=== PATIENT | female | born 1960 | race Caucasian/White ===

== ENCOUNTER → 2023-08-25 15:36 | Outpatient (REF) | payer OTHER, SELFPAY | LOC: PAVMRI 15:36 | PROVIDERS: ATTENDING PHYSICIAN Family Medicine | DX: M54.50 Low back pain, unspecified (principal); G89.29 Other chronic pain; M54.16 Radiculopathy, lumbar region | CPT/HCPCS: 72148 ==

== ENCOUNTER → 2023-11-10 09:28 | Outpatient (REF) | payer OTHER, SELFPAY | LOC: WDC 09:28 | PROVIDERS: ATTENDING PHYSICIAN Family Medicine; FAMILY PHYSICIAN Physician Assistant | DX: N63.10 Unspecified lump in the right breast, unspecified quadrant (principal); N63.11 Unspecified lump in the right breast, upper outer quadrant | CPT/HCPCS: 76642; 77062; 77066 ==

== ENCOUNTER → 2023-11-14 06:49 | Outpatient (REF) | payer OTHER, SELFPAY ==
--- NOTE | 2023-11-14 08:53 | OID.BR.INTR ---
[facility] Breast Navigator - Initial
- -
Date of Contact: 11/14/23
Met with patient. Patient given written information on navigator services and support services available at [facility]. Will follow up as needed per protocol.
== END ==
LOC: WDC 06:49
PROVIDERS: ATTENDING PHYSICIAN Family Medicine
DX: N63.11 Unspecified lump in the right breast, upper outer quadrant (principal)
CPT/HCPCS: 88305; 19083; 77065; 88341; 88342; 88360; A4648

== ENCOUNTER → 2023-11-30 07:43 | Outpatient (REF) | payer OTHER, SELFPAY | LOC: PET 07:43 | PROVIDERS: ATTENDING PHYSICIAN Surgery | DX: C50.919 Malignant neoplasm of unspecified site of unspecified female breast (principal); C44.521 Squamous cell carcinoma of skin of breast | CPT/HCPCS: 78815; A9552 ==

== ENCOUNTER → 2023-12-12 08:29 | Outpatient (REF) | payer OTHER, SELFPAY | LOC: WDC 08:29 | PROVIDERS: ATTENDING PHYSICIAN Surgery | DX: C50.411 Malignant neoplasm of upper-outer quadrant of right female breast (principal) | CPT/HCPCS: 38792; 76942; A9541 ==

== ENCOUNTER → 2023-12-13 14:15 | Outpatient (REF) | payer OTHER, SELFPAY | LOC: CLAB 14:15 | PROVIDERS: ATTENDING PHYSICIAN Surgery | DX: C50.919 Malignant neoplasm of unspecified site of unspecified female breast (principal) | CPT/HCPCS: 88305; 88307; 88332; 88331; 88342 ==

== ENCOUNTER → 2024-01-20 09:14 | Outpatient (REF) | payer OTHER, SELFPAY | LOC: RCS 09:14 | PROVIDERS: ATTENDING PHYSICIAN Internal Medicine Hematology & Oncology; FAMILY PHYSICIAN Family Medicine | DX: C50.411 Malignant neoplasm of upper-outer quadrant of right female breast (principal) | CPT/HCPCS: 93306; 93356 ==

== ENCOUNTER → 2024-01-24 08:07 | Outpatient (REF) | payer OTHER, SELFPAY ==
[2024-01-24 08:40] VITALS: BP 128/78; BP_SYST 80
[2024-01-24] MEDS: ANCEF 10 IV (08:59)
[2024-01-24 11:18] VITALS: BP 141/84; BP_SYST 96
== END ==
LOC: RADI 08:07
PROVIDERS: ATTENDING PHYSICIAN Internal Medicine Hematology & Oncology; FAMILY PHYSICIAN Family Medicine
DX: C50.411 Malignant neoplasm of upper-outer quadrant of right female breast (principal)
CPT/HCPCS: 36561; 76942; 77001; 99152; 99153; C1788

== ENCOUNTER 2024-02-07 07:50 | Outpatient (RCR) | payer OTHER, SELFPAY | END 2024-02-07 23:59 | disposition home or self-care (01) | LOC: RPT 07:50 | PROVIDERS: ATTENDING PHYSICIAN Surgery; FAMILY PHYSICIAN Family Medicine | DX: I89.9 Noninfective disorder of lymphatic vessels and lymph nodes, unspecified (principal); C50.411 Malignant neoplasm of upper-outer quadrant of right female breast; Z73.6 Limitation of activities due to disability | CPT/HCPCS: 97110; 97140; 97162; 97535 ==

== ENCOUNTER 2024-02-08 23:55 | Emergency (ER) | payer OTHER, SELFPAY ==
[2024-02-09 00:14] VITALS: BP 112/78
[2024-02-09 01:16] VITALS: BMI 22.7
--- NOTE | 2024-02-09 01:35 | ED.GENMED ---
History of Present Illness
General
Chief Complaint: Fainting Sensation
Source: patient
Exam Limitations: none
Time Seen by Provider: 02/09/24 01:24
History of Present Illness
History of Present Illness:
This is a 63-year-old female presents after she started feeling lightheaded, nauseous and dizzy. The patient had round 2 of chemo earlier in the day. She admits that on her last dosages of chemo she spent 3 to 4 days nauseous and vomiting and
unable to eat. She admits that she does still feel nauseous despite taking Compazine at home. No abdominal pain. No fevers. No chest pain. No shortness of breath. Patient also reports dry mouth
Past History
Past History
ED Past Medical History: Asthma, HTN and Other (sinusitis, migraine)
ED Past Surgical History: None
Patient has exhibited threatening behavior?: No
Social History
Tobacco: Non-smoker
Alcohol: None
Drug: None
Personal:
Living: with family
Employment: Employed
Phy Exam
Physical Exam
Physical Exam:
CONSTITUTIONAL Patient alert and oriented to person, place and time. Well-appearing. Vital signs reviewed.
HEAD atraumatic, normocephalic.
EYES eyelids normal to inspection, Pupils equally round and reactive to light, Extraocular muscles intact, Conjunctiva normal, Sclera normal.
NECK normal range of motion, Trachea midline, no jugular venous distention.
RESPIRATORY CHEST No respiratory distress noted, Chest expansion equal, Bilateral breath sounds clear. Left chest wall port
CARDIOVASCULAR regular rate and rhythm, Heart sounds normal.
ABDOMEN abdomen nontender, Bowel sounds normal. No distention.
BACK normal inspection, no obvious deformities
UPPER EXTREMITY range of motion normal, Motor strength normal, no cyanosis, no edema.
LOWER EXTREMITY range of motion normal, Motor strength normal, no cyanosis, no edema.
NEURO Speech normal, No focal motor deficits, Mariaa coma scale 15, Memory normal, Cranial Nerves intact to screening exam.
Course
Orders/Labs/Results
Orders:
Orders
02/09/24 01:18
Complete Blood Count/With Diff Urgent
Comprehensive Metabolic Panel Urgent
Troponin I Urgent
02/09/24 01:20
Urine Reflex Culture from UA [Urinalysis Reflex To Culture] Urgent
Date Specimen was Collected: 02/09/24
Time Specimen was Collected: 01:19
02/09/24 01:22
EKG [Electrocardiogram (*1)] Urgent
Reason for Study: Vertigo / Dizzy
02/09/24 01:23
EKG- Treatment ONCE
02/09/24 01:34
0.9% Sodium Chloride 1000 ml [Nss] 1,000 ml IV BOLUS
Ondansetron Injectable [Zofran] 4 mg IV NOW STA
02/09/24 01:46
0.9% Sodium Chloride 1000 ml [Nss] 1,000 ml IV BOLUS
Abnormal Lab Results
02/09/24
01:18
WBC 12.8 H 10^3/uL
(4.8-10.8)
RBC 3.24 L 10^6/uL
(4.20-5.40)
Hgb 10.6 L g/dL
(12.0-16.0)
Hct 29.8 L %
(37.0-47.0)
MCH 32.7 H pg
(27.0-31.0)
Plt Count 401 H 10^3/uL
(130-400)
Abs Immat Gran (auto) 0.4 H 10^3/uL
(0-0.05)
Absolute Neuts (auto) 11.2 H 10^3/uL
(1.4-6.5)
Absolute Lymphs (auto) 0.8 L 10^3/uL
(1.2-3.4)
Immature Gran % 2.9 H %
(0-0.5)
Neutrophils % 87.5 H %
(42.2-75.2)
Lymphocytes % 6.3 L %
(20.5-51.1)
Sodium 130 L mmol/L
(135-145)
Chloride 97 L mmol/L
(98-107)
Creatinine 0.4 L mg/dL
(0.6-1.0)
Glucose 131 H mg/dl
(70-99)
02/09/24 01:18
02/09/24 01:18
Vital Signs
Initial and Last Documented VS:
Initial Vital Signs
Temp Pulse Resp BP Pulse Ox
97.7 F 90 16 112/78 95
02/09/24 00:14 02/09/24 00:14 02/09/24 00:14 02/09/24 00:14 02/09/24 00:14
Last Documented Vital Signs
Temp Pulse Resp BP Pulse Ox
97.7 F 76 18 112/78 95
02/09/24 00:14 02/09/24 02:15 02/09/24 02:00 02/09/24 00:14 02/09/24 00:14
MDM/Problems Addressed
MDM/Problems Addressed:
Nausea, vomiting, chemo reaction, dehydration
*Pulse Oximetry
Patient hypoxic: no
*Telecommunications Repairer Interpretation
Rate: normal
Interpretation: normal
Rhythm: sinus
*Critical Care Note
Total Time (30-74mins, 75-104mins- exclusive of procedures): Not Applicable
Data Reviewed
Source: patient
Prescriptions/Medications Considered But Not Given:
Considered Zofran but QT is long. Hold off
ED Attending Note
-
Portions of this chart may have been created with voice recognition software.� Occasional wrong word or��sound alike� substitutions may have occurred due to the inherent limitations of voice recognition software.
Discharge Plan
Departure
Patient Disposition: Home (Routine Discharge)
Date of Disposition: 02/09/24
Time of Disposition: 02:36
Patient with high blood pressure during this ER visit?: No
Discharge Problem:
Acute dehydration
Instructions: Dehydration, Adult ED
Prescriptions:
No Action
sumatriptan succinate [Imitrex] 25 MG tablet
10 mg PO PRN PRN (Reason: migraine)
ondansetron 4 MG tablet,disintegrating
4 mg PO TIDPRN PRN (Reason: nausea) Qty: 10 0RF
multivitamin Tablet
1 tab PO DAILY
methocarbamol 500 mg Tablet
500 mg PO HS PRN (Reason: joint pain)
milk thistle 500 mg Capsule
1,000 mg PO DAILY
alprazolam 0.25 mg Tablet
0.25 mg PO HS PRN (Reason: anxiety)
ascorbic acid (vitamin C) [Vitamin C] 500 mg Tablet
500 mg PO DAILY
lisinopril 10 mg Tablet
10 mg PO DAILY
cholecalciferol (vitamin D3) [Vitamin D3] 125 mcg (5,000 unit) Tablet
125 mcg PO DAILY
Referrals:
Binu Ivey, [Family Provider] -
Activity Restrictions/Additional Instructions:
Chemotherapy reaction
Please drink plenty fluids and sip slowly throughout the day. Please see your doctor in follow-up as planned. Return immediately for intractable vomiting, fevers or any other concerns.
Interventions
Interventions:
*Risk Screen - Suicide Last Done: 02/09/24 01:16
*General Assessment Last Done: 02/09/24 01:16
*Neglect/Abuse Screening Last Done: 02/09/24 01:16
ED- Fall Risk Assessment Last Done: 02/09/24 01:55
*ED COVID-19 Vaccine History Last Done: 02/09/24 01:16
ED- Cardiac Assessment Last Done: 02/09/24 01:55
ED- Neurological Assessment Last Done: 02/09/24 01:55
Discharge Date and Time
Print Language: LUXEMBOURGISH
[2024-02-09 01:37] LABS: % Basophils 0.3 % (0-2); % Immature Granulocytes 2.9 % (0-0.5); % Lymphocytes 6.3 % (20.5-51.1); % Neutrophils 87.5 % (42.2-75.2); Absolute Immature Granulocytes 0.4 10^3/uL (0-0.05); Absolute Lymphocytes 0.8 10^3/uL (1.2-3.4); Absolute Monocytes 0.4 10^3/uL (0.1-0.6); Absolute Neutrophils 11.2 10^3/uL (1.4-6.5); Hematocrit 29.8 % (37.0-47.0); Hemoglobin 10.6 g/dL (12.0-16.0); Mean Corp Hgb Conc. 35.6 g/dL (33.0-37.0); Mean Corpuscular Hgb 32.7 pg (27.0-31.0); Mean Platelet Volume 8.3 fL (7.4-10.4); Nucleated Red Blood Cells % 0 %; Platelet Count 401 10^3/uL (130-400); Red Blood Cell Count 3.24 10^6/uL (4.20-5.40); Red Cell Dist. Width 11.7 % (11.5-14.5); White Blood Cell Count 12.8 10^3/uL (4.8-10.8)
[2024-02-09 01:42] LABS: Urine Albumin Negative (Neg - Trace); Urine Bilirubin Negative (Negative); Urine Character Clear (Clear); Urine Color Yellow; Urine Glucose Negative (Negative); Urine Ketone Negative (Negative); Urine Leukocyte Negative (Negative); Urine Nitrite Negative (Negative); Urine Occult Blood Negative (Negative); Urine Urobilinogen Negative (Neg - 1+)
[2024-02-09 01:43] LABS: ALT (SGPT) 17 U/L (0-35); AST (SGOT) 25 U/L (14-36); Albumin 4.1 g/dl (3.5-5.0); Alkaline Phosphatase 91 U/L (38-126); Blood Urea Nitrogen 15 mg/dl (7-17); Calcium 8.8 mg/dl (8.4-10.2); Carbon Dioxide 23 mmol/L (22-30); Chloride 97 mmol/L (98-107); Estimated Creatinine Clearance 104 ml/min; Glucose 131 mg/dl (70-99); Potassium 4.2 mmol/L (3.5-5.1); Sodium 130 mmol/L (135-145); Total Bilirubin 0.4 mg/dl (0.2-1.3); Total Protein 6.8 g/dl (6.3-8.2); eGFR > 60.00
[2024-02-09] MEDS: NSS 1000 IV ×2 (01:44→02:36)
[2024-02-09 02:09] LABS: Troponin I 0.016 ng/ml
[2024-02-09 02:41] VITALS: BP 123/69
[2024-02-09 03:57] VITALS: BP 119/72
== END 2024-02-09 04:48 | disposition home or self-care (01) ==
LOC: EMR 23:55
PROVIDERS: Emergency Medicine; EMERGENCY PHYSICIAN Emergency Medicine; FAMILY PHYSICIAN Family Medicine
DX: E86.0 Dehydration (principal); J45.909 Unspecified asthma, uncomplicated; I10 Essential (primary) hypertension
CPT/HCPCS: 99283; 96374; 96361; 80053; 81003; 84484; 85025; 93005

== ENCOUNTER 2024-02-11 20:02 | Emergency (ER) | payer OTHER, SELFPAY ==
[2024-02-11 20:02] VITALS: BMI 21.6
[2024-02-11 20:03] VITALS: BP 130/89
[2024-02-11 20:44] VITALS: BP 126/77
[2024-02-11 21:00] VITALS: BP 129/84
[2024-02-11] MEDS: NSS 1000 IV (21:16)
--- NOTE | 2024-02-11 21:16 | ED.GENMED ---
History of Present Illness
General
Chief Complaint: Abdominal Symptoms
Source: patient
Exam Limitations: none
Time Seen by Provider: 02/11/24 20:55
History of Present Illness
History of Present Illness:
63-year-old female currently receiving chemotherapy for breast cancer presents for recurrent nausea and fatigue. She was here 2 days ago for the same. She denies abdominal pain chest pain or shortness of breath. Earlier today she felt like she
was in a fog and had trouble focusing however she feels more clear at this time. She has been using Compazine and Zofran at home. She states she has experienced similar nausea in her past rounds of chemotherapy
Past History
Past History
ED Past Medical History: Asthma, HTN and Other (sinusitis, migraine)
ED Past Surgical History: None
Patient has exhibited threatening behavior?: No
Social History
Tobacco: Non-smoker
Alcohol: None
Drug: None
Personal:
Living: with family
Employment: Employed
Phy Exam
Physical Exam
Physical Exam:
General: Well-appearing female no acute respiratory distress
HEENT: Normocephalic atraumatic mucosa dry neck is supple
Heart: Regular rate and rhythm no murmurs
Lungs: Clear no wheeze
Neurologic exam: Alert and oriented no facial asymmetry
Abdomen is soft nontender nondistended no guarding or rebound
Extremities: No cyanosis.
Course
Orders/Labs/Results
Orders:
Orders
02/11/24 21:04
0.9% Sodium Chloride 1000 ml [Nss] 1,000 ml IV BOLUS
Ondansetron Injectable [Zofran] 4 mg IV NOW STA
02/11/24 21:15
Complete Blood Count/With Diff Urgent
Comprehensive Metabolic Panel Urgent
Lipase Urgent
Manual Differential Urgent
Abnormal Lab Results
02/11/24
21:15
WBC 48.7 H* 10^3/uL
(4.8-10.8)
RBC 3.19 L 10^6/uL
(4.20-5.40)
Hgb 10.5 L g/dL
(12.0-16.0)
Hct 29.9 L %
(37.0-47.0)
MCH 32.9 H pg
(27.0-31.0)
Abs Neuts (Manual) 48.2 H 10^3/uL
(1.4-6.5)
Segmented Neutrophils 99 H %
(42-75)
Lymphocytes (Manual) 1 L %
(20-51)
Creatinine 0.5 L mg/dL
(0.6-1.0)
Glucose 109 H mg/dl
(70-99)
02/11/24 21:15
02/11/24 21:15
Vital Signs
Initial and Last Documented VS:
Initial Vital Signs
Temp Pulse Resp BP Pulse Ox
98.1 F 114 20 130/89 95
02/11/24 20:03 02/11/24 20:03 02/11/24 20:03 02/11/24 20:03 02/11/24 20:03
Last Documented Vital Signs
Temp Pulse Resp BP Pulse Ox
98.1 F 114 18 129/84 96
02/11/24 20:03 02/11/24 20:03 02/11/24 22:00 02/11/24 21:00 02/11/24 21:17
MDM/Problems Addressed
Differential Diagnosis Includes:
Patient with nausea fatigue. Question dehydration versus electrolyte abnormality. Reviewed calling from patient's oncologist. Chemo nausea possibility however oncology is concerned about other processes going on. They inquired about potential
MRI of brain. Relayed this to the patient. She states she feels much clearer now. She was see fluids and time to control her nausea.
*Critical Care Note
Total Time (30-74mins, 75-104mins- exclusive of procedures): Not Applicable
Update Note
Update Note:
Patient reevaluated feeling much better after IV fluids. Again explained that her oncologist is recommending further imaging of her head. She needed an MRI she could stay in the hospital. I offered her CT of the head today however she declined.
She wishes to go home and does not want any further imaging at this time. Her color is better upon reassessment. Will discharge home
ED Attending Note
-
Portions of this chart may have been created with voice recognition software.� Occasional wrong word or��sound alike� substitutions may have occurred due to the inherent limitations of voice recognition software.
Discharge Plan
Departure
Patient Disposition: Home (Routine Discharge)
Date of Disposition: 02/11/24
Time of Disposition: 22:54
Patient with high blood pressure during this ER visit?: No
Discharge Problem:
Nausea
Instructions: Nausea and Vomiting, Adult (DC)
Prescriptions:
No Action
sumatriptan succinate [Imitrex] 25 MG tablet
10 mg PO PRN PRN (Reason: migraine)
ondansetron 4 MG tablet,disintegrating
4 mg PO TIDPRN PRN (Reason: nausea) Qty: 10 0RF
multivitamin Tablet
1 tab PO DAILY
methocarbamol 500 mg Tablet
500 mg PO HS PRN (Reason: joint pain)
milk thistle 500 mg Capsule
1,000 mg PO DAILY
alprazolam 0.25 mg Tablet
0.25 mg PO HS PRN (Reason: anxiety)
ascorbic acid (vitamin C) [Vitamin C] 500 mg Tablet
500 mg PO DAILY
lisinopril 10 mg Tablet
10 mg PO DAILY
cholecalciferol (vitamin D3) [Vitamin D3] 125 mcg (5,000 unit) Tablet
125 mcg PO DAILY
Referrals:
Binu Ivey, DO [Family Provider] -
Activity Restrictions/Additional Instructions:
Continue current nausea medication regimen. Please follow-up with your oncologist peer return here if worse
Interventions
Interventions:
*Risk Screen - Suicide Last Done: 02/11/24 20:03
*General Assessment Last Done: 02/11/24 21:30
*Neglect/Abuse Screening Last Done: 02/11/24 21:30
*ED COVID-19 Vaccine History Last Done: 02/11/24 21:30
YX-Qfrbpt-Zkgbuhqbju Assessment Last Done: 02/11/24 21:30
Discharge Date and Time
Print Language: KAZAKH
[2024-02-11] MEDS: ZOFRAN 4 MG IV (21:19)
[2024-02-11 21:27] LABS: Hematocrit 29.9 % (37.0-47.0); Hemoglobin 10.5 g/dL (12.0-16.0); Mean Corp Hgb Conc. 35.1 g/dL (33.0-37.0); Mean Corpuscular Hgb 32.9 pg (27.0-31.0); Mean Corpuscular Volume 93.7 fL (81.0-99.0); Platelet Count 355 10^3/uL (130-400); Red Blood Cell Count 3.19 10^6/uL (4.20-5.40); Red Cell Dist. Width 12.5 % (11.5-14.5); White Blood Cell Count 48.7 10^3/uL (4.8-10.8)
[2024-02-11 21:41] LABS: ALT (SGPT) 16 U/L (0-35); AST (SGOT) 27 U/L (14-36); Albumin 3.9 g/dl (3.5-5.0); Alkaline Phosphatase 114 U/L (38-126); Blood Urea Nitrogen 11 mg/dl (7-17); Calcium 9.1 mg/dl (8.4-10.2); Carbon Dioxide 28 mmol/L (22-30); Chloride 104 mmol/L (98-107); Estimated Creatinine Clearance 103 ml/min; Glucose 109 mg/dl (70-99); Lipase 46 U/L (23-300); Potassium 3.8 mmol/L (3.5-5.1); Sodium 139 mmol/L (135-145); Total Bilirubin 0.4 mg/dl (0.2-1.3); Total Protein 6.3 g/dl (6.3-8.2); eGFR > 60.00
[2024-02-11 21:51] LABS: Absolute Neutrophils -Man Diff 48.2 10^3/uL (1.4-6.5); Band Neutrophils 0 % (0-3); Segmented Neutrophils 99 % (42-75)
[2024-02-11 21:52] LABS: Lymphocytes 1 % (20-51); Normal RBC Morphology Yes; Platelets Checked Yes; Total Cells Counted 100
[2024-02-11 23:40] VITALS: BP 133/76
== END 2024-02-11 23:52 | disposition home or self-care (01) ==
LOC: EMR 20:02
PROVIDERS: Physician Assistant; EMERGENCY PHYSICIAN Student in an Organized Health Care Education/Training Program; FAMILY PHYSICIAN Family Medicine
DX: R11.0 Nausea (principal); R53.83 Other fatigue; C50.919 Malignant neoplasm of unspecified site of unspecified female breast; I10 Essential (primary) hypertension; J45.909 Unspecified asthma, uncomplicated; G43.909 Migraine, unspecified, not intractable, without status migrainosus
CPT/HCPCS: 99284; 96374; 96361; 80053; 83690; 85025

== ENCOUNTER 2024-02-29 06:37 | Outpatient (RCR) | payer OTHER, SELFPAY | END 2024-02-29 23:59 | disposition home or self-care (01) | LOC: RPT 06:37 | PROVIDERS: ATTENDING PHYSICIAN Surgery; FAMILY PHYSICIAN Family Medicine | DX: I97.2 Postmastectomy lymphedema syndrome (principal); C50.411 Malignant neoplasm of upper-outer quadrant of right female breast; Z73.6 Limitation of activities due to disability | CPT/HCPCS: 97110; 97140 ==

== ENCOUNTER 2024-04-10 06:01 | Outpatient (RCR) | payer OTHER, SELFPAY | END 2024-04-10 23:59 | disposition home or self-care (01) | LOC: RPT 06:01 | PROVIDERS: ATTENDING PHYSICIAN Surgery; FAMILY PHYSICIAN Family Medicine | DX: I97.2 Postmastectomy lymphedema syndrome (principal); C50.411 Malignant neoplasm of upper-outer quadrant of right female breast; Z73.6 Limitation of activities due to disability; M79.621 Pain in right upper arm | CPT/HCPCS: 97110; 97112; 97140; 97535 ==

== ENCOUNTER 2024-05-01 06:29 | Outpatient (RCR) | payer OTHER, SELFPAY | END 2024-05-01 23:59 | disposition home or self-care (01) | LOC: RPT 06:29 | PROVIDERS: ATTENDING PHYSICIAN Surgery; FAMILY PHYSICIAN Family Medicine | DX: I97.2 Postmastectomy lymphedema syndrome (principal); C50.411 Malignant neoplasm of upper-outer quadrant of right female breast; Z73.6 Limitation of activities due to disability | CPT/HCPCS: 97110; 97112; 97140 ==

== ENCOUNTER → 2024-05-07 08:10 | Outpatient (REF) | payer OTHER, SELFPAY | LOC: RCS 08:10 | PROVIDERS: ATTENDING PHYSICIAN Internal Medicine Cardiovascular Disease; FAMILY PHYSICIAN Family Medicine | DX: Z85.3 Personal history of malignant neoplasm of breast (principal); T45.1X5D Adverse effect of antineoplastic and immunosuppressive drugs, subsequent encounter | CPT/HCPCS: 93306; 93356 ==

== ENCOUNTER 2024-05-15 13:41 | Outpatient (RCR) | payer OTHER, SELFPAY | END 2024-05-15 23:59 | disposition home or self-care (01) | LOC: RPT 13:41 | PROVIDERS: ATTENDING PHYSICIAN Surgery; FAMILY PHYSICIAN Family Medicine | DX: I97.2 Postmastectomy lymphedema syndrome (principal); C50.411 Malignant neoplasm of upper-outer quadrant of right female breast; Z73.6 Limitation of activities due to disability | CPT/HCPCS: 97110; 97112; 97140; 97535 ==

== ENCOUNTER 2024-07-10 06:38 | Outpatient (RCR) | payer OTHER, SELFPAY | END 2024-07-10 23:59 | disposition home or self-care (01) | LOC: RPT 06:38 | PROVIDERS: ATTENDING PHYSICIAN Surgery; FAMILY PHYSICIAN Family Medicine | DX: I97.2 Postmastectomy lymphedema syndrome (principal); C50.411 Malignant neoplasm of upper-outer quadrant of right female breast; Z73.6 Limitation of activities due to disability | CPT/HCPCS: 97110; 97112; 97140; 97535 ==

== ENCOUNTER 2024-07-31 06:24 | Outpatient (RCR) | payer OTHER, SELFPAY | END 2024-07-31 23:59 | disposition home or self-care (01) | LOC: RPT 06:24 | PROVIDERS: ATTENDING PHYSICIAN Surgery; FAMILY PHYSICIAN Family Medicine | DX: I97.2 Postmastectomy lymphedema syndrome (principal); C50.411 Malignant neoplasm of upper-outer quadrant of right female breast; Z73.6 Limitation of activities due to disability | CPT/HCPCS: 97110; 97112; 97140 ==

== ENCOUNTER 2024-08-31 13:48 | Outpatient (RCR) | payer OTHER, SELFPAY | END 2024-09-03 05:40 | disposition home or self-care (01) | LOC: RPT 13:48 | PROVIDERS: ATTENDING PHYSICIAN Surgery; FAMILY PHYSICIAN Family Medicine | DX: I97.2 Postmastectomy lymphedema syndrome (principal); C50.411 Malignant neoplasm of upper-outer quadrant of right female breast; Z73.6 Limitation of activities due to disability | CPT/HCPCS: 97110; 97140 ==

== ENCOUNTER → 2024-10-25 12:26 | Outpatient (REF) | payer OTHER, SELFPAY ==
[2024-10-25 13:21] LABS: % Basophils 0.3 % (0-2); % Lymphocytes 34.9 % (20.5-51.1); % Monocytes 11.1 % (1.7-9.3); % Neutrophils 47.7 % (42.2-75.2); Absolute Eosinophils 0.2 10^3/uL (0-0.7); Absolute Lymphocytes 1.2 10^3/uL (1.2-3.4); Absolute Monocytes 0.4 10^3/uL (0.1-0.6); Absolute Neutrophils 1.6 10^3/uL (1.4-6.5); Hematocrit 34.1 % (37.0-47.0); Hemoglobin 11.7 g/dL (12.0-16.0); Mean Corp Hgb Conc. 34.3 g/dL (33.0-37.0); Mean Corpuscular Hgb 36.1 pg (27.0-31.0); Mean Corpuscular Volume 105.2 fL (81.0-99.0); Nucleated Red Blood Cells % 0 %; Red Blood Cell Count 3.24 10^6/uL (4.20-5.40); White Blood Cell Count 3.3 10^3/uL (4.8-10.8)
[2024-10-25 13:47] LABS: Mean Platelet Volume 8.2 fL (7.4-10.4); Platelet Count 17 10^3/uL (130-400)
== END ==
LOC: REG 12:26
PROVIDERS: ATTENDING PHYSICIAN Internal Medicine Hematology & Oncology; FAMILY PHYSICIAN Family Medicine
DX: C50.411 Malignant neoplasm of upper-outer quadrant of right female breast (principal); R11.2 Nausea with vomiting, unspecified; G89.3 Neoplasm related pain (acute) (chronic); L02.223 Furuncle of chest wall
CPT/HCPCS: 36415; 85025

== ENCOUNTER 2024-10-27 15:47 | Emergency (ER) | payer OTHER, SELFPAY ==
[2024-10-27] VITALS (8 sets, daily range): BP systolic 117–141; BP diastolic 70–92; BMI 20.6
[2024-10-27 16:22] LABS: % Immature Granulocytes 0.4 % (0-0.5); % Lymphocytes 9.7 % (20.5-51.1); % Neutrophils 86.9 % (42.2-75.2); Absolute Lymphocytes 0.8 10^3/uL (1.2-3.4); Absolute Monocytes 0.3 10^3/uL (0.1-0.6); Absolute Neutrophils 7.2 10^3/uL (1.4-6.5); Hematocrit 32.5 % (37.0-47.0); Hemoglobin 11.3 g/dL (12.0-16.0); Mean Corp Hgb Conc. 34.8 g/dL (33.0-37.0); Mean Corpuscular Hgb 35.6 pg (27.0-31.0); Mean Corpuscular Volume 102.5 fL (81.0-99.0); Mean Platelet Volume 11.7 fL (7.4-10.4); Nucleated Red Blood Cells % 0 %; Platelet Count 17 10^3/uL (130-400); Red Blood Cell Count 3.17 10^6/uL (4.20-5.40); Red Cell Dist. Width 14.5 % (11.5-14.5); White Blood Cell Count 8.3 10^3/uL (4.8-10.8)
[2024-10-27 16:31] LABS: ALT (SGPT) 22 U/L (0-35); AST (SGOT) 23 U/L (14-36); Albumin 4.8 g/dl (3.5-5.0); Alkaline Phosphatase 93 U/L (38-126); Blood Urea Nitrogen 26 mg/dl (7-17); Calcium 9.4 mg/dl (8.4-10.2); Carbon Dioxide 25 mmol/L (22-30); Chloride 106 mmol/L (98-107); Glucose 140 mg/dl (70-99); Sodium 138 mmol/L (135-145); Total Bilirubin 0.6 mg/dl (0.2-1.3); Total Protein 8.3 g/dl (6.3-8.2); eGFR > 60.00
--- NOTE | 2024-10-27 19:16 | EDRN ---
Pt with triple negative breast cancer, finished chemo in april and radiation in june. Pt had routine labs drawn last week and told she had platlets of 22, thought to be an error and had blood redrawn. Placed on decadron taper and platlets
found to be 17. Pt with a few spots of ecchymosis to b/l lower extremities.
--- NOTE | 2024-10-27 20:19 | ED.GENMED ---
History of Present Illness
General
Chief Complaint: Abnormal Lab Value
Time Seen by Provider: 10/27/24 19:25
History of Present Illness
History of Present Illness:
64-year-old female with history of breast cancer status post chemo and radiation presenting to the emergency department for incidental finding of low platelets. Patient reports that her platelets have been steadily downtrending since January, at
which time they were 322. She notes back in June they were 134. She followed up with her oncologist 2 days ago, had a blood test that showed a platelet count of 17. She called office today and did note some bruising to her lower extremities
and was advised to come to the hospital. Denies any bleeding to her gums. Denies any blood in her stool. Denies chest breathing, weakness, lightheadedness. Denies fever or recent illness. Denies any new changes in medications. Denies
additional acute medical complaints.
Past History
Past History
ED Past Medical History: Asthma, HTN and Other (sinusitis, migraine)
ED Past Surgical History: None
Patient has exhibited threatening behavior?: No
Social History
Tobacco: Non-smoker
Alcohol: None
Drug: None
Personal:
Living: with family
Employment: Employed
Phy Exam
Physical Exam
Physical Exam:
General: Well-appearing, no clinical signs of dehydration, nontoxic and in no acute distress
HEENT: protecting airway
Neck: appears supple
CV: Normal heart rate, regular rhythm
Resp: No accessory muscle use, no increased work of breathing, lungs clear to auscultation bilaterally
Abd: Soft and non-distended, no tenderness to palpation
Extremities: No deformities, no swelling
Neuro: alert, no focal neurologic deficit
: deferred
Rectal: deferred
Psych: Normal affect
Skin: Scattered petechiae to lower extremities with mild scattered bruising
Course
Orders/Labs/Results
Orders:
Orders
10/27/24 16:02
Type And Crossmatch [Type+Screen] Urgent
Complete Blood Count/With Diff Urgent
10/27/24 16:03
Comprehensive Metabolic Panel Urgent
10/27/24 19:22
ABO2 Urgent
BBK Wristband Number:
Associate notified that ABO2 has been ordered: [id number]
Date: 10/27/24
Time: 16:26
Cavalry Scout ID: [id number]
10/27/24 20:08
* Blood Bank Products Urgent
Blood Bank Products: *Plt Single Donor Leuko
Quantity: 1
Transfuse Today: Yes
Reason: Thrombocytopenia
Abnormal Lab Results
10/27/24 10/27/24
16:02 16:03
RBC 3.17 L 10^6/uL
(4.20-5.40)
Hgb 11.3 L g/dL
(12.0-16.0)
Hct 32.5 L %
(37.0-47.0)
MCV 102.5 H fL
(81.0-99.0)
MCH 35.6 H pg
(27.0-31.0)
Plt Count 17 L* 10^3/uL
(130-400)
MPV 11.7 H fL
(7.4-10.4)
Absolute Neuts (auto) 7.2 H 10^3/uL
(1.4-6.5)
Absolute Lymphs (auto) 0.8 L 10^3/uL
(1.2-3.4)
Neutrophils % 86.9 H %
(42.2-75.2)
Lymphocytes % 9.7 L %
(20.5-51.1)
BUN 26 H mg/dl
(7-17)
Glucose 140 H mg/dl
(70-99)
Total Protein 8.3 H g/dl
(6.3-8.2)
10/27/24 16:02
10/27/24 16:03
Vital Signs
Initial and Last Documented VS:
Initial Vital Signs
Temp Pulse Resp BP Pulse Ox
98.1 F 120 20 141/92 98
10/27/24 15:52 10/27/24 15:52 10/27/24 15:52 10/27/24 15:52 10/27/24 15:52
Last Documented Vital Signs
Temp Pulse Resp BP Pulse Ox
98.1 F 76 17 126/81 97
10/27/24 15:52 10/27/24 20:00 10/27/24 20:00 10/27/24 20:00 10/27/24 20:00
MDM/Problems Addressed
MDM/Problems Addressed:
64-year-old female with history of breast cancer status post chemo and radiation presenting for low platelet count. Vital signs on arrival are normal
On exam patient resting comfortably, no acute distress or discomfort. She is currently asymptomatic with the exception of some mild scattered bruising to her lower extremities as well as scattered petechiae. Otherwise denies any active bleeding.
Platelet count was rechecked, is low at 17. However hemoglobin is at her baseline, 11.3. Will discuss with oncology regarding further management. Patient is actively on dexamethasone.
20:20 - Given hemodynamic stability and minimal symptoms, oncology recommended 1 unit of platelets in the ER and then discharged home with outpatient follow-up with her this Tuesday in office. Patient is agreeable to this plan, consented. Plan for
discharge once platelets have appropriately infused
*Critical Care Note
Total Time (30-74mins, 75-104mins- exclusive of procedures): Not Applicable
ED Attending Note
-
Portions of this chart may have been created with voice recognition software.� Occasional wrong word or��sound alike� substitutions may have occurred due to the inherent limitations of voice recognition software.
Discharge Plan
Departure
Prescriptions:
No Action
sumatriptan succinate [Imitrex] 25 MG tablet
10 mg PO PRN PRN (Reason: migraine)
multivitamin Tablet
1 tab PO DAILY
alprazolam 0.25 mg Tablet
0.25 mg PO HS PRN (Reason: anxiety)
ascorbic acid (vitamin C) [Vitamin C] 500 mg Tablet
500 mg PO DAILY
lisinopril 10 mg Tablet
5 mg PO DAILY
cholecalciferol (vitamin D3) [Vitamin D3] 125 mcg (5,000 unit) Tablet
125 mcg PO DAILY
omeprazole magnesium [Prilosec OTC] 20 mg Tablet,Delayed Release (Dr/Ec)
20 mg PO DAILY
dexamethasone 4 mg Tablet
40 mg PO DAILY
Rx Instructions:
10/25-10/28
Interventions
Interventions:
*Risk Screen - Suicide Last Done: 10/27/24 19:09
*General Assessment Last Done: 10/27/24 15:52
*Neglect/Abuse Screening Last Done: 10/27/24 15:52
*ED- Fall Risk Assessment Last Done: 10/27/24 19:09
*ED COVID-19 Vaccine History Last Done: 10/27/24 19:09
Discharge Date and Time
Print Language: ARMENIAN
[2024-10-27] MEDS: SOLU-MEDROL PF 125 MG IV (23:55)
[2024-10-27] MEDS: BENADRYL 25 MG IV (23:56)
[2024-10-27] MEDS: PEPCID 20 MG IV (23:59)
[2024-10-28] VITALS: BP 144/85
[2024-10-28 01:09] VITALS: BP 132/82
[2024-10-28 02:00] VITALS: BP 130/76
== END 2024-10-28 02:08 | disposition home or self-care (01) ==
LOC: EMR 15:47
PROVIDERS: EMERGENCY PHYSICIAN Student in an Organized Health Care Education/Training Program; FAMILY PHYSICIAN Family Medicine
DX: R23.3 Spontaneous ecchymoses (principal); D69.6 Thrombocytopenia, unspecified; L50.9 Urticaria, unspecified; L29.9 Pruritus, unspecified; I10 Essential (primary) hypertension; J45.909 Unspecified asthma, uncomplicated; G43.909 Migraine, unspecified, not intractable, without status migrainosus; Z85.3 Personal history of malignant neoplasm of breast; Z92.3 Personal history of irradiation; Z92.21 Personal history of antineoplastic chemotherapy
CPT/HCPCS: 99285; 36430; 96374; 96375 ×2; 80053; 85025; 86850; 86900; 86901; P9073

== ENCOUNTER → 2024-11-09 15:11 | Outpatient (REF) | payer OTHER, SELFPAY ==
[2024-11-09 09:53] LABS: % Eosinophils 2.1 % (0-6); % Immature Granulocytes 0.3 % (0-0.5); % Lymphocytes 26.5 % (20.5-51.1); % Monocytes 7.4 % (1.7-9.3); % Neutrophils 63.7 % (42.2-75.2); Absolute Eosinophils 0.1 10^3/uL (0-0.7); Absolute Lymphocytes 0.9 10^3/uL (1.2-3.4); Absolute Monocytes 0.3 10^3/uL (0.1-0.6); Absolute Neutrophils 2.1 10^3/uL (1.4-6.5); Hematocrit 30.1 % (37.0-47.0); Hemoglobin 10.5 g/dL (12.0-16.0); Mean Corp Hgb Conc. 34.9 g/dL (33.0-37.0); Mean Corpuscular Hgb 37.4 pg (27.0-31.0); Mean Corpuscular Volume 107.1 fL (81.0-99.0); Mean Platelet Volume 10.8 fL (7.4-10.4); Red Blood Cell Count 2.81 10^6/uL (4.20-5.40); Red Cell Dist. Width 14.4 % (11.5-14.5); White Blood Cell Count 3.4 10^3/uL (4.8-10.8)
[2024-11-09 09:55] LABS: Platelet Count 14 10^3/uL (130-400)
== END ==
LOC: OIDL 15:11
PROVIDERS: ATTENDING PHYSICIAN Nurse Practitioner Primary Care
DX: C50.411 Malignant neoplasm of upper-outer quadrant of right female breast (principal); R11.2 Nausea with vomiting, unspecified; G89.3 Neoplasm related pain (acute) (chronic); L02.223 Furuncle of chest wall; D69.3 Immune thrombocytopenic purpura
CPT/HCPCS: 85025

== ENCOUNTER → 2024-11-13 16:00 | Outpatient (REF) | payer OTHER, SELFPAY ==
[2024-11-13 15:56] LABS: Hematocrit 30.1 % (37.0-47.0); Hemoglobin 10.4 g/dL (12.0-16.0); Red Blood Cell Count 2.82 10^6/uL (4.20-5.40)
[2024-11-13 15:57] LABS: % Eosinophils 1.9 % (0-6); % Lymphocytes 17.8 % (20.5-51.1); % Neutrophils 73.3 % (42.2-75.2); Absolute Lymphocytes 0.3 10^3/uL (1.2-3.4); Absolute Monocytes 0.1 10^3/uL (0.1-0.6); Absolute Neutrophils 1.2 10^3/uL (1.4-6.5); Mean Corp Hgb Conc. 34.6 g/dL (33.0-37.0); Mean Corpuscular Hgb 36.9 pg (27.0-31.0); Mean Corpuscular Volume 106.7 fL (81.0-99.0); Mean Platelet Volume 8.7 fL (7.4-10.4); Red Cell Dist. Width 14.4 % (11.5-14.5)
[2024-11-13 15:58] LABS: Platelet Count 6 10^3/uL (130-400); White Blood Cell Count 1.6 10^3/uL (4.8-10.8)
== END ==
LOC: OIDL 16:00
PROVIDERS: ATTENDING PHYSICIAN Registered Nurse
DX: C50.411 Malignant neoplasm of upper-outer quadrant of right female breast (principal); R11.2 Nausea with vomiting, unspecified; G89.3 Neoplasm related pain (acute) (chronic); L02.223 Furuncle of chest wall; D69.3 Immune thrombocytopenic purpura
CPT/HCPCS: 85025

== ENCOUNTER 2024-11-13 17:33 | Emergency (ER) | payer OTHER, SELFPAY ==
[2024-11-13 17:36] VITALS: BP 143/89
[2024-11-13 19:57] VITALS: BP 140/84
[2024-11-13 20:56] VITALS: BMI 20.7
[2024-11-13 21:00] VITALS: BP 148/89
[2024-11-13 22:00] VITALS: BP 138/95
[2024-11-13 22:04] LABS: PT 13.5 Sec (11.4-14.6)
[2024-11-13 22:05] LABS: APTT 58.6 Sec (23.4-35.0)
[2024-11-13 22:22] LABS: % Eosinophils 0.8 % (0-6); % Immature Granulocytes 0.8 % (0-0.5); % Lymphocytes 30.8 % (20.5-51.1); % Neutrophils 57.6 % (42.2-75.2); Absolute Lymphocytes 0.4 10^3/uL (1.2-3.4); Absolute Monocytes 0.1 10^3/uL (0.1-0.6); Absolute Neutrophils 0.8 10^3/uL (1.4-6.5); Hematocrit 27.9 % (37.0-47.0); Hemoglobin 9.7 g/dL (12.0-16.0); Mean Corp Hgb Conc. 34.8 g/dL (33.0-37.0); Mean Corpuscular Hgb 36.6 pg (27.0-31.0); Mean Corpuscular Volume 105.3 fL (81.0-99.0); Mean Platelet Volume 10.5 fL (7.4-10.4); Nucleated Red Blood Cells % 0 %; Platelet Count 6 10^3/uL (130-400); Red Blood Cell Count 2.65 10^6/uL (4.20-5.40); Red Cell Dist. Width 14.6 % (11.5-14.5); White Blood Cell Count 1.3 10^3/uL (4.8-10.8)
[2024-11-13 22:33] LABS: Blood Urea Nitrogen 19 mg/dl (7-17); Carbon Dioxide 25 mmol/L (22-30); Estimated Creatinine Clearance 98 ml/min; Glucose 106 mg/dl (70-99); Total Bilirubin 0.6 mg/dl (0.2-1.3); eGFR > 60.00
[2024-11-13 22:34] LABS: ALT (SGPT) 19 U/L (0-35); AST (SGOT) 20 U/L (14-36); Alkaline Phosphatase 75 U/L (38-126); Calcium 8.8 mg/dl (8.4-10.2); Chloride 108 mmol/L (98-107); Potassium 3.6 mmol/L (3.5-5.1); Sodium 139 mmol/L (135-145)
--- NOTE | 2024-11-13 22:42 | ED.GENMED ---
History of Present Illness
General
Chief Complaint: Abdominal Pain
Time Seen by Provider: 11/13/24 21:09
History of Present Illness
History of Present Illness:
64-year-old female with history of breast cancer status post chemo and radiation presenting to the emergency department for for abdominal pain. Patient is currently being followed by hematology for low platelets. She is on IVIG. She had her third
infusion today. After getting the infusion, notes she started to have some upper abdominal, was not sure if it was from the infusion or from something she ate. Notes she had diarrhea few days ago, nothing today. Denies any vomiting. She is on
daily prednisone given her low platelets. She notes that there has not been any interval improvement of the platelet count, however denies any significant bleeding. She has had some scattered bruising to her extremities. Platelet count today was
6. She is not currently on any chemotherapy. She called her doctor about the abdominal pain, was ended to the emergency department for abdominal imaging. Denies additional acute medical complaints.
Past History
Past History
ED Past Medical History: Asthma, HTN and Other (sinusitis, migraine)
ED Past Surgical History: None
Patient has exhibited threatening behavior?: No
Social History
Tobacco: Non-smoker
Alcohol: None
Drug: None
Personal:
Living: with family
Employment: Employed
Phy Exam
Physical Exam
Physical Exam:
General: Well-appearing, no clinical signs of dehydration, nontoxic and in no acute distress
HEENT: protecting airway
Neck: appears supple
CV: Normal heart rate, regular rhythm
Resp: No accessory muscle use, no increased work of breathing, lungs clear to auscultation bilaterally
Abd: Soft and non-distended, no tenderness to palpation
Extremities: No deformities, no swelling, no erythema, scattered superficial bruising to upper and lower extremities
Neuro: alert, no focal neurologic deficit
: deferred
Rectal: deferred
Psych: Normal affect
Skin: Intact
Course
Orders/Labs/Results
Orders:
Orders
11/13/24 21:39
Complete Blood Count/With Diff Urgent
Comprehensive Metabolic Panel Urgent
PT/INR [Prothrombin Time] Urgent
Is patient on Coumadin/Warfarin?: No
Comment: [email or web address]
PTT Urgent
11/13/24 21:56
CT Abd/pelvis W Iv Cont Urgent
Comment:
Reason For Exam: abd pain, low platelets
Abnormal Lab Results
11/13/24
21:39
WBC 1.3 L* 10^3/uL
(4.8-10.8)
RBC 2.65 L 10^6/uL
(4.20-5.40)
Hgb 9.7 L g/dL
(12.0-16.0)
Hct 27.9 L %
(37.0-47.0)
MCV 105.3 H fL
(81.0-99.0)
MCH 36.6 H pg
(27.0-31.0)
RDW 14.6 H %
(11.5-14.5)
Plt Count 6 L* 10^3/uL
(130-400)
MPV 10.5 H fL
(7.4-10.4)
Absolute Neuts (auto) 0.8 L* 10^3/uL
(1.4-6.5)
Absolute Lymphs (auto) 0.4 L 10^3/uL
(1.2-3.4)
Immature Gran % 0.8 H %
(0-0.5)
Monocytes % 10.0 H %
(1.7-9.3)
APTT 58.6 H Sec
(23.4-35.0)
Chloride 108 H mmol/L
(98-107)
BUN 19 H mg/dl
(7-17)
Creatinine 0.5 L mg/dL
(0.6-1.0)
Glucose 106 H mg/dl
(70-99)
Total Protein 9.0 H g/dl
(6.3-8.2)
11/13/24 21:39
11/13/24 21:39
Vital Signs
Initial and Last Documented VS:
Initial Vital Signs
Temp Pulse Resp BP Pulse Ox
98 F 99 16 143/89 96
11/13/24 17:36 11/13/24 17:36 11/13/24 17:36 11/13/24 17:36 11/13/24 17:36
Last Documented Vital Signs
Temp Pulse Resp BP Pulse Ox
98 F 86 20 148/89 98
11/13/24 17:36 11/13/24 21:30 11/13/24 21:30 11/13/24 21:00 11/13/24 21:15
MDM/Problems Addressed
MDM/Problems Addressed:
64-year-old female with history of breast cancer status post chemo and radiation presenting for abdominal pain. Vital signs are normal.
On exam patient is resting comfortably, nontoxic. Overall low suspicion for any severe intra-abdominal process given benign examination, however patient is known to have a platelet count of 6, currently being followed closely by hematology with
IVIG infusions and daily prednisone. No concern for any significant bleeding at this time, again no hemodynamic instability. However in the setting of abdominal pain with low platelets, patient was sent in for CT imaging of her abdomen which I
feel is reasonable. Will obtain. Will continue to closely monitor.
*Critical Care Note
Total Time (30-74mins, 75-104mins- exclusive of procedures): Not Applicable
ED Attending Note
-
Portions of this chart may have been created with voice recognition software.� Occasional wrong word or��sound alike� substitutions may have occurred due to the inherent limitations of voice recognition software.
Discharge Plan
Departure
Prescriptions:
No Action
sumatriptan succinate [Imitrex] 25 MG tablet
10 mg PO PRN PRN (Reason: migraine)
multivitamin Tablet
1 tab PO DAILY
alprazolam 0.25 mg Tablet
0.25 mg PO HS PRN (Reason: anxiety)
ascorbic acid (vitamin C) [Vitamin C] 500 mg Tablet
500 mg PO DAILY
lisinopril 10 mg Tablet
5 mg PO DAILY
cholecalciferol (vitamin D3) [Vitamin D3] 125 mcg (5,000 unit) Tablet
125 mcg PO DAILY
omeprazole magnesium [Prilosec OTC] 20 mg Tablet,Delayed Release (Dr/Ec)
20 mg PO DAILY
dexamethasone 4 mg Tablet
40 mg PO DAILY
Rx Instructions:
10/25-10/28
Referrals:
Binu Ivey DO [Family Provider, Family Practice]
Interventions
Interventions:
*Risk Screen - Suicide Last Done: 11/13/24 17:38
*General Assessment Last Done: 11/13/24 20:56
*Neglect/Abuse Screening Last Done: 11/13/24 17:38
*ED- Fall Risk Assessment Last Done: 11/13/24 20:56
*ED COVID-19 Vaccine History Last Done: 11/13/24 21:30
LO-Mrqrad-Klzkpnjrzx Assessment Last Done: 11/13/24 21:30
Discharge Date and Time
Print Language: HEBREW
[2024-11-13 23:00] VITALS: BP 129/94
[2024-11-14 01:33] VITALS: BP 124/84
== END 2024-11-14 01:41 | disposition home or self-care (01) ==
LOC: EMR 17:33
PROVIDERS: Emergency Medicine; EMERGENCY PHYSICIAN Student in an Organized Health Care Education/Training Program; FAMILY PHYSICIAN Family Medicine
DX: R10.10 Upper abdominal pain, unspecified (principal); D69.6 Thrombocytopenia, unspecified; R58 Hemorrhage, not elsewhere classified; I10 Essential (primary) hypertension; J45.909 Unspecified asthma, uncomplicated; G43.909 Migraine, unspecified, not intractable, without status migrainosus; Z85.3 Personal history of malignant neoplasm of breast; Z92.3 Personal history of irradiation; Z92.21 Personal history of antineoplastic chemotherapy
CPT/HCPCS: 99284; 74177; 80053; 85025; 85610; 85730; Q9967

== ENCOUNTER → 2024-11-26 08:54 | Outpatient (REF) | payer OTHER, SELFPAY ==
[2024-11-26 09:17] VITALS: BP 124/70; BP_SYST 112
[2024-11-26 09:25] LABS: Hematocrit 28.4 % (37.0-47.0); Hemoglobin 9.6 g/dL (12.0-16.0); Mean Corp Hgb Conc. 33.8 g/dL (33.0-37.0); Mean Corpuscular Hgb 36.2 pg (27.0-31.0); Mean Corpuscular Volume 107.2 fL (81.0-99.0); Platelet Count 7 10^3/uL (130-400); Red Blood Cell Count 2.65 10^6/uL (4.20-5.40); Red Cell Dist. Width 14.1 % (11.5-14.5); White Blood Cell Count 1.5 10^3/uL (4.8-10.8)
--- NOTE | 2024-11-26 10:00 | PTCARENOTE ---
TREVOR RN- patient's platelets 7000. called [facility] and spoke to Fercho BOLAÑOS. their office will set up platelet infusion tomorrow.
[2024-11-26] MEDS: NSS (PRESERVATIVE FREE) 0.25 ML IV (10:14)
[2024-11-26] MEDS: ATIVAN 0.5 MG IV (10:15)
[2024-11-26 11:02] LABS: % Eosinophils 0.7 % (0-6); % Lymphocytes 45.6 % (20.5-51.1); % Monocytes 10.2 % (1.7-9.3); % Neutrophils 43.5 % (42.2-75.2); Absolute Lymphocytes 0.7 10^3/uL (1.2-3.4); Absolute Monocytes 0.2 10^3/uL (0.1-0.6); Absolute Neutrophils 0.6 10^3/uL (1.4-6.5); Nucleated Red Blood Cells % 0 %
[2024-11-26 11:20] VITALS: BP 127/70
[2024-11-26 11:23] VITALS: BP 135/76; BP_SYST 91
[2024-11-26 11:35] VITALS: BP 122/70
== END ==
LOC: RADI 08:54
PROVIDERS: ATTENDING PHYSICIAN Internal Medicine Hematology & Oncology; FAMILY PHYSICIAN Family Medicine
DX: D61.818 Other pancytopenia (principal)
CPT/HCPCS: 88305; 88311; 88312; 36415; 38222; 77012; 85025; 88313

== ENCOUNTER 2024-12-10 10:12 | Outpatient (RCR) | payer OTHER, SELFPAY ==
[2024-11-15 09:05] VITALS: BP 132/75
[2024-11-15] MEDS: BENADRYL 25 MG IV (09:24)
[2024-11-15] MEDS: TYLENOL 650 MG PO (09:24)
[2024-11-15 09:32] VITALS: BP 132/75
[2024-11-15 09:49] VITALS: BP 121/65
[2024-11-15 10:46] VITALS: BP 120/79
[2024-11-22 08:50] VITALS: BP 107/72
[2024-11-22] MEDS: TYLENOL 650 MG PO (09:10)
[2024-11-22] MEDS: BENADRYL 25 MG IV (09:11)
[2024-11-22 09:33] VITALS: BP 107/72
[2024-11-22 09:50] VITALS: BP 119/73
[2024-11-22 10:43] VITALS: BP 113/63
[2024-11-22 11:14] LABS: % Eosinophils 1.5 % (0-6); % Lymphocytes 40.6 % (20.5-51.1); % Monocytes 10.5 % (1.7-9.3); % Neutrophils 47.4 % (42.2-75.2); Absolute Lymphocytes 0.5 10^3/uL (1.2-3.4); Absolute Monocytes 0.1 10^3/uL (0.1-0.6); Hematocrit 26.1 % (37.0-47.0); Hemoglobin 8.8 g/dL (12.0-16.0); Mean Corp Hgb Conc. 33.7 g/dL (33.0-37.0); Mean Corpuscular Hgb 36.1 pg (27.0-31.0); Mean Platelet Volume 8.9 fL (7.4-10.4); Red Blood Cell Count 2.44 10^6/uL (4.20-5.40); Red Cell Dist. Width 14.1 % (11.5-14.5)
[2024-11-22 11:18] LABS: Platelet Count 17 10^3/uL (130-400); White Blood Cell Count 1.3 10^3/uL (4.8-10.8)
[2024-11-22 11:19] LABS: Absolute Neutrophils 0.6 10^3/uL (1.4-6.5)
[2024-11-28] MEDS: TYLENOL 650 MG PO (10:43)
[2024-11-28] MEDS: BENADRYL 25 MG IV (10:51)
[2024-11-28 11:11] VITALS: BP 114/70
[2024-11-28 11:29] VITALS: BP 115/64
[2024-11-28 12:19] VITALS: BP 118/66
[2024-11-29 10:16] LABS: % Eosinophils 1.4 % (0-6); % Monocytes 12.8 % (1.7-9.3); % Neutrophils 41.8 % (42.2-75.2); Absolute Lymphocytes 0.6 10^3/uL (1.2-3.4); Absolute Monocytes 0.2 10^3/uL (0.1-0.6); Hematocrit 24.7 % (37.0-47.0); Hemoglobin 8.4 g/dL (12.0-16.0); Mean Corpuscular Hgb 36.5 pg (27.0-31.0); Mean Corpuscular Volume 107.4 fL (81.0-99.0); Mean Platelet Volume 8.9 fL (7.4-10.4); Red Cell Dist. Width 14.1 % (11.5-14.5)
[2024-11-29 10:23] VITALS: BP 119/75
[2024-11-29 10:30] LABS: Platelet Count 23 10^3/uL (130-400); White Blood Cell Count 1.4 10^3/uL (4.8-10.8)
[2024-11-29 10:31] LABS: Absolute Neutrophils 0.6 10^3/uL (1.4-6.5)
[2024-12-03 10:00] VITALS: BP 101/72
[2024-12-03 10:25] LABS: % Eosinophils 1.8 % (0-6); % Lymphocytes 47.9 % (20.5-51.1); % Monocytes 12.7 % (1.7-9.3); % Neutrophils 37.6 % (42.2-75.2); Absolute Lymphocytes 0.8 10^3/uL (1.2-3.4); Absolute Monocytes 0.2 10^3/uL (0.1-0.6); Hemoglobin 8.3 g/dL (12.0-16.0); Mean Corp Hgb Conc. 34.6 g/dL (33.0-37.0); Mean Corpuscular Hgb 37.1 pg (27.0-31.0); Mean Corpuscular Volume 107.1 fL (81.0-99.0); Mean Platelet Volume 10.6 fL (7.4-10.4); Red Blood Cell Count 2.24 10^6/uL (4.20-5.40)
[2024-12-03 10:27] LABS: White Blood Cell Count 1.7 10^3/uL (4.8-10.8)
[2024-12-03 10:28] LABS: Absolute Neutrophils 0.6 10^3/uL (1.4-6.5); Platelet Count 9 10^3/uL (130-400)
[2024-12-03 10:45] VITALS: BP 106/64
[2024-12-04] MEDS: TYLENOL 650 MG PO (09:31)
[2024-12-04] MEDS: BENADRYL 25 MG IV (09:32)
[2024-12-04 09:46] VITALS: BP 104/59
[2024-12-04 10:09] VITALS: BP 111/55
[2024-12-04 11:16] VITALS: BP 108/55
[2024-12-06 14:17] LABS: % Eosinophils 1.2 % (0-6); % Immature Granulocytes 0.6 % (0-0.5); % Lymphocytes 48.4 % (20.5-51.1); % Monocytes 9.3 % (1.7-9.3); % Neutrophils 40.5 % (42.2-75.2); Absolute Lymphocytes 0.8 10^3/uL (1.2-3.4); Absolute Monocytes 0.2 10^3/uL (0.1-0.6); Hematocrit 21.2 % (37.0-47.0); Hemoglobin 7.3 g/dL (12.0-16.0); Mean Corp Hgb Conc. 34.4 g/dL (33.0-37.0); Mean Corpuscular Hgb 37.2 pg (27.0-31.0); Mean Corpuscular Volume 108.2 fL (81.0-99.0); Mean Platelet Volume 9.2 fL (7.4-10.4); Red Blood Cell Count 1.96 10^6/uL (4.20-5.40); Red Cell Dist. Width 14.1 % (11.5-14.5)
[2024-12-06 14:19] LABS: Absolute Neutrophils 0.7 10^3/uL (1.4-6.5); Platelet Count 14 10^3/uL (130-400); White Blood Cell Count 1.6 10^3/uL (4.8-10.8)
[2024-12-07] VITALS (11 sets, daily range): BP systolic 103–133; BP diastolic 56–70
[2024-12-07] MEDS: BENADRYL 25 MG IV (08:14)
[2024-12-10 10:57] LABS: % Eosinophils 1.5 % (0-6); % Lymphocytes 47.3 % (20.5-51.1); % Monocytes 11.4 % (1.7-9.3); % Neutrophils 39.8 % (42.2-75.2); Absolute Monocytes 0.2 10^3/uL (0.1-0.6); Hematocrit 29.6 % (37.0-47.0); Mean Corp Hgb Conc. 34.8 g/dL (33.0-37.0); Mean Corpuscular Hgb 34.9 pg (27.0-31.0); Mean Corpuscular Volume 100.3 fL (81.0-99.0); Mean Platelet Volume 11.8 fL (7.4-10.4); Red Blood Cell Count 2.95 10^6/uL (4.20-5.40); Red Cell Dist. Width 16.8 % (11.5-14.5)
[2024-12-10 10:59] LABS: Platelet Count 11 10^3/uL (130-400)
[2024-12-10 11:01] LABS: Absolute Neutrophils 0.8 10^3/uL (1.4-6.5); Hemoglobin 10.3 g/dL (12.0-16.0)
== END 2024-12-10 13:34 | disposition home or self-care (01) ==
LOC: OID 10:12
PROVIDERS: ATTENDING PHYSICIAN Internal Medicine Hematology & Oncology; FAMILY PHYSICIAN Family Medicine
DX: C50.411 Malignant neoplasm of upper-outer quadrant of right female breast (principal); C50.912 Malignant neoplasm of unspecified site of left female breast (principal); D61.818 Other pancytopenia; G89.3 Neoplasm related pain (acute) (chronic); R11.2 Nausea with vomiting, unspecified; L02.223 Furuncle of chest wall; D69.3 Immune thrombocytopenic purpura; Z17.0 Estrogen receptor positive status [ER+]
CPT/HCPCS: 36430; 36591; 85025; 86850; 86900; 86901; 86920; 96374; 96375; 96523; P9016; P9073

== ENCOUNTER 2025-01-10 07:36 | Outpatient (RCR) | payer OTHER, SELFPAY ==
[2024-12-11] MEDS: TYLENOL 650 MG PO (11:42)
[2024-12-11] MEDS: BENADRYL 25 MG IV (11:44)
[2024-12-11 11:55] VITALS: BP 103/60
[2024-12-11 12:12] VITALS: BP 110/71
[2024-12-11 12:51] VITALS: BP 98/68
[2024-12-13 09:00] VITALS: BP 96/57
[2024-12-13 09:21] LABS: Hematocrit 28.8 % (37.0-47.0); Hemoglobin 9.9 g/dL (12.0-16.0); Mean Corp Hgb Conc. 34.4 g/dL (33.0-37.0); Mean Corpuscular Volume 102.1 fL (81.0-99.0); Red Cell Dist. Width 16.7 % (11.5-14.5)
[2024-12-13 09:28] LABS: Platelet Count 26 10^3/uL (130-400)
[2024-12-13] MEDS: TYLENOL 650 MG PO (12:19)
[2024-12-13] MEDS: BENADRYL 25 MG IV (12:20)
[2024-12-13 12:35] VITALS: BP 96/57
[2024-12-13 12:52] VITALS: BP 108/60
[2024-12-13 13:35] VITALS: BP 105/62
[2024-12-17 11:50] VITALS: BP 104/66
[2024-12-17 12:34] LABS: Hematocrit 28.0 % (37.0-47.0); Hemoglobin 9.6 g/dL (12.0-16.0); Mean Corp Hgb Conc. 34.3 g/dL (33.0-37.0); Mean Corpuscular Volume 102.2 fL (81.0-99.0); Red Cell Dist. Width 16.9 % (11.5-14.5)
[2024-12-17 12:36] LABS: Platelet Count 22 10^3/uL (130-400)
[2024-12-17 13:37] LABS: ALT (SGPT) 28 U/L (0-35); AST (SGOT) 27 U/L (14-36); Albumin 4.3 g/dl (3.5-5.0); Alkaline Phosphatase 93 U/L (38-126); Blood Urea Nitrogen 13 mg/dl (7-17); Calcium 9.3 mg/dl (8.4-10.2); Carbon Dioxide 26 mmol/L (22-30); Chloride 108 mmol/L (98-107); Glucose 95 mg/dl (70-99); Potassium 4.1 mmol/L (3.5-5.1); Sodium 137 mmol/L (135-145); Total Protein 7.5 g/dl (6.3-8.2); eGFR > 60.00
[2024-12-17 14:01] LABS: Reticulocyte Count 1.6 % (0.4-2.8)
[2024-12-17 14:07] LABS: Folate > 20.0 ng/ml (2.76-20); Vitamin B12 630 pg/ml (239-931)
[2024-12-20 10:45] VITALS: BP 103/63
[2024-12-20 11:32] LABS: Hematocrit 25.0 % (37.0-47.0); Hemoglobin 8.7 g/dL (12.0-16.0); Mean Corp Hgb Conc. 34.8 g/dL (33.0-37.0); Mean Corpuscular Volume 101.6 fL (81.0-99.0); Red Cell Dist. Width 17.1 % (11.5-14.5)
[2024-12-20 11:36] LABS: Platelet Count 8 10^3/uL (130-400)
[2024-12-21 08:00] VITALS: BP 104/61
[2024-12-21] MEDS: BENADRYL 25 MG IV (08:02)
[2024-12-21 08:12] VITALS: BP 104/61
[2024-12-21 08:29] VITALS: BP 123/69
[2024-12-21 09:15] VITALS: BP 107/53
[2024-12-24 09:40] VITALS: BP 112/72
[2024-12-24 10:11] LABS: Hematocrit 23.7 % (37.0-47.0); Hemoglobin 8.3 g/dL (12.0-16.0); Mean Corp Hgb Conc. 35.0 g/dL (33.0-37.0); Mean Corpuscular Volume 101.7 fL (81.0-99.0); Red Cell Dist. Width 17.5 % (11.5-14.5)
[2024-12-24 10:13] LABS: Platelet Count 6 10^3/uL (130-400)
[2024-12-24 15:14] LABS: ALT (SGPT) 19 U/L (0-35); AST (SGOT) 26 U/L (14-36); Albumin 4.0 g/dl (3.5-5.0); Alkaline Phosphatase 82 U/L (38-126); Blood Urea Nitrogen 19 mg/dl (7-17); Calcium 9.2 mg/dl (8.4-10.2); Carbon Dioxide 25 mmol/L (22-30); Chloride 109 mmol/L (98-107); Glucose 98 mg/dl (70-99); Potassium 3.9 mmol/L (3.5-5.1); Sodium 138 mmol/L (135-145); Total Protein 7.0 g/dl (6.3-8.2); eGFR > 60.00
[2024-12-25 07:50] VITALS: BP 114/63
[2024-12-25] MEDS: BENADRYL 25 MG IV (08:18)
[2024-12-25] MEDS: TYLENOL 650 MG PO (08:19)
[2024-12-25 08:26] VITALS: BP 114/63
[2024-12-25 08:43] VITALS: BP 124/64
[2024-12-25 09:16] VITALS: BP 104/61
[2025-01-08 13:40] VITALS: BP 129/79
[2025-01-08 14:09] LABS: Hematocrit 22.5 % (37.0-47.0); Hemoglobin 7.7 g/dL (12.0-16.0); Mean Corp Hgb Conc. 34.2 g/dL (33.0-37.0); Mean Corpuscular Volume 94.1 fL (81.0-99.0); Red Cell Dist. Width 21.6 % (11.5-14.5)
[2025-01-08 14:12] LABS: Platelet Count 11 10^3/uL (130-400)
[2025-01-09 07:55] VITALS: BP 108/60
[2025-01-09] MEDS: BENADRYL 25 MG IV (08:10)
[2025-01-09 08:30] VITALS: BP 108/60
[2025-01-09 08:47] VITALS: BP 110/67
[2025-01-09 09:46] VITALS: BP 100/52
[2025-01-10] MEDS: BENADRYL 25 MG PO (08:11)
[2025-01-10] MEDS: TYLENOL 650 MG PO (08:11)
[2025-01-10 08:14] VITALS: BP 111/62
[2025-01-10 08:36] VITALS: BP 102/58
[2025-01-10 10:25] VITALS: BP 102/52
== END 2025-01-10 13:35 | disposition home or self-care (01) ==
LOC: OID 07:36
PROVIDERS: Internal Medicine Hematology & Oncology; ATTENDING PHYSICIAN Nurse Practitioner Acute Care
DX: C50.411 Malignant neoplasm of upper-outer quadrant of right female breast (principal); R11.2 Nausea with vomiting, unspecified; G89.3 Neoplasm related pain (acute) (chronic); L02.223 Furuncle of chest wall; D69.3 Immune thrombocytopenic purpura; D61.818 Other pancytopenia; Z17.1 Estrogen receptor negative status [ER-]
CPT/HCPCS: 36430; 36591; 80048; 80053; 80076; 82248; 82607; 82668; 82746; 83010; 83921; 85025; 85045; 85652; 86850; 86880; 86900; 86901; 86920; 96374; 96523; P9016; P9035; P9073

== ENCOUNTER 2025-01-13 16:36 | Emergency (ER) | payer OTHER, SELFPAY ==
[2025-01-13] VITALS (10 sets, daily range): BP systolic 115–133; BP diastolic 72–92; BMI 20.8
[2025-01-13 17:57] LABS: Hematocrit 25.2 % (37.0-47.0); Hemoglobin 8.6 g/dL (12.0-16.0); Mean Corp Hgb Conc. 34.1 g/dL (33.0-37.0); Mean Corpuscular Volume 93.3 fL (81.0-99.0); Red Cell Dist. Width 20.1 % (11.5-14.5)
[2025-01-13 18:01] LABS: Nucleated Red Blood Cells % 0 %; Platelet Count 3 10^3/uL (130-400)
[2025-01-13 18:20] LABS: ALT (SGPT) 19 U/L (0-35); AST (SGOT) 20 U/L (14-36); Albumin 4.1 g/dl (3.5-5.0); Alkaline Phosphatase 80 U/L (38-126); Blood Urea Nitrogen 25 mg/dl (7-17); Calcium 9.4 mg/dl (8.4-10.2); Carbon Dioxide 29 mmol/L (22-30); Chloride 106 mmol/L (98-107); Estimated Creatinine Clearance 98 ml/min; Glucose 105 mg/dl (70-99); Potassium 4.3 mmol/L (3.5-5.1); Sodium 139 mmol/L (135-145); Total Protein 7.1 g/dl (6.3-8.2); eGFR > 60.00
[2025-01-13] MEDS: BENADRYL 25 MG IV (20:27)
--- NOTE | 2025-01-13 22:46 | ED.GENMED ---
History of Present Illness
General
Chief Complaint: Skin Problem
Source: patient
Exam Limitations: none
Time Seen by Provider: 01/13/25 17:37
Nursing documentation reviewed up to this point in time: agreed with
History of Present Illness
History of Present Illness:
Patient to ED wt concern for low platelets. SHe is currently being worked up for MDS. PMH breast CA, tx with chemo and radiation. After treatment she developed thrombocytopenia. SHe follows with [facility]. She was admitted for 12 days
at [facility], discharged home 8 days ago. SHe had 2 bone marrow biopsies and 1 platelet transfusion. She was seen by [facility] , received another platelet transfusion. she received 1uPRBC. Today she noticed increasing petichia and a
new hematoma to her left forearm (no known trauma). Brought self to ED for jero.
Past History
Past History
ED Past Medical History: Asthma, Cancer (breast), HTN and Other (sinusitis, migraine, thrombocytopenia)
ED Past Surgical History: None
Patient has exhibited threatening behavior?: No
Social History
Tobacco: Non-smoker
Alcohol: None
Drug: None
Personal:
Living: with family
Employment: Employed
Review of Systems
Review of Systems
Allergies reviewed?: Yes
All Other Systems: ROS reviewed and negative except as documented in HPI and ROS
Constitutional: Reports no symptoms
EENT: Reports no symptoms
Respiratory: Reports no symptoms
Cardiac: Reports no symptoms
ABD/GI: Reports no symptoms
: Reports no symptoms
Musculoskeletal: Reports no symptoms
Skin: Reports other (petechia BLE and chest ( not a new finding), 2cm hematoma left forearm)
Neurological: Reports no symptoms
Psychiatric: Reports no symptoms
Phy Exam
General Physical Exam
General Presentation: well appearing and no apparent distress
General age: appears stated age
General Skin: warm and dry
General Habitus: normal
General Mental: alert
Cardiovascular Exam
Cardiovascular Exam: regular rate/rhythm and no edema
Musculoskeletal Exam
Musculoskeletal Exam: full ROM and neuro vasc intact
Skin Exam
Skin Exam: warm/dry, petechia (BLE, chest. History of thrombocytopenia and petechia is not new) and other (2cm hematoma left forearm. Size remains unchanged)
Psychiatric Exam
Psychiatric Exam: normal mood/affect
Course
Orders/Labs/Results
Orders:
Orders
01/13/25 17:46
CMP [Comprehensive Metabolic Panel] Urgent
Complete Blood Count/With Diff Urgent
01/13/25 19:03
* Blood Bank Products Urgent
Blood Bank Products: Platelets Leukoreduced
Quantity: 1
Transfuse Today: Yes
Reason: Thrombocytopenia
01/13/25 20:18
Diphenhydramine [Benadryl] 50 mg .ROUTE .STK-MED ONE
01/13/25 20:27
Diphenhydramine [Benadryl] 25 mg IV NOW STA
Abnormal Lab Results
01/13/25
17:46
WBC 1.8 L* 10^3/uL
(4.8-10.8)
RBC 2.70 L 10^6/uL
(4.20-5.40)
Hgb 8.6 L g/dL
(12.0-16.0)
Hct 25.2 L %
(37.0-47.0)
MCH 31.9 H pg
(27.0-31.0)
RDW 20.1 H %
(11.5-14.5)
Plt Count 3 L* D 10^3/uL
(130-400)
Absolute Neuts (auto) 0.7 L* 10^3/uL
(1.4-6.5)
Absolute Lymphs (auto) 1.0 L 10^3/uL
(1.2-3.4)
Immature Gran % 0.6 H %
(0-0.5)
Neutrophils % 36.5 L %
(42.2-75.2)
Lymphocytes % 54.1 H %
(20.5-51.1)
BUN 25 H mg/dl
(7-17)
Glucose 105 H mg/dl
(70-99)
01/13/25 17:46
01/13/25 17:46
Vital Signs
Initial and Last Documented VS:
Initial Vital Signs
Temp Pulse Resp BP Pulse Ox
98.0 F 105 18 133/92 98
01/13/25 16:39 01/13/25 16:39 01/13/25 16:39 01/13/25 16:39 01/13/25 16:39
Last Documented Vital Signs
Temp Pulse Resp BP Pulse Ox
97.7 F 89 18 129/72 99
01/13/25 21:23 01/13/25 21:23 01/13/25 21:23 01/13/25 21:23 01/13/25 21:18
*Pulse Oximetry
SaO2: 99
Oxygen Mode of Delivery: Room air
Patient hypoxic: no
*Critical Care Note
Total Time (30-74mins, 75-104mins- exclusive of procedures): Not Applicable
Update Note
Update Note:
Patient to ED wth concern for new hematoma to left forearm. Labs reviewed. Platelets 7. Dr. Delong consulted via tiger text. WIll transfuse 1u Platelets tonight in ED. SHe has an appointment tomorrow for repeat labs and then [facility] on
Tuesdya. Hematoma size remains unchanged. SHe will continue to monitor. Given isntructions on s/s to return to ED and she is agreeable to plan.
ED Attending Note
-
Portions of this chart may have been created with voice recognition software.� Occasional wrong word or��sound alike� substitutions may have occurred due to the inherent limitations of voice recognition software.
Discharge Plan
Departure
Patient Disposition: Home (Routine Discharge)
Date of Disposition: 01/13/25
Time of Disposition: 21:28
Patient with high blood pressure during this ER visit?: No
Condition: Good
Covid-19: Not Applicable
Discharge Problem:
Thrombocytopenia
Instructions: Managing increased bleeding risk
Prescriptions:
No Action
sumatriptan succinate [Imitrex] 25 MG tablet
10 mg PO PRN PRN (Reason: migraine)
multivitamin Tablet
1 tab PO DAILY
alprazolam 0.25 mg Tablet
0.25 mg PO HS PRN (Reason: anxiety)
ascorbic acid (vitamin C) [Vitamin C] 500 mg Tablet
500 mg PO DAILY
lisinopril 10 mg Tablet
5 mg PO DAILY
Rx Instructions:
12/25/24: on hold until seen by PCP
cholecalciferol (vitamin D3) [Vitamin D3] 125 mcg (5,000 unit) Tablet
125 mcg PO DAILY
Calcium + Vitamin D 600 mg calcium- 200 unit Tablet
1 tab PO DAILY
Referrals:
Shawnee Garsia MD [Active, Hematology / Oncology] - Tomorrow
Binu Ivey DO [Family Provider, Family Practice]
Activity Restrictions/Additional Instructions:
Return to the emergency department immediately for any changes in/worsening of your symptoms.
Interventions
Interventions:
*Risk Screen - Suicide Last Done: 01/13/25 17:28
*General Assessment Last Done: 01/13/25 17:28
*Neglect/Abuse Screening Last Done: 01/13/25 17:28
*ED- Fall Risk Assessment Last Done: 01/13/25 17:28
*ED COVID-19 Vaccine History Last Done: 01/13/25 17:28
*Nursing Disposition Last Done: 01/13/25 21:45
ED-Skin Assessment Last Done: 01/13/25 17:31
Discharge Date and Time
Discharge Date/Time: 01/13/25 21:52
Print Language: ARGENTINE
== END 2025-01-13 21:52 | disposition home or self-care (01) ==
LOC: EMR 16:36
PROVIDERS: EMERGENCY PHYSICIAN Emergency Medicine; FAMILY PHYSICIAN Family Medicine
DX: D69.6 Thrombocytopenia, unspecified (principal); J45.909 Unspecified asthma, uncomplicated; I10 Essential (primary) hypertension; Z85.3 Personal history of malignant neoplasm of breast
CPT/HCPCS: 99283; 96374; 80053; 85025; P9073

== ENCOUNTER 2025-02-08 07:31 | Outpatient (RCR) | payer OTHER, SELFPAY ==
[2025-01-14 10:06] VITALS: BP 117/75
[2025-01-14 11:34] LABS: ALT (SGPT) 19 U/L (0-35); AST (SGOT) 20 U/L (14-36); Albumin 4.2 g/dl (3.5-5.0); Alkaline Phosphatase 87 U/L (38-126); Blood Urea Nitrogen 26 mg/dl (7-17); Calcium 8.8 mg/dl (8.4-10.2); Carbon Dioxide 27 mmol/L (22-30); Chloride 107 mmol/L (98-107); Glucose 98 mg/dl (70-99); Potassium 4.0 mmol/L (3.5-5.1); Sodium 139 mmol/L (135-145); Total Protein 7.1 g/dl (6.3-8.2); eGFR > 60.00
[2025-01-14 15:10] LABS: Hematocrit 24.7 % (37.0-47.0); Hemoglobin 8.4 g/dL (12.0-16.0); Mean Corp Hgb Conc. 34.0 g/dL (33.0-37.0); Mean Corpuscular Volume 95.0 fL (81.0-99.0); Red Cell Dist. Width 20.2 % (11.5-14.5)
[2025-01-14 15:15] LABS: Platelet Count 28 10^3/uL (130-400)
[2025-01-15 22:55] LABS: CA 27-29 13.6 U/mL (<=39.0)
[2025-01-17] VITALS (7 sets, daily range): BP systolic 109–126; BP diastolic 61–71
[2025-01-17 11:41] LABS: Hematocrit 23.6 % (37.0-47.0); Hemoglobin 8.1 g/dL (12.0-16.0); Mean Corp Hgb Conc. 34.3 g/dL (33.0-37.0); Mean Corpuscular Volume 94.4 fL (81.0-99.0); Red Cell Dist. Width 20.1 % (11.5-14.5)
[2025-01-17 11:42] LABS: Platelet Count 10 10^3/uL (130-400)
[2025-01-17] MEDS: BENADRYL 25 MG IV (12:16)
[2025-01-17] MEDS: TYLENOL 650 MG PO (12:17)
[2025-01-17 13:56] LABS: Urine Character Clear (Clear)
[2025-01-17 14:21] LABS: Urine Squamous Cell 0-2 /LPF (Few)
[2025-01-17 14:22] LABS: Urine Red Blood Cell 0-2 /HPF (0-2); Urine White Cell 0-2 /HPF (0-5)
[2025-01-17 15:02] LABS: Platelet Count 30 10^3/uL (130-400)
[2025-01-21 11:44] LABS: Hematocrit 21.8 % (37.0-47.0); Hemoglobin 7.5 g/dL (12.0-16.0); Mean Corp Hgb Conc. 34.4 g/dL (33.0-37.0); Mean Corpuscular Volume 94.8 fL (81.0-99.0); Red Cell Dist. Width 20.2 % (11.5-14.5)
[2025-01-21 11:45] LABS: Platelet Count 7 10^3/uL (130-400)
[2025-01-21] MEDS: BENADRYL 25 MG PO (11:55)
[2025-01-21 12:06] VITALS: BP 122/65
[2025-01-21 12:24] VITALS: BP 118/63
[2025-01-21 12:50] LABS: ALT (SGPT) 17 U/L (0-35); AST (SGOT) 21 U/L (14-36); Albumin 4.1 g/dl (3.5-5.0); Alkaline Phosphatase 93 U/L (38-126); Blood Urea Nitrogen 16 mg/dl (7-17); Calcium 8.4 mg/dl (8.4-10.2); Carbon Dioxide 26 mmol/L (22-30); Chloride 107 mmol/L (98-107); Glucose 96 mg/dl (70-99); Magnesium 2.3 mg/dl (1.6-2.3); Potassium 4.0 mmol/L (3.5-5.1); Sodium 139 mmol/L (135-145); Total Protein 7.1 g/dl (6.3-8.2); eGFR > 60.00
[2025-01-21 13:01] VITALS: BP 116/71
[2025-01-25] VITALS (7 sets, daily range): BP systolic 98–123; BP diastolic 59–71
[2025-01-25] MEDS: BENADRYL 25 MG PO (10:09)
[2025-01-25] MEDS: TYLENOL 650 MG PO (10:10)
[2025-01-28 07:45] VITALS: BP 128/71
[2025-01-28 09:02] LABS: Hematocrit 21.8 % (37.0-47.0); Hemoglobin 7.3 g/dL (12.0-16.0); Mean Corp Hgb Conc. 33.5 g/dL (33.0-37.0); Mean Corpuscular Volume 93.2 fL (81.0-99.0); Platelet Count 3 10^3/uL (130-400); Red Cell Dist. Width 19.6 % (11.5-14.5)
[2025-01-28 09:16] LABS: ALT (SGPT) 18 U/L (0-35); AST (SGOT) 21 U/L (14-36); Albumin 4.1 g/dl (3.5-5.0); Alkaline Phosphatase 77 U/L (38-126); Blood Urea Nitrogen 22 mg/dl (7-17); Calcium 9.3 mg/dl (8.4-10.2); Carbon Dioxide 26 mmol/L (22-30); Chloride 107 mmol/L (98-107); Glucose 119 mg/dl (70-99); Potassium 4.1 mmol/L (3.5-5.1); Sodium 139 mmol/L (135-145); Total Protein 7.0 g/dl (6.3-8.2); eGFR > 60.00
[2025-01-28 10:07] LABS: Absolute Neutrophils -Man Diff 0.5 10^3/uL (1.4-6.5)
[2025-01-28 10:08] LABS: Anisocytosis 1+; Hypochromasia 1+; Macrocytosis 1+; Normal RBC Morphology No; Platelets Checked Yes
[2025-01-28 10:09] LABS: Total Cells Counted 100
[2025-01-29] VITALS (7 sets, daily range): BP systolic 104–114; BP diastolic 60–68
[2025-01-29] MEDS: TYLENOL 650 MG PO (08:17)
[2025-01-29] MEDS: BENADRYL 25 MG IV (08:17)
[2025-01-31 07:45] VITALS: BP 112/72
--- NOTE | 2025-01-31 08:17 | PTCARENOTE ---
pt here for port lab draw. Pt c/o bleeding in gums and mouth sore on underside of gums. Pt did take tranexamic acid last night and this morning. New bruising and petichiae noted on upper back also above pt's bra line. Myesha RN from [facility] over
here to talk with patient about plan of care and updated, will updated Dr. Knight as well, awaiting labs, will follow.
[2025-01-31 08:20] LABS: Hematocrit 24.0 % (37.0-47.0); Hemoglobin 8.5 g/dL (12.0-16.0); Mean Corp Hgb Conc. 35.4 g/dL (33.0-37.0); Mean Corpuscular Volume 93.0 fL (81.0-99.0); Red Cell Dist. Width 18.1 % (11.5-14.5)
[2025-01-31 08:22] LABS: Platelet Count 4 10^3/uL (130-400)
[2025-01-31 09:03] LABS: ALT (SGPT) 19 U/L (0-35); AST (SGOT) 21 U/L (14-36); Albumin 4.4 g/dl (3.5-5.0); Alkaline Phosphatase 86 U/L (38-126); Blood Urea Nitrogen 15 mg/dl (7-17); Calcium 9.1 mg/dl (8.4-10.2); Carbon Dioxide 27 mmol/L (22-30); Chloride 106 mmol/L (98-107); Glucose 128 mg/dl (70-99); Potassium 4.1 mmol/L (3.5-5.1); Sodium 138 mmol/L (135-145); Total Protein 7.3 g/dl (6.3-8.2); eGFR > 60.00
[2025-01-31] MEDS: BENADRYL 25 MG PO (11:33)
[2025-01-31 11:44] VITALS: BP 106/65
[2025-01-31 12:02] VITALS: BP 113/62
[2025-01-31 12:35] VITALS: BP 109/65
[2025-02-01 11:23] LABS: Hematocrit 23.0 % (37.0-47.0); Hemoglobin 8.0 g/dL (12.0-16.0); Mean Corp Hgb Conc. 34.8 g/dL (33.0-37.0); Mean Corpuscular Volume 91.6 fL (81.0-99.0); Nucleated Red Blood Cells % 0 %; Platelet Count 26 10^3/uL (130-400); Red Cell Dist. Width 18.2 % (11.5-14.5)
[2025-02-01 11:28] VITALS: BP 114/65
[2025-02-04 08:24] VITALS: BMI 20.8
[2025-02-04 08:40] VITALS: BP 122/62
[2025-02-04 09:05] LABS: Hematocrit 21.7 % (37.0-47.0); Hemoglobin 7.4 g/dL (12.0-16.0); Mean Corp Hgb Conc. 34.1 g/dL (33.0-37.0); Mean Corpuscular Volume 92.7 fL (81.0-99.0); Platelet Count 8 10^3/uL (130-400); Red Cell Dist. Width 17.9 % (11.5-14.5)
[2025-02-04] MEDS: ALOXI 5 MG IV (09:46)
[2025-02-04] MEDS: DECADRON 50.8 MG IV (09:46)
[2025-02-04 10:07] LABS: Nucleated Red Blood Cells % 0 %
[2025-02-04 10:09] LABS: ALT (SGPT) 17 U/L (0-35); AST (SGOT) 20 U/L (14-36); Albumin 4.1 g/dl (3.5-5.0); Alkaline Phosphatase 81 U/L (38-126); Blood Urea Nitrogen 19 mg/dl (7-17); Calcium 8.9 mg/dl (8.4-10.2); Carbon Dioxide 26 mmol/L (22-30); Chloride 105 mmol/L (98-107); Estimated Creatinine Clearance 98 ml/min; Glucose 126 mg/dl (70-99); Potassium 3.9 mmol/L (3.5-5.1); Sodium 138 mmol/L (135-145); Total Protein 7.0 g/dl (6.3-8.2); eGFR > 60.00
[2025-02-04] MEDS: VIDAZA 113.6 MG IV (10:29)
[2025-02-04] MEDS: TYLENOL 650 MG PO (11:25)
[2025-02-04] MEDS: BENADRYL 25 MG IV (11:25)
[2025-02-04 11:40] VITALS: BP 117/61
[2025-02-04 11:56] VITALS: BP 109/50
[2025-02-04 12:44] VITALS: BP 112/57
[2025-02-04 13:04] VITALS: BP 103/55
[2025-02-04 15:00] VITALS: BP 132/64
[2025-02-05] MEDS: VIDAZA 113.6 MG IV (09:07)
[2025-02-05 09:12] VITALS: BP 104/64
[2025-02-06 09:10] VITALS: BP 114/64
[2025-02-06] MEDS: VIDAZA 113.6 MG IV (09:28)
[2025-02-06 10:19] LABS: Hematocrit 23.6 % (37.0-47.0); Hemoglobin 8.0 g/dL (12.0-16.0); Mean Corp Hgb Conc. 33.9 g/dL (33.0-37.0); Mean Corpuscular Volume 88.7 fL (81.0-99.0); Red Cell Dist. Width 20.2 % (11.5-14.5)
[2025-02-06 11:15] LABS: Nucleated Red Blood Cells % 1.1 %; Platelet Count 19 10^3/uL (130-400)
[2025-02-07 08:15] VITALS: BP 112/69
[2025-02-07] MEDS: VIDAZA 113.6 MG IV (08:45)
[2025-02-07] MEDS: ALOXI 5 MG IV (08:46)
[2025-02-08 07:45] VITALS: BP 115/64
[2025-02-08] MEDS: VIDAZA 113.6 MG IV (08:30)
[2025-02-08 08:52] LABS: Hematocrit 23.4 % (37.0-47.0); Hemoglobin 8.0 g/dL (12.0-16.0); Mean Corp Hgb Conc. 34.2 g/dL (33.0-37.0); Mean Corpuscular Volume 88.3 fL (81.0-99.0); Nucleated Red Blood Cells % 0 %; Platelet Count 8 10^3/uL (130-400); Red Cell Dist. Width 19.2 % (11.5-14.5)
[2025-02-08] MEDS: BENADRYL 25 MG PO (09:48)
[2025-02-08] MEDS: TYLENOL 650 MG PO (09:50)
[2025-02-08 10:11] VITALS: BP 117/62
[2025-02-08 10:28] VITALS: BP 110/51
[2025-02-08 11:01] VITALS: BP 120/64
== END 2025-02-08 15:56 | disposition home or self-care (01) ==
LOC: OID 07:31
PROVIDERS: Internal Medicine Hematology & Oncology; Obstetrics & Gynecology Gynecologic Oncology; ATTENDING PHYSICIAN Nurse Practitioner Acute Care; FAMILY PHYSICIAN Family Medicine
DX: C50.411 Malignant neoplasm of upper-outer quadrant of right female breast (principal); Z51.11 Encounter for antineoplastic chemotherapy (principal); G89.3 Neoplasm related pain (acute) (chronic); R11.2 Nausea with vomiting, unspecified; L02.223 Furuncle of chest wall; D69.3 Immune thrombocytopenic purpura; D61.818 Other pancytopenia; Z17.1 Estrogen receptor negative status [ER-]
CPT/HCPCS: 36430; 36591; 80048; 80053; 80076; 81003; 81015; 81373; 82248; 83735; 85025; 85049; 86300; 86850; 86900; 86901; 86920; 87086; 96367; 96374; 96375; 96413; J2469; J9025; P9016; P9073

== ENCOUNTER 2025-02-28 09:48 | Emergency (ER) | payer OTHER, SELFPAY ==
[2025-02-28] VITALS (8 sets, daily range): BP systolic 119–147; BP diastolic 68–85; BMI 21.7
--- NOTE | 2025-02-28 10:01 | ED.GENMED ---
History of Present Illness
<Mina Hunter PA-C - Last Filed: 02/28/25 14:23>
General
Chief Complaint: Allergic Reaction
Time Seen by Provider: 02/28/25 09:55
History of Present Illness
History of Present Illness:
Patient is a 64-year-old female with past medical history of right-sided breast cancer and history of myelodysplastic syndrome and thrombocytopenia, headaches, asthma, arthritis, anxiety, hypertension, and hyperlipidemia, here today for evaluation
from the infusion center after patient was receiving platelets. Infusion started approximately 2 hours prior to arrival and lasted 1 hour and towards the end of the infusion she developed onset of a pruritic rash. Rash is noted along the patient's
face and upper/lower extremities. No trouble breathing or trouble swallowing. No swelling noted. No fevers. No vomiting or diarrhea. Patient was premedicated with 25 mg of Benadryl prior to the procedure as she previously had reactions but
never this severe. Once the reaction developed the patient was given an additional dose of 25 mg of Benadryl followed by Solu-Cortef as well as Pepcid. Symptoms are improving. Patient was noted to be tachycardia to the 150s. No other acute
complaints.
Past History
<Mina Hunter PA-C - Last Filed: 02/28/25 14:23>
Past History
ED Past Medical History: Asthma, Cancer (breast), HTN and Other (sinusitis, migraine, thrombocytopenia)
ED Past Surgical History: None
Patient has exhibited threatening behavior?: No
Social History
Tobacco: Non-smoker
Alcohol: None
Drug: None
Personal:
Living: with family
Employment: Employed
Review of Systems
<Mina Hunter PA-C - Last Filed: 02/28/25 14:23>
Review of Systems
All Other Systems: ROS reviewed and negative except as documented in HPI and ROS
Phy Exam
<Mina Hunter PA-C - Last Filed: 02/28/25 14:23>
Physical Exam
Physical Exam:
GENERAL: Alert , in no apparent distress
EYE: pupils equal and reactive
NECK: Supple, no significant adenopathy.
ENT: o/p clr, mmm.
CARDIAC: Tachycardic rate, regular rhythm
LUNGS: Clear breath sounds bilaterally, no acute respiratory distress, no wheezes/rales/rhonchi
ABDOMEN: Soft, without focal tenderness, no r/g, no cvat
NEUROLOGICAL: Alert and oriented, no focal neuro deficits
SKIN: Warm and dry, skin intact. Mild nonspecific erythematous macules and patches along the upper/lower extremities and facial region
MUSCULOSKELETAL: No edema, well perfused.
PSYCH: Normal and appropriate interaction.
Course
<Mina Hunter PA-C - Last Filed: 02/28/25 14:23>
Orders/Labs/Results
Orders:
Orders
02/28/25 09:35
Transfusion Reaction Routine
BBK Wristband Number:
02/28/25 12:29
Lumbar Spine, 2 or 3 View [CR Lumbar Spine 2 Or 3 Views] Urgent
Comment:
Reason For Exam: injured back, right lower back pain
02/28/25 15:11
5Hr. Total Bilirubin Urgent
02/28/25 16:30
Heparin Pf [Heparin Lock Flush] 500 unit IV PER PROTOCOL
Vital Signs
Initial and Last Documented VS:
Initial Vital Signs
Temp Pulse Resp BP Pulse Ox
98.1 F 122 14 147/85 99
02/28/25 09:50 02/28/25 09:50 02/28/25 09:50 02/28/25 09:50 02/28/25 09:50
Last Documented Vital Signs
Temp Pulse Resp BP Pulse Ox
98.1 F 96 18 119/81 98
02/28/25 09:50 02/28/25 16:00 02/28/25 16:00 02/28/25 16:00 02/28/25 16:00
<Delta Turner MD - Last Filed: 03/01/25 08:40>
Orders/Labs/Results
Orders:
Orders
02/28/25 09:35
Transfusion Reaction Routine
BBK Wristband Number:
02/28/25 12:29
Lumbar Spine, 2 or 3 View [CR Lumbar Spine 2 Or 3 Views] Urgent
Comment:
Reason For Exam: injured back, right lower back pain
02/28/25 15:11
5Hr. Total Bilirubin Urgent
02/28/25 16:30
Heparin Pf [Heparin Lock Flush] 500 unit IV PER PROTOCOL
Vital Signs
Initial and Last Documented VS:
Initial Vital Signs
Temp Pulse Resp BP Pulse Ox
98.1 F 122 14 147/85 99
02/28/25 09:50 02/28/25 09:50 02/28/25 09:50 02/28/25 09:50 02/28/25 09:50
Last Documented Vital Signs
Temp Pulse Resp BP Pulse Ox
98.1 F 96 18 119/81 98
02/28/25 09:50 02/28/25 16:00 02/28/25 16:00 02/28/25 16:00 02/28/25 16:00
<Mina Hunter PA-C - Last Filed: 02/28/25 14:23>
MDM/Problems Addressed
Differential Diagnosis Includes:
Patient is a 64-year-old female with past medical history of right-sided breast cancer and history of myelodysplastic syndrome and thrombocytopenia, headaches, asthma, arthritis, anxiety, tension, and hyperlipidemia, here today for evaluation from
the infusion center after patient was receiving platelets. Overall, patient well-appearing and nontoxic. Her heart rate is improving to the low 110s to 120s. Blood pressure without evidence of hypotension. On examination the patient has mild
nonspecific erythematous macules and patches along the upper/lower extremities and facial region. Findings appear consistent with acute urticaria. No intraoral swelling or wheezing. No abdominal pain/tenderness. Findings not consistent with
anaphylaxis or angioedema. Patient was previously given appropriate treatment and will continue to monitor and reassess. Patient feels that symptoms are improving overall.
02/28/2025 14:19: Patient reassessed after medication administration and she reports improvement in symptoms overall. Rash is improving overall. Of note, patient additionally noted mild right-sided lower back pain. She reports this pain occurring
over the past 1 week after exercising. On examination she is mildly tender along the right lower lumbar paraspinal region. No midline tenderness or deformities. X-rays were obtained which reveal a compression fracture along vertebrae at L1.
Patient made aware. We discussed supportive measures. Will additionally prescribe prednisone for the next 4 days secondary to allergic reaction. Recommend supportive measures and close follow-up. All questions answered. Stable for discharge
<Mina Hunter PA-C - Last Filed: 02/28/25 14:23>
*Pulse Oximetry
Patient hypoxic: no
*Critical Care Note
Total Time (30-74mins, 75-104mins- exclusive of procedures): Not Applicable
ED Attending Note
<Mina Hunter PA-C - Last Filed: 02/28/25 14:23>
-
Portions of this chart may have been created with voice recognition software.� Occasional wrong word or��sound alike� substitutions may have occurred due to the inherent limitations of voice recognition software.
<Delta Turner MD - Last Filed: 03/01/25 08:40>
ED Attending Note
Patient seen and examined by attending physician: Yes
ED Attending Note:
Patient with history of MDS and associated anemia/thrombocytopenia, presents to ED from outpatient infusion center secondary to sudden onset of itching rash, shortly after completing scheduled platelet transfusion. Denies fever or chills. Denies
headache or dizziness. Denies sore throat. Denies difficulty swallowing. Denies shortness of breath. Denies chest palpitation. Denies nausea or vomiting. Patient unfortunately has had number of similar symptoms in the past. Patient was given
Solu-Cortef and Benadryl at infusion center, prior to transfer to ED. in addition, patient who does have history of chronic back pain secondary to sciatica, reports increased lower back pain, over the weekend. Denies direct trauma. Denies loss of
sensation or weakness. Denies urinary or bowel incontinence. Denies fever. Pain worse with movement or ambulation.
Physical Exam
General: mild distress, not acutely ill. afebrile
Head: nc/at. eomi
Neck: supple. normal range of motion
Heart: s1/s2 regular rate and rhythm
Lungs: no acute respiratory distress. clear bilaterally
Abdomen: normal bowel sounds. not tender.
Back: negative straight leg raise test
Neuro: alert and oriented x 3. no focal neurological deficits
Skin: mild diffuse erythema noted over UE b/l, trunk/face
Psychiatric: well kept. interactive and cooperative
Extremities: no edema. no calf tenderness.
X-ray report reviewed and discussed with patient, revealing probable acute L1 fracture. Pt fortunately without any exam findings concerning for cauda equina syndrome. Advised close pcp f.u for re-evaluation and return precautions provided, i.e.
fever/incontinence/weakness.
Patient with near resolution of presenting rash during observation. Patient will be discharged home in stable condition, with recommendation to follow-up with her checkering machine adjuster about rescheduling further outpatient infusion treatment, including
blood transfusion, which was postponed today.
Discharge Plan
Departure
Patient Disposition: Home (Routine Discharge)
Date of Disposition: 02/28/25
Time of Disposition: 14:13
Patient with high blood pressure during this ER visit?: Yes
Condition: Fair
Covid-19: Not Applicable
Discharge Problem:
Acute allergic reaction, Compression fracture of first lumbar vertebra
Instructions: Hives (DC), Vertebral Compression Fracture ED
Prescriptions:
New
prednisone 20 mg tablet
40 mg PO DAILY 4 Days Qty: 8 0RF
Rx Instructions:
Start tomorrow 03/01/25
No Action
sumatriptan succinate [Imitrex] 25 MG tablet
10 mg PO PRN PRN (Reason: migraine)
multivitamin Tablet
1 tab PO DAILY
alprazolam 0.25 mg Tablet
0.25 mg PO HS PRN (Reason: anxiety)
ascorbic acid (vitamin C) [Vitamin C] 500 mg Tablet
500 mg PO DAILY
lisinopril 10 mg Tablet
5 mg PO DAILY
Rx Instructions:
12/25/24: on hold until seen by PCP
cholecalciferol (vitamin D3) [Vitamin D3] 125 mcg (5,000 unit) Tablet
125 mcg PO DAILY
Calcium + Vitamin D 600 mg calcium- 200 unit Tablet
1 tab PO DAILY
tranexamic acid 650 mg Tablet
650 mg PO BID PRN (Reason: bleeding)
acyclovir 400 mg Tablet
400 mg PO BID
levofloxacin 500 mg Tablet
500 mg PO HS
ondansetron HCl [Zofran] 4 mg Tablet
4 mg PO .Q8H PRN (Reason: nausea)
prochlorperazine maleate [Compazine] 10 mg Tablet
10 mg PO .Q6H PRN (Reason: nausea)
polyethylene glycol 3350 [Miralax] 17 gram Powder In Packet
17 g PO DAILY PRN (Reason: constipation)
oxycodone-acetaminophen [Percocet] 5-325 mg Tablet
1 tab PO .Q6H PRN (Reason: pain)
senna 8.6 mg Capsule
8.6 mg PO DAILY PRN (Reason: constipation)
Referrals:
Binu Ivey DO [Family Provider, Family Practice] - Follow up in 5-7 days
Activity Restrictions/Additional Instructions:
You were seen today for evaluation of a suspected allergic reaction. We have provided you medication with improvement in symptoms.
Continue taking the prednisone medication as directed with food.
Additionally, we performed an x-ray of your back which reveals a compression fracture of your lumbar #1 vertebrae. Please rest. Avoid heavy lifting. Take [id number] Tylenol.
Follow-up with your doctor within the next 5 to 7 days for close reevaluation.
Return for any new, worsening, or concerning symptoms.
Interventions
Interventions:
*Risk Screen - Suicide Last Done: 02/28/25 09:50
*General Assessment Last Done: 02/28/25 09:50
*Neglect/Abuse Screening Last Done: 02/28/25 09:50
*ED- Fall Risk Assessment Last Done: 02/28/25 16:36
*ED COVID-19 Vaccine History Last Done: 02/28/25 09:50
*Nursing Disposition Last Done: 02/28/25 16:36
ED- Cardiac Assessment Last Done: 02/28/25 10:20
ED- Pulmonary Assessment Last Done: 02/28/25 10:20
ED-Skin Assessment Last Done: 02/28/25 10:20
Discharge Date and Time
Discharge Date/Time: 02/28/25 16:37
Print Language: YAKUT
[2025-02-28 15:51] LABS: 5Hr. Total Bilirubin 0.7 mg/dl (0.2-1.3)
--- NOTE | 2025-02-28 17:21 | VATNOTE ---
left subq port that was accessed in OID was requested of VAT in ED 36 to deaccess; flushed with 500 ml prior to per protocol. Brisk blood return noted prior to.
== END 2025-02-28 16:37 | disposition home or self-care (01) ==
LOC: EMR 09:48
PROVIDERS: EMERGENCY PHYSICIAN Emergency Medicine; FAMILY PHYSICIAN Family Medicine
DX: T78.49XA Other allergy, initial encounter (principal); X58.XXXA Exposure to other specified factors, initial encounter; M48.56XA Collapsed vertebra, not elsewhere classified, lumbar region, initial encounter for fracture; D46.9 Myelodysplastic syndrome, unspecified; E78.5 Hyperlipidemia, unspecified; I10 Essential (primary) hypertension; J45.909 Unspecified asthma, uncomplicated; Z85.3 Personal history of malignant neoplasm of breast
CPT/HCPCS: 72100; 86078; 99284

== ENCOUNTER 2025-03-11 07:54 | Outpatient (RCR) | payer OTHER, SELFPAY ==
[2025-02-12] VITALS (7 sets, daily range): BP systolic 97–127; BP diastolic 64–93
[2025-02-12 09:15] LABS: Hematocrit 21.1 % (37.0-47.0); Hemoglobin 7.2 g/dL (12.0-16.0); Mean Corp Hgb Conc. 34.1 g/dL (33.0-37.0); Mean Corpuscular Volume 89.0 fL (81.0-99.0); Red Cell Dist. Width 18.4 % (11.5-14.5)
[2025-02-12 09:17] LABS: Platelet Count 7 10^3/uL (130-400)
[2025-02-12] MEDS: BENADRYL 25 MG PO (09:27)
[2025-02-15 08:25] VITALS: BP 100/67
[2025-02-15 09:28] LABS: Hematocrit 25.7 % (37.0-47.0); Hemoglobin 9.0 g/dL (12.0-16.0); Mean Corp Hgb Conc. 35.0 g/dL (33.0-37.0); Mean Corpuscular Volume 88.6 fL (81.0-99.0); Platelet Count 5 10^3/uL (130-400); Red Cell Dist. Width 17.0 % (11.5-14.5)
[2025-02-15] MEDS: BENADRYL 25 MG PO (10:19)
[2025-02-15 10:38] VITALS: BP 100/67
[2025-02-15 10:51] LABS: Nucleated Red Blood Cells % 0 %
[2025-02-15 10:55] VITALS: BP 110/65
[2025-02-15 11:31] VITALS: BP 121/71
[2025-02-18 09:05] VITALS: BP 112/79
[2025-02-18 09:35] LABS: Hematocrit 23.7 % (37.0-47.0); Hemoglobin 8.2 g/dL (12.0-16.0); Mean Corp Hgb Conc. 34.6 g/dL (33.0-37.0); Mean Corpuscular Volume 89.4 fL (81.0-99.0); Red Cell Dist. Width 17.0 % (11.5-14.5)
[2025-02-18 09:38] LABS: Platelet Count 9 10^3/uL (130-400)
[2025-02-18] MEDS: BENADRYL 25 MG PO (09:50)
[2025-02-18 09:52] VITALS: BP 112/79
[2025-02-18 10:10] VITALS: BP 104/61
[2025-02-18 10:31] VITALS: BP 110/73
[2025-02-21] VITALS (7 sets, daily range): BP systolic 96–114; BP diastolic 58–67
[2025-02-21 08:43] LABS: Hematocrit 22.2 % (37.0-47.0); Hemoglobin 7.5 g/dL (12.0-16.0); Mean Corp Hgb Conc. 33.8 g/dL (33.0-37.0); Mean Corpuscular Volume 89.5 fL (81.0-99.0); Red Cell Dist. Width 17.0 % (11.5-14.5)
[2025-02-21 08:45] LABS: Platelet Count 12 10^3/uL (130-400)
[2025-02-21] MEDS: BENADRYL 25 MG PO (09:03)
[2025-02-21] MEDS: TYLENOL 650 MG PO (09:03)
[2025-02-25 09:45] VITALS: BP 113/64
[2025-02-25 10:12] LABS: Hematocrit 23.7 % (37.0-47.0); Hemoglobin 8.2 g/dL (12.0-16.0); Mean Corp Hgb Conc. 34.6 g/dL (33.0-37.0); Mean Corpuscular Volume 89.8 fL (81.0-99.0); Red Cell Dist. Width 16.6 % (11.5-14.5)
[2025-02-25 10:14] LABS: Platelet Count 9 10^3/uL (130-400)
[2025-02-25] MEDS: BENADRYL 25 MG PO (10:14)
[2025-02-25 10:29] VITALS: BP 113/64
[2025-02-25 10:46] VITALS: BP 103/57
[2025-02-25 11:28] VITALS: BP 110/60
[2025-02-25 12:05] LABS: ALT (SGPT) 19 U/L (0-35); AST (SGOT) 18 U/L (14-36); Albumin 4.1 g/dl (3.5-5.0); Alkaline Phosphatase 96 U/L (38-126); Blood Urea Nitrogen 16 mg/dl (7-17); Calcium 9.4 mg/dl (8.4-10.2); Carbon Dioxide 27 mmol/L (22-30); Chloride 106 mmol/L (98-107); Glucose 103 mg/dl (70-99); Potassium 4.1 mmol/L (3.5-5.1); Sodium 140 mmol/L (135-145); Total Protein 7.2 g/dl (6.3-8.2); eGFR > 60.00
[2025-02-28 08:00] VITALS: BP 117/75
[2025-02-28 08:11] LABS: Hemoglobin 7.2 g/dL (12.0-16.0); Mean Corp Hgb Conc. 35.0 g/dL (33.0-37.0); Mean Corpuscular Volume 89.6 fL (81.0-99.0); Red Cell Dist. Width 16.4 % (11.5-14.5)
[2025-02-28 08:15] LABS: Hematocrit 20.6 % (37.0-47.0); Platelet Count 10 10^3/uL (130-400)
[2025-02-28 08:29] VITALS: BP 117/75
[2025-02-28] MEDS: BENADRYL 25 MG PO (08:29)
[2025-02-28 08:49] VITALS: BP 117/73
[2025-02-28] MEDS: BENADRYL 25 MG IV (09:20)
[2025-02-28 09:21] VITALS: BP 86/50
[2025-02-28] MEDS: SOLU-CORTEF 100 MG IV (09:24)
[2025-02-28] MEDS: PEPCID 20 MG IV (09:25)
--- NOTE | 2025-02-28 09:53 | RR ---
Addendum entered by Laine Sanon RN 02/28/25 09:58:
25: vs: hr 154, bp: 157/89, rr: 20
929: vs: hr 159, 162/87, rr: 20 pox 100%.
Original Note:
A Rapid Response was called on this patient, please see Rapid Response form.
919: pt's platelet infusion was complete, upon starting to flush NSS 250mg bag post transfusion, pt noted to have hives/rash over face/ears, chest and arms. Pt c/o itching, no shortness of breath, but did state 'I am a little dizzy', rr called,
vs: 97.6, 20, 86/50, 139, pox 100% ra pox, pt offers no other complaints, new tubing and nss hung via left sc port. OID MODEL AND MOLD MAKER PLASTER at pt's bedside as well and will notify Kailash campos of reaction. Additional medications given were: 25mg iv benadryl,
100mg iv solucortef, 20mg iv pepcid. Hives still present, but lessening. RR at bedside, updated on pt's condition. reaction protocol initiated, blood bank notified and pt transported to ER with RR team. Platelet tubing placed in biohazard bag and
transported to blood bank.
[2025-02-28 10:13] LABS: ALT (SGPT) 17 U/L (0-35); AST (SGOT) 17 U/L (14-36); Albumin 3.9 g/dl (3.5-5.0); Alkaline Phosphatase 101 U/L (38-126); Blood Urea Nitrogen 12 mg/dl (7-17); Calcium 9.4 mg/dl (8.4-10.2); Carbon Dioxide 28 mmol/L (22-30); Chloride 104 mmol/L (98-107); Glucose 106 mg/dl (70-99); Potassium 3.7 mmol/L (3.5-5.1); Sodium 138 mmol/L (135-145); Total Protein 6.9 g/dl (6.3-8.2); eGFR > 60.00
[2025-03-01 07:45] VITALS: BP 120/57
[2025-03-01 08:32] LABS: Hematocrit 20.0 % (37.0-47.0); Hemoglobin 6.8 g/dL (12.0-16.0); Mean Corp Hgb Conc. 34.0 g/dL (33.0-37.0); Mean Corpuscular Volume 86.6 fL (81.0-99.0); Platelet Count 30 10^3/uL (130-400); Red Cell Dist. Width 16.6 % (11.5-14.5)
[2025-03-01 09:54] LABS: Nucleated Red Blood Cells % 0 %
[2025-03-01] MEDS: TYLENOL 650 MG PO (10:29)
[2025-03-01] MEDS: BENADRYL 25 MG IV (10:30)
[2025-03-01] MEDS: SOLU-CORTEF 100 MG IV (10:31)
[2025-03-01 10:37] VITALS: BP 120/57
[2025-03-01 10:55] VITALS: BP 120/63
[2025-03-01 12:50] VITALS: BP 121/64
[2025-03-04 09:15] VITALS: BP 119/70
[2025-03-04 09:38] LABS: Hematocrit 24.6 % (37.0-47.0); Mean Corp Hgb Conc. 34.6 g/dL (33.0-37.0); Mean Corpuscular Volume 87.9 fL (81.0-99.0); Red Cell Dist. Width 14.7 % (11.5-14.5)
[2025-03-04 09:41] LABS: Platelet Count 6 10^3/uL (130-400)
[2025-03-04 09:42] LABS: Hemoglobin 8.5 g/dL (12.0-16.0)
[2025-03-04] MEDS: ALOXI 5 MG IV (10:26)
[2025-03-04] MEDS: DECADRON 50.8 MG IV (10:26)
[2025-03-04] MEDS: VIDAZA 113.6 MG IV (10:53)
[2025-03-04 11:48] LABS: ALT (SGPT) 20 U/L (0-35); AST (SGOT) 18 U/L (14-36); Albumin 4.1 g/dl (3.5-5.0); Alkaline Phosphatase 104 U/L (38-126); Blood Urea Nitrogen 16 mg/dl (7-17); Calcium 9.4 mg/dl (8.4-10.2); Carbon Dioxide 28 mmol/L (22-30); Chloride 103 mmol/L (98-107); Glucose 104 mg/dl (70-99); Potassium 4.0 mmol/L (3.5-5.1); Sodium 138 mmol/L (135-145); Total Protein 7.2 g/dl (6.3-8.2); eGFR > 60.00
[2025-03-04 12:22] VITALS: BP 137/80
[2025-03-05 09:00] VITALS: BP 119/63
[2025-03-05] MEDS: TYLENOL 650 MG PO (09:33)
[2025-03-05] MEDS: VIDAZA 113.6 MG IV (09:35)
[2025-03-05] MEDS: SOLU-CORTEF 100 MG IV (10:41)
[2025-03-05] MEDS: BENADRYL 25 MG IV (10:41)
[2025-03-05 10:59] VITALS: BP 103/63
[2025-03-05 11:16] VITALS: BP 121/68
[2025-03-05 11:50] VITALS: BP 122/63
[2025-03-06 09:05] VITALS: BP 83/67
[2025-03-06] MEDS: VIDAZA 113.6 MG IV (09:20)
[2025-03-06 10:42] VITALS: BP 119/62
[2025-03-07 08:50] VITALS: BP 120/78
[2025-03-07 09:06] VITALS: BMI 20.8
[2025-03-07 09:10] LABS: Hematocrit 22.5 % (37.0-47.0); Hemoglobin 7.6 g/dL (12.0-16.0); Mean Corp Hgb Conc. 33.8 g/dL (33.0-37.0); Mean Corpuscular Volume 89.3 fL (81.0-99.0); Red Cell Dist. Width 14.9 % (11.5-14.5)
[2025-03-07 09:11] LABS: Platelet Count 25 10^3/uL (130-400)
[2025-03-07] MEDS: ALOXI 5 MG IV (09:20)
[2025-03-07] MEDS: VIDAZA 113.6 MG IV (09:32)
[2025-03-07 10:11] LABS: AST (SGOT) 17 U/L (14-36); Albumin 3.9 g/dl (3.5-5.0); Blood Urea Nitrogen 18 mg/dl (7-17); Carbon Dioxide 28 mmol/L (22-30); Chloride 103 mmol/L (98-107); Estimated Creatinine Clearance 98 ml/min; Total Protein 6.9 g/dl (6.3-8.2); eGFR > 60.00
[2025-03-07 10:35] VITALS: BP 136/73
[2025-03-07 10:49] LABS: ALT (SGPT) 23 U/L (0-35); Alkaline Phosphatase 102 U/L (38-126); Calcium 9.6 mg/dl (8.4-10.2); Glucose 99 mg/dl (70-99); Potassium 3.8 mmol/L (3.5-5.1); Sodium 136 mmol/L (135-145)
[2025-03-08 08:55] VITALS: BP 106/68
[2025-03-08] MEDS: VIDAZA 113.6 MG IV (08:57)
[2025-03-08 09:59] LABS: Hematocrit 22.3 % (37.0-47.0); Hemoglobin 7.6 g/dL (12.0-16.0); Mean Corp Hgb Conc. 34.1 g/dL (33.0-37.0); Mean Corpuscular Volume 87.5 fL (81.0-99.0); Nucleated Red Blood Cells % 0 %; Platelet Count 21 10^3/uL (130-400); Red Cell Dist. Width 15.0 % (11.5-14.5)
[2025-03-08] MEDS: TYLENOL 650 MG PO (10:13)
[2025-03-08] MEDS: BENADRYL 25 MG IV (10:14)
[2025-03-08 10:21] VITALS: BP 126/79
[2025-03-08 10:38] VITALS: BP 128/64
[2025-03-08 12:16] VITALS: BP 123/76
[2025-03-11] VITALS (7 sets, daily range): BP systolic 124–151; BP diastolic 63–95
[2025-03-11 08:52] LABS: Hematocrit 27.1 % (37.0-47.0); Mean Corp Hgb Conc. 33.9 g/dL (33.0-37.0); Mean Corpuscular Volume 88.0 fL (81.0-99.0); Platelet Count 6 10^3/uL (130-400); Red Cell Dist. Width 14.0 % (11.5-14.5)
[2025-03-11 08:55] LABS: Hemoglobin 9.2 g/dL (12.0-16.0)
[2025-03-11] MEDS: TYLENOL 650 MG PO (09:10)
[2025-03-11] MEDS: SOLU-CORTEF 100 MG IV (09:11)
[2025-03-11] MEDS: BENADRYL 25 MG IV ×2 (09:12→10:43)
[2025-03-11] MEDS: PEPCID 10 MG IV (10:39)
[2025-03-11] MEDS: PEPCID 10 ML IV (10:39)
--- NOTE | 2025-03-11 14:09 | PTCARENOTE ---
Pt received 1 unit of PRBC today. At the end of the transfusion the Pt stated that had one hive of Lt arm. After assessing Pt, she seemed to have a small area on face. Post vitals were 98.1-800-41-151/95. Pt stated that felt a little anxious but
otherwise fine. Pt did not c/o itching or SOB. Hung NSS and notified FLOATLIGHT POWDER MIXER, Asmita. Pepcid IV and another dose of Benadryl IV were ordered and given. Hives started to subside within 10 minutes after. Spoke with [employer] M[employer], Tom Mckoy, at [facility] and
agreed to watch Pt for another 1/2hr or so to make sure that no more S/S started. Hives completely resolved in a 1/2 hr and Pt decided to wait for another 1hr before leaving. Vitals before d/c 84-16-139/85.
== END 2025-03-12 14:01 | disposition home or self-care (01) ==
LOC: OID 07:54
PROVIDERS: ATTENDING PHYSICIAN Nurse Practitioner Acute Care; FAMILY PHYSICIAN Family Medicine
DX: Z51.11 Encounter for antineoplastic chemotherapy (principal); C50.411 Malignant neoplasm of upper-outer quadrant of right female breast; R11.2 Nausea with vomiting, unspecified; G89.3 Neoplasm related pain (acute) (chronic); L02.223 Furuncle of chest wall; D69.3 Immune thrombocytopenic purpura; D61.818 Other pancytopenia; Z17.1 Estrogen receptor negative status [ER-]
CPT/HCPCS: 36430; 36591; 72100; 80053; 80076; 82248; 85025; 86078; 86850; 86900; 86901; 86920; 96367; 96374; 96375; 96376; 96413; 99284; J2469; J9025; P9016; P9073

== ENCOUNTER 2025-03-17 08:03 | Inpatient (IN) | payer OTHER, SELFPAY ==
[2025-03-17] VITALS (7 sets, daily range): BP systolic 92–130; BP diastolic 55–78; BMI 18.7; BMI 19.6
[2025-03-17 05:08] LABS: Hematocrit 21.2 % (37.0-47.0); Hemoglobin 7.4 g/dL (12.0-16.0); Mean Corp Hgb Conc. 34.9 g/dL (33.0-37.0); Mean Corpuscular Volume 86.2 fL (81.0-99.0); Nucleated Red Blood Cells % 0 %; Platelet Count 13 10^3/uL (130-400); Red Cell Dist. Width 13.7 % (11.5-14.5)
[2025-03-17 05:15] LABS: ALT (SGPT) 20 U/L (0-35); AST (SGOT) 16 U/L (14-36); Albumin 3.8 g/dl (3.5-5.0); Alkaline Phosphatase 109 U/L (38-126); Blood Urea Nitrogen 14 mg/dl (7-17); Calcium 8.9 mg/dl (8.4-10.2); Carbon Dioxide 27 mmol/L (22-30); Chloride 104 mmol/L (98-107); Estimated Creatinine Clearance 89 ml/min; Glucose 113 mg/dl (70-99); Potassium 3.6 mmol/L (3.5-5.1); Sodium 136 mmol/L (135-145); Total Protein 6.8 g/dl (6.3-8.2); eGFR > 60.00
--- NOTE | 2025-03-17 05:18 | ED.GENMED ---
History of Present Illness
General
Chief Complaint: Fever
Source: patient
Time Seen by Provider: 03/17/25 05:07
History of Present Illness
History of Present Illness:
64-year-old female presents to the emergency room for evaluation of runny nose, nausea, 'low-grade' fever. Patient has been feeling unwell for the past 2 to 3 days with review of symptoms. Tonight she was feeling more achy and decided she needed
to get checked out. She has a history of myelodysplastic syndrome for which she receives an infusion once a month. Patient states her white blood cell count has been running quite low. Her platelet counts have been quite low as well. She is
under the care of Dr. Boland.
Past History
Past History
ED Past Medical History: Asthma, Cancer (breast), HTN and Other (sinusitis, migraine, thrombocytopenia)
ED Past Surgical History: None
Patient has exhibited threatening behavior?: No
Social History
Tobacco: Non-smoker
Alcohol: None
Drug: None
Personal:
Living: with family
Employment: Employed
Phy Exam
Physical Exam
Physical Exam:
General: Awake, Alert, Oriented X3. No acute distress.
Vitals: Oral temperature of 100. Tachycardic at 112
Head: Atraumatic
Eyes: Pupils equal, EOMI
Throat: Airway intact, no exudates
Neck: Trachea midline
Lungs: Clear and equal b/l
Heart: Regular rate, no murmurs
Abd: Soft, Nontender, No pulsatile mass
Neuro: Nonfocal
Skin: Warm, dry, few petechial lesions
Extremities: pulses equal b/l, no edema
Course
Orders/Labs/Results
Orders:
Orders
03/17/25 04:42
Complete Blood Count/With Diff Urgent
Comprehensive Metabolic Panel Urgent
Lactate Level [Lactic Acid] Urgent
Blood Culture Urgent
ALESSANDRA Source: Blood/Venous
Specimen Description:
03/17/25 05:15
Acetaminophen [Tylenol] 650 mg PO NOW STA
CR Chest - 2 Views Urgent
Comment:
Reason For Exam: fever, neutropenia
03/17/25 05:27
COVID-19 Antigen Urgent
Source: Nasal Swab
Blood Culture Q30M
ALESSANDRA Source: Blood/Venous
Specimen Description:
Blood Culture Q30M
ALESSANDRA Source: Blood/Venous
Specimen Description:
Influenza A+B Rapid Molecular Urgent
ALESSANDRA Source: Nasal Swab
Specimen Description:
03/17/25 05:40
Urinalysis Reflex To Culture Urgent
Date Specimen was Collected: 03/17/25
Time Specimen was Collected: 05:39
Urine Microscopic Reflex Cult Urgent
Urine Culture Urgent
ALESSANDRA Source: U
Specimen Description:
Date Specimen was Collected: 03/17/25
Time Specimen was Collected: 05:39
03/17/25 06:52
Cefepime HCl [Maxipime] 2,000 mg IV NOW STA
03/17/25 07:57
Admit/Transfer Patient As Directed
Co-Sign Provider:
Level of Care: Inpatient admission
Assign to:: Medical/Surgical
Physician / Group: Sharath
Diagnosis: neutropenic fever
Reason for Hospitalization: see progress note
Expected length of stay greater than two midnights?: Yes
ELOS- Estimated Length of Stay in days: 4
I certify the patient meets the requirements for IP care: Yes
PRN Pain Medication Management As Directed
May give lesser potent ordered pain med per pt: Yes
preference::
Protocol:: Medication orders for pain may be administered in a
manner that supports deferring to patient preference
when the pt is:
- Requesting an ordered lesser potent pain medication.
Least to most potent pain medications are defined
as: acetaminophen < NSAID < tramadol < opioids
(morphine, oxycodone, hydromorphone).
- Requesting a lesser dose of the same medication IF
ORDERED.
- Requesting a less intrusive route of administration
if both routes are prescribed by the provider (PO <
IV).
03/17/25 11:07
Respiratory Viral Panel-PCR Urgent
ALESSANDRA Source: AMPOULE INSPECTOR
Specimen Description:
Comment: ADD ON
03/17/25 13:58
Sequential Compression Device [Pneumatic Compression Sleeves] As Directed
Type: Knee high
DX Deep Vein Thrombosis Video Routine
Abnormal Lab Results
03/17/25 03/17/25
04:42 05:40
WBC 0.4 L* 10^3/uL
(4.8-10.8)
RBC 2.46 L 10^6/uL
(4.20-5.40)
Hgb 7.4 L g/dL
(12.0-16.0)
Hct 21.2 L %
(37.0-47.0)
Plt Count 13 L* D 10^3/uL
(130-400)
MPV 11.2 H fL
(7.4-10.4)
Absolute Neuts (auto) 0.0 L* 10^3/uL
(1.4-6.5)
Absolute Lymphs (auto) 0.4 L 10^3/uL
(1.2-3.4)
Absolute Monos (auto) 0.0 L 10^3/uL
(0.1-0.6)
Neutrophils % 0.0 L %
(42.2-75.2)
Lymphocytes % 97.7 H %
(20.5-51.1)
Creatinine 0.5 L mg/dL
(0.6-1.0)
Glucose 113 H mg/dl
(70-99)
Ur Occult Blood Reflex 1+ A
(Negative)
Urine Bacteria (Reflex) Moderate A
(Negative)
03/17/25 04:42
03/17/25 04:42
Vital Signs
Initial and Last Documented VS:
Initial Vital Signs
Temp Pulse Resp BP Pulse Ox
99.1 F 112 18 128/76 96
03/17/25 04:25 03/17/25 04:25 03/17/25 04:25 03/17/25 04:25 03/17/25 04:25
Last Documented Vital Signs
Temp Pulse Resp BP Pulse Ox
99.6 F 110 16 114/68 96
03/18/25 07:30 03/18/25 07:30 03/18/25 07:30 03/18/25 07:30 03/18/25 07:30
MDM/Problems Addressed
Differential Diagnosis Includes:
Neutropenic fever, flu, COVID, sepsis, bacteremia
MDM/Problems Addressed:
Patient presents with fever. She is neutropenic and has been for some time. She is on prophylactic antibiotics at home. She feels poorly. Labs here show no clear source of infection. Hospitalize for broad-spectrum antibiotic coverage.
*Pulse Oximetry
SaO2: 95
Oxygen Mode of Delivery: Room air
Patient hypoxic: no
*EKG
Interpretation: abnormal
Heart Rate: 107
Rate: tachycardiac
Rhythm: sinus tachycardia
Lyons: normal axis
Interval: normal interval
QRS Pattern: normal QRS
Ischemia: no ischemia
*Nutrition Counselor Interpretation
Rate: tachycardiac
Interpretation: abnormal
Heart Rate: 107
Rhythm: sinus tachycardia
*Critical Care Note
Total Time (30-74mins, 75-104mins- exclusive of procedures): Not Applicable
ED Attending Note
-
Portions of this chart may have been created with voice recognition software.� Occasional wrong word or��sound alike� substitutions may have occurred due to the inherent limitations of voice recognition software.
Discharge Plan
Departure
Patient Disposition: Admit
Date of Disposition: 03/17/25
Time of Disposition: 06:54
Admit to: Med/Surg
Presentation/result/management discussed w/ accepting MD/DO: Hospitalist
Condition: Fair
Discharge Problem:
Neutropenic fever
Interventions
Interventions:
*Risk Screen - Suicide Last Done: 03/17/25 04:25
*General Assessment Last Done: 03/17/25 04:25
*Neglect/Abuse Screening Last Done: 03/17/25 04:25
*ED- Fall Risk Assessment Last Done: 03/17/25 04:35
*ED COVID-19 Vaccine History Last Done: 03/17/25 14:04
*ED Influenza Vaccine History Last Done: 03/17/25 04:35
*Nursing Disposition Last Done: 03/17/25 12:15
ED- Neurological Assessment Last Done: 03/17/25 04:35
ED-Skin Assessment Last Done: 03/17/25 04:35
Discharge Date and Time
Discharge Date/Time: 03/17/25 13:49
[2025-03-17] MEDS: TYLENOL 650 MG PO ×2 (05:24→21:26)
[2025-03-17 06:05] LABS: Urine Character Cloudy (Clear)
[2025-03-17 06:15] LABS: Urine Red Blood Cell 0-2 /HPF (0-2); Urine Squamous Cell None seen /LPF (Few); Urine White Cell None Seen /HPF (0-5)
[2025-03-17 06:20] LABS: COVID-19 Antigen Negative (Negative)
[2025-03-17] MEDS: MAXIPIME 2000 MG IV ×2 (07:24→20:41)
--- NOTE | 2025-03-17 08:39 | HPS.HSE ---
Family Physician
-
Family Physician: Binu Ivey
Chief Complaint
-
Neutropenic fever
History of Present Illness
Patient oncological history significant for breast cancer last year status post treatments and since November this year have been having pancytopenia which according to the patient may be related to her chemo regimen.
Pancytopenia started this summer in November. She had 1 bone marrow and [facility] had 2 bone marrow's at [place]. She is under the care of [place] team for pancytopenia's. 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
significance]. She is on acyclovir and Levaquin prophylaxis. She gets regular blood transfusions of both
2 weeks ago she had a platelet transfusion with a reaction of significant hives. She had transfusion of platelets again on last Tuesday without any complications. She says the threshold for transfusions or hemoglobin less than 8 and platelets less
than 15K. She has tranexamic acid ordered for home use if she notices any bleeding. She has not noticed any bleeding recently.
For the last couple of days she was troubled with a runny nose. Mostly clear nasal discharge. She feels her sinuses are congested and points towards the frontal sinus area. She has issues with chronic sinus symptoms and at this part of the year
she has allergies as well.
She got up in the middle of the morning at 3 AM and she felt weak, fatigued and she was having a fever of 99-101 so called an ambulance. Prior to that she was running low-grade temps. 97-98 at home.
No sore throat, cough or shortness of breath.
She is also troubled with chronic nausea for which she takes as needed medications at home. No vomiting. No abdominal pain. No diarrhea.
Denies any dysuria or frequency of urine.
2 to 3 weeks ago she had issues with the SI joint symptoms left more than right. She has chronic SI joint symptoms. She was checked out apparently 2 weeks ago in the ER here. She has no other joint involvement.
Medical History
Past Medical History
Past Medical History: Reports Arrhythmia, Cancer (Breast cancer currently pancytopenia), HTN and Other (Migraine headaches)
Past Surgical History: Reports None
Social History
Tobacco: Non-smoker
Alcohol: None
Drug: None
Personal: Single
Living: With Family
Family History
Family History: Not pertinent
Allergies / Home Medications
Allergies reflects when Allergies were last updated in [employer].
Home Medications with original date entered in [employer]
Allergy/Medication List:
Allergies
Allergy/AdvReac Type Severity Reaction Status Date / Time
No Known Allergies Allergy Verified 03/17/25 04:22
Home Medications
sumatriptan succinate 25 mg tablet (Imitrex) 10 mg PO PRN PRN migraine 12/31/13
alprazolam 0.25 mg tablet 0.25 mg PO HS PRN anxiety 01/24/24
ascorbic acid (vitamin C) 500 mg tablet (Vitamin C) 500 mg PO DAILY 01/24/24
lisinopril 10 mg tablet 5 mg PO DAILY 01/24/24
multivitamin 1 tab PO DAILY 01/24/24
calcium carb-ergocalciferol (vit D2) 600 mg calcium-200 unit tablet 1 tab PO DAILY 01/09/25
tranexamic acid 650 mg tablet 650 mg PO BID PRN bleeding 01/17/25
acyclovir 400 mg tablet 400 mg PO BID 02/01/25
levofloxacin 500 mg tablet 500 mg PO HS 02/01/25
ondansetron HCl 4 mg tablet 4 mg PO .Q8H PRN nausea 02/06/25
prochlorperazine maleate 10 mg tablet (Compazine) 10 mg PO .Q6H PRN nausea 02/06/25
polyethylene glycol 3350 17 gram oral powder packet (Miralax) 17 g PO DAILY PRN constipation 02/08/25
oxycodone-acetaminophen 5 mg-325 mg tablet (Percocet) 1 tab PO .Q6H PRN pain 02/25/25
sennosides 8.6 mg capsule (senna) 8.6 mg PO DAILY PRN constipation 02/28/25
acetaminophen 500 mg tablet 500 mg PO .Q8H PRN pain 03/04/25
Review of Systems
-
A 12 point ROS was completed and negative except as noted: Yes
Physical Exam
Vital Signs
Vital Signs
Temp Pulse Resp BP Pulse Ox
99.9 F 111 17 106/62 95
03/17/25 06:47 03/17/25 08:30 03/17/25 08:30 03/17/25 07:00 03/17/25 08:30
Physical Exam
General: No Apparent Distress (Looks sallow)
HEENT: Moist mucous membranes (No oral thrush)
Respiratory: Clear
Cardiac: S1/S2, Regular Rhythm and Tachycardia
GI: Soft, Non Tender, Non Distended, Normal Bowel Sounds and No Hepatosplenomegaly
Musculoskeletal: No Edema
Neuro: AO x 3 and No Motor Deficits
Psych: Calm and Intact Judgment/Insight
Laboratory Results
-
03/17/25 04:42
03/17/25 04:42
Laboratory Results
Lactic Acid 1.0 mmol/L (0.7-2.0) 03/17/25 04:42
Total Bilirubin 1.0 mg/dl (0.2-1.3) 03/17/25 04:42
AST 16 U/L (14-36) 03/17/25 04:42
ALT 20 U/L (0-35) 03/17/25 04:42
Alkaline Phosphatase 109 U/L (38-126) 03/17/25 04:42
Data Reviewed
-
Diagnostic Radiology: Image Personally Visualized and interpreted (Do not appreciate any obvious consolidation; official report pending)
Lab Data: Labs Reviewed by me
Impression/Plan
-
Neutropenic fevers with sepsis
Hemodynamically stable.
Only positive clinical symptoms are sinus symptoms and nonspecific nausea.
UA negative. COVID and flu negative. Blood cultures pending. Chest x-ray no obvious consolidation but official report pending.
Admit to hospital.
Start on broad-spectrum with vancomycin and cefepime. Hold home Levaquin.
Consult ID and oncology.
Follow-up for any new focal symptoms.
Pancytopenia with severe anemia and thrombocytopenia.
With symptoms of fatigue and hemoglobin less than 8 will consider a unit of transfusion.
Transfuse platelets per oncology. No obvious external bleeding.
History of asthma without flare
History of hypertension-lisinopril on hold at home. Blood pressure under goal here. Continue to follow.
DNR/DNI per patient wishes.
Portions of this chart may have been created with voice recognition software. Occasional wrong word or 'sound alike' substitutions may have occurred due to the inherent limitations of voice recognition software.
--- NOTE | 2025-03-17 09:27 | EDCM ---
CM reviewed chart and met with pt bedside in ED. Lives with her 84yo mother, 2 story home, no DAPHNIE, first floor half bath, full flight to second floor bedroom and full bath.
Independent in ADLs, personal care and ambulation at baseline, no assistive devices. Still drives.
Followed by Dr Knight at [facility] for myelodysplastic syndrome, gets monthly infusions and weekly blood/platelet transfusions.
Confirms prescription coverage.
Hx [facility], no hx SNF
PCP: Binu Ivey
Pharmacy: [address] [place]
Anticipate discharge home, CM will continue to follow for any discharge planning needs.
--- NOTE | 2025-03-17 09:31 | CON.ID ---
Consultation
-
Date/Time Consultation Requested: 03/17/25 8:29
Date/Time Consultation Performed: 03/17/25 9:32
Requesting Provider: Dr Early
Performing Provider: Dr Benites
Reason for Consultation: neutropenic fever
Chief Complaint / Past History
Chief Complaint
neutropenic fever
History of Present Illness
Ms Cho is a 64 year old feamle with history of breast cancer on chemotherapy with ongoing pancytopenia with a diagnosis of clonal cytopenia of unknown significance. She is on acyclovir and levaquin prophylaxis and gets regular transfusions of
RBCs and platelets. There has been no recent bleeding.
The last several days she has had a runny nose with clear discharge, she has pain over the frontal sinuses. She reports chronic sinus issues and has seasonal allergies. Has a slight headache frontally. No sore throat, cough, sputum or shortness
of breath. This AM she woke up at 3 AM found she was having a fever of 101 and she felt weak, fatigued. Endorses nausea with occasional vomiting, no abdominal pain or diarrhea. No dysuria, urgency or frequency. 2-3 weeks ago she had SI joint
symptoms and she was found to have a new mild compression fracture of L1. Port is functional.
Since arrival here she has been afebrile, bp stable, wbc 0.4, hgb 7.4, plt 13, ANC 0.0, na 136, cr 0.5, blood cultures x3 are in progress, ua: moderate bacteria but no wbcs, urine culture is in progress, CXR today awaiting radiology read, port is
noted, covid/influenza negative
Past History
Additional Past Medical History:
Arrhythmia, Cancer (Breast cancer currently pancytopenia), HTN and Other (Migraine headaches)
Additional Past Surgical History:
port
Allergy History:
No Known Allergies Allergy (Verified 03/17/25 04:22)
Medications Reviewed: Yes
Social History
Tobacco: Non-Smoker
Alcohol: None
Drug: None
Family History
Family History: Not Pertinent
Review of Systems
Review of Systems
as per hpi
Vital Signs
Temp Pulse Resp BP Pulse Ox
99.9 F 111 17 106/62 95
03/17/25 06:47 03/17/25 08:30 03/17/25 08:30 03/17/25 07:00 03/17/25 08:30
Physical Exam
Physical Exam
Constitutional: No Acute Distress
Cardiovascular: Regular Rate and S1/S2; Negative Murmur or Rub
Pulmonary: Clear and Symmetric; Negative Wheezes, Rales or Rhonchi
Gastrointestinal: Soft, Non Tender, Non Distended and Normal Bowel Sounds
Skin: Warm and Dry; Negative Rash or Jaundice
Lab / Diagnostic Study Results
03/17/25 04:42
03/17/25 04:42
Abs Immat Gran (auto) 0.0 10^3/uL (0-0.05) 03/17/25 04:42
Absolute Neuts (auto) 0.0 10^3/uL (1.4-6.5) L* 03/17/25 04:42
Absolute Lymphs (auto) 0.4 10^3/uL (1.2-3.4) L 03/17/25 04:42
Absolute Monos (auto) 0.0 10^3/uL (0.1-0.6) L 03/17/25 04:42
Absolute Basos (auto) 0.0 10^3/uL (0-0.2) 03/17/25 04:42
Immature Gran % 0.0 % (0-0.5) 03/17/25 04:42
Neutrophils % 0.0 % (42.2-75.2) L 03/17/25 04:42
Lymphocytes % 97.7 % (20.5-51.1) H 03/17/25 04:42
Monocytes % 2.3 % (1.7-9.3) 03/17/25 04:42
Eosinophils % 0.0 % (0-6) 03/17/25 04:42
Basophils % 0.0 % (0-2) 03/17/25 04:42
Lactic Acid 1.0 mmol/L (0.7-2.0) 03/17/25 04:42
Ur Squamous Epith Cells None seen /LPF (Few) 03/17/25 05:40
Microbiology Results
Micro:
03/17/25 05:27 Influenza Types A & B (MICHAEL) - Final
Nasal Swab Negative for Influenza A & B, NAAT
Negative results must be combined with clinical observations
and patient history.
Nucleic Acid Amplification test (NAAT)performed on the
[employer] platform.
03/17/25 05:40 Urine Culture - Pending
Urine
03/17/25 05:27 Blood Culture - Pending
Blood/Venous
03/17/25 05:27 Blood Culture - Pending
Blood/Venous
03/17/25 04:42 Blood Culture - Pending
Blood/Venous
Assessment / Plan
Neutropenic Fever
Chronic neutropenia
Sinus tenderness
- covid and influenza screens are negative
- respiratory viral panel
- blood cultures x3 are in progress
- urine culture in progress
- continue vancomycin, cefepime; added metronidazole given sinus symptoms
- continue acyclovir prophylaxis, can hold levaqin while on broad spectrum therapy
--- NOTE | 2025-03-17 14:27 | PTCARENOTE ---
Patient admitted through the emergency room from home with neutropenic fever.The patient is alert and oriented.She reports having nausea.She also is having back pain at a 6 out of 10.She said she has had the back pain before but that it had gotten
worse.The patient is in her bed with the call amaya in place.
--- NOTE | 2025-03-17 14:50 | PHA.VAN.IN ---
Assessment
- Assessment
Renal Function: Appears similar to baseline
Maximum Temperature: 100.3
Concomitant Antimicrobials: acyclovir, cefepime, metronidazole
AUC Dosing Plan
- Dosing Variables
Dosing Weight (kg): 61.9
Dosing CrCl (ml/min): 93
Vd coefficient (L/kg): 0.7
- Empiric Dosing
Initial / Loading Dose: vancomycin 1500 mg x 1
Maintenance Regimen: vancomycin 1000 mg q12h
Estimated AUC (mcg*h/mL): 589
Estimated Peak (mcg*h/mL): 37
Estimated Trough (mcg/ml): 15.1
Estimated Half Life (H): 8.5
- Monitoring
No levels ordered at this time: consider levels in next few days
Pharmacokinetics Vancomycin I
- -
Patient Age: 64
Patient Sex: Female
Vancomycin Day #: 1
Indication: Gi / Intra-Abdominal
Requesting Provider: Dr. Early
Pertinent Antimicrobial Allergies:
nkda
Height / Weight:
Height 5 ft 10 in
Actual Weight 61.944 kg
IBW in k.5
Pertinent Past Medical History: breast cancer, pancytopenia
- Vital Signs / Lab Results
Temp Pulse Resp BP Pulse Ox
100.3 F 112 16 113/76 95
03/17/25 13:49 03/17/25 13:49 03/17/25 13:49 03/17/25 13:49 03/17/25 14:34
Lab Results - Hematology
03/17/25
04:42
WBC 0.4 L*
Lab Results - Chemistry
03/17/25
04:42
BUN 14
Creatinine 0.5 L
Estimated Creat Clear 89
Albumin 3.8
03/17/25
04:42
Lactic Acid 1.0
Lab Results - Urine
03/17/25
05:40
Urine Nitrite (Reflex) Negative
Leukocyte Esterase Rfl Negative
Urine WBC (Reflex) None seen
Ur Squamous Epith Cells None seen
Urine Bacteria (Reflex) Moderate A
Microbiology Results
03/17/25 11:07 Influenza Type A (PCR) - Final
Nasalpharynx Not Detected
Influenza Type A (H1) (PCR) - Final
Not Detected
Influenza Type A (H3) (PCR) - Final
Not Detected
Influenza Type B (PCR) - Final
Not Detected
Resp Syncytial Virus Type A (PCR) - Final
Not Detected
Resp Syncytial Virus Type B (PCR) - Final
Not Detected
Adenovirus DNA (PCR) - Final
Not Detected
Human Metapneumovirus (PCR) - Final
Not Detected
Parainfluenza Virus Type 1 (PCR) - Final
Not Detected
Parainfluenza Virus Type 2 (PCR) - Final
Not Detected
Parainfluenza Virus Type 3 (PCR) - Final
Not Detected
Parainfluenza Virus Type 4 - Final
Not Detected
Rhinovirus (PCR) - Final
Not Detected
03/17/25 05:27 Influenza Types A & B (MICHAEL) - Final
Nasal Swab Negative for Influenza A & B, NAAT
Negative results must be combined with clinical observations
and patient history.
Nucleic Acid Amplification test (NAAT)performed on the
[employer] platform.
[2025-03-17] MEDS: VANCOCIN 530 MG IV (15:26)
[2025-03-17] MEDS: FLAGYL 500 MG PO ×2 (15:29→22:49)
[2025-03-17] MEDS: ZOVIRAX 400 MG PO ×2 (15:29→22:49)
[2025-03-17] MEDS: FLUSH (NSS) 2 FLUSH IV (15:30)
[2025-03-17] MEDS: ZOFRAN 4 MG IV (15:33)
--- NOTE | 2025-03-17 16:23 | W.PN.UPDATE ---
Update Note
Progress Note Update
pt with MDS with pancytopenia, transfusion dependent on VIDAZA w/ C2 completed 03/08 admitted now with neutropenic fever. formal consult to follow.
- CBC on admission with ANC 0, hgb 7.4 g/dl and plts 13K which is up from 9k earlier this week s/p 1 unit plts outpt on tuesday. she has hx of platelet refractoriness requiring HLA matched platelets to elicit any response. therefore if platelets
indicated should order 'HLA leukoreduced platelets'. pRBCs products commonly ordered 'leukoreduced, CMV negative'.
- pt has had prior transfusion reactions. therefore she is commonly given Tylenol + Benadryl 25 mg IV + solucortef 200 mg before platelet transfusions and Tylenol + Benadryl 25 mg IV before pRBCs.
- due to hx of reactions, would limit transfusion thresholds to transfuse for plts < 10K, hgb < 7.0 g/dl if no signs of bleeding.
- neutropenic precautions. infectious work-up underway. Apprec ID recs. agree with empirical abx.
- continue acyclovir ppx.
[2025-03-17] MEDS: STERILE WATER FOR INJECTION 10 ML IV (20:40)
[2025-03-17] MEDS: COMPAZINE 5 MG IV (21:23)
[2025-03-18] VITALS (7 sets, daily range): BP systolic 105–129; BP diastolic 65–76; BMI 19.6
[2025-03-18] MEDS: VANCOCIN 200 IV (05:42)
[2025-03-18 06:03] LABS: Hematocrit 19.2 % (37.0-47.0); Hemoglobin 6.7 g/dL (12.0-16.0); Mean Corp Hgb Conc. 34.9 g/dL (33.0-37.0); Mean Corpuscular Volume 86.1 fL (81.0-99.0); Nucleated Red Blood Cells % 0 %; Platelet Count 7 10^3/uL (130-400); Red Cell Dist. Width 13.6 % (11.5-14.5)
[2025-03-18] MEDS: FLAGYL 500 MG PO (07:54)
[2025-03-18] MEDS: MAXIPIME 2000 MG IV (07:54)
[2025-03-18] MEDS: STERILE WATER FOR INJECTION 10 ML IV (07:54)
[2025-03-18] MEDS: FLUSH (NSS) 3 FLUSH IV (07:54)
[2025-03-18] MEDS: ZOVIRAX 400 MG PO ×2 (07:54→20:38)
[2025-03-18] MEDS: ZOFRAN 4 MG IV (08:03)
--- NOTE | 2025-03-18 08:45 | CON.ONC ---
Consultation
-
Date Consultation Requested: 03/18/25
Date Consultation Performed: 03/18/25
Requesting Provider: Dr. Jin Early
Performing Provider: Dr. Vita Knight
Reason for Consultation: MDS
Impression
Impression
1. MDS/pancytopenia -transfusion dependent
transfuse HLA matached platelets <10, <20 for neutropenic fever, <50 prn bleeding - Tylenol+Benadryl+Solucortef pre-plt transfusion
tranexamic acid 1300mg PO BiD prn mucosal bleeding
Transfuse Hgb <7 or as needed for sxs anmia -Tylenol+Benadryl pre-PRBC transfusion
next cycle of vidaza (cycle 3) due 04/02/2025 -plan for 4-6 cycles and reassess if repeat BMBx is needed
sxs support with antiemetics prn
on acyclovir
resume Levaquin ppx once current abx course complete
2. Hx stage IIIA metaphasic right breast cancer with squamous differentiation, ER positive -completed AC-T 04/2024, completed XRT Jun 2024
3. neutropenic fever/PNA -abx per ID, follow cultures
Plan
Plan
daily cbc, transfuse prn
abx per ID, follow cultures
Patient History
History of Present Illness
64yo F who presented with neutropenic fever. She reports a runny nose and frontal sinus congestion for the past several days. She denies any sore throat, cough, SOB, or sick contacts. Her initial evaluation was notable for pancytopenia. Her CXR
showed a new focal airspace opacity right mid lung. She has been admitted and started on IV abx.
In brief, Dariana is known to Dr. Garsia for her history of right breast cancer stage III for which she completed AC-T April 2024 and XRT Jun 2024. She subsequently presented with a platelet count then progressive cytopenias. She was
evaluated with bone marrow biopsy and is currently receiving Vidaza for management of her newly diagnosed MDS. She completed Cycle 2 of her Vidaza 03/08/2025. She is transfusion dependent with reaction to both RBC and platelet transfusions.
Clincally, she denies chest pain, n/v/d/c or abdomainal pain.
Past-Medical/Surgical History
PMH MDS, breast cancer, DJD, asthma, arthritis, HTN, HLD, anxiety, migraine
PSH right lumpectomy, port placement
Social denies tobacco use, denies significant ETOH, denies use of recreational drugs, .
Patient Medication
�Medication �Instructions �Recorded �Confirmed �Last Taken �Type
alprazolam 0.25 mg tablet 0.25 mg PO HS PRN anxiety 01/24/24 03/17/25 03/16/25 History
ascorbic acid (vitamin C) 500 mg 500 mg PO DAILY 01/24/24 03/17/25 03/16/25 History
tablet (Vitamin C)
tranexamic acid 650 mg tablet 650 mg PO BID PRN bleeding 01/17/25 03/17/25 03/15/25 History
acyclovir 400 mg tablet 400 mg PO BID 02/01/25 03/17/25 03/16/25 History
levofloxacin 500 mg tablet 500 mg PO HS 02/01/25 03/17/25 03/16/25 History
prochlorperazine maleate 10 mg 10 mg PO Q6HPRN PRN nausea 02/06/25 03/17/25 03/17/25 History
tablet (Compazine)
polyethylene glycol 3350 17 gram 17 g PO DAILY constipation 02/08/25 03/17/25 03/16/25 History
oral powder packet (Miralax)
oxycodone-acetaminophen 5 mg-325 1 tab PO Q6HPRN PRN severe pain 02/25/25 03/17/25 02/28/25 History
mg tablet (Percocet)
acetaminophen 500 mg tablet 500 mg PO DAILYPRN PRN mild 03/04/25 03/17/25 03/16/25 History
pain/fever
calcium 600 mg (as 1 tab PO DAILY 03/17/25 03/17/25 03/16/25 History
carbonate)-vitamin D3 5 mcg (200
unit) tablet
cyanocobalamin (vitamin B-12) 1,000 mcg PO DAILY 03/17/25 03/17/25 03/16/25 History
1,000 mcg tablet
therapeutic multivitamin 1 tab PO DAILY 03/17/25 03/17/25 03/16/25 History
Active Medications
Generic Name Dose Route Start Last Admin
Trade Name Freq PRN Reason Stop Dose Admin
Acetaminophen 650 mg 03/17/25 13:58 03/17/25 21:26
Acetaminophen 325 Mg Tablet PO 04/14/25 13:57 650 mg
Q4HPRN PRN Administration
mild pain /fever >100.4
Acyclovir Sodium 400 mg 03/17/25 15:00 03/18/25 07:54
Acyclovir Sodium 200 Mg Capsule PO 03/27/25 14:59 400 mg
BID JAIRON Administration
Alprazolam 0.25 mg 03/17/25 13:58
Alprazolam 0.25 Mg Tablet PO 04/14/25 13:57
HSPRN PRN
anxiety
Cefepime HCl 2,000 mg 03/17/25 20:00 03/18/25 07:54
Cefepime Hcl 2,000 Mg/12.5 Ml Vial IV 2,000 mg
Q12 JAIRON Administration
Heparin Sodium (Porcine) 500 unit 03/17/25 19:00 03/18/25 07:55
Heparin Pf (100 Units/Ml) 5 Ml Syr Sc Port IV 04/14/25 18:59 500 unit
PER PROTOCOL JAIRON Administration
Vancomycin HCl 1 gram in 200 mls @ 200 mls/hr 03/18/25 06:00 03/18/25 05:42
Vancocin IV 200 mls
Q12H JAIRON Administration
Metronidazole 500 mg 03/17/25 15:00 03/18/25 07:54
Metronidazole 500 Mg Tablet PO 500 mg
BID JAIRON Administration
Ondansetron HCl 4 mg 03/17/25 13:58 03/18/25 08:03
Ondansetron 4 Mg/2 Ml Vial IV 04/14/25 13:57 4 mg
Q6HPRN PRN Administration
Nausea/vomiting
Sodium Chloride 0 flush 03/17/25 15:00 03/18/25 07:54
Sodium Chloride 0.9% (Flush) Syringe IV 04/14/25 14:59 3 flush
PER PROTOCOL JAIRON Administration
Sterile Water 10 ml 03/17/25 20:00 03/18/25 07:54
Sterile Water For Injection 10 Ml Vial IV 04/14/25 19:59 10 ml
Q12 JAIRON Administration
Review of Systems
-
ROS is notable for HPI, otherwise negative
Physical Exam
-
General: No Apparent Distress
HEENT: Moist Mucous Membranes; Negative Jaundice
Pulmonary: Other (unlabored)
GI: Soft
Extremities: Pulses Present
Skin: Warm
Psych: Calm
Labs
Lab Results
WBC 0.2 10^3/uL (4.8-10.8) L* 03/18/25 05:27
RBC 2.23 10^6/uL (4.20-5.40) L 03/18/25 05:27
Hgb 6.7 g/dL (12.0-16.0) L* 03/18/25 05:27
Hct 19.2 % (37.0-47.0) L* 03/18/25 05:27
MCV 86.1 fL (81.0-99.0) 03/18/25 05:27
MCH 30.0 pg (27.0-31.0) 03/18/25 05:27
MCHC 34.9 g/dL (33.0-37.0) 03/18/25 05:27
RDW 13.6 % (11.5-14.5) 03/18/25 05:27
Plt Count 7 10^3/uL (130-400) L* D 03/18/25 05:27
MPV Not Reportable 03/18/25 05:27
Abs Immat Gran (auto) 0.0 10^3/uL (0-0.05) 03/18/25 05:27
Absolute Neuts (auto) 0.0 10^3/uL (1.4-6.5) L* 03/18/25 05:27
Absolute Lymphs (auto) 0.2 10^3/uL (1.2-3.4) L 03/18/25 05:27
Absolute Monos (auto) 0.0 10^3/uL (0.1-0.6) L 03/18/25 05:27
Absolute Eos (auto) 0.0 10^3/uL (0-0.7) 03/18/25 05:27
Absolute Basos (auto) 0.0 10^3/uL (0-0.2) 03/18/25 05:27
Immature Gran % 0.0 % (0-0.5) 03/18/25 05:27
Neutrophils % 4.7 % (42.2-75.2) L 03/18/25 05:27
Lymphocytes % 90.5 % (20.5-51.1) H 03/18/25 05:27
Monocytes % 4.8 % (1.7-9.3) 03/18/25 05:27
Eosinophils % 0.0 % (0-6) 03/18/25 05:27
Basophils % 0.0 % (0-2) 03/18/25 05:27
Creatinine 0.5 mg/dL (0.6-1.0) L 03/17/25 04:42
Vital Signs
Vital Signs
Temp Pulse Resp BP Pulse Ox
99.6 F 110 16 114/68 96
03/18/25 07:30 03/18/25 07:30 03/18/25 07:30 03/18/25 07:30 03/18/25 07:30
--- NOTE | 2025-03-18 09:25 | PHA.VAN.FU ---
Vancomycin Assessment / Plan
- Assessment
Renal Function: No New Labs Today
WBC's are: Trending Down
In the past 24 hrs, patient has been: Afebrile
Concomitant Antimicrobials: CEFEPIME, METRONIDAZOLE, ACYCLOVIR
- Dosing Plan
Continue: VANCO 1000MG Q12H
- Monitoring Plan
No level(s) ordered at this time: CONSIDER LEVELS AT STEADY STATE
- Follow Up
Pharmacy will continue to follow.
Vancomycin Follow UP
- -
Patient Age: 64
Patient Sex: Female
Vancomycin Day #: 2
Indication: Neutropenic Fever
Requesting Provider: Dr. Early
Pertinent Antimicrobial Allergies:
nkda
Height / Weight:
Height 5 ft 10 in
Actual Weight 61.944 kg
IBW in k.5
Pertinent Past Medical History: breast cancer, pancytopenia
- Vital Signs / Lab Results
Temp Pulse Resp BP Pulse Ox
99.6 F 110 16 114/68 96
03/18/25 07:30 03/18/25 07:30 03/18/25 07:30 03/18/25 07:30 03/18/25 07:30
Lab Results - Hematology
03/17/25 03/18/25
04:42 05:27
WBC 0.4 L* 0.2 L*
Lab Results - Chemistry
03/17/25
04:42
BUN 14
Creatinine 0.5 L
Estimated Creat Clear 89
Albumin 3.8
03/17/25
04:42
Lactic Acid 1.0
Microbiology Results
03/17/25 05:27 Blood Culture - Preliminary
Blood/Venous Positive culture in progress
Gram Stain - Final
03/17/25 05:27 Blood Culture - Preliminary
Blood/Venous Positive culture in progress
Gram Stain - Final
03/17/25 04:42 Blood Culture - Preliminary
Blood/Venous Positive culture in progress
Gram Stain - Final
03/17/25 11:07 Influenza Type A (PCR) - Final
Nasalpharynx Not Detected
Influenza Type A (H1) (PCR) - Final
Not Detected
Influenza Type A (H3) (PCR) - Final
Not Detected
Influenza Type B (PCR) - Final
Not Detected
Resp Syncytial Virus Type A (PCR) - Final
Not Detected
Resp Syncytial Virus Type B (PCR) - Final
Not Detected
Adenovirus DNA (PCR) - Final
Not Detected
Human Metapneumovirus (PCR) - Final
Not Detected
Parainfluenza Virus Type 1 (PCR) - Final
Not Detected
Parainfluenza Virus Type 2 (PCR) - Final
Not Detected
Parainfluenza Virus Type 3 (PCR) - Final
Not Detected
Parainfluenza Virus Type 4 - Final
Not Detected
Rhinovirus (PCR) - Final
Not Detected
03/17/25 05:27 Influenza Types A & B (MICHAEL) - Final
Nasal Swab Negative for Influenza A & B, NAAT
Negative results must be combined with clinical observations
and patient history.
Nucleic Acid Amplification test (NAAT)performed on the
[employer] platform.
--- NOTE | 2025-03-18 10:13 | W.PN.ID1 ---
Date of Service
Date of Service: March 18, 2025
Today's Communication
start ceftriaxone
stopped vanc, cefepime, metronidazole
Assessment / Plan
Neutropenic Fever
Chronic neutropenia
Sinus tenderness
- covid and influenza screens are negative
- respiratory viral panel - not revealing
- blood cultures x3 are in progress all with strep species
- possibly from the oropharyngeal cavity
- repeat blood cultures x2
- urine culture in progress
- start ceftriaxone, stop cefepime and metronidazole
- stopped vancomycin
- continue acyclovir prophylaxis, can hold levaqin while on broad spectrum therapy
Chief Complaint
-: Other (neutropenic fever)
Subjective / Review of Systems
Tmax recorded 100.3 x2
bp stable
strep species isolated
reports she feels much better, more energy and less sinus tenderness
Vital Signs / Physical Exam
Vital Signs
Vital Signs
Temp Pulse Resp BP Pulse Ox
99.6 F 110 16 114/68 96
03/18/25 07:30 03/18/25 07:30 03/18/25 07:30 03/18/25 07:30 03/18/25 07:30
Physical Exam
Constitutional: No Acute Distress
Cardiovascular: Regular Rate and S1/S2; Negative Murmur or Rub
Pulmonary: Clear and Symmetric; Negative Wheezes or Rales
Gastrointestinal: Soft, Non Tender, Non Distended and Normal Bowel Sounds
Skin: Warm and Dry; Negative Rash or Jaundice
Objective Data
Lab Data
Lab Results
03/18/25 05:27
03/17/25 04:42
Estimated Creat Clear 89 ml/min 03/17/25 04:42
Lactic Acid 1.0 mmol/L (0.7-2.0) 03/17/25 04:42
Total Bilirubin 1.0 mg/dl (0.2-1.3) 03/17/25 04:42
AST 16 U/L (14-36) 03/17/25 04:42
ALT 20 U/L (0-35) 03/17/25 04:42
Alkaline Phosphatase 109 U/L (38-126) 03/17/25 04:42
Most recent labs reviewed.
Micro Results:
03/17/25 04:42 Blood Culture - Preliminary
Blood/Venous Streptococcus species
Gram Stain - Final
03/17/25 05:27 Blood Culture - Preliminary
Blood/Venous Positive culture in progress
Gram Stain - Final
03/17/25 05:27 Blood Culture - Preliminary
Blood/Venous Positive culture in progress
Gram Stain - Final
03/17/25 11:07 Influenza Type A (PCR) - Final
Nasalpharynx Not Detected
Influenza Type A (H1) (PCR) - Final
Not Detected
Influenza Type A (H3) (PCR) - Final
Not Detected
Influenza Type B (PCR) - Final
Not Detected
Resp Syncytial Virus Type A (PCR) - Final
Not Detected
Resp Syncytial Virus Type B (PCR) - Final
Not Detected
Adenovirus DNA (PCR) - Final
Not Detected
Human Metapneumovirus (PCR) - Final
Not Detected
Parainfluenza Virus Type 1 (PCR) - Final
Not Detected
Parainfluenza Virus Type 2 (PCR) - Final
Not Detected
Parainfluenza Virus Type 3 (PCR) - Final
Not Detected
Parainfluenza Virus Type 4 - Final
Not Detected
Rhinovirus (PCR) - Final
Not Detected
03/17/25 05:27 Influenza Types A & B (MICHAEL) - Final
Nasal Swab Negative for Influenza A & B, NAAT
Negative results must be combined with clinical observations
and patient history.
Nucleic Acid Amplification test (NAAT)performed on the
[employer] platform.
03/17/25 05:40 Urine Culture - Pending
Urine
--- NOTE | 2025-03-18 12:46 | W.PN.HOSP.TC ---
Today's Communication/Plan
-
monitor vitals
see plan
bcx with strep
CFTX per ID
check new bcx
Transfuse PRBC and platelet today, monitor for reaction
Assessment / Plan
Assessment / Plan
General: No Apparent Distress
HEENT: Moist mucous membranes
Respiratory: Clear
Cardiac: S1/S2, Regular Rhythm and Tachycardia
GI: Soft, Non Tender, Non Distended, Normal Bowel Sounds
Musculoskeletal: No Edema
Neuro: AO x 3 and No Motor Deficits
Psych: Calm and Intact Judgment/Insight
Sepsis secondary to Streptococcus bacteremia
Neutropenic fever
Acute on chronic neutropenia
Chest x-ray with new focal airspace opacity right midlung. Unclear if this is infectious at this time. Will need repeat imaging outpatient. If finding is persistent then will need CT chest.
ID following, repeat blood culture 03/18. Blood culture from admission growing Streptococcus
Antibiotics per ID
Continue antiviral
MDS/pancytopenia
Transfusion dependent
Per oncology, transfuse platelets less than 10K, hemoglobin less than 7
Hemoglobin 6.7 and platelets 7 today, transfuse PRBC and platelet. History of transfusion reaction. Steroids, Tylenol and Benadryl ordered prior to transfusion
[facility]. Per patient she is going to get stem cell transplant in June
History of breast cancer status post chemo and radiation
History of asthma
DVT prophylaxis
SCD's
DNR per patient
I spent a total of 52 minutes with the patient or on the floor. More than 50% of this time involved counseling and coordination of care.
Anticipated Discharge: > 48 hours
Subjective/Interval History
-
Date of Service: March 18, 2025
denies pain
Objective Data
-
Labs:
Laboratory Results
03/18/25
05:27
WBC 0.2 L*
Hgb 6.7 L*
Hct 19.2 L*
Plt Count 7 L* D
Vital Signs:
Vital Signs
Temp Pulse Resp BP Pulse Ox
99.6 F 110 16 114/68 96
03/18/25 07:30 03/18/25 07:30 03/18/25 07:30 03/18/25 07:30 03/18/25 07:30
I&O
03/17/25 03/18/25 03/19/25
06:59 06:59 06:59
Intake Total 1010 / 1010
Balance 1010 / 1010
[2025-03-18] MEDS: ROCEPHIN 2000 MG IV (12:51)
[2025-03-18] MEDS: FLUSH (NSS) 2 FLUSH IV (12:51)
[2025-03-18] MEDS: STERILE WATER FOR INJECTION 20 ML IV (12:51)
--- NOTE | 2025-03-18 14:29 | CM ---
Reviewed the chart notes. Per chart, patient ordered 2 units PRBC and 1 unit Platelets. CM continues to be available to patient/family and is monitoring medical plan for needs at discharge.
Plan: Discharge to home when medically stable. No needs anticipated at this time.
[2025-03-18] MEDS: TYLENOL 650 MG PO (15:47)
[2025-03-18] MEDS: SOLU-CORTEF 100 MG IV (15:47)
[2025-03-18] MEDS: BENADRYL 50 MG IV (15:48)
[2025-03-19] VITALS (7 sets, daily range): BP systolic 114–133; BP diastolic 68–91
[2025-03-19] MEDS: TYLENOL 650 MG PO ×2 (02:55→09:22)
--- NOTE | 2025-03-19 05:28 | PTCARENOTE ---
WBC critical at 0.5, Platelets critical at 13, and neutrophils critical at 0.0. Rigoberto HOWELL notified and aware.
[2025-03-19 05:29] LABS: Hematocrit 24.9 % (37.0-47.0); Hemoglobin 8.7 g/dL (12.0-16.0); Mean Corp Hgb Conc. 34.9 g/dL (33.0-37.0); Mean Corpuscular Volume 85.0 fL (81.0-99.0); Platelet Count 13 10^3/uL (130-400); Red Cell Dist. Width 13.4 % (11.5-14.5)
[2025-03-19 05:31] LABS: Blood Urea Nitrogen 17 mg/dl (7-17); Calcium 8.7 mg/dl (8.4-10.2); Carbon Dioxide 32 mmol/L (22-30); Chloride 105 mmol/L (98-107); Estimated Creatinine Clearance 93 ml/min; Glucose 115 mg/dl (70-99); Potassium 3.5 mmol/L (3.5-5.1); Sodium 140 mmol/L (135-145); eGFR > 60.00
[2025-03-19 07:29] LABS: Nucleated Red Blood Cells % 0 %
[2025-03-19] MEDS: ZOVIRAX 400 MG PO ×2 (08:32→20:41)
--- NOTE | 2025-03-19 09:05 | W.PN.ONC2 ---
Today's Communication / Plan
-
follow cultures-appreciate ID input
Pt would like to hold off on platelet transfusion today since afebrile and without bleeding with preference to get tomorrow morning. She is agreeable to platelet transfusion today if she has any new bruising, bleeding, or fever.
Impression
Impression
1. combination of cytogenetic/molecular abnormalities and biweekly transfusion requirement were felt to be most consistent with MDS rather than CCUS
transfuse HLA matched platelets <10, <20 for neutropenic fever, <50 prn bleeding - Tylenol+Benadryl+Solucortef pre-plt transfusion
tranexamic acid 1300mg PO BiD prn mucosal bleeding
Transfuse Hgb <7 or as needed for sxs anemia -Tylenol+Benadryl pre-PRBC transfusion
next cycle of vidaza (cycle 3) due 04/02/2025 -plan for 4-6 cycles and reassess if repeat BMBx is needed
sxs support with antiemetics prn
on acyclovir
resume Levaquin ppx once current abx course complete
2. Hx stage IIIA metaphasic right breast cancer with squamous differentiation, ER positive -completed AC-T 04/2024, completed XRT Jun 2024
3. neutropenic fever/PNA -abx per ID, follow cultures
Plan
Plan
daily cbc, transfuse prn
abx per ID, follow cultures
Subjective/Objective
Subjective
afebrile, no hypoxia
denies pain or overt bleeding
Vital Signs:
Vital Signs
Temp Pulse Resp BP Pulse Ox
98.0 F 91 16 114/70 94
03/19/25 07:00 03/19/25 07:00 03/19/25 07:00 03/19/25 07:00 03/19/25 07:00
Lab Results:
Laboratory Data
WBC 0.5 10^3/uL (4.8-10.8) L* 03/19/25 04:52
Hgb 8.7 g/dL (12.0-16.0) L D 03/19/25 04:52
Plt Count 13 10^3/uL (130-400) L* D 03/19/25 04:52
eGFR > 60.00 03/19/25 04:52
Physical Exam
General: No Apparent Distress
HEENT: Moist Mucous Membranes; Negative Jaundice
Pulmonary: Other (unlabored)
GI: Soft
Extremities: Pulses Present
Skin: Warm
Psych: Calm
Orders
Orders
Orders From Last 24 Hours
03/18/25 10:56
Blood Bank Products [* Blood Bank Products] Routine
03/18/25 10:57
Blood Bank Products [* Blood Bank Products] Routine
03/18/25 10:58
Diphenhydramine [Benadryl] 50 mg IV Q4HPRN PRN
03/18/25 12:00
Hydrocortisone Sod Succinate [Solu-Cortef] 100 mg IV ONCE ONE
03/18/25 13:55
Type And Crossmatch [Type+Screen] Urgent
[2025-03-19] MEDS: OCEAN, SALINE MIST 1 SPRAYS NASAL (09:24)
--- NOTE | 2025-03-19 09:33 | PN.CDI ---
CDI
- -
CDI:
Physician Documentation Request
Admit Date: 03/17/25 08:03
Dear Doctor Jeff,
Patient admitted for sepsis.
Please review the following and provide your response in the progress notes.
Clinical Indicators:
Height: 5' 10'
Weight: 136 lbs
BMI: 19.6
If possible, please provide an associated diagnosis related to the abnormal BMI, such as:
Underweight
Cachectic
BMI is not significant
Other
BMI < or = to 19.9
Underweight
Weight Loss
Cachectic
Anorexia
Use of terms such as suspected, likely, concern for, or probable (associated with a specific diagnosis that is being evaluated, monitored, or treated as if it exists) are acceptable and can be coded in the inpatient setting, when documented at the
time of discharge.
Thank you,
Hetal Turner RN, BSN
CDI Specialist
Available via [place] text
Please use your independent medical judgment in providing your response.
--- NOTE | 2025-03-19 10:11 | W.PN.ID1 ---
Date of Service
Date of Service: March 19, 2025
Today's Communication
- c/w ceftriaxone
Assessment / Plan
Neutropenic Fever
Chronic neutropenia
Sinus tenderness
- blood cultures x3 are in progress all with strep species - awaiting final ID
- possibly from the oropharyngeal cavity
- repeat blood cultures x2 in progress to confirm clearance of blood cultures
- source appears to be sinuses, tenderness has resolved
- urine culture negative
- c/w ceftriaxone for today
- continue acyclovir prophylaxis, can hold levaqin while on broad spectrum therapy
Chief Complaint
-: Other (neutropenic fever)
Subjective / Review of Systems
now afebrile
bp stable
no events overnight
Vital Signs / Physical Exam
Vital Signs
Vital Signs
Temp Pulse Resp BP Pulse Ox
98.0 F 91 16 114/70 94
03/19/25 07:00 03/19/25 07:00 03/19/25 07:00 03/19/25 07:00 03/19/25 07:00
Physical Exam
Constitutional: No Acute Distress
Cardiovascular: Regular Rate and S1/S2; Negative Murmur or Rub
Pulmonary: Clear and Symmetric; Negative Wheezes or Rales
Gastrointestinal: Soft, Non Tender, Non Distended and Normal Bowel Sounds
Skin: Warm and Dry; Negative Rash or Jaundice
Objective Data
Lab Data
Lab Results
03/19/25 04:52
03/19/25 04:52
Estimated Creat Clear 93 ml/min 03/19/25 04:52
Lactic Acid 1.0 mmol/L (0.7-2.0) 03/17/25 04:42
Total Bilirubin 1.0 mg/dl (0.2-1.3) 03/17/25 04:42
AST 16 U/L (14-36) 03/17/25 04:42
ALT 20 U/L (0-35) 03/17/25 04:42
Alkaline Phosphatase 109 U/L (38-126) 03/17/25 04:42
Most recent labs reviewed.
Micro Results:
03/17/25 05:40 Urine Culture - Final
Urine No Significant Growth
03/18/25 11:31 Blood Culture - Pending
Blood/Venous
03/17/25 05:27 Blood Culture - Preliminary
Blood/Venous Streptococcus species
Gram Stain - Final
03/17/25 05:27 Blood Culture - Preliminary
Blood/Venous Streptococcus species
Gram Stain - Final
03/18/25 10:51 Blood Culture - Pending
Blood/Venous
03/17/25 04:42 Blood Culture - Preliminary
Blood/Venous Streptococcus species
Gram Stain - Final
03/17/25 11:07 Influenza Type A (PCR) - Final
Nasalpharynx Not Detected
Influenza Type A (H1) (PCR) - Final
Not Detected
Influenza Type A (H3) (PCR) - Final
Not Detected
Influenza Type B (PCR) - Final
Not Detected
Resp Syncytial Virus Type A (PCR) - Final
Not Detected
Resp Syncytial Virus Type B (PCR) - Final
Not Detected
Adenovirus DNA (PCR) - Final
Not Detected
Human Metapneumovirus (PCR) - Final
Not Detected
Parainfluenza Virus Type 1 (PCR) - Final
Not Detected
Parainfluenza Virus Type 2 (PCR) - Final
Not Detected
Parainfluenza Virus Type 3 (PCR) - Final
Not Detected
Parainfluenza Virus Type 4 - Final
Not Detected
Rhinovirus (PCR) - Final
Not Detected
03/17/25 05:27 Influenza Types A & B (MICHAEL) - Final
Nasal Swab Negative for Influenza A & B, NAAT
Negative results must be combined with clinical observations
and patient history.
Nucleic Acid Amplification test (NAAT)performed on the
[employer] platform.
--- NOTE | 2025-03-19 10:35 | CM ---
Reviewed the chart notes. CM continues to be available to patient/family and is monitoring medical plan for needs at discharge.
Plan: Discharge to home when medically stable. No needs anticipated at this time.
--- NOTE | 2025-03-19 11:56 | W.PN.HOSP.TC ---
Today's Communication/Plan
-
Monitor vital signs see plan
Continue to monitor blood culture
Continue with antibiotic
Monitor CBC
Follow fever curve
Assessment / Plan
Assessment / Plan
General: No Apparent Distress
HEENT: Moist mucous membranes
Respiratory: Clear
Cardiac: S1/S2, Regular Rhythm and Tachycardia
GI: Soft, Non Tender, Non Distended, Normal Bowel Sounds
Musculoskeletal: No Edema
Neuro: AO x 3 and No Motor Deficits
Psych: Calm and Intact Judgment/Insight
Sepsis secondary to Streptococcus bacteremia
Neutropenic fever
Acute on chronic neutropenia
Chest x-ray with new focal airspace opacity right midlung. Unclear if this is infectious at this time. Will need repeat imaging outpatient. If finding is persistent then will need CT chest. Appears currently more from possible acute sinusitis
ID following, repeat blood culture 03/18. Blood culture from admission growing Streptococcus. Blood culture pending from 03/18 to ensure clearance
Antibiotics per ID
Continue antiviral
MDS/pancytopenia
Transfusion dependent
Per oncology, transfuse platelets less than 10K, hemoglobin less than 7
s/p transfuse PRBC and platelet 10/7. hgb now 8.7; plt 13. History of transfusion reaction. Steroids, Tylenol and Benadryl ordered prior to transfusion
[facility] at [facility]. Per patient she is going to get stem cell transplant in June
History of breast cancer status post chemo and radiation
History of asthma
Underweight
DVT prophylaxis
SCD's
DNR per patient
I spent a total of 51 minutes with the patient or on the floor. More than 50% of this time involved counseling and coordination of care.
Anticipated Discharge: > 48 hours
Subjective/Interval History
-
Date of Service: March 19, 2025
Feeling little better
Objective Data
-
Labs:
Laboratory Results
03/19/25
04:52
WBC 0.5 L*
Hgb 8.7 L D
Hct 24.9 L
Plt Count 13 L* D
Sodium 140
Potassium 3.5
Chloride 105
Carbon Dioxide 32 H
BUN 17
Creatinine 0.5 L
Glucose 115 H
Calcium 8.7
Vital Signs:
Vital Signs
Temp Pulse Resp BP Pulse Ox
97.6 F 95 16 132/72 96
03/19/25 11:00 03/19/25 11:00 03/19/25 11:00 03/19/25 11:00 03/19/25 11:00
I&O
03/18/25 03/19/25 03/20/25
06:59 06:59 06:59
Intake Total 1010 / 1010 1939
Balance 1010 / 1010 1939
[2025-03-19] MEDS: STERILE WATER FOR INJECTION 20 ML IV (12:23)
[2025-03-19] MEDS: ROCEPHIN 2000 MG IV (12:23)
[2025-03-19] MEDS: FLUSH (NSS) 2 FLUSH IV (12:24)
[2025-03-19] MEDS: BenGay-Like 1 APPLIC TOPICAL ×2 (14:06→20:44)
[2025-03-19] MEDS: XANAX 0.25 MG PO (20:41)
[2025-03-19] MEDS: CYKLOKAPRON 1300 MG PO (21:47)
--- NOTE | 2025-03-19 21:48 | PTCARENOTE ---
pt with +gum bleeding and requesting TXA. TXA 1300mg given, see aug. inst pt to let RN know if bleeding continues. pt verb understanding
[2025-03-20] VITALS (8 sets, daily range): BP systolic 102–151; BP diastolic 60–93
[2025-03-20] MEDS: OCEAN, SALINE MIST 1 SPRAYS NASAL ×2 (06:00→19:48)
[2025-03-20 06:18] LABS: Blood Urea Nitrogen 15 mg/dl (7-17); Calcium 8.9 mg/dl (8.4-10.2); Carbon Dioxide 29 mmol/L (22-30); Chloride 102 mmol/L (98-107); Estimated Creatinine Clearance 93 ml/min; Glucose 109 mg/dl (70-99); Potassium 3.1 mmol/L (3.5-5.1); Sodium 136 mmol/L (135-145); eGFR > 60.00
[2025-03-20 06:40] LABS: Hematocrit 26.2 % (37.0-47.0); Hemoglobin 9.1 g/dL (12.0-16.0); Mean Corp Hgb Conc. 34.7 g/dL (33.0-37.0); Mean Corpuscular Volume 83.4 fL (81.0-99.0); Platelet Count 7 10^3/uL (130-400); Red Cell Dist. Width 13.5 % (11.5-14.5)
[2025-03-20 07:33] LABS: Nucleated Red Blood Cells % 0 %
[2025-03-20] MEDS: ZOVIRAX 400 MG PO ×2 (07:47→19:43)
[2025-03-20] MEDS: BENADRYL 50 MG IV (08:46)
--- NOTE | 2025-03-20 08:46 | W.PN.ONC2 ---
Today's Communication / Plan
-
For PLT transfusion today.
Start olanzapine for Zofran refractory nausea and Protonix for indigestion
Impression
Impression
1. combination of cytogenetic/molecular abnormalities and biweekly transfusion requirement were felt to be most consistent with MDS rather than CCUS
transfuse HLA matched platelets <10, <20 for neutropenic fever, <50 prn bleeding - Tylenol+Benadryl+Solucortef pre-plt transfusion
tranexamic acid 1300mg PO BiD prn mucosal bleeding
Transfuse Hgb <7 or as needed for sxs anemia -Tylenol+Benadryl pre-PRBC transfusion
next cycle of vidaza (cycle 3) due 04/02/2025 -plan for 4-6 cycles and reassess if repeat BMBx is needed
sxs support with antiemetics prn
on acyclovir
resume Levaquin ppx once current abx course complete
2. Hx stage IIIA metaphasic right breast cancer with squamous differentiation, ER positive -completed AC-T 04/2024, completed XRT Jun 2024
3. neutropenic fever/PNA -abx per ID, follow cultures
Plan
Plan
daily cbc, transfuse prn. For HLA matched PLT transfusion today.
Start olanzapine for Zofran refractory nausea and Protonix for indigestion
abx per ID, follow cultures
Subjective/Objective
Chief Complaint
ACS Heme Onc
Subjective
For HLA matched PLT this AM after steroid premed (Hydrocortisone 100 mg ordered). Some gum bleeding improved following Tranexamic acid. Also nausea and indigestion not relieved from Zofran.
Vital Signs:
Vital Signs
Temp Pulse Resp BP Pulse Ox
99 F 90 16 111/71 95
03/20/25 08:17 03/20/25 08:17 03/20/25 08:17 03/20/25 08:17 03/20/25 08:17
Lab Results:
Laboratory Data
WBC 0.6 10^3/uL (4.8-10.8) L* 03/20/25 05:32
Hgb 9.1 g/dL (12.0-16.0) L 03/20/25 05:32
Plt Count 7 10^3/uL (130-400) L* D 03/20/25 05:32
eGFR > 60.00 03/20/25 05:32
Physical Exam
HEENT: Moist Mucous Membranes
Cardiology: S1 and S2
Pulmonary: Clear
GI: Soft
Orders
Orders
Orders From Last 24 Hours
03/20/25 08:44
Olanzapine [Zyprexa Zydis (Orally Disintegrating)] 10 mg PO NOW STA
03/20/25 09:00
Pantoprazole [Protonix] 20 mg PO BID
03/20/25 22:00
Olanzapine [Zyprexa Zydis (Orally Disintegrating)] 10 mg PO HS
[2025-03-20] MEDS: TYLENOL 650 MG PO (08:48)
[2025-03-20] MEDS: SOLU-CORTEF 100 MG IV (08:48)
[2025-03-20] MEDS: KCL 40 MEQ PO (09:57)
--- NOTE | 2025-03-20 10:09 | W.PN.ID1 ---
Date of Service
Date of Service: March 20, 2025
Today's Communication
TTE
follow blood cultures another day
Assessment / Plan
Neutropenic Fever
Chronic neutropenia
Sinus tenderness
- blood cultures x3 with s mitis/oralis
- possibly from the oropharyngeal cavity
- repeat blood cultures x2 in progress to confirm clearance of blood cultures
- TTE today
- port without evidence of infection
- source appears to be sinuses, tenderness has resolved
- urine culture negative
- c/w ceftriaxone for today, restart metronidazole - likely for step down to augmentin provided that repeat cultures and TTE remain negative
- continue acyclovir prophylaxis, can hold levaqin while on broad spectrum therapy
Chief Complaint
-: Other (neutropenic fever)
Subjective / Review of Systems
afebrile
bp stable
blood cultures IDd as s mitis
Vital Signs / Physical Exam
Vital Signs
Vital Signs
Temp Pulse Resp BP Pulse Ox
99.1 F 94 18 128/87 95
03/20/25 09:48 03/20/25 09:48 03/20/25 09:48 03/20/25 09:48 03/20/25 09:48
Physical Exam
Constitutional: No Acute Distress
Cardiovascular: Regular Rate and S1/S2; Negative Murmur or Rub
Pulmonary: Clear and Symmetric; Negative Wheezes or Rales
Gastrointestinal: Soft, Non Tender, Non Distended and Normal Bowel Sounds
Skin: Warm and Dry; Negative Rash or Jaundice
Objective Data
Lab Data
Lab Results
03/20/25 05:32
03/20/25 05:32
Estimated Creat Clear 93 ml/min 03/20/25 05:32
Lactic Acid 1.0 mmol/L (0.7-2.0) 03/17/25 04:42
Total Bilirubin 1.0 mg/dl (0.2-1.3) 03/17/25 04:42
AST 16 U/L (14-36) 03/17/25 04:42
ALT 20 U/L (0-35) 03/17/25 04:42
Alkaline Phosphatase 109 U/L (38-126) 03/17/25 04:42
Most recent labs reviewed.
Micro Results:
03/17/25 05:27 Blood Culture - Preliminary
Blood/Venous Strep mitis/oralis
Gram Stain - Final
03/17/25 05:27 Blood Culture - Preliminary
Blood/Venous Strep mitis/oralis
Gram Stain - Final
03/17/25 04:42 Blood Culture - Preliminary
Blood/Venous Strep mitis/oralis
Gram Stain - Final
03/18/25 11:31 Blood Culture - Preliminary
Blood/Venous No Growth in 24 hours- Final report to follow
03/18/25 10:51 Blood Culture - Preliminary
Blood/Venous No Growth in 24 hours- Final report to follow
03/17/25 05:40 Urine Culture - Final
Urine No Significant Growth
03/17/25 11:07 Influenza Type A (PCR) - Final
Nasalpharynx Not Detected
Influenza Type A (H1) (PCR) - Final
Not Detected
Influenza Type A (H3) (PCR) - Final
Not Detected
Influenza Type B (PCR) - Final
Not Detected
Resp Syncytial Virus Type A (PCR) - Final
Not Detected
Resp Syncytial Virus Type B (PCR) - Final
Not Detected
Adenovirus DNA (PCR) - Final
Not Detected
Human Metapneumovirus (PCR) - Final
Not Detected
Parainfluenza Virus Type 1 (PCR) - Final
Not Detected
Parainfluenza Virus Type 2 (PCR) - Final
Not Detected
Parainfluenza Virus Type 3 (PCR) - Final
Not Detected
Parainfluenza Virus Type 4 - Final
Not Detected
Rhinovirus (PCR) - Final
Not Detected
03/17/25 05:27 Influenza Types A & B (MICHAEL) - Final
Nasal Swab Negative for Influenza A & B, NAAT
Negative results must be combined with clinical observations
and patient history.
Nucleic Acid Amplification test (NAAT)performed on the
[email or web address] platform.
--- NOTE | 2025-03-20 10:45 | PTCARENOTE ---
1045 During platelet infusion Pt notified nurse of itchy hive on L side of chin, and R knee. Dr. bazan made aware and ordered an extra dose of 25mg IV Benadryl and 50mg of Solu-cortef. Oncologist Dr. Florez also made aware and ordered IV dose of
pepcid. ordered to continue infusion.
[2025-03-20] MEDS: BENADRYL 25 MG IV (10:49)
[2025-03-20] MEDS: SOLU-CORTEF 50 MG IV (10:51)
[2025-03-20] MEDS: NSS (PRESERVATIVE FREE) 8 ML IV (10:55)
[2025-03-20] MEDS: PEPCID 20 MG IV (10:56)
--- NOTE | 2025-03-20 10:57 | CM ---
Patient seen at bedside on . Patient plan is for discharge home with family when medically appropriate. CM will continue to follow for discharge planning needs.
Plan; home with no needs pending medical treatment plan
--- NOTE | 2025-03-20 12:03 | W.PN.HOSP.TC ---
Today's Communication/Plan
-
Monitor vital signs see plan
Continue with antibiotics
Monitor hives with platelet transfusion
Steroid, Benadryl and Tylenol prior to platelet transfusion
Monitor pancytopenia
Follow fever curve
Assessment / Plan
Assessment / Plan
General: No Apparent Distress
HEENT: Moist mucous membranes
Respiratory: Clear
Cardiac: S1/S2, Regular Rhythm and Tachycardia
GI: Soft, Non Tender, Non Distended, Normal Bowel Sounds
Musculoskeletal: No Edema
Neuro: AO x 3 and No Motor Deficits
Psych: Calm and Intact Judgment/Insight
Sepsis secondary to Streptococcus bacteremia
Neutropenic fever
Acute on chronic neutropenia
Chest x-ray with new focal airspace opacity right midlung. Unclear if this is infectious at this time. Will need repeat imaging outpatient. If finding is persistent then will need CT chest. Appears currently more from possible acute sinusitis
ID following, repeat blood culture 03/18. Blood culture from admission growing Streptococcus. Blood culture pending from 03/18 NGTD
Antibiotics per ID; check TTE
Continue antiviral
MDS/pancytopenia
Transfusion dependent
Per oncology, transfuse platelets less than 10K, hemoglobin less than 7
s/p transfuse PRBC and platelet 03/18. Plts again 03/20. History of transfusion reaction. Steroids, Tylenol and Benadryl ordered prior to transfusion plts; tylenol and benadryl pre PRBC. some hives 03/20 with plt; extra benadryl and steroid given
[facility]. Per patient she is going to get stem cell transplant in June
History of breast cancer status post chemo and radiation
History of asthma
Underweight
DVT prophylaxis
SCD's
DNR per patient
I spent a total of 52 minutes with the patient or on the floor. More than 50% of this time involved counseling and coordination of care.
Anticipated Discharge: 24 - 48 hours
Subjective/Interval History
-
Date of Service: March 20, 2025
denies pain
Objective Data
-
Labs:
Laboratory Results
03/20/25
05:32
WBC 0.6 L*
Hgb 9.1 L
Hct 26.2 L
Plt Count 7 L* D
Sodium 136
Potassium 3.1 L
Chloride 102
Carbon Dioxide 29
BUN 15
Creatinine 0.4 L
Glucose 109 H
Calcium 8.9
Vital Signs:
Vital Signs
Temp Pulse Resp BP Pulse Ox
98.7 F 99 18 151/93 95
03/20/25 10:10 03/20/25 11:00 03/20/25 10:10 03/20/25 11:00 03/20/25 09:48
I&O
03/19/25 03/20/25 03/21/25
06:59 06:59 06:59
Intake Total 1939 1080 / 1080
Balance 1939 / 1080
[2025-03-20] MEDS: FLAGYL 500 MG PO ×2 (12:30→19:44)
[2025-03-20] MEDS: ZYPREXA ZYDIS (ORALLY DISINTEGRATING) 10 MG PO ×2 (12:30→21:10)
[2025-03-20] MEDS: PROTONIX 20 MG PO ×2 (12:30→19:43)
[2025-03-20] MEDS: ROCEPHIN 2000 MG IV (12:50)
[2025-03-20] MEDS: STERILE WATER FOR INJECTION 20 ML IV (12:50)
--- NOTE | 2025-03-20 14:31 | PTCARENOTE ---
After finishing transfusion Dr. Arriola contacted to determine if the hives would be a transfusion reaction. He felt it was a reaction. Blood bank contacted floor to alert us this was her normal reaction with her transfusions in OID. Dr. Arriola
notified with this information, and requested we reach out to oncology. Reached out to oncology to see if transfusion reaction should be worked up. Dr. Florez responded pt does not need to be worked up for transfusion reaction.
[2025-03-20] MEDS: BenGay-Like 1 APPLIC TOPICAL (19:48)
[2025-03-20] MEDS: XANAX 0.25 MG PO (21:57)
[2025-03-21 05:15] LABS: Blood Urea Nitrogen 23 mg/dl (7-17); Calcium 8.8 mg/dl (8.4-10.2); Carbon Dioxide 32 mmol/L (22-30); Chloride 105 mmol/L (98-107); Estimated Creatinine Clearance 93 ml/min; Glucose 98 mg/dl (70-99); Potassium 3.4 mmol/L (3.5-5.1); Sodium 140 mmol/L (135-145); eGFR > 60.00
[2025-03-21 06:19] LABS: Hematocrit 23.0 % (37.0-47.0); Hemoglobin 8.0 g/dL (12.0-16.0); Mean Corp Hgb Conc. 34.8 g/dL (33.0-37.0); Mean Corpuscular Volume 83.6 fL (81.0-99.0); Red Cell Dist. Width 13.4 % (11.5-14.5)
--- NOTE | 2025-03-21 06:19 | PTCARENOTE ---
Addendum entered by Shirley Harding RN 03/21/25 06:25:
Platelets are critical at 14, not 12.
Original Note:
WBC critical at 0.9. Platelets critical at 12. Chastity HOWELL notified and aware.
[2025-03-21 07:16] LABS: Nucleated Red Blood Cells % 0 %
[2025-03-21 07:19] LABS: Platelet Count 14 10^3/uL (130-400)
[2025-03-21 08:00] VITALS: BP 138/78
--- NOTE | 2025-03-21 08:28 | W.PN.ONC2 ---
Today's Communication / Plan
-
daily CBC, neutropenic precautions, transfuse prn, abx per ID
HLA platelets ordered for am
Pt will continue with OP transfusion support 2-3 days/week upon discharge
Impression
Impression
1. combination of cytogenetic/molecular abnormalities and biweekly transfusion requirement were felt to be most consistent with MDS rather than CCUS
transfuse HLA matched platelets <10, <20 for neutropenic fever, <50 prn bleeding - Tylenol+Benadryl+Solucortef pre-plt transfusion
tranexamic acid 1300mg PO BiD prn mucosal bleeding
Transfuse Hgb <7 or as needed for sxs anemia -Tylenol+Benadryl pre-PRBC transfusion
next cycle of vidaza (cycle 3) due 04/02/2025 -plan for 4-6 cycles and reassess if repeat BMBx is needed
sxs support with antiemetics prn
on acyclovir
resume Levaquin ppx once current abx course complete
2. Hx stage IIIA metaphasic right breast cancer with squamous differentiation, ER positive -completed AC-T 04/2024, completed XRT Jun 2024
3. neutropenic fever/PNA/+BCx strep mitis/oralis -abx per ID, follow cultures
Plan
Plan
daily cbc, transfuse prn.
continue olanzapine for Zofran refractory nausea and Protonix for indigestion
abx per ID, follow cultures
Subjective/Objective
Subjective
afebrile, no hypoxia or hypotension
denies overt bleeding
Vital Signs:
Vital Signs
Temp Pulse Resp BP Pulse Ox
99.3 F 86 16 102/60 96
03/20/25 23:15 03/20/25 23:15 03/20/25 23:15 03/20/25 23:15 03/20/25 23:15
Lab Results:
Laboratory Data
WBC 0.9 10^3/uL (4.8-10.8) L* 03/21/25 04:33
Hgb 8.0 g/dL (12.0-16.0) L 03/21/25 04:33
Plt Count 14 10^3/uL (130-400) L* D 03/21/25 04:33
eGFR > 60.00 03/21/25 04:33
Physical Exam
HEENT: Moist Mucous Membranes; No Jaundice
Pulmonary: Clear
GI: Soft
Extremities: Pulses Present
Orders
Orders
Orders From Last 24 Hours
03/20/25 08:00
Blood Bank Products [* Blood Bank Products] Routine
[2025-03-21] MEDS: ZOVIRAX 400 MG PO ×2 (08:32→20:29)
[2025-03-21] MEDS: KCL 20 MEQ PO (08:34)
[2025-03-21] MEDS: FLAGYL 500 MG PO (08:34)
[2025-03-21] MEDS: PROTONIX 20 MG PO (08:34)
[2025-03-21] MEDS: OCEAN, SALINE MIST 1 SPRAYS NASAL ×2 (08:39→20:31)
[2025-03-21] MEDS: BenGay-Like 1 APPLIC TOPICAL ×2 (08:39→15:25)
[2025-03-21] MEDS: TYLENOL 650 MG PO ×2 (08:44→14:11)
--- NOTE | 2025-03-21 09:21 | W.PN.ID1 ---
Date of Service
Date of Service: March 21, 2025
Today's Communication
deescalate to augmentin for a two week course
stable for dc from ID perspective
Assessment / Plan
Neutropenic Fever
Chronic neutropenia
Sinus tenderness
- blood cultures x3 with s mitis/oralis
- source appears to be sinuses, tenderness has resolved
- repeat blood cultures x2 in progress confirm clearance of blood cultures
- TTE without lesions
- port without evidence of infection
- step down to augmentin x 14 days total 03/17-03/30
- continue acyclovir prophylaxis, can restart levaqin prophylaxis
Chief Complaint
-: Other (neutropenic fever)
Subjective / Review of Systems
afebrile
bp stable
echo without valvular lesions
Vital Signs / Physical Exam
Vital Signs
Vital Signs
Temp Pulse Resp BP Pulse Ox
98.5 F 87 18 138/78 93
03/21/25 08:00 03/21/25 08:00 03/21/25 08:00 03/21/25 08:00 03/21/25 08:00
Physical Exam
Constitutional: No Acute Distress
Cardiovascular: Regular Rate and S1/S2; Negative Murmur or Rub
Pulmonary: Clear and Symmetric; Negative Wheezes or Rales
Gastrointestinal: Soft, Non Tender, Non Distended and Normal Bowel Sounds
Skin: Warm and Dry; Negative Rash or Jaundice
Objective Data
Lab Data
Lab Results
03/21/25 04:33
03/21/25 04:33
Estimated Creat Clear 93 ml/min 03/21/25 04:33
Lactic Acid 1.0 mmol/L (0.7-2.0) 03/17/25 04:42
Total Bilirubin 1.0 mg/dl (0.2-1.3) 03/17/25 04:42
AST 16 U/L (14-36) 03/17/25 04:42
ALT 20 U/L (0-35) 03/17/25 04:42
Alkaline Phosphatase 109 U/L (38-126) 03/17/25 04:42
Most recent labs reviewed.
Micro Results:
03/18/25 11:31 Blood Culture - Preliminary
Blood/Venous No Growth in 48 hours- Final report to follow
03/17/25 05:27 Blood Culture - Final
Blood/Venous Strep mitis/oralis
Gram Stain - Final
03/17/25 05:27 Blood Culture - Final
Blood/Venous Strep mitis/oralis
Gram Stain - Final
03/17/25 04:42 Blood Culture - Final
Blood/Venous Strep mitis/oralis
Gram Stain - Final
03/18/25 10:51 Blood Culture - Preliminary
Blood/Venous No Growth in 48 hours- Final report to follow
03/17/25 05:40 Urine Culture - Final
Urine No Significant Growth
03/17/25 11:07 Influenza Type A (PCR) - Final
Nasalpharynx Not Detected
Influenza Type A (H1) (PCR) - Final
Not Detected
Influenza Type A (H3) (PCR) - Final
Not Detected
Influenza Type B (PCR) - Final
Not Detected
Resp Syncytial Virus Type A (PCR) - Final
Not Detected
Resp Syncytial Virus Type B (PCR) - Final
Not Detected
Adenovirus DNA (PCR) - Final
Not Detected
Human Metapneumovirus (PCR) - Final
Not Detected
Parainfluenza Virus Type 1 (PCR) - Final
Not Detected
Parainfluenza Virus Type 2 (PCR) - Final
Not Detected
Parainfluenza Virus Type 3 (PCR) - Final
Not Detected
Parainfluenza Virus Type 4 - Final
Not Detected
Rhinovirus (PCR) - Final
Not Detected
03/17/25 05:27 Influenza Types A & B (MICHAEL) - Final
Nasal Swab Negative for Influenza A & B, NAAT
Negative results must be combined with clinical observations
and patient history.
Nucleic Acid Amplification test (NAAT)performed on the
[employer] platform.
--- NOTE | 2025-03-21 10:18 | W.PN.HOSP.TC ---
Today's Communication/Plan
-
Monitor vital signs and see plan
Continue with antibiotic
Replete potassium
Will need to monitor CBC for another day to see if patient needs more repletion. Currently she is requiring platelets every other day. Hematology following
Assessment / Plan
Assessment / Plan
General: No Apparent Distress
HEENT: Moist mucous membranes
Respiratory: Clear
Cardiac: S1/S2, Regular Rhythm and Tachycardia
GI: Soft, Non Tender, Non Distended, Normal Bowel Sounds
Musculoskeletal: No Edema
Neuro: AO x 3 and No Motor Deficits
Psych: Calm and Intact Judgment/Insight
Sepsis secondary to Streptococcus bacteremia
Neutropenic fever
Acute on chronic neutropenia
Chest x-ray with new focal airspace opacity right midlung. Unclear if this is infectious at this time. Will need repeat imaging outpatient. If finding is persistent then will need CT chest. Appears currently more from possible acute sinusitis
ID following, repeat blood culture 03/18. Blood culture from admission growing Streptococcus. Blood culture pending from 03/18 NGTD
Antibiotics per ID;augmentin x 14 days total 03/17-03/30, also on levaquin ppx; TTE with preserved EF
Continue antiviral
MDS/pancytopenia
Transfusion dependent
Per oncology, transfuse platelets less than 10K, hemoglobin less than 7
s/p transfuse PRBC and platelet 03/18. Plts again 03/20. plts now 14; would need to be monitored further as now she is requiring every other day transfusion. History of transfusion reaction. Steroids, Tylenol and Benadryl needed before plts; prior
to transfusion plts; tylenol and benadryl pre PRBC. some hives 03/20 with plt; extra benadryl and steroid given
[facility] follows [facility] with [facility]. Per patient she is going to get stem cell transplant in June
Hypokalemia
Replete
History of breast cancer status post chemo and radiation
History of asthma
Underweight
DVT prophylaxis
SCD's
DNR per patient
Anticipated Discharge: Within 24 hours
Subjective/Interval History
-
Date of Service: March 21, 2025
Feeling little better
Objective Data
-
Labs:
Laboratory Results
03/21/25
04:33
WBC 0.9 L*
Hgb 8.0 L
Hct 23.0 L
Plt Count 14 L* D
Sodium 140
Potassium 3.4 L
Chloride 105
Carbon Dioxide 32 H
BUN 23 H
Creatinine 0.5 L
Glucose 98
Calcium 8.8
Vital Signs:
Vital Signs
Temp Pulse Resp BP Pulse Ox
98.5 F 87 18 138/78 93
03/21/25 08:00 03/21/25 08:00 03/21/25 08:00 03/21/25 08:00 03/21/25 08:00
I&O
03/20/25 03/21/25 03/22/25
06:59 06:59 06:59
Intake Total 1080 / 1080 1461 / 1461
Balance 1080 / 1080 1461 / 1461
[2025-03-21] MEDS: AUGMENTIN 875 MG/125 MG 1 TABLET PO ×2 (10:43→20:29)
[2025-03-21 15:25] VITALS: BP 123/75
[2025-03-21] MEDS: LEVAQUIN 500 MG PO (17:16)
[2025-03-21] MEDS: PROTONIX PO (20:27)
[2025-03-21] MEDS: DILAUDID 0.25 MG IV (20:30)
[2025-03-21] MEDS: ZYPREXA ZYDIS (ORALLY DISINTEGRATING) PO (21:05)
[2025-03-21 23:15] VITALS: BP 142/88
[2025-03-22] MEDS: DILAUDID 0.25 MG IV ×4 (00:36→21:13)
[2025-03-22 07:45] VITALS: BP 133/65
[2025-03-22] MEDS: ZOVIRAX 400 MG PO ×2 (08:50→21:10)
[2025-03-22] MEDS: PROTONIX 20 MG PO (08:50)
[2025-03-22] MEDS: FLUSH (NSS) 2 FLUSH IV ×2 (08:50→14:50)
[2025-03-22] MEDS: AUGMENTIN 875 MG/125 MG 1 TABLET PO ×2 (08:50→21:10)
[2025-03-22 08:56] LABS: Hematocrit 26.3 % (37.0-47.0); Hemoglobin 9.0 g/dL (12.0-16.0); Mean Corp Hgb Conc. 34.2 g/dL (33.0-37.0); Mean Corpuscular Volume 86.5 fL (81.0-99.0); Platelet Count 6 10^3/uL (130-400); Red Cell Dist. Width 13.4 % (11.5-14.5)
[2025-03-22] MEDS: OCEAN, SALINE MIST 50 SPRAYS NASAL (09:00)
[2025-03-22] MEDS: BenGay-Like 1 APPLIC TOPICAL (09:00)
--- NOTE | 2025-03-22 09:00 | CM ---
Reviewed the chart notes. CM continues to be available to patient/family and is monitoring medical plan for needs at discharge.
Plan: Discharge to home with no needs anticipated at this time.
[2025-03-22 09:23] LABS: Blood Urea Nitrogen 16 mg/dl (7-17); Calcium 9.4 mg/dl (8.4-10.2); Carbon Dioxide 28 mmol/L (22-30); Chloride 101 mmol/L (98-107); Estimated Creatinine Clearance 93 ml/min; Glucose 169 mg/dl (70-99); Potassium 3.6 mmol/L (3.5-5.1); Sodium 138 mmol/L (135-145); eGFR > 60.00
[2025-03-22] MEDS: BENADRYL 50 MG IV (10:07)
[2025-03-22 10:10] LABS: Nucleated Red Blood Cells % 3.4 %
[2025-03-22 10:24] VITALS: BP 114/71
[2025-03-22] MEDS: SOLU-CORTEF 100 MG IV (10:26)
--- NOTE | 2025-03-22 12:03 | W.PN.ONC2 ---
Documented by User: DANTE Pruitt 03/22/25 14:34
Today's Communication / Plan
-
daily CBC, neutropenic precautions, transfuse prn, abx per ID
Pt will continue with OP transfusion support 2-3 days/week upon discharge
Impression
Impression
1. combination of cytogenetic/molecular abnormalities and biweekly transfusion requirement were felt to be most consistent with MDS rather than CCUS
transfuse HLA matched platelets <10, <20 for neutropenic fever, <50 prn bleeding - Tylenol+Benadryl+Solucortef pre-plt transfusion
tranexamic acid 1300mg PO BiD prn mucosal bleeding
Transfuse Hgb <7 or as needed for sxs anemia -Tylenol+Benadryl pre-PRBC transfusion
next cycle of vidaza (cycle 3) due 04/02/2025 -plan for 4-6 cycles and reassess if repeat BMBx is needed
sxs support with antiemetics prn
on acyclovir
resume Levaquin ppx once current abx course complete
2. Hx stage IIIA metaphasic right breast cancer with squamous differentiation, ER positive -completed AC-T 04/2024, completed XRT Jun 2024
3. neutropenic fever/PNA/+BCx strep mitis/oralis -abx per ID, follow cultures
Plan
Plan
daily cbc, transfuse prn.
continue olanzapine for Zofran refractory nausea and Protonix for indigestion
abx per ID, follow cultures
Subjective/Objective
Subjective
no new complaint complaints
Vital Signs:
Vital Signs
Temp Pulse Resp BP Pulse Ox
98.0 F 75 16 114/71 95
03/22/25 10:24 03/22/25 10:24 03/22/25 10:24 03/22/25 10:24 03/22/25 10:24
Lab Results:
Laboratory Data
WBC 0.9 10^3/uL (4.8-10.8) L* 03/22/25 08:34
Hgb 9.0 g/dL (12.0-16.0) L 03/22/25 08:34
Plt Count 6 10^3/uL (130-400) L* D 03/22/25 08:34
eGFR > 60.00 03/22/25 08:34
Physical Exam
HEENT: No Jaundice
Pulmonary: Other (unlabored)
GI: Soft
Extremities: Pulses Present
Orders
Orders
Orders From Last 24 Hours
03/22/25 08:00
Blood Bank Products [* Blood Bank Products] Routine

Documented by User: Popeye Delong MD 03/22/25 14:45
Plan
Plan
daily cbc, transfuse prn.
continue olanzapine for Zofran refractory nausea and Protonix for indigestion
abx per ID, follow cultures
Hematology Addendum:
Patient seen and evaluated and agree w/ [employer] note and plan as outlined
-MDS - cytopenias
-continue to follow CBC and transfuse prn
-antibiotics as per ID
-has outpt CBCs w/ transfusions arranged
--- NOTE | 2025-03-22 12:35 | W.PN.HOSP.TC ---
Today's Communication/Plan
-
transfuse
follow CBC
Assessment / Plan
Assessment / Plan
64yo F with PMHx of breast CA, later developed pancytopenia, most likely MDS, transfusion dependent came with fevers, managed for neutropenic fever with streptococcal bacteremia, most likely 2/2 RML pneumonia vs sinuses as per ID
A/P:
#Neutropenic fever
#BActeremia
Strep. mitis/oral
Repeatewd BCx NTD
Augmentin as per ID till 03/30/25
cont Acyclovir
#Pancytopenia 2/2 MDS
#Hx of breast CA
transfusion dependent
Hem follows: follow their reccomendation sfor transfusion thresholds
Tranexamic acid
#Underweigth
increase calorie intake
#Hypokalemia
resolved
DVT ppx SCDs
Full code
I have spent at least 52min reviewing chart, test results, communication tih consultants and providing direct patient care
Anticipated Discharge: Within 24 hours
Subjective/Interval History
-
Date of Service: March 22, 2025
Objective Data
-
Labs:
Laboratory Results
03/22/25
08:34
WBC 0.9 L*
Hgb 9.0 L
Hct 26.3 L
Plt Count 6 L* D
Sodium 138
Potassium 3.6
Chloride 101
Carbon Dioxide 28
BUN 16
Creatinine 0.5 L
Glucose 169 H
Calcium 9.4
Vital Signs:
Vital Signs
Temp Pulse Resp BP Pulse Ox
98.0 F 75 16 114/71 95
03/22/25 10:24 03/22/25 10:24 03/22/25 10:24 03/22/25 10:24 03/22/25 10:24
I&O
03/21/25 03/22/25 03/23/25
06:59 06:59 06:59
Intake Total 1461 / 1461 720 / 720 331 / 331
Balance 1461 / 1461 720 / 720 331 / 331
Review of Systems
-
History Source: Patient
All other systems: Reviewed and negative
Physical Exam
-
General: No Apparent Distress
HEENT: Normocephalic
Respiratory: Clear to Auscultation
Cardiac: Regular Rhythm
GI: Soft, Nontender and Nondistended
Musculoskeletal: No Clubbing, No Cyanosis and No Edema
Neuro: Awake, Alert, Oriented and AO x 3
Psych: Calm
[2025-03-22 15:05] VITALS: BP 120/78
[2025-03-22] MEDS: LEVAQUIN 500 MG PO (18:44)
[2025-03-22] MEDS: PROTONIX PO (21:10)
[2025-03-22] MEDS: ZYPREXA ZYDIS (ORALLY DISINTEGRATING) PO (21:10)
[2025-03-22 22:59] VITALS: BP 107/67
[2025-03-23] MEDS: DILAUDID 0.25 MG IV ×2 (03:46→09:14)
[2025-03-23 04:49] LABS: Hematocrit 23.0 % (37.0-47.0); Hemoglobin 7.9 g/dL (12.0-16.0); Mean Corp Hgb Conc. 34.3 g/dL (33.0-37.0); Mean Corpuscular Volume 85.5 fL (81.0-99.0); Platelet Count 24 10^3/uL (130-400); Red Cell Dist. Width 13.2 % (11.5-14.5)
[2025-03-23 05:30] LABS: Nucleated Red Blood Cells % 0 %
[2025-03-23 07:25] VITALS: BP 130/90
[2025-03-23] MEDS: ZOVIRAX 400 MG PO (09:09)
[2025-03-23] MEDS: PROTONIX 20 MG PO (09:10)
[2025-03-23] MEDS: AUGMENTIN 875 MG/125 MG 1 TABLET PO (09:10)
[2025-03-23] MEDS: BenGay-Like 1 APPLIC TOPICAL (09:10)
[2025-03-23] MEDS: OCEAN, SALINE MIST 1 SPRAYS NASAL (09:11)
[2025-03-23] MEDS: FLUSH (NSS) 2 FLUSH IV (09:15)
--- NOTE | 2025-03-23 09:59 | W.PN.HOSP.TC ---
Today's Communication/Plan
-
dc
Assessment / Plan
Assessment / Plan
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
Aumentin till 03/30/25. CBC showed decrease in Hgb, however not to the point of transfusion. Patient follows every Mon and Thur in the infusion center for bloodwork and as needed transfusion. Next appointment in 2 days. Medcially stable for d/c home.
A/P:
#Neutropenic fever
#Bacteremia
Strep. mitis/oral
Repeated BCx NTD
Augmentin as per ID till 03/30/25
cont Acyclovir
#Pancytopenia 2/2 MDS
#Hx of breast CA
transfusion dependent
Hem follows: follow their recommendation for transfusion thresholds
Tranexamic acid
#Underweight
increase calorie intake
#Hypokalemia
resolved
DVT ppx SCDs
Full code
I have spent at least 36min reviewing chart, test results, communication tih consultants and providing direct patient care
Anticipated Discharge: Today
Subjective/Interval History
-
Date of Service: March 23, 2025
Objective Data
-
Labs:
Laboratory Results
03/23/25
04:17
WBC 1.1 L*
Hgb 7.9 L
Hct 23.0 L
Plt Count 24 L* D
Vital Signs:
Vital Signs
Temp Pulse Resp BP Pulse Ox
98 F 96 16 130/90 94
03/23/25 07:25 03/23/25 07:25 03/23/25 07:25 03/23/25 07:25 03/23/25 07:25
I&O
03/22/25 03/23/25 03/24/25
06:59 06:59 06:59
Intake Total 720 / 720 1231 / 1231
Balance 720 / 720 1231 / 1231
Review of Systems
-
History Source: Patient
All other systems: Reviewed and negative
Physical Exam
-
General: No Apparent Distress
HEENT: Normocephalic
Respiratory: Clear to Auscultation
Cardiac: Regular Rhythm
Skin: Warm
Neuro: Awake, Alert, Oriented and AO x 3
Psych: Calm
--- NOTE | 2025-03-23 10:08 | W.DCSUMMARY ---
Discharge Summary
Discharge Data
Date of Admission: 03/17/25
Date of Discharge: 03/23/25
-
Pending Results: No
Hospital Course
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
Aumentin till 03/30/25. CBC showed decrease in Hgb, however not to the point of transfusion. Patient follows every Mon and Thur in the infusion center for bloodwork and as needed transfusion. Next appointment in 2 days. Acyclovir and Levaquin ppx to
be continued as per ID. Medcially stable for d/c home.
I have spent at least 36min reviewing chart, test results, communication tih consultants and providing direct patient care
Patient was managed for:
#Neutropenic fever
#Bacteremia
#Pancytopenia 2/2 MDS
#Hx of breast CA
#Underweight
#Hypokalemia
Discharge Plan
-
Patient Disposition: Home (Routine Discharge)
Discharge Diagnosis/Procedures: Sepsis secondary to Streptococcus bacteremia
Neutropenic fever
Acute on chronic neutropenia
MDS/pancytopenia
Transfusion dependent
Condition: Fair
Diet: As tolerated
Activity: As tolerated
Driving Restrictions: As prior to admission
Bathing Restrictions: None
Referrals:
Binu Ivey DO [Family Provider, [facility]] - in less than 1 week
Prescriptions:
New
amoxicillin-pot clavulanate 875-125 mg Tablet
1 tab PO Q12 Qty: 15 0RF
pantoprazole 20 mg Tablet,Delayed Release (Dr/Ec)
20 mg PO DAILY Qty: 30 0RF
Continued
alprazolam 0.25 mg Tablet
0.25 mg PO HS PRN (Reason: anxiety)
ascorbic acid (vitamin C) [Vitamin C] 500 mg Tablet
500 mg PO DAILY
tranexamic acid 650 mg Tablet
650 mg PO BID PRN (Reason: bleeding)
acyclovir 400 mg Tablet
400 mg PO BID
levofloxacin 500 mg Tablet
500 mg PO HS
polyethylene glycol 3350 [Miralax] 17 gram Powder In Packet
17 g PO DAILY
acetaminophen 500 mg Tablet
500 mg PO DAILYPRN PRN (Reason: mild pain/fever)
cyanocobalamin (vitamin B-12) 1,000 mcg Tablet
1,000 mcg PO DAILY
therapeutic multivitamin Tablet
1 tab PO DAILY
calcium carbonate-vitamin D3 600 mg-5 mcg (200 unit) Tablet
1 tab PO DAILY
prochlorperazine maleate [Compazine] 10 mg Tablet
10 mg PO Q6HPRN PRN (Reason: nausea) Qty: 30 0RF
oxycodone-acetaminophen [Percocet] 5-325 mg Tablet
1 tab PO Q6HPRN PRN (Reason: severe pain) Qty: 12 0RF
Discharge Orders:
Discharge Patient (As Directed); Ordered 03/23/25
Ordered By: Alejandro Cabrera
Discharge Date and Time
Print Language: MALTESE
--- NOTE | 2025-03-23 11:46 | CM ---
Pt for dc today with no needs identified.
[2025-03-23 14:03] VITALS: BP 120/78
== END 2025-03-23 14:36 | disposition home or self-care (01) | DRG 871 ==
LOC: 2 SOUTH 08:03
PROVIDERS: Internal Medicine; ADMITTING PHYSICIAN Internal Medicine; ATTENDING PHYSICIAN Internal Medicine; CONSULT PHYSICIAN Student in an Organized Health Care Education/Training Program; EMERGENCY PHYSICIAN Emergency Medicine; FAMILY PHYSICIAN Family Medicine; OTHER PHYSICIAN Internal Medicine Hematology & Oncology
PROC: 30243N1 Transfusion of Nonautologous Red Blood Cells into Central Vein, Percutaneous Approach (ICD-10-PCS; 2025-03-18)
PROC: 30243R1 Transfusion of Nonautologous Platelets into Central Vein, Percutaneous Approach (ICD-10-PCS; 2025-03-18)
DX: A40.9 Streptococcal sepsis, unspecified (principal); J18.9 Pneumonia, unspecified organism; Z68.1 Body mass index [BMI] 19.9 or less, adult; D61.818 Other pancytopenia; D70.9 Neutropenia, unspecified; D46.9 Myelodysplastic syndrome, unspecified; Z85.3 Personal history of malignant neoplasm of breast; R63.6 Underweight; E87.6 Hypokalemia; Z11.52 Encounter for screening for COVID-19; Z79.899 Other long term (current) drug therapy; Z66 Do not resuscitate; Z92.3 Personal history of irradiation; E78.5 Hyperlipidemia, unspecified; I10 Essential (primary) hypertension; J45.909 Unspecified asthma, uncomplicated; M48.56XD Collapsed vertebra, not elsewhere classified, lumbar region, subsequent encounter for fracture with routine healing
CPT/HCPCS: 71046; 80048; 80053; 81003; 81015; 83605; 85025; 86850; 86900; 86901; 86920; 87040; 87077; 87086; 87154; 87186; 87205; 87502; 87633; 87811; 93005; 93306; 96374; 99285; P9016; P9052

== ENCOUNTER 2025-04-08 10:43 | Outpatient (RCR) | payer OTHER, SELFPAY ==
[2025-03-14 08:40] VITALS: BP 126/82
[2025-03-14 09:03] LABS: Hematocrit 24.2 % (37.0-47.0); Hemoglobin 8.4 g/dL (12.0-16.0); Mean Corp Hgb Conc. 34.7 g/dL (33.0-37.0); Mean Corpuscular Volume 87.7 fL (81.0-99.0); Platelet Count 9 10^3/uL (130-400); Red Cell Dist. Width 13.6 % (11.5-14.5)
--- NOTE | 2025-03-14 09:05 | PTCARENOTE ---
pt on schedule today for SDP, Myesha RN from [facility] informed us that Dr. Knight wants pt to receive HLA platelets (which are not arriving until around 2 pm today) for tomorrow. 03/15. Informed pt and pharmacy pt added to 03/15 schedule. Will
follow.
[2025-03-14 10:12] LABS: ALT (SGPT) 20 U/L (0-35); AST (SGOT) 16 U/L (14-36); Albumin 4.0 g/dl (3.5-5.0); Alkaline Phosphatase 119 U/L (38-126); Blood Urea Nitrogen 17 mg/dl (7-17); Calcium 9.1 mg/dl (8.4-10.2); Carbon Dioxide 28 mmol/L (22-30); Chloride 104 mmol/L (98-107); Glucose 119 mg/dl (70-99); Potassium 3.9 mmol/L (3.5-5.1); Sodium 138 mmol/L (135-145); Total Protein 7.0 g/dl (6.3-8.2); eGFR > 60.00
[2025-03-15 07:50] VITALS: BP 121/78
[2025-03-15] MEDS: BENADRYL 25 MG IV (08:07)
[2025-03-15] MEDS: PEPCID 10 MG IV (08:08)
[2025-03-15] MEDS: PEPCID 10 ML IV (08:08)
[2025-03-15] MEDS: SOLU-CORTEF 100 MG IV (08:08)
[2025-03-15] MEDS: TYLENOL 650 MG PO (08:09)
[2025-03-15 08:26] VITALS: BP 121/78
[2025-03-15 08:30] VITALS: BP 121/78
[2025-03-15 08:45] VITALS: BP 117/73
[2025-03-15 09:10] VITALS: BP 119/74
[2025-03-25] VITALS (9 sets, daily range): BP systolic 118–135; BP diastolic 73–82
[2025-03-25 09:10] LABS: Hematocrit 22.7 % (37.0-47.0); Hemoglobin 7.8 g/dL (12.0-16.0); Mean Corp Hgb Conc. 34.4 g/dL (33.0-37.0); Mean Corpuscular Volume 87.3 fL (81.0-99.0); Red Cell Dist. Width 13.0 % (11.5-14.5)
[2025-03-25 09:12] LABS: Platelet Count 10 10^3/uL (130-400)
[2025-03-25] MEDS: PEPCID 20 MG IV (09:18)
[2025-03-25] MEDS: TYLENOL 650 MG PO (09:19)
[2025-03-25] MEDS: SOLU-CORTEF 100 MG IV (09:20)
[2025-03-25] MEDS: BENADRYL 25 MG IV (09:21)
[2025-03-25 10:05] LABS: ALT (SGPT) 26 U/L (0-35); AST (SGOT) 20 U/L (14-36); Albumin 3.6 g/dl (3.5-5.0); Alkaline Phosphatase 84 U/L (38-126); Blood Urea Nitrogen 11 mg/dl (7-17); Calcium 8.8 mg/dl (8.4-10.2); Carbon Dioxide 27 mmol/L (22-30); Chloride 101 mmol/L (98-107); Glucose 132 mg/dl (70-99); Potassium 3.7 mmol/L (3.5-5.1); Sodium 136 mmol/L (135-145); Total Protein 6.8 g/dl (6.3-8.2); eGFR > 60.00
[2025-03-28 08:40] VITALS: BP 124/71
[2025-03-28 09:02] LABS: Hematocrit 24.7 % (37.0-47.0); Hemoglobin 8.5 g/dL (12.0-16.0); Mean Corp Hgb Conc. 34.4 g/dL (33.0-37.0); Mean Corpuscular Volume 87.0 fL (81.0-99.0); Red Cell Dist. Width 12.7 % (11.5-14.5)
[2025-03-28 09:03] LABS: Platelet Count 10 10^3/uL (130-400)
[2025-03-28] MEDS: BENADRYL 25 MG IV (09:15)
[2025-03-28] MEDS: SOLU-CORTEF 100 MG IV (09:16)
[2025-03-28] MEDS: PEPCID 20 MG IV (09:19)
[2025-03-28] MEDS: TYLENOL 650 MG PO (09:19)
[2025-03-28 09:43] VITALS: BP 124/71
[2025-03-28 09:50] VITALS: BP 124/71
[2025-03-28 10:05] VITALS: BP 126/76
[2025-03-28 11:05] VITALS: BP 110/71
[2025-03-28 11:28] LABS: AST (SGOT) 17 U/L (14-36); Albumin 3.8 g/dl (3.5-5.0); Alkaline Phosphatase 102 U/L (38-126); Blood Urea Nitrogen 15 mg/dl (7-17); Carbon Dioxide 27 mmol/L (22-30); Chloride 100 mmol/L (98-107); Glucose 136 mg/dl (70-99); Total Protein 7.5 g/dl (6.3-8.2); eGFR > 60.00
[2025-03-28 11:34] LABS: Platelet Count 34 10^3/uL (130-400)
[2025-03-28 11:47] LABS: ALT (SGPT) 23 U/L (0-35); Calcium 9.4 mg/dl (8.4-10.2); Potassium 3.9 mmol/L (3.5-5.1); Sodium 135 mmol/L (135-145)
[2025-04-01 08:43] VITALS: BP 133/74
[2025-04-01 08:55] LABS: Mean Corp Hgb Conc. 34.3 g/dL (33.0-37.0); Mean Corpuscular Volume 87.0 fL (81.0-99.0); Red Cell Dist. Width 12.1 % (11.5-14.5)
[2025-04-01 08:57] LABS: Hematocrit 20.1 % (37.0-47.0); Hemoglobin 6.9 g/dL (12.0-16.0); Platelet Count 9 10^3/uL (130-400)
[2025-04-01] MEDS: ALOXI 5 MG IV (09:14)
[2025-04-01] MEDS: DECADRON 50.8 MG IV (09:14)
[2025-04-01] MEDS: VIDAZA 113.6 MG IV (09:35)
[2025-04-01] MEDS: TYLENOL 650 MG PO (10:35)
[2025-04-01] MEDS: BENADRYL 25 MG IV (10:36)
[2025-04-01 10:44] LABS: ALT (SGPT) 19 U/L (0-35); AST (SGOT) 14 U/L (14-36); Albumin 3.6 g/dl (3.5-5.0); Alkaline Phosphatase 107 U/L (38-126); Blood Urea Nitrogen 10 mg/dl (7-17); Calcium 8.8 mg/dl (8.4-10.2); Carbon Dioxide 29 mmol/L (22-30); Chloride 99 mmol/L (98-107); Glucose 135 mg/dl (70-99); Potassium 3.7 mmol/L (3.5-5.1); Sodium 133 mmol/L (135-145); Total Protein 7.1 g/dl (6.3-8.2); eGFR > 60.00
[2025-04-01 10:58] VITALS: BP 103/76
[2025-04-01 11:18] VITALS: BP 97/62
[2025-04-01 12:49] VITALS: BP 115/76
[2025-04-02 08:15] VITALS: BP 122/77
[2025-04-02] MEDS: VIDAZA 113.6 MG IV (09:17)
[2025-04-02] MEDS: TYLENOL 650 MG PO (09:54)
[2025-04-02] MEDS: BENADRYL 25 MG IV (09:55)
[2025-04-02] MEDS: SOLU-CORTEF 100 MG IV (09:56)
[2025-04-02] MEDS: PEPCID 20 MG IV (09:57)
[2025-04-02 10:19] VITALS: BP 136/77
[2025-04-02 10:25] VITALS: BP 136/77
[2025-04-02 10:40] VITALS: BP 129/79
[2025-04-02 11:50] VITALS: BP 117/65
[2025-04-03 08:15] VITALS: BP 112/76
[2025-04-03] MEDS: VIDAZA 113.6 MG IV (08:55)
[2025-04-04 08:30] VITALS: BP 105/65
[2025-04-04 08:57] LABS: Hemoglobin 7.1 g/dL (12.0-16.0); Mean Corp Hgb Conc. 34.3 g/dL (33.0-37.0); Mean Corpuscular Volume 87.0 fL (81.0-99.0); Red Cell Dist. Width 12.5 % (11.5-14.5)
[2025-04-04 08:58] LABS: Hematocrit 20.7 % (37.0-47.0); Platelet Count 24 10^3/uL (130-400)
[2025-04-04] MEDS: ALOXI 5 MG IV (09:06)
[2025-04-04] MEDS: VIDAZA 113.6 MG IV (09:07)
[2025-04-04] MEDS: TYLENOL 650 MG PO (10:01)
[2025-04-04] MEDS: BENADRYL 25 MG IV (10:02)
[2025-04-04 10:04] VITALS: BP 124/77
[2025-04-04 10:23] VITALS: BP 106/73
[2025-04-04 10:25] LABS: Blood Urea Nitrogen 16 mg/dl (7-17); Calcium 8.8 mg/dl (8.4-10.2); Carbon Dioxide 28 mmol/L (22-30); Chloride 100 mmol/L (98-107); Glucose 134 mg/dl (70-99); Potassium 3.5 mmol/L (3.5-5.1); Sodium 134 mmol/L (135-145); eGFR > 60.00
[2025-04-04 11:56] VITALS: BP 119/67
[2025-04-08] VITALS (11 sets, daily range): BP systolic 115–130; BP diastolic 67–80
[2025-04-08 11:21] LABS: Hematocrit 22.7 % (37.0-47.0); Hemoglobin 7.9 g/dL (12.0-16.0); Mean Corp Hgb Conc. 34.8 g/dL (33.0-37.0); Mean Corpuscular Volume 84.7 fL (81.0-99.0); Red Cell Dist. Width 11.8 % (11.5-14.5)
[2025-04-08 11:22] LABS: Platelet Count 1 10^3/uL (130-400)
[2025-04-08] MEDS: TYLENOL 650 MG PO (11:27)
[2025-04-08] MEDS: SOLU-CORTEF 100 MG IV (11:28)
[2025-04-08] MEDS: BENADRYL 25 MG IV (11:28)
[2025-04-08] MEDS: PEPCID 20 MG IV (11:29)
[2025-04-08 12:54] LABS: ALT (SGPT) 25 U/L (0-35); AST (SGOT) 18 U/L (14-36); Albumin 3.2 g/dl (3.5-5.0); Alkaline Phosphatase 96 U/L (38-126); Blood Urea Nitrogen 9 mg/dl (7-17); Calcium 8.5 mg/dl (8.4-10.2); Carbon Dioxide 30 mmol/L (22-30); Chloride 96 mmol/L (98-107); Glucose 127 mg/dl (70-99); Sodium 133 mmol/L (135-145); Total Protein 6.6 g/dl (6.3-8.2); eGFR > 60.00
[2025-04-08 14:35] LABS: Potassium 3.4 mmol/L (3.5-5.1)
== END 2025-04-11 12:28 | disposition home or self-care (01) ==
LOC: OID 10:43
PROVIDERS: ATTENDING PHYSICIAN Nurse Practitioner Acute Care; FAMILY PHYSICIAN Family Medicine
DX: Z51.11 Encounter for antineoplastic chemotherapy (principal); C50.411 Malignant neoplasm of upper-outer quadrant of right female breast (principal); R11.2 Nausea with vomiting, unspecified; G89.3 Neoplasm related pain (acute) (chronic); L02.223 Furuncle of chest wall; D69.3 Immune thrombocytopenic purpura; D61.818 Other pancytopenia; Z17.1 Estrogen receptor negative status [ER-]
CPT/HCPCS: 36430; 36591; 80048; 80053; 82248; 85025; 85049; 86850; 86900; 86901; 86920; 96374; 96375; 96413; 96523; J2469; J9025; P9016; P9052; P9058

== ENCOUNTER 2025-04-10 17:53 | Inpatient (IN) | payer OTHER, SELFPAY ==
[2025-04-10 15:53] VITALS: BP 103/64
[2025-04-10 16:23] VITALS: BP 124/74
[2025-04-10 16:33] LABS: COVID-19 Antigen Negative (Negative)
--- NOTE | 2025-04-10 16:38 | ED.GENMED ---
History of Present Illness
General
Chief Complaint: Fever
Source: patient, records, previous radiology exam and previous hospital records
Exam Limitations: none
Time Seen by Provider: 04/10/25 16:10
Nursing documentation reviewed up to this point in time: agreed with
History of Present Illness
History of Present Illness:
64-year-old female patient of Dr. Arizmendi with MDS presents with fever mild cough back pain,
She had platelet and red cell transfusion 2 days ago
She has had neutropenia previously
Admitted recently with bacteremia, completed antibiotics, is currently on Augmentin and acyclovir
No dysuria she has a port in her left chest
Past History
Past History
ED Past Medical History: Asthma, Cancer (breast), HTN and Other (sinusitis, migraine, thrombocytopenia)
ED Past Surgical History: None
Patient has exhibited threatening behavior?: No
Social History
Tobacco: Non-smoker
Alcohol: None
Drug: None
Personal:
Living: with family
Employment: Employed
Phy Exam
Physical Exam
Physical Exam:
Physical Exam
General: Febrile chronically ill female
Neck: Lips are slightly dry, port in the left anterior chest
Heart: Tachycardia
Lungs: Crackles on the right
Abdomen: Nontender
Neuro: alert and oriented. no focal neurological deficits
Skin: no rash
Psychiatric: well kept. interactive and cooperative
Extremities: no edema.
Sepsis
Sepsis Screening
Sepsis Assessment: Sepsis
Sepsis Screen
Sepsis Screen: Sepsis
Date: 04/11/25
Time: 15:11
Course
Orders/Labs/Results
Orders:
Orders
04/10/25 Dinner
Regular
At Your Request: Full Participation
Does patient need a safe tray?: No
04/10/25 16:00
COVID-19 Antigen Urgent
Source: Nasal Swab
Complete Blood Count/With Diff Urgent
Comprehensive Metabolic Panel Urgent
Lactic Acid Q4H
Comment: ON ICE, CANCEL 2ND ORDER IF FIRST LACTIC ACID LEVEL <2
Blood Culture Q20M
ALESSANDRA Source: Blood/Venous
Specimen Description:
Comment: Urgent from separate sites. If patient screens positive for possible sepsis
Influenza A+B Rapid Molecular Urgent
ALESSANDRA Source: Nasal Swab
Specimen Description:
04/10/25 16:14
CR Chest Portable - 1 View Urgent
Comment:
Reason For Exam: low anc fever
Reason Study Needs to be Portable: Patient Unstable
04/10/25 16:29
Acetaminophen [Tylenol] 650 mg PO NOW STA
HYDROmorphone [Dilaudid] 1 mg IV NOW STA
04/10/25 16:30
0.9% Sodium Chloride 1000 ml [Nss] 2,000 ml IV BOLUS
04/10/25 16:43
Urinalysis Reflex To Culture Urgent
Date Specimen was Collected: 04/10/25
Time Specimen was Collected: 16:34
Urine Microscopic Reflex Cult Urgent
Urine Culture Urgent
ALESSANDRA Source: U
Specimen Description:
Date Specimen was Collected: 04/10/25
Time Specimen was Collected: 16:34
04/10/25 16:51
Electrocardiogram (*1) Urgent
Reason for Study: Tachycardia
EKG- Treatment ONCE
04/10/25 17:02
Blood Culture Q20M
ALESSANDRA Source: Blood/Venous
Specimen Description:
Comment: Urgent from separate sites. If patient screens positive for possible sepsis
04/10/25 17:11
Cefepime HCl [Maxipime] 2,000 mg IV NOW STA
04/10/25 17:45
Admit/Transfer Patient As Directed
Co-Sign Provider:
Level of Care: Inpatient admission
Assign to:: Telemetry
Physician / Group: Lita Amanda
Diagnosis: Neutropenic Fever
Reason for Telemetry: Chest Pain syndromes
Date to Stop Telemetry: 04/12/25
Time to Stop Telemetry: 11:00
Reason for Hospitalization: Neutropenic Fever
Expected length of stay greater than two midnights?: Yes
ELOS- Estimated Length of Stay in days: 3
I certify the patient meets the requirements for IP care: Yes
04/10/25 17:46
PRN Pain Medication Management As Directed
May give lesser potent ordered pain med per pt: Yes
preference::
Protocol:: Medication orders for pain may be administered in a
manner that supports deferring to patient preference
when the pt is:
- Requesting an ordered lesser potent pain medication.
Least to most potent pain medications are defined
as: acetaminophen < NSAID < tramadol < opioids
(morphine, oxycodone, hydromorphone).
- Requesting a lesser dose of the same medication IF
ORDERED.
- Requesting a less intrusive route of administration
if both routes are prescribed by the provider (PO <
IV).
04/10/25 17:47
Code Status As Directed
Resuscitation Status: Do not resuscitate
Reached after discussion with pt or family/Healthcare POA: Yes
DNR Bracelet Application ONCE
04/10/25 20:15
Acetaminophen [Tylenol] 650 mg PO Q4HPRN PRN
Alprazolam [Xanax] 0.25 mg PO Q6HPRN PRN anxiety
Doxycycline [Vibramycin] 100 mg PO NOW STA
Lactated Ringers [Lr] 1,000 ml IV 80 mls/hr
Oxycodone [Roxicodone] 5 mg PO Q6HPRN PRN severe pains
Polyethylene Glycol Powder [Miralax] 17 grams PO DAILYPRN PRN
Prochlorperazine [Compazine] 10 mg IV Q6HPRN PRN
04/10/25 20:15
INFECTIOUS DISEASE CONSULT Routine
Consulting Provider: Peg Rubalcava
Was physician already notified: Yes
Activity As Directed
Activity Level: As Tolerated
Pneumatic Compression Sleeves As Directed
Type: Knee high
Vital Signs As Directed
Frequency: Per unit guidelines
DX Deep Vein Thrombosis Video Routine
04/10/25 21:00
Acyclovir [Zovirax] 400 mg PO BID
04/11/25 02:00
Cefepime HCl [Maxipime] 2,000 mg IV Q8H
04/11/25 06:09
Basic Metabolic Panel IN AM
Complete Blood Count/With Diff IN AM
Magnesium IN AM
04/11/25 08:00
Doxycycline [Vibramycin] 100 mg PO Q12
Pantoprazole [Protonix] 20 mg PO DAILY
04/12/25 11:00
DC Protocol for Telemetry ONCE
Abnormal Lab Results
04/10/25 04/10/25
16:00 16:43
WBC 0.5 L* 10^3/uL
(4.8-10.8)
RBC 2.72 L 10^6/uL
(4.20-5.40)
Hgb 8.0 L g/dL
(12.0-16.0)
Hct 22.9 L %
(37.0-47.0)
Plt Count 13 L* D 10^3/uL
(130-400)
Absolute Neuts (auto) 0.0 L* 10^3/uL
(1.4-6.5)
Absolute Lymphs (auto) 0.5 L 10^3/uL
(1.2-3.4)
Absolute Monos (auto) 0.0 L 10^3/uL
(0.1-0.6)
Neutrophils % 0.0 L %
(42.2-75.2)
Lymphocytes % 100.0 H %
(20.5-51.1)
Monocytes % 0.0 L %
(1.7-9.3)
Sodium 129 L mmol/L
(135-145)
Chloride 94 L mmol/L
(98-107)
Creatinine 0.4 L mg/dL
(0.6-1.0)
Glucose 136 H mg/dl
(70-99)
Albumin 3.1 L g/dl
(3.5-5.0)
Ur Occult Blood Reflex 3+ A
(Negative)
Urine Urobilinogen 2+ A
(Neg - 1+)
Leukocyte Esterase Rfl 1+ A
(Negative)
Urine RBC 11-15 A /HPF
(0-2)
Urine Bacteria (Reflex) Many A
(Negative)
Urine Albumin (Reflex) 2+ A
(Neg - Trace)
04/10/25 16:00
04/10/25 16:00
Vital Signs
Initial and Last Documented VS:
Initial Vital Signs
Temp Pulse Resp BP Pulse Ox
101.3 F H 134 18 103/64 100
04/10/25 15:53 04/10/25 15:53 04/10/25 15:53 04/10/25 15:53 04/10/25 15:53
Last Documented Vital Signs
Temp Pulse Resp BP Pulse Ox
99.8 F 107 16 114/64 95
04/11/25 11:00 04/11/25 15:00 04/11/25 11:00 04/11/25 11:00 04/11/25 11:00
*Radiology
Radiology exam reviewed: preliminary read by ED provider
*Pulse Oximetry
SaO2: 95
Patient hypoxic: no
*EKG
Interpreted by ED Provider?: Yes
Interpretation: abnormal
Comparison EKG: no comparison EKG present
Heart Rate: 125
Rate: tachycardiac
Rhythm: sinus
Ischemia: non-specific ST changes
*Guard Lieutenant Interpretation
Rate: tachycardiac
Interpretation: abnormal
Heart Rate: 125
Rhythm: sinus
*Critical Care Note
Total Time (30-74mins, 75-104mins- exclusive of procedures): Not Applicable
Update Note
Update Note:
Update, patient with fever looks like a mass or infection order chest x-ray was not there few weeks ago suspected infection
Will start IV fluids Tylenol message sent to oncology infectious disease likely will need admission for neutropenic fever
ED Attending Note
-
Portions of this chart may have been created with voice recognition software.� Occasional wrong word or��sound alike� substitutions may have occurred due to the inherent limitations of voice recognition software.
Discharge Plan
Departure
Patient Disposition: Admit
Date of Disposition: 04/10/25
Time of Disposition: 16:47
Admit to: Telemetry
Presentation/result/management discussed w/ accepting MD/DO: Hospitalist
Patient with high blood pressure during this ER visit?: No
Condition: Fair
Covid-19: Negative COVID-19
Discharge Problem:
Neutropenic fever
Interventions
Interventions:
*Risk Screen - Suicide Last Done: 04/10/25 20:20
*General Assessment Last Done: 04/10/25 16:29
*Neglect/Abuse Screening Last Done: 04/10/25 16:29
*ED- Fall Risk Assessment Last Done: 04/10/25 16:29
*ED COVID-19 Vaccine History Last Done: 04/10/25 20:20
*ED Influenza Vaccine History Last Done: 04/10/25 16:29
*Nursing Disposition Last Done: 04/10/25 18:24
ED- Neurological Assessment Last Done: 04/10/25 16:30
ED-Skin Assessment Last Done: 04/10/25 16:30
Discharge Date and Time
Discharge Date/Time: 04/10/25 20:08
--- NOTE | 2025-04-10 16:39 | HPS.HSE ---
Family Physician
-
Family Physician: Binu Ivey
Chief Complaint
-
fever
History of Present Illness
Ms. Dariana Cho is a 64 yo woman with hx stage IIIA breast cancer s/p chemo and radiation (completed 07/07), hypoplastic MDS with transfusion requirements, recent admission 03/17-03/23/25 for neutropenic fever (found to have streptococcal
bactermia likely 2/2 RML pneumonia and prescribed Augmentin on DC through 03/30/25) sent to the ER for recurrent fevers/chills.
Patient completed her course of Augmentin. Today she felt fatigued and noticed to have low grade fever, sent to ER. She denies chest pain/shortness of breath. + nausea and decreased appetite, no vomiting or diarrhea. No LE swelling or rash.
Medical History
Past Medical History
Past Medical History: Reports Arrhythmia, Cancer (Breast cancer currently pancytopenia), HTN and Other (stage IIIA breast cancer s/p chemo and radiation (completed 07/07), hypoplastic MDS with transfusion requirements, neutropenic fever admission
04/06)
Past Surgical History: Reports None
Social History
Tobacco: Non-smoker
Alcohol: None
Drug: None
Personal: Single
Living: With Family
Family History
Family History: Not pertinent
Allergies / Home Medications
Allergies reflects when Allergies were last updated in [facility].
Home Medications with original date entered in [facility]
Allergy/Medication List:
Allergies
Allergy/AdvReac Type Severity Reaction Status Date / Time
No Known Allergies Allergy Verified 04/08/25 12:04
Home Medications
alprazolam 0.25 mg tablet 0.25 mg PO Q6HPRN PRN anxiety 01/24/24
ascorbic acid (vitamin C) 500 mg tablet (Vitamin C) 500 mg PO DAILY Supplement 01/24/24
tranexamic acid 650 mg tablet 650 mg PO BID PRN bleeding 01/17/25
acyclovir 400 mg tablet 400 mg PO BID Infection 02/01/25
levofloxacin 500 mg tablet 500 mg PO HS Infection 02/01/25
calcium 600 mg (as carbonate)-vitamin D3 5 mcg (200 unit) tablet 1 tab PO DAILY Supplement 03/17/25
cyanocobalamin (vitamin B-12) 1,000 mcg tablet 1,000 mcg PO DAILY Supplement 03/17/25
therapeutic multivitamin 1 tab PO DAILY Supplement 03/17/25
prochlorperazine maleate 10 mg tablet (Compazine) 10 mg PO Q6HPRN PRN nausea #30 tabs 03/23/25
oxycodone 5 mg tablet 5 mg PO Q6HPRN PRN severe pains 04/02/25
pantoprazole 20 mg tablet,delayed release 20 mg PO DAILY gerd 04/10/25
Review of Systems
-
History Source: Patient
A 12 point ROS was completed and negative except as noted: Yes
Physical Exam
Vital Signs
Vital Signs
Temp Pulse Resp BP Pulse Ox
101.3 F H 125 16 124/74 95
04/10/25 15:53 04/10/25 16:24 04/10/25 16:28 04/10/25 16:23 04/10/25 16:24
Physical Exam
General: No Apparent Distress
HEENT: PERRLA
Respiratory: Clear; No Wheezes
Cardiac: S1/S2 and Regular Rhythm
GI: Soft and Non Tender
Musculoskeletal: No Edema
Skin: Warm and Dry; No Rash
Neuro: AO x 3
Psych: Calm
Laboratory Results
-
Laboratory Results
Lactic Acid 0.9 mmol/L (0.7-2.0) 04/10/25 16:00
Data Reviewed
-
Diagnostic Radiology: Report Reviewed by me
Lab Data: Labs Reviewed by me
Impression/Plan
-
Ms. Dariana Cho is a 64 yo woman with hx stage IIIA breast cancer s/p chemo and radiation (completed 07/07), hypoplastic MDS with transfusion requirements, recent admission 03/17-03/23/25 for neutropenic fever (found to have streptococcal
bactermia likely 2/2 RML pneumonia and prescribed Augmentin on DC through 03/30/25) sent to the ER for recurrent fevers/chills.
Triage VS: T 101.3, P 134, RR 18, BP 103/64, SpO2 100%
LABS: WBC 0.5, Hg 8.0, PLT 13, ANC 0, Na 129, K+ 3.7, Cl 30, Cr 0.4, Glucose 136, Lactate 0.9, T. Bili 1.3, AST 19, ALT 33, Alk Phos 103
Flu and Covid negative
CXR
IMPRESSION:
Short-term interval development of a 6.5 cm rounded opacity superimposed in the right hilar region. This is likely related to an infectious etiology, such as round pneumonia, though follow-up would be necessary after conservative therapy to assess
resolution. Possible trace right pleural effusion.
Otherwise, no significant change in 1.5 cm right lower lobe nodule.
Neutropenic Fever
Community Acquired Pneumonia
Recent admission for Neutropenic Fever with Strep Mitis/Oralis Bacteremia
-admit to telemetry
-follow up blood cultures
-IV Cefepime/ add on Doxycycline for atypical coverage
-LR @ 80
-ID consult
-Oncology consult
-hold CHLOROBUTADIENE SCRUBBER OPERATOR Levaquin (for PPx)
MDS, Transfusion Dependent
Pancytopenia
-patient has hx PLT refractoriness requiring HLA matched PLT; additionally she has prior transfusion reactions and needs tylenol + Benadryl + Solucortef pre PLT transfusions
-transfuse for PLT < 10; Hg < 7
-daily CBC
-Oncology consulted
-continue CHLOROBUTADIENE SCRUBBER OPERATOR Acyclovir for PPx
Hx Breast CA
-completed AC-T 04/2024, completed XRT Jun 2024
chronic back pain
-no mid spine pain on exam
-she was given IV Dilaudid in ER
-continue PRN Oxycodone
DVT PPx SCD
DNR - discussed on admission
76 minutes spent on patient care
[2025-04-10 16:40] LABS: Hematocrit 22.9 % (37.0-47.0); Hemoglobin 8.0 g/dL (12.0-16.0); Mean Corp Hgb Conc. 34.9 g/dL (33.0-37.0); Mean Corpuscular Volume 84.2 fL (81.0-99.0); Platelet Count 13 10^3/uL (130-400); Red Cell Dist. Width 12.0 % (11.5-14.5)
[2025-04-10 16:47] LABS: Nucleated Red Blood Cells % 0 %
[2025-04-10 16:52] LABS: Urine Character Clear (Clear)
[2025-04-10 17:00] VITALS: BP 117/67
[2025-04-10 17:03] LABS: ALT (SGPT) 33 U/L (0-35); AST (SGOT) 19 U/L (14-36); Albumin 3.1 g/dl (3.5-5.0); Alkaline Phosphatase 103 U/L (38-126); Blood Urea Nitrogen 11 mg/dl (7-17); Calcium 8.6 mg/dl (8.4-10.2); Carbon Dioxide 30 mmol/L (22-30); Chloride 94 mmol/L (98-107); Glucose 136 mg/dl (70-99); Potassium 3.7 mmol/L (3.5-5.1); Sodium 129 mmol/L (135-145); Total Protein 6.5 g/dl (6.3-8.2); eGFR > 60.00
[2025-04-10] MEDS: DILAUDID 1 MG IV (17:04)
[2025-04-10] MEDS: NSS 2000 IV (17:04)
[2025-04-10] MEDS: TYLENOL 650 MG PO (17:04)
[2025-04-10] MEDS: MAXIPIME 2000 MG IV (17:25)
[2025-04-10 18:00] VITALS: BP 101/61
[2025-04-10 20:16] VITALS: BP 136/71
[2025-04-10 20:17] VITALS: BMI 19.9
[2025-04-10] MEDS: VIBRAMYCIN 100 MG PO (20:39)
[2025-04-10] MEDS: XANAX 0.25 MG PO (20:39)
[2025-04-10] MEDS: LR 1000 IV (20:39)
[2025-04-10] MEDS: ROXICODONE 5 MG PO (20:40)
[2025-04-10] MEDS: ZOVIRAX 400 MG PO (20:40)
[2025-04-10 23:17] VITALS: BP 111/70
[2025-04-11] VITALS (7 sets, daily range): BP systolic 98–114; BP diastolic 55–74; BMI 19.9
[2025-04-11] MEDS: MAXIPIME 2000 MG IV ×3 (01:27→17:39)
[2025-04-11] MEDS: STERILE WATER FOR INJECTION 10 ML IV ×3 (01:27→17:39)
[2025-04-11] MEDS: ROXICODONE 5 MG PO ×2 (02:48→08:48)
[2025-04-11] MEDS: TYLENOL 650 MG PO ×2 (03:07→12:52)
[2025-04-11 06:52] LABS: Hematocrit 21.8 % (37.0-47.0); Hemoglobin 7.0 g/dL (12.0-16.0); Mean Corp Hgb Conc. 32.1 g/dL (33.0-37.0); Mean Corpuscular Volume 90.5 fL (81.0-99.0); Platelet Count 8 10^3/uL (130-400); Red Cell Dist. Width 11.9 % (11.5-14.5)
[2025-04-11 07:34] LABS: Nucleated Red Blood Cells % 5.0 %
[2025-04-11] MEDS: PROTONIX 20 MG PO (07:38)
[2025-04-11] MEDS: LR 1000 IV (07:38)
[2025-04-11] MEDS: ZOVIRAX 400 MG PO ×2 (07:38→20:35)
[2025-04-11] MEDS: VIBRAMYCIN 100 MG PO ×2 (07:38→20:35)
--- NOTE | 2025-04-11 08:02 | W.PN.HOSP.TC ---
Addendum entered and electronically signed by Lita Amanda MD 04/11/25 13:32:
patient with sinus tachycardia; resuscitated fully at this point and eating/drinking. will start low dose Metroprolol and monitor response.
Original Note:
Today's Communication/Plan
-
IV Cefepime/oral Doxycycline
Transfuse 1 unit PLT (with pre-medications)
repeat Hg with type and cross --> may also require PRBC transfusion
Follow up further ID and Oncology recommendations
Assessment / Plan
Assessment / Plan
Ms. Dariana Cho is a 64 yo woman with hx stage IIIA breast cancer s/p chemo and radiation (completed 07/07), hypoplastic MDS with transfusion requirements, recent admission 03/17-03/23/25 for neutropenic fever (found to have streptococcal
bacteremia likely 2/2 RML pneumonia/sinusitis and prescribed Augmentin on DC through 03/30/25) sent to the ER for recurrent fevers/chills.
Flu and Covid negative
CXR
IMPRESSION:
Short-term interval development of a 6.5 cm rounded opacity superimposed in the right hilar region. This is likely related to an infectious etiology, such as round pneumonia, though follow-up would be necessary after conservative therapy to assess
resolution. Possible trace right pleural effusion.
Otherwise, no significant change in 1.5 cm right lower lobe nodule.
Neutropenic Fever
Community Acquired Pneumonia
Recent admission for Neutropenic Fever with Strep Mitis/Oralis Bacteremia
-admit to telemetry
-follow up blood cultures
-IV Cefepime/ add on Doxycycline for atypical coverage
-LR @ 80 --> stop this afternoon
-ID consult
-Oncology consult
-hold PHYSICAL THERAPIST CENTER MANAGER Levaquin (for PPx)
MDS, Transfusion Dependent
Pancytopenia
-patient has hx PLT refractoriness requiring HLA matched PLT; additionally she has prior transfusion reactions and needs tylenol + Benadryl + Solucortef pre PLT transfusions
-transfuse for PLT < 10; Hg < 7. PLT 8 this morning and Hg 7; will transfuse 1 unit PLT; repeat Hg with type and cross - if remains </= 7 will also give a unit PRBC
-daily CBC
-Oncology consulted
-continue PHYSICAL THERAPIST CENTER MANAGER Acyclovir for PPx
Hx Breast CA
-completed AC-T 04/2024, completed XRT Jun 2024
chronic back pain
-no mid spine pain on exam
-she was given IV Dilaudid in ER
-continue PRN Oxycodone
DVT PPx SCD
DNR - discussed on admission
51 minutes spent on patient care
Anticipated Discharge: 24 - 48 hours
Subjective/Interval History
-
Date of Service: April 11, 2025
feeling better this morning
low grade fever overnight
Objective Data
-
Labs:
Laboratory Results
04/11/25
06:09
WBC 0.4 L*
Hgb 7.0 L
Hct 21.8 L
Plt Count 8 L* D
Sodium Pending
Potassium Pending
Chloride Pending
Carbon Dioxide Pending
BUN Pending
Creatinine Pending
Glucose Pending
Calcium Pending
Vital Signs:
Vital Signs
Temp Pulse Resp BP Pulse Ox
100.7 F H 124 18 106/62 97
04/11/25 03:16 04/11/25 03:16 04/11/25 03:16 04/11/25 03:16 04/11/25 03:16
I&O
04/10/25 04/11/25 04/12/25
06:59 06:59 06:59
Intake Total 880 / 880
Balance 880 / 880
Review of Systems
-
History Source: Patient
All other systems: Reviewed and negative
Physical Exam
-
General: No Apparent Distress
HEENT: PERRLA
Respiratory: Clear to Auscultation; Negative Wheezes
Cardiac: Regular Rhythm and S1/S2
GI: Soft and Nontender
Musculoskeletal: No Edema
Skin: Warm and Dry; Negative Rash
Neuro: AO x 3
Psych: Calm
Data Reviewed
-
Diagnostic Radiology: Report Reviewed by me
Labs: Labs Reviewed by me
[2025-04-11 08:05] LABS: Blood Urea Nitrogen 9 mg/dl (7-17); Calcium 8.5 mg/dl (8.4-10.2); Carbon Dioxide 27 mmol/L (22-30); Chloride 102 mmol/L (98-107); Estimated Creatinine Clearance 94 ml/min; Glucose 123 mg/dl (70-99); Magnesium 2.1 mg/dl (1.6-2.3); Potassium 3.8 mmol/L (3.5-5.1); Sodium 132 mmol/L (135-145); eGFR > 60.00
[2025-04-11 09:15] LABS: Hemoglobin 7.4 g/dL (12.0-16.0)
--- NOTE | 2025-04-11 09:39 | CON.ID ---
Consultation
-
Date/Time Consultation Requested: April 10, 20252014
Date/Time Consultation Performed: April 11, 2025 0940
Requesting Provider: Dr. Lita Amanda
Performing Provider: Dr. Peg Rubalcava
Reason for Consultation: Neutropenic fever
Chief Complaint / Past History
Chief Complaint
Fever
History of Present Illness
64-year-old female with history of breast cancer status post chemo and radiation, then developed MDS diagnosed November 2024 receiving Vidaza, on levofloxacin and acyclovir prophylaxis, recent hospitalization from March 17 - March 23 for neutropenic
fever, Streptococcus mitis/oralis bacteremia thought to be from sinusitis, TTE neg vege, received IV antibiotic in hospital then transition to Augmentin to complete a 2-week course completed 03/[address] Benites, who returned to ED 04/10
for fevers. She reports she was about 75% improved since last hospitalization. No fever until yesterday afternoon she suddenly developed chills. The palliative nurse took her temperature and noted to be febrile. No headache. No mouth sores.
Rhinorrhea with clear output. No sore throat. Has mild intermittent cough, mostly nonproductive. Has intermittent nausea. No abdominal pain. No diarrhea. No urine symptoms. Chronic back pain stable. No rash. No ill contacts. She does not
go out except for medical treatments. No gardening. 1 indoor cat. She lives with her mother who is well. In ER temperature 101.3, ANC 0. Chest x-ray new 6.5 cm rounded opacity superimposed in the right hilar region, no significant change of the
right lower lobe nodule.
Past History
Additional Past Medical History:
HTN
Stage III right breast cancer status post lumpectomy, chemo and radiation completed June 2024
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
Chronic SI back pain
Port placement
Allergy History:
No Known Allergies Allergy (Verified 04/08/25 12:04)
Medications Reviewed: Yes
Current Antibiotics:
Cefepime
Doxycycline
Social History
Tobacco: Non-Smoker
Alcohol: None
Drug: None
Living: With Family (Mother and 1 indoor dog)
Family History
Family History: Not Pertinent
Review of Systems
Review of Systems
General: Fever, Chills and Change in Appetite
HEENT: Negative Stiff Neck, Sinus Problems, Headache or Pharyngitis
Cardiovascular: Negative Chest Pain
Respiratory: Dyspnea and Cough; Negative Sputum Production
Gasteroenterology: Negative Nausea, Vomiting or Diarrhea
Genital / Urological: Negative Dysuria, Hematuria or Flank Pain
Endocrine: Weakness
Neurological: Negative Dizziness
All systems: All other systems were reviewed and were negative
Vital Signs
Temp Pulse Resp BP Pulse Ox
98.3 F 108 18 107/68 97
04/11/25 07:06 04/11/25 07:06 04/11/25 07:06 04/11/25 07:06 04/11/25 09:04
Selected Entries
04/10/25
15:53 04/11/25
03:16
Temp 101.3 F H 100.7 F H
Physical Exam
Physical Exam
Constitutional: No Acute Distress
Head: Other (No frontal or maxillary sinus tenderness)
Eyes: No Conjunctival Hemorrhage and Sclera Anicteric
Pharynx: Benign
Oral: No Thrush and No Ulcers
Cardiovascular: S1/S2 (Tachycardic); Negative Peripheral Edema
Pulmonary: Rales (Right lung crackles)
Gastrointestinal: Soft, Non Tender, Non Distended and Normal Bowel Sounds
Genito-Urinary: Negative CVA Tenderness
Extremities: Negative Edema
Musculoskeletal: Negative Spinal Tenderness
Neurological: AO x 3; Negative Meningeal Signs
Psychological: Calm
Lines: Port (Left chest wall currently not accessed, no induration/erythema)
Lab / Diagnostic Study Results
04/11/25 08:48
04/11/25 06:09
Abs Immat Gran (auto) 0.0 10^3/uL (0-0.05) 04/11/25 06:09
Absolute Neuts (auto) 0.0 10^3/uL (1.4-6.5) L* 04/11/25 06:09
Absolute Lymphs (auto) 0.4 10^3/uL (1.2-3.4) L 04/11/25 06:09
Absolute Monos (auto) 0.0 10^3/uL (0.1-0.6) L 04/11/25 06:09
Absolute Basos (auto) 0.0 10^3/uL (0-0.2) 04/11/25 06:09
Immature Gran % 0.0 % (0-0.5) 04/11/25 06:09
Neutrophils % 0.0 % (42.2-75.2) L 04/11/25 06:09
Lymphocytes % 97.5 % (20.5-51.1) H 04/11/25 06:09
Monocytes % 2.5 % (1.7-9.3) 04/11/25 06:09
Eosinophils % 0.0 % (0-6) 04/11/25 06:09
Basophils % 0.0 % (0-2) 04/11/25 06:09
Lactic Acid Cancelled 04/10/25 20:00
Ur Squamous Epith Cells 3-5 /LPF (Few) 04/10/25 16:43
Microbiology Results
Micro:
04/10/25 16:00 Blood Culture - Pending
Blood/Venous
04/10/25 17:02 Blood Culture - Pending
Blood/Venous
04/10/25 16:43 Urine Culture - Pending
Urine
04/10/25 16:00 Influenza Types A & B (MICHAEL) - Final
Nasal Swab Negative for Influenza A & B, NAAT
Negative results must be combined with clinical observations
and patient history.
Nucleic Acid Amplification test (NAAT)performed on the
[employer]Mit platform.
04/10/25 CXR: Short-term interval development of a 6.5 cm rounded opacity superimposed in the right hilar region. This is likely related to an infectious etiology, such as round pneumonia, though follow-up would be necessary after conservative
therapy to assess resolution. Possible trace right pleural effusion. Otherwise, no significant change in 1.5 cm right lower lobe nodule.
Assessment / Plan
# Neutropenic fever
# R side PNA
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
# Hx Stage III right breast cancer status post lumpectomy, chemo and radiation completed June 2024
- Follow blood cx's
- Check urine legionella Ag, Urine Strep pneumoniae Ag
- Sputum cx, if able to produce
- Continue cefepime 2g IV q8h and po doxycycline.
- Trend temps.
Care Review
Plan reviewed with: Physician (Dr. Amanda)
--- NOTE | 2025-04-11 11:35 | PTCARENOTE ---
Addendum entered by Leandra Doss RN 04/11/25 19:33:
Fluid bolus administered. EKG complete. Metoprolol PO added into MAR by MD, given.
Original Note:
Pt tachycardic at all times, worsening into 140s with ambulation. MD made aware, fluid bolus ordered.
[2025-04-11] MEDS: NSS 500 IV (11:43)
--- NOTE | 2025-04-11 11:51 | CON.ONC ---
Consultation
-
Date Consultation Requested: 04/11/25
Date Consultation Performed: 04/11/25
Requesting Provider: Dr. Lita Amanda
Performing Provider: Dr. Dale Alvarez
Reason for Consultation: MDS
Impression
Impression
1.combination of cytogenetic/molecular abnormalities and biweekly transfusion requirement were felt to be most consistent with MDS rather than CCUS
transfuse HLA matched platelets <10, <20 for neutropenic fever, <50 prn bleeding - Tylenol+Benadryl+Solucortef pre-plt transfusion
tranexamic acid 1300mg PO BiD prn mucosal bleeding
Transfuse Hgb <7 or as needed for sxs anemia -Tylenol+Benadryl pre-PRBC transfusion
next cycle of vidaza (cycle 4) due 04/29/2025 -plan for 4-6 cycles and reassess if repeat BMBx is needed
sxs support with antiemetics prn
on acyclovir
resume Levaquin ppx once current abx course complete
2. Hx stage IIIA metaphasic right breast cancer with squamous differentiation, ER positive -completed AC-T 04/2024, completed XRT Jun 2024
3. neutropenic fever/PNA -abx per ID, follow cultures
Plan
Plan
daily CBC, neutropenic precautions, transfuse prn, abx per ID
Pt will continue with OP transfusion support 2-3 days/week upon discharge
Patient History
History of Present Illness
64yo F with hypoplastic MDS who presented with chills, malaise, and low grade fever at home that started yesterday. Her initial evaluation was notable for Tmax 100.7F with known chronic pancytopenia. Her CXR showed a possible right sided pneumonia.
She has been admitted and started on IV abx for neutropenic fever. Her urine culture and influenza test were negative. Her Bcx and legionella are pending. She was treated with a course of antibiotics earlier this month for strep mitis/oralis
bacteremia for which she completed her course of Augmentin 03/30/2025.
In brief, Dariana is known to Dr. Garsia for her history of right breast cancer stage III for which she completed AC-T April 2024 and XRT Jun 2024. She subsequently presented with a platelet count then progressive cytopenias. She was
evaluated with bone marrow biopsy and is currently receiving Vidaza for management of her hypoplastic MDS. She completed Cycle 3 of her Vidaza 04/05/2025. She is transfusion dependent with reaction to both RBC and platelet transfusions.
Clinically, she denies chest pain, n/v/d/c or abdominal pain. She denies any sore throat, cough, SOB, or sick contacts.
Past-Medical/Surgical History
PMH MDS, breast cancer, DJD, asthma, arthritis, HTN, HLD, anxiety, migraine
PSH right lumpectomy, port placement
Social denies tobacco use, denies significant ETOH, denies use of recreational drugs, .
Patient Medication
�Medication �Instructions �Recorded �Confirmed �Last Taken �Type
alprazolam 0.25 mg tablet 0.25 mg PO Q6HPRN PRN anxiety 01/24/24 04/10/25 04/10/25 History
ascorbic acid (vitamin C) 500 mg 500 mg PO DAILY Supplement 01/24/24 04/10/25 04/09/25 History
tablet (Vitamin C)
tranexamic acid 650 mg tablet 650 mg PO BID PRN bleeding 01/17/25 04/10/25 04/08/25 History
acyclovir 400 mg tablet 400 mg PO BID Infection 02/01/25 04/10/25 04/10/25 History
levofloxacin 500 mg tablet 500 mg PO HS Infection 02/01/25 04/10/25 04/09/25 History
calcium 600 mg (as 1 tab PO DAILY Supplement 03/17/25 04/10/25 04/09/25 History
carbonate)-vitamin D3 5 mcg (200
unit) tablet
cyanocobalamin (vitamin B-12) 1,000 mcg PO DAILY Supplement 03/17/25 04/10/25 04/09/25 History
1,000 mcg tablet
therapeutic multivitamin 1 tab PO DAILY Supplement 03/17/25 04/10/25 04/09/25 History
prochlorperazine maleate 10 mg 10 mg PO Q6HPRN PRN nausea #30 tabs 03/23/25 04/10/25 04/10/25 Rx
tablet (Compazine)
oxycodone 5 mg tablet 5 mg PO Q6HPRN PRN severe pains 04/02/25 04/10/25 04/10/25 History
pantoprazole 20 mg tablet,delayed 20 mg PO DAILY gerd 04/10/25 04/10/25 04/10/25 History
release
Active Medications
Generic Name Dose Route Start Last Admin
Trade Name Freq PRN Reason Stop Dose Admin
Acetaminophen 650 mg 04/10/25 20:15 04/11/25 03:07
Acetaminophen 325 Mg Tablet PO 05/08/25 20:14 650 mg
Q4HPRN PRN Administration
mild pain/HOPKINS/temp> 100.4F
Acetaminophen 650 mg 04/11/25 08:13
Acetaminophen 325 Mg Tablet PO 04/11/25 23:59
ONCE PRN
PRIOR TO TRANSFUSION
Acyclovir Sodium 400 mg 04/10/25 21:00 04/11/25 07:38
Acyclovir Sodium 200 Mg Capsule PO 04/20/25 20:59 400 mg
BID JAIRON Administration
Alprazolam 0.25 mg 04/10/25 20:15 04/10/25 20:39
Alprazolam 0.25 Mg Tablet PO 05/08/25 20:14 0.25 mg
Q6HPRN PRN Administration
anxiety
Cefepime HCl 2,000 mg 04/11/25 02:00 04/11/25 11:04
Cefepime Hcl 2,000 Mg/12.5 Ml Vial IV 2,000 mg
Q8H JAIRON Administration
Diphenhydramine HCl 25 mg 04/11/25 08:13
Diphenhydramine 50 Mg/Ml 1 Ml Vial IV 04/11/25 23:59
ONCE PRN
PRIOR TO TRANSFUSION
Doxycycline Hyclate 100 mg 04/11/25 08:00 04/11/25 07:38
Doxycycline 100 Mg Capsule PO 100 mg
Q12 JAIRON Administration
Hydrocortisone Sodium Succinate 200 mg 04/11/25 08:13
Hydrocortisone Sodium Succinate 100 Mg/2 Ml Vial IV 04/11/25 23:59
ONCE PRN
Give prior to transfusions
Lactated Ringer's 1,000 mls @ 80 mls/hr 04/10/25 20:15 04/11/25 07:38
Lr IV 04/11/25 16:00 1,000 mls
[id number] JAIRON Administration
Sodium Chloride 500 mls @ 1,000 mls/hr 04/11/25 11:29 04/11/25 11:43
Nss IV 04/11/25 11:58 500 mls
BOLUS ONE Administration
Oxycodone HCl 5 mg 04/10/25 20:15 04/11/25 08:48
Oxycodone 5 Mg Regular Release Tablet PO 04/24/25 20:14 5 mg
Q6HPRN PRN Administration
severe pains
Pantoprazole Sodium 20 mg 04/11/25 08:00 04/11/25 07:38
Pantoprazole 20 Mg Delayed Release Tablet PO 05/09/25 07:59 20 mg
DAILY JAIRON Administration
Polyethylene Glycol 17 grams 04/10/25 20:15
Polyethylene Glycol Powder 17 Grams Packet PO 05/08/25 20:14
DAILYPRN PRN
constipation
Prochlorperazine Edisylate 10 mg 04/10/25 20:15
Prochlorperazine 10 Mg/2 Ml Vial IV 05/08/25 20:14
Q6HPRN PRN
nausea/vomiting
Sodium Chloride 0 flush 04/10/25 21:00
Sodium Chloride 0.9% (Flush) Syringe IV 05/08/25 20:59
PER PROTOCOL JAIRON
Sterile Water 10 ml 04/11/25 02:00 04/11/25 11:04
Sterile Water For Injection 10 Ml Vial IV 05/09/25 01:59 10 ml
Q8H JAIRON Administration
Review of Systems
-
ROS is notable for HPI, otherwise negative
Physical Exam
-
General: No Apparent Distress
HEENT: Moist Mucous Membranes; Negative Jaundice
Pulmonary: R sided crackles, unlabored
GI: Soft
Extremities: Pulses Present
Skin: Warm
Psych: Calm
Labs
Lab Results
WBC 0.4 10^3/uL (4.8-10.8) L* 04/11/25 06:09
RBC 2.41 10^6/uL (4.20-5.40) L 04/11/25 06:09
Hgb 7.4 g/dL (12.0-16.0) L 04/11/25 08:48
Hct 21.8 % (37.0-47.0) L 04/11/25 06:09
MCV 90.5 fL (81.0-99.0) 04/11/25 06:09
MCH 29.0 pg (27.0-31.0) 04/11/25 06:09
MCHC 32.1 g/dL (33.0-37.0) L 04/11/25 06:09
RDW 11.9 % (11.5-14.5) 04/11/25 06:09
Plt Count 8 10^3/uL (130-400) L* D 04/11/25 06:09
MPV 9.4 fL (7.4-10.4) 04/11/25 06:09
Abs Immat Gran (auto) 0.0 10^3/uL (0-0.05) 04/11/25 06:09
Absolute Neuts (auto) 0.0 10^3/uL (1.4-6.5) L* 04/11/25 06:09
Absolute Lymphs (auto) 0.4 10^3/uL (1.2-3.4) L 04/11/25 06:09
Absolute Monos (auto) 0.0 10^3/uL (0.1-0.6) L 04/11/25 06:09
Absolute Eos (auto) 0.0 10^3/uL (0-0.7) 04/11/25 06:09
Absolute Basos (auto) 0.0 10^3/uL (0-0.2) 04/11/25 06:09
Immature Gran % 0.0 % (0-0.5) 04/11/25 06:09
Neutrophils % 0.0 % (42.2-75.2) L 04/11/25 06:09
Lymphocytes % 97.5 % (20.5-51.1) H 04/11/25 06:09
Monocytes % 2.5 % (1.7-9.3) 04/11/25 06:09
Eosinophils % 0.0 % (0-6) 04/11/25 06:09
Basophils % 0.0 % (0-2) 04/11/25 06:09
Creatinine 0.4 mg/dL (0.6-1.0) L 04/11/25 06:09
Vital Signs
Vital Signs
Temp Pulse Resp BP Pulse Ox
99.8 F 136 16 114/64 95
04/11/25 11:00 04/11/25 11:00 04/11/25 11:00 04/11/25 11:00 04/11/25 11:00
[2025-04-11] MEDS: BENADRYL 25 MG IV (12:52)
[2025-04-11] MEDS: SOLU-CORTEF 200 MG IV (12:53)
[2025-04-11] MEDS: LOPRESSOR 12.5 MG PO (15:00)
[2025-04-11] MEDS: DILAUDID 0.5 MG IV (15:02)
--- NOTE | 2025-04-11 15:58 | PTCARENOTE ---
Pt ordered HLA specialty platelets, VSS, pt premedicated with IV benadryl/IV steroids/PO tylenol. Platelets infused and TAR information filled out on pink slip due to platelets not being scannable in AUG. Platelets began at 1338 and finished at
1553. No new orders at this time.
--- NOTE | 2025-04-11 19:31 | PTCARENOTE ---
BP 98/55 during 1500 vitals after first dose of metoprolol and dilaudid. MD made aware, parameters added to metoprolol, MD advising not to give dilaudid if systolic BP is under 110. No new orders at this time.
[2025-04-11] MEDS: LOPRESSOR PO (21:00)
[2025-04-11] MEDS: XANAX 0.25 MG PO (22:39)
[2025-04-12] VITALS (7 sets, daily range): BP systolic 97–120; BP diastolic 59–71
[2025-04-12] MEDS: STERILE WATER FOR INJECTION 10 ML IV ×3 (01:23→17:36)
[2025-04-12] MEDS: MAXIPIME 2000 MG IV ×3 (01:23→17:30)
[2025-04-12] MEDS: ROXICODONE 5 MG PO (02:41)
[2025-04-12] MEDS: LOPRESSOR 12.5 MG PO ×3 (05:37→20:26)
[2025-04-12 06:57] LABS: Hematocrit 21.7 % (37.0-47.0); Hemoglobin 7.1 g/dL (12.0-16.0); Mean Corp Hgb Conc. 32.7 g/dL (33.0-37.0); Mean Corpuscular Volume 88.6 fL (81.0-99.0); Platelet Count 21 10^3/uL (130-400); Red Cell Dist. Width 11.9 % (11.5-14.5)
[2025-04-12 07:21] LABS: Blood Urea Nitrogen 13 mg/dl (7-17); Calcium 8.2 mg/dl (8.4-10.2); Carbon Dioxide 30 mmol/L (22-30); Chloride 99 mmol/L (98-107); Estimated Creatinine Clearance 94 ml/min; Glucose 124 mg/dl (70-99); Potassium 3.3 mmol/L (3.5-5.1); Sodium 132 mmol/L (135-145); eGFR > 60.00
--- NOTE | 2025-04-12 08:00 | W.PN.ONC2 ---
Documented by User: DANTE Pruitt 04/12/25 12:09
Today's Communication / Plan
-
.
Impression
Impression
1.combination of cytogenetic/molecular abnormalities and biweekly transfusion requirement were felt to be most consistent with MDS rather than CCUS
transfuse HLA matched platelets <10, <20 for neutropenic fever, <50 prn bleeding - Tylenol+Benadryl+Solucortef pre-plt transfusion
tranexamic acid 1300mg PO BiD prn mucosal bleeding
Transfuse Hgb <7 or as needed for sxs anemia -Tylenol+Benadryl pre-PRBC transfusion
next cycle of vidaza (cycle 4) due 04/29/2025 -plan for 4-6 cycles and reassess if repeat BMBx is needed
sxs support with antiemetics prn
on acyclovir
resume Levaquin ppx once current abx course complete
2. Hx stage IIIA metaphasic right breast cancer with squamous differentiation, ER positive -completed AC-T 04/2024, completed XRT Jun 2024
3. neutropenic fever/PNA -abx per ID, follow cultures
Plan
Plan
daily CBC, neutropenic precautions, transfuse prn, abx per ID
transfuse prn
Pt will continue with OP transfusion support 2-3 days/week upon discharge
Subjective/Objective
Subjective
afebrile, 2L NC
chronic back pain, nausea, dry cough, and dry nasal passages
denies overt bleeding
Vital Signs:
Vital Signs
Temp Pulse Resp BP Pulse Ox
98.4 F 123 16 117/69 95
04/12/25 03:00 04/12/25 05:37 04/12/25 03:00 04/12/25 05:37 04/12/25 05:41
Lab Results:
Laboratory Data
WBC 0.5 10^3/uL (4.8-10.8) L* 04/12/25 05:54
Hgb 7.1 g/dL (12.0-16.0) L 04/12/25 05:54
Plt Count 21 10^3/uL (130-400) L* D 04/12/25 05:54
eGFR > 60.00 04/12/25 05:54
Physical Exam
General: No Apparent Distress
HEENT: Moist Mucous Membranes; Negative Jaundice
Pulmonary: unlabored
GI: Soft
Extremities: Pulses Present
Skin: Warm
Psych: Calm
Orders
Orders
Orders From Last 24 Hours
04/11/25 12:15
Acetaminophen [Tylenol] 650 mg PO ONCE PRN
04/11/25 12:16
Diphenhydramine [Benadryl] 50 mg IV Q4HPRN PRN
04/11/25 12:20
MethylPREDNISolone PF [Solu-Medrol Pf] 125 mg IV Q6H PRN
04/11/25 13:42
Famotidine [Pepcid] 20 mg IV ONCE PRN
04/11/25 13:43
Diphenhydramine [Benadryl] 25 mg IV ONCE PRN
04/11/25 14:03
0.9% Sodium Chloride [Nss (Preservative Free)] 8 ml IV ONCE PRN
04/11/25 16:00
Hydrocortisone Sod Succinate [Solu-Cortef] 100 mg IV ONCE PRN

Documented by User: Popeye Delong MD 04/12/25 13:41
Plan
Plan
daily CBC, neutropenic precautions, transfuse prn, abx per ID
transfuse prn
Pt will continue with OP transfusion support 2-3 days/week upon discharge
Hematology/ Oncology Addendum:
Patient seen and evaluated and agree w/ SINGING TEACHER note and plan as outlined
-MDS - cytopenias
-monitor CBC and transfuse prn
-antibiotics as per ID
Will continue to follow with you.
--- NOTE | 2025-04-12 09:01 | W.PN.HOSP.TC ---
Today's Communication/Plan
-
see plan
Assessment / Plan
Assessment / Plan
. Dariana Cho is a 64 yo woman with hx stage IIIA breast cancer s/p chemo and radiation (completed 07/07), hypoplastic MDS with transfusion requirements, recent admission 03/17-03/23/25 for neutropenic fever (found to have streptococcal
bacteremia likely 2/2 RML pneumonia/sinusitis and prescribed Augmentin on DC through 03/30/25) sent to the ER for recurrent fevers/chills.
Flu and Covid negative
CXR
IMPRESSION:
Short-term interval development of a 6.5 cm rounded opacity superimposed in the right hilar region. This is likely related to an infectious etiology, such as round pneumonia, though follow-up would be necessary after conservative therapy to assess
resolution. Possible trace right pleural effusion.
Otherwise, no significant change in 1.5 cm right lower lobe nodule.
Neutropenic Fever
Community Acquired Pneumonia
Recent admission for Neutropenic Fever with Strep Mitis/Oralis Bacteremia
-admit to telemetry
-follow up blood cultures
-IV Cefepime/ add on Doxycycline for atypical coverage
-ID consult appreciated
-Oncology consult appreciated
-hold STAPLE LASTER Levaquin (for PPx)
MDS, Transfusion Dependent
Pancytopenia
-patient has hx PLT refractoriness requiring HLA matched PLT; additionally she has prior transfusion reactions and needs tylenol + Benadryl + Solucortef pre PLT transfusions
-transfuse for PLT < 10; Hg < 7.
-s/p 1 unit PLT 04/11
-daily CBC
-Oncology consulted
-continue STAPLE LASTER Acyclovir for PPx
Hx Breast CA
-completed AC-T 04/2024, completed XRT Jun 2024
chronic back pain
-no mid spine pain on exam
-she was given IV Dilaudid in ER
-continue PRN Oxycodone --> increase dose
-lidocaine patch
-Ice PRN
DVT PPx SCD
DNR - discussed on admission
51 minutes spent on patient care
Anticipated Discharge: 24 - 48 hours
Subjective/Interval History
-
Date of Service: April 12, 2025
she is feeling ok
has nasal and throat congestion more prominent
no chest pain
doesn't feel ready for discharge today
Objective Data
-
Labs:
Laboratory Results
04/12/25
05:54
WBC 0.5 L*
Hgb 7.1 L
Hct 21.7 L
Plt Count 21 L* D
Sodium 132 L
Potassium 3.3 L
Chloride 99
Carbon Dioxide 30
BUN 13
Creatinine 0.4 L
Glucose 124 H
Calcium 8.2 L
Vital Signs:
Vital Signs
Temp Pulse Resp BP Pulse Ox
98.4 F 123 16 117/69 95
04/12/25 03:00 04/12/25 05:37 04/12/25 03:00 04/12/25 05:37 04/12/25 05:41
I&O
04/11/25 04/12/25 04/13/25
06:59 06:59 06:59
Intake Total 3117 / 3117
Balance 3117 / 3117
Review of Systems
-
History Source: Patient
All other systems: Reviewed and negative
Physical Exam
-
General: No Apparent Distress
HEENT: PERRLA
Respiratory: Clear to Auscultation; Negative Wheezes
Cardiac: Regular Rhythm and S1/S2
GI: Soft and Nontender
Musculoskeletal: No Edema
Skin: Warm and Dry; Negative Rash
Neuro: AO x 3
Psych: Calm
Data Reviewed
-
Diagnostic Radiology: Report Reviewed by me
Labs: Labs Reviewed by me
[2025-04-12 09:18] LABS: Nucleated Red Blood Cells % 0 %
[2025-04-12] MEDS: ZOVIRAX 400 MG PO ×2 (09:41→20:27)
[2025-04-12] MEDS: KCL 40 MEQ PO (09:42)
[2025-04-12] MEDS: VIBRAMYCIN 100 MG PO ×2 (09:44→20:27)
[2025-04-12] MEDS: MUCINEX 600 MG PO ×2 (09:44→20:27)
[2025-04-12] MEDS: LIDOCAINE 4% PATCH 1 PATCH TOPICAL (09:44)
[2025-04-12] MEDS: PROTONIX 20 MG PO (09:44)
[2025-04-12] MEDS: OCEAN, SALINE MIST 1 SPRAYS NASAL (09:45)
[2025-04-12] MEDS: ROXICODONE 10 MG PO ×2 (10:02→20:26)
--- NOTE | 2025-04-12 12:48 | PN.CDI ---
CDI
- -
CDI:
Physician Documentation Request
Admit Date: 04/10/25 17:53
Dear Doctor Treasure,
Please review the following and provide your response in the progress notes.
Clinical Indicators:
Pt admitted with neutropenic fever/Pneumonia
Sodium levels are as below/Pt did get IVFs/LR IVFs
Laboratory Tests
04/10/25 04/11/25 04/12/25
16:00 06:09 05:54
Sodium 129 L 132 L 132 L
Based on the above, could you clarify in the progress notes, the appropriate diagnosis, if significant, that supports the above abnormalities and additional evaluation, monitoring and/or treatment rendered:
Hyponatremia
Abnormal lab value
Other ( please specify)
Use of terms such as suspected, likely, concern for, or probable (associated with a specific diagnosis that is being evaluated, monitored, or treated as if it exists) are acceptable and can be coded in the inpatient setting, when documented at the
time of discharge.
Thank you,
Leslie Acuna RN
CDI Specialist
[facility]
Please use your independent medical judgment in providing your response.
--- NOTE | 2025-04-12 13:26 | W.PN.ID1 ---
Date of Service
Date of Service: April 12, 2025
Today's Communication
Continue cefepime/doxycycline.
Assessment / Plan
# Neutropenic fever
# R side PNA
# Recent Strep mitis/oralis bacteremia (03/17/25)
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
# Hx Stage III right breast cancer status post lumpectomy, chemo and radiation completed June 2024
- blood cx's neg to date
- Ucx neg
- urine legionella Ag, Urine Strep pneumoniae Ag: negative
- Fever trending down
- Sputum cx, unable to produce
- Continue cefepime 2g IV q8h and po doxycycline (d2)
- At time of dc, transition to cefdinir 300mg po bid and doxycycline 100mg po bid through 04/24/25.
- Repeat CXR in 4 weeks
- Trend temps.
Chief Complaint
-: Fever
Subjective / Review of Systems
Mild cough, no sputum.
No new sxs.
Vital Signs / Physical Exam
Vital Signs
Vital Signs
Temp Pulse Resp BP Pulse Ox
99.4 F 130 16 102/63 92
04/12/25 11:00 04/12/25 11:00 04/12/25 11:00 04/12/25 11:00 04/12/25 11:00
Physical Exam
Constitutional: No Acute Distress and Comfortable
Head: Other (No sinus tenderness)
Eyes: No Conjunctival Hemorrhage and Sclera Anicteric
Oropharyngeal: Benign; Negative Thrush or Ulcers
Cardiovascular: Regular Rate and S1/S2
Pulmonary: Clear and Non Labored; Negative Wheezes, Rales, Rhonchi or Coarse
Gastrointestinal: Soft, Non Tender, Non Distended and Normal Bowel Sounds
Extremities: Negative Edema
Musculoskeletal: Negative Spinal Tenderness
Neurological: AO x 3
Lines: Port (not accessed, no erythema)
Objective Data
Lab Data
Lab Results
04/12/25 05:54
04/12/25 05:54
Estimated Creat Clear 94 ml/min 04/12/25 05:54
Lactic Acid Cancelled 04/10/25 20:00
Total Bilirubin 1.3 mg/dl (0.2-1.3) 04/10/25 16:00
AST 19 U/L (14-36) 04/10/25 16:00
ALT 33 U/L (0-35) 04/10/25 16:00
Alkaline Phosphatase 103 U/L (38-126) 04/10/25 16:00
Most recent labs reviewed.
Micro Results:
04/10/25 17:02 Blood Culture - Preliminary
Blood/Venous No Growth in 24 hours- Final report to follow
04/10/25 16:00 Blood Culture - Preliminary
Blood/Venous No Growth in 24 hours- Final report to follow
04/11/25 11:37 Legionella Urinary Antigen - Final
Urine Negative for Legionella pneumophila Serogroup 1 antigen.
A negative result does not rule out the possiblity of
Legionella infection due to other serogroups or species of
Legionella. Clinical correlation is recommended.
Streptococcus pneumoniae Antigen (M - Final
Negative for Streptococcus pneumoniae antigen.
A negative result does not exclude infection with
Streptococcus pneumoniae. Clinical correlation is
recommended.
04/10/25 16:43 Urine Culture - Final
Urine NO GROWTH
04/10/25 16:00 Influenza Types A & B (MICHAEL) - Final
Nasal Swab Negative for Influenza A & B, NAAT
Negative results must be combined with clinical observations
and patient history.
Nucleic Acid Amplification test (NAAT)performed on the
[employer] platform.
04/10/25 CXR: Short-term interval development of a 6.5 cm rounded opacity superimposed in the right hilar region. This is likely related to an infectious etiology, such as round pneumonia, though follow-up would be necessary after conservative
therapy to assess resolution. Possible trace right pleural effusion. Otherwise, no significant change in 1.5 cm right lower lobe nodule.
--- NOTE | 2025-04-12 14:43 | W.PN.UPDATE ---
Update Note
Progress Note Update
Came to see pt last evening. She feels weak and reports difficulty caring for herself. Her mother lives with her but has her own issues including vision problems and early dementia.
Case d/w Dr. Miracle Javier whom pt sees at [facility].
Plan to hold cycle 4 of Vidaza until counts begin to recover. If no recovery by Thanksgiving, then will repeat bone marrow biopsy at that time to eval for progression.
--- NOTE | 2025-04-12 15:09 | CM ---
CM reviewed chart, patient seen bedside, initial assessment completed.
Patient is a 64 yo woman with hx stage IIIA breast cancer s/p chemo and radiation (completed 07/07), hypoplastic MDS with transfusion requirements, recent admission 03/17-03/23/25 for neutropenic fever (found to have streptococcal bactermia likely
2/2 RML pneumonia and prescribed Augmentin on DC through 03/30/25) sent to the ER for recurrent fevers/chills.
Patient resides with her mother in a two story town home, one step to enter.
Patient denies use of DME, has had VN in past unsure agency, denies SNF.
PCP Binu Ivey, Pharmacy [facility], confirms prescription coverage.
Patient denies insecurities at home.
CM will continue to follow for all d/c planning needs.
Plan; home no needs when stable
[2025-04-12] MEDS: DILAUDID 0.5 MG IV ×2 (17:29→23:48)
[2025-04-13] VITALS (7 sets, daily range): BP systolic 105–129; BP diastolic 59–81
[2025-04-13] MEDS: STERILE WATER FOR INJECTION 10 ML IV ×3 (02:06→17:37)
[2025-04-13] MEDS: MAXIPIME 2000 MG IV ×3 (02:06→17:36)
[2025-04-13] MEDS: COMPAZINE 10 MG IV (03:32)
[2025-04-13 06:22] LABS: Hematocrit 18.4 % (37.0-47.0); Hemoglobin 6.3 g/dL (12.0-16.0); Mean Corp Hgb Conc. 34.2 g/dL (33.0-37.0); Mean Corpuscular Volume 86.0 fL (81.0-99.0); Nucleated Red Blood Cells % 0 %; Platelet Count 8 10^3/uL (130-400); Red Cell Dist. Width 12.0 % (11.5-14.5)
--- NOTE | 2025-04-13 06:56 | W.PN.UPDATE ---
Update Note
Progress Note Update
Critical AM labs: Hgb 6.3/Hct 18.4, Platelet count 8. Per notes, ordered Tylenol + Benadryl + Solucortef pre PLT transfusions. Ordered 1 unit HLA matches PLT for platelets < 10. Ordered 1 unit PRBCs for Hgb < 7. Ordered repeat H&H for noon.
[2025-04-13 07:17] LABS: Blood Urea Nitrogen 11 mg/dl (7-17); Calcium 8.0 mg/dl (8.4-10.2); Carbon Dioxide 31 mmol/L (22-30); Chloride 97 mmol/L (98-107); Estimated Creatinine Clearance 94 ml/min; Glucose 127 mg/dl (70-99); Potassium 3.9 mmol/L (3.5-5.1); Sodium 132 mmol/L (135-145); eGFR > 60.00
[2025-04-13] MEDS: LOPRESSOR 12.5 MG PO ×2 (07:49→15:02)
[2025-04-13] MEDS: MUCINEX 600 MG PO ×2 (07:49→19:50)
[2025-04-13] MEDS: PROTONIX 20 MG PO (07:49)
[2025-04-13] MEDS: VIBRAMYCIN 100 MG PO ×2 (07:49→19:51)
[2025-04-13] MEDS: ZOVIRAX 400 MG PO ×2 (07:49→19:51)
[2025-04-13] MEDS: LIDOCAINE 4% PATCH 1 PATCH TOPICAL (07:49)
[2025-04-13] MEDS: ROXICODONE 10 MG PO ×2 (07:57→15:02)
--- NOTE | 2025-04-13 08:14 | PTCARENOTE ---
Multiple critical heme labs this AM, made aware, 1 bag of plt and 1u of PRBC ordered. Pre-administration medication ordered as well, no new orders at this time. Await blood bank to call when HLT plt and CMV neg blood are ready per blood bank.
--- NOTE | 2025-04-13 10:18 | W.PN.HOSP.TC ---
Addendum entered and electronically signed by Lita Amanda MD 04/13/25 13:11:
Hyponatremia
-likely SIADH, stable
Addendum entered and electronically signed by Lita Amanda MD 04/13/25 13:10:
Sinus Tachycardia
-reviewed EKG with Cardiology. Patient had recent TTE 03/20/25; LVEF 60-65%; trace TR.
-new start metoprolol. Patient more tachycardic this morning likely in setting of anemia. will monitor post transfusion; will also increase metoprolol to 25mg PO BID
Original Note:
Today's Communication/Plan
-
see plan
Assessment / Plan
Assessment / Plan
Ms. Dariana Cho is a 64 yo woman with hx stage IIIA breast cancer s/p chemo and radiation (completed 07/07), hypoplastic MDS with transfusion requirements, recent admission 03/17-03/23/25 for neutropenic fever (found to have streptococcal
bacteremia likely 2/2 RML pneumonia/sinusitis and prescribed Augmentin on DC through 03/30/25) sent to the ER for recurrent fevers/chills.
Flu and Covid negative
CXR
IMPRESSION:
Short-term interval development of a 6.5 cm rounded opacity superimposed in the right hilar region. This is likely related to an infectious etiology, such as round pneumonia, though follow-up would be necessary after conservative therapy to assess
resolution. Possible trace right pleural effusion.
Otherwise, no significant change in 1.5 cm right lower lobe nodule.
Neutropenic Fever
Community Acquired Pneumonia
Recent admission for Neutropenic Fever with Strep Mitis/Oralis Bacteremia
-admit to telemetry
-follow up blood cultures
-IV Cefepime/ add on Doxycycline for atypical coverage
-ID consult appreciated
-Oncology consult appreciated - At time of dc, transition to cefdinir 300mg po bid and doxycycline 100mg po bid through 04/24/25
-hold TICKET SCHEDULER Levaquin (for PPx) - resume post antibiotic course
MDS, Transfusion Dependent
Pancytopenia
-patient has hx PLT refractoriness requiring HLA matched PLT; additionally she has prior transfusion reactions and needs tylenol + Benadryl + Solucortef pre PLT transfusions
-transfuse for PLT < 10; Hg < 7.
-s/p 1 unit PLT 04/11
-daily CBC
-Oncology consulted
-continue TICKET SCHEDULER Acyclovir for PPx
-04/13 - ordered for PLT and PRBC transfusion
-PT ordered
-appreciate Dr. Knight's note - 'Plan to hold cycle 4 of Vidaza until counts begin to recover. If no recovery by Thanksgiving, then will repeat bone marrow biopsy at that time to eval for progression.'
Hx Breast CA
-completed AC-T 04/2024, completed XRT Jun 2024
chronic back pain
-no mid spine pain on exam
-she was given IV Dilaudid in ER
-continue PRN Oxycodone --> increase dose
-lidocaine patch
-Ice PRN
DVT PPx SCD
DNR - discussed on admission
51 minutes spent on patient care
Anticipated Discharge: 24 - 48 hours
Subjective/Interval History
-
Date of Service: April 13, 2025
has some body aches today, feels tired but overall okay
Objective Data
-
Labs:
Laboratory Results
04/13/25
05:49
WBC 0.3 L*
Hgb 6.3 L*
Hct 18.4 L*
Plt Count 8 L* D
Sodium 132 L
Potassium 3.9
Chloride 97 L
Carbon Dioxide 31 H
BUN 11
Creatinine 0.4 L
Glucose 127 H
Calcium 8.0 L
Vital Signs:
Vital Signs
Temp Pulse Resp BP Pulse Ox
97.9 F 142 21 105/59 91
04/13/25 08:01 04/13/25 08:01 04/13/25 08:01 04/13/25 08:01 04/13/25 08:12
I&O
04/12/25 04/13/25 04/14/25
06:59 06:59 05:59
Intake Total 3117 / 3117 1800 / 1800
Balance 3117 / 3117 1800 / 1800
Review of Systems
-
History Source: Patient
All other systems: Reviewed and negative
Physical Exam
-
General: No Apparent Distress
HEENT: PERRLA
Respiratory: Clear to Auscultation; Negative Wheezes
Cardiac: Regular Rhythm and S1/S2
GI: Soft and Nontender
Musculoskeletal: No Edema
Skin: Warm and Dry; Negative Rash
Neuro: AO x 3
Psych: Calm
Data Reviewed
-
Diagnostic Radiology: Report Reviewed by me
Labs: Labs Reviewed by me
[2025-04-13] MEDS: TYLENOL 650 MG PO ×2 (10:38→19:51)
--- NOTE | 2025-04-13 10:38 | W.PN.ID1 ---
Date of Service
Date of Service: April 13, 2025
Today's Communication
Continue current antibiotics.
Assessment / Plan
# Neutropenic fever
- afebrile since 04/11
# (R) side PNA
# Recent Strep mitis/oralis bacteremia (03/17/25)
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
# Hx Stage III right breast cancer status post lumpectomy, chemo and radiation completed June 2024
- blood cx's neg to date
- Ucx neg
- urine legionella Ag, Urine Strep pneumoniae Ag: negative
- Fever trending down
- Sputum cx; unable to produce
- Continue cefepime 2g IV q8h (d#4) and po doxycycline (d#4)
- At time of dc, transition to cefdinir 300mg po bid and doxycycline 100mg po bid through 04/24/25.
- Repeat CXR in 4 weeks
- Trend temps.
����������������������������������������������������������
Chief Complaint
-: Fever
Subjective / Review of Systems
Review of Systems: No Fever and No Chills
Vital Signs / Physical Exam
Vital Signs
Vital Signs
Temp Pulse Resp BP Pulse Ox
97.9 F 142 21 105/59 91
04/13/25 08:01 04/13/25 08:01 04/13/25 08:01 04/13/25 08:01 04/13/25 08:12
Physical Exam
Constitutional: No Acute Distress and Comfortable
Eyes: Sclera Anicteric
Cardiovascular: Regular Rate and S1/S2
Pulmonary: Clear and Non Labored; Negative Wheezes, Rales, Rhonchi or Coarse
Gastrointestinal: Soft, Non Tender, Non Distended and Normal Bowel Sounds
Extremities: Negative Edema
Musculoskeletal: Negative Spinal Tenderness
Neurological: AO x 3
Lines: Port (not accessed, no erythema)
Objective Data
Lab Data
Lab Results
04/13/25 05:49
04/13/25 05:49
Estimated Creat Clear 94 ml/min 04/13/25 05:49
Lactic Acid Cancelled 04/10/25 20:00
Total Bilirubin 1.3 mg/dl (0.2-1.3) 04/10/25 16:00
AST 19 U/L (14-36) 04/10/25 16:00
ALT 33 U/L (0-35) 04/10/25 16:00
Alkaline Phosphatase 103 U/L (38-126) 04/10/25 16:00
Most recent labs reviewed.
Micro Results:
04/10/25 17:02 Blood Culture - Preliminary
Blood/Venous No Growth in 48 hours- Final report to follow
04/10/25 16:00 Blood Culture - Preliminary
Blood/Venous No Growth in 48 hours- Final report to follow
04/11/25 11:37 Legionella Urinary Antigen - Final
Urine Negative for Legionella pneumophila Serogroup 1 antigen.
A negative result does not rule out the possiblity of
Legionella infection due to other serogroups or species of
Legionella. Clinical correlation is recommended.
Streptococcus pneumoniae Antigen (M - Final
Negative for Streptococcus pneumoniae antigen.
A negative result does not exclude infection with
Streptococcus pneumoniae. Clinical correlation is
recommended.
04/10/25 16:43 Urine Culture - Final
Urine NO GROWTH
04/10/25 16:00 Influenza Types A & B (MICHAEL) - Final
Nasal Swab Negative for Influenza A & B, NAAT
Negative results must be combined with clinical observations
and patient history.
Nucleic Acid Amplification test (NAAT)performed on the
[employer] platform.
Imaging:
04/10/25 CXR: Short-term interval development of a 6.5 cm rounded opacity superimposed in the right hilar region. This is likely related to an infectious etiology, such as round pneumonia, though follow-up would be necessary after conservative
therapy to assess resolution. Possible trace right pleural effusion. Otherwise, no significant change in 1.5 cm right lower lobe nodule.
[2025-04-13] MEDS: BENADRYL 25 MG IV (10:39)
--- NOTE | 2025-04-13 10:39 | W.PN.ONC ---
Today's Communication / Plan
-
Daily CBC,
Transfuse hemoglobin less than 7.0 g/dL needs transfusion today
Transfuse platelets less than 10
Neutropenic precautions, transfuse prn, abx per ID
Pt will continue with OP transfusion support 2-3 days/week upon discharge
Impression
Impression
1.combination of cytogenetic/molecular abnormalities and biweekly transfusion requirement were felt to be most consistent with MDS rather than CCUS
transfuse HLA matched platelets <10, <20 for neutropenic fever, <50 prn bleeding - Tylenol+Benadryl+Solucortef pre-plt transfusion
tranexamic acid 1300mg PO BiD prn mucosal bleeding
Transfuse Hgb <7 or as needed for sxs anemia -Tylenol+Benadryl pre-PRBC transfusion
next cycle of vidaza (cycle 4) due 04/29/2025 -plan for 4-6 cycles and reassess if repeat BMBx is needed
sxs support with antiemetics prn
on acyclovir
resume Levaquin ppx once current abx course complete
2. Hx stage IIIA metaphasic right breast cancer with squamous differentiation, ER positive -completed AC-T 04/2024, completed XRT Jun 2024
3. neutropenic fever/PNA -abx per ID, follow cultures
Subjective/Objective
Subjective/Objective
Patient without rigors or active bleeding overnight.
Vital Signs:
Vital Signs
Temp Pulse Resp BP Pulse Ox
97.9 F 142 21 105/59 91
04/13/25 08:01 04/13/25 08:01 04/13/25 08:01 04/13/25 08:01 04/13/25 08:12
Physical examination unchanged
Lab Results:
Laboratory Data
WBC 0.3 10^3/uL (4.8-10.8) L* 04/13/25 05:49
Hgb 6.3 g/dL (12.0-16.0) L* 04/13/25 05:49
Plt Count 8 10^3/uL (130-400) L* D 04/13/25 05:49
eGFR > 60.00 04/13/25 05:49
--- NOTE | 2025-04-13 14:04 | PTCARENOTE ---
1u PRBC hung for hgb of 6.3. [place] slip used due to special blood being hung. Blood hung and verified with second RN, VSS prior to blood, pt premedicated. Blood fully infused (start time at 1128 and end time at 1401). VSS post-infusion with spo2 of
89% on room air, made aware. Awaiting blood bank to received HLA platelets for plt count of 8.0. No new orders at this time.
[2025-04-13] MEDS: LOPRESSOR 25 MG PO (19:50)
[2025-04-13] MEDS: DILAUDID 0.5 MG IV (23:04)
[2025-04-14] VITALS (11 sets, daily range): BP systolic 106–131; BP diastolic 59–85; PULSE 124; O2SAT 83
[2025-04-14] MEDS: STERILE WATER FOR INJECTION 10 ML IV ×3 (01:26→17:55)
[2025-04-14] MEDS: MAXIPIME 2000 MG IV ×3 (01:26→17:55)
[2025-04-14] MEDS: DILAUDID 0.5 MG IV ×4 (02:25→17:55)
[2025-04-14] MEDS: ROXICODONE 10 MG PO ×2 (05:54→20:05)
[2025-04-14 08:16] LABS: Hematocrit 21.6 % (37.0-47.0); Hemoglobin 7.3 g/dL (12.0-16.0); Mean Corp Hgb Conc. 33.8 g/dL (33.0-37.0); Mean Corpuscular Volume 84.4 fL (81.0-99.0); Nucleated Red Blood Cells % 0 %; Platelet Count 4 10^3/uL (130-400); Red Cell Dist. Width 12.6 % (11.5-14.5)
[2025-04-14 08:37] LABS: Blood Urea Nitrogen 12 mg/dl (7-17); Calcium 7.9 mg/dl (8.4-10.2); Carbon Dioxide 29 mmol/L (22-30); Chloride 96 mmol/L (98-107); Estimated Creatinine Clearance 94 ml/min; Glucose 118 mg/dl (70-99); Magnesium 2.0 mg/dl (1.6-2.3); Potassium 3.4 mmol/L (3.5-5.1); Sodium 129 mmol/L (135-145); eGFR > 60.00
--- NOTE | 2025-04-14 08:55 | W.PN.HOSP.TC ---
Addendum entered and electronically signed by Lita Amanda MD 04/14/25 12:53:
mild hyponatremia, 129
-fluid restriction
-urine studies, likely SIADH in setting of pain
Original Note:
Today's Communication/Plan
-
IV Cefepime/Doxy
awaiting PLT transfusion
daily CBC
Trial low dose Gabapentin
awaiting PT Eval
appreciate ID and Oncology consults
Assessment / Plan
Assessment / Plan
Ms. Dariana Cho is a 64 yo woman with hx stage IIIA breast cancer s/p chemo and radiation (completed 07/07), hypoplastic MDS with transfusion requirements, recent admission 03/17-03/23/25 for neutropenic fever (found to have streptococcal
bacteremia likely 2/2 RML pneumonia/sinusitis and prescribed Augmentin on DC through 03/30/25) sent to the ER for recurrent fevers/chills.
Flu and Covid negative
CXR 04/10/25
IMPRESSION:
Short-term interval development of a 6.5 cm rounded opacity superimposed in the right hilar region. This is likely related to an infectious etiology, such as round pneumonia, though follow-up would be necessary after conservative therapy to assess
resolution. Possible trace right pleural effusion.
Otherwise, no significant change in 1.5 cm right lower lobe nodule.
CXR 04/13/25
IMPRESSION:
There is slightly increased size of the right perihilar masslike opacity with a new right basilar infiltrate. Findings may represent worsening infection although a mass with postobstructive pneumonia is possible. Recommend continued follow-up.
Small bilateral pleural effusions.
Neutropenic Fever
Community Acquired Pneumonia
Recent admission for Neutropenic Fever with Strep Mitis/Oralis Bacteremia
-admit to telemetry
-blood cultures without growth; Legionella/ Strep pneumo Ag negtaive
-IV Cefepime/ Doxycycline; T 100.4 evening 04/13; repeat CXR 04/13 with slightly increased size right perihilar opcity'
-ID consult appreciated
-Oncology consult appreciated
-hold OPTHALMIC TECH Levaquin (for PPx) - resume post antibiotic course
-patient will need repeat CXR as outpatient
MDS, Transfusion Dependent
Pancytopenia
-patient has hx PLT refractoriness requiring HLA matched PLT; additionally she has prior transfusion reactions and needs tylenol + Benadryl + Solucortef pre PLT transfusions
-transfuse for PLT < 10; Hg < 7.
-s/p 1 unit PLT 04/11
-04/13 - ordered for PLT and PRBC transfusion
-04/14 - still waiting to receive PLT's
-daily CBC
-Oncology consult appreciated; -appreciate Dr. Knight's note - 'Plan to hold cycle 4 of Vidaza until counts begin to recover. If no recovery by Thanksgiving, then will repeat bone marrow biopsy at that time to eval for progression.'
-continue OPTHALMIC TECH Acyclovir for PPx
-PT ordered difficult social situation as patient lives with her elderly mother who has dementia and has no one to help support her - awaiting PT Eval
Sinus Tachycardia
-EKG's and case reviewed briefly with Cardiology. Likely in response to anemia and underlying illness as well as pain
-new start Metoprolol 25mg PO BID - patient tolerating, can consider uptitration
chronic back pain
-no mid spine pain on exam
-continue PRN Oxycodone --> increase dose
-lidocaine patch
-Ice PRN
-04/14 - I will trial low dose Gabapentin given pain has some radiation down leg, may be neuropathic component
Hx Breast CA
-completed AC-T 04/2024, completed XRT Jun 2024
DVT PPx SCD
DNR - discussed on admission
51 minutes spent on patient care
Anticipated Discharge: 24 - 48 hours
Subjective/Interval History
-
Date of Service: April 14, 2025
she states she is continuing to have lower back pain, also feels 'nerve' pain as pain radiates down to her right leg; she had SI joint pain and lower back pain since february
Objective Data
-
Labs:
Laboratory Results
04/14/25
07:16
WBC 0.3 L*
Hgb 7.3 L
Hct 21.6 L
Plt Count 4 L* D
Sodium 129 L
Potassium 3.4 L
Chloride 96 L
Carbon Dioxide 29
BUN 12
Creatinine 0.3 L
Glucose 118 H
Calcium 7.9 L
Vital Signs:
Vital Signs
Temp Pulse Resp BP Pulse Ox
99.8 F 116 18 131/85 91
04/14/25 03:19 04/14/25 03:19 04/14/25 03:19 04/14/25 03:19 04/14/25 03:19
I&O
04/13/25 04/14/25 04/15/25
06:59 05:59 06:59
Intake Total 1800 / 1800 875 /
Balance 1800 / 1800
Review of Systems
-
History Source: Patient
All other systems: Reviewed and negative
Physical Exam
-
General: No Apparent Distress
HEENT: PERRLA
Respiratory: Clear to Auscultation; Negative Wheezes
Cardiac: Regular Rhythm, S1/S2 and Tachycardic
GI: Soft and Nontender
Musculoskeletal: No Edema
Skin: Warm and Dry; Negative Rash
Neuro: AO x 3
Psych: Calm
Data Reviewed
-
Diagnostic Radiology: Report Reviewed by me
Labs: Labs Reviewed by me
[2025-04-14] MEDS: LIDOCAINE 4% PATCH 1 PATCH TOPICAL (09:39)
[2025-04-14] MEDS: MUCINEX 600 MG PO ×2 (09:39→20:08)
[2025-04-14] MEDS: VIBRAMYCIN 100 MG PO ×2 (09:39→20:07)
[2025-04-14] MEDS: ZOVIRAX 400 MG PO ×2 (09:42→20:07)
[2025-04-14] MEDS: PROTONIX 20 MG PO (09:42)
[2025-04-14] MEDS: LOPRESSOR 25 MG PO ×2 (09:42→20:08)
--- NOTE | 2025-04-14 12:17 | W.PN.ID1 ---
Date of Service
Date of Service: April 14, 2025
Today's Communication
Continue antibiotics for today.
Assessment / Plan
# Neutropenic fever
- Tmax 100.4 overnight
# (R) side PNA
# Recent Strep mitis/oralis bacteremia (03/17/25)
- no oral pain at present
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
# Hx Stage III right breast cancer status post lumpectomy, chemo and radiation completed June 2024
- blood cx's neg to date
- Ucx neg
- urine legionella Ag, Urine Strep pneumoniae Ag: negative
- Fever trending down
- Sputum cx; unable to produce
- Continue cefepime 2g IV q8h (d#5) and po doxycycline (d#5)
- At time of d/c, possible transition to cefdinir 300mg po bid and doxycycline 100mg po bid through 04/24/25.
- Repeat CXR in 4 weeks
- Trend temps.
����������������������������������������������������������
Chief Complaint
-: Fever
Subjective / Review of Systems
Patient seen and examined. Reports feeling fair today. No specific other complaints.
Vital Signs / Physical Exam
Vital Signs
Vital Signs
Temp Pulse Resp BP Pulse Ox
98.3 F 128 12 111/59 98
04/14/25 07:55 04/14/25 07:55 04/14/25 07:55 04/14/25 07:55 04/14/25 07:55
Physical Exam
Constitutional: No Acute Distress and Comfortable
Eyes: Sclera Anicteric
Cardiovascular: Regular Rate and S1/S2
Pulmonary: Clear and Non Labored; Negative Wheezes, Rales, Rhonchi or Coarse
Gastrointestinal: Soft, Non Tender, Non Distended and Normal Bowel Sounds
Extremities: Negative Edema
Musculoskeletal: Negative Spinal Tenderness
Neurological: AO x 3
Objective Data
Lab Data
Lab Results
04/14/25 07:16
04/14/25 07:16
Estimated Creat Clear 94 ml/min 04/14/25 07:16
Lactic Acid Cancelled 04/10/25 20:00
Total Bilirubin 1.3 mg/dl (0.2-1.3) 04/10/25 16:00
AST 19 U/L (14-36) 04/10/25 16:00
ALT 33 U/L (0-35) 04/10/25 16:00
Alkaline Phosphatase 103 U/L (38-126) 04/10/25 16:00
Most recent labs reviewed.
Micro Results:
04/10/25 17:02 Blood Culture - Preliminary
Blood/Venous No Growth in 72 hours- Final report to follow
04/10/25 16:00 Blood Culture - Preliminary
Blood/Venous No Growth in 72 hours- Final report to follow
04/11/25 11:37 Legionella Urinary Antigen - Final
Urine Negative for Legionella pneumophila Serogroup 1 antigen.
A negative result does not rule out the possiblity of
Legionella infection due to other serogroups or species of
Legionella. Clinical correlation is recommended.
Streptococcus pneumoniae Antigen (M - Final
Negative for Streptococcus pneumoniae antigen.
A negative result does not exclude infection with
Streptococcus pneumoniae. Clinical correlation is
recommended.
04/10/25 16:43 Urine Culture - Final
Urine NO GROWTH
04/10/25 16:00 Influenza Types A & B (MICHAEL) - Final
Nasal Swab Negative for Influenza A & B, NAAT
Negative results must be combined with clinical observations
and patient history.
Nucleic Acid Amplification test (NAAT)performed on the
[employer] platform.
Imaging:
04/10/25 CXR: Short-term interval development of a 6.5 cm rounded opacity superimposed in the right hilar region. This is likely related to an infectious etiology, such as round pneumonia, though follow-up would be necessary after conservative
therapy to assess resolution. Possible trace right pleural effusion. Otherwise, no significant change in 1.5 cm right lower lobe nodule.
[2025-04-14] MEDS: NEURONTIN 100 MG PO ×3 (12:26→23:46)
[2025-04-14] MEDS: KLOR-CON 20 MEQ PO (13:43)
[2025-04-14] MEDS: FLUSH (NSS) 1 FLUSH IV (20:07)
[2025-04-14] MEDS: TYLENOL 650 MG PO (20:33)
[2025-04-14] MEDS: BENADRYL 25 MG IV (20:34)
[2025-04-14] MEDS: SOLU-CORTEF 200 MG IV (20:35)
[2025-04-14] MEDS: FLUSH (NSS) 3 FLUSH IV (20:37)
--- NOTE | 2025-04-15 00:20 | PTCARENOTE ---
transfusion completed. VSS. no reaction noted. platelets were irradiated so documentation completed on pink form. please see chart.
[2025-04-15] MEDS: MAXIPIME 2000 MG IV ×3 (02:27→17:25)
[2025-04-15] MEDS: STERILE WATER FOR INJECTION 10 ML IV ×3 (02:27→17:24)
[2025-04-15] MEDS: FLUSH (NSS) 2 FLUSH IV (02:28)
[2025-04-15 03:00] VITALS: BP 136/83
[2025-04-15] MEDS: ROXICODONE 10 MG PO ×2 (05:39→12:42)
[2025-04-15 06:07] LABS: Blood Urea Nitrogen 18 mg/dl (7-17); Calcium 8.6 mg/dl (8.4-10.2); Carbon Dioxide 32 mmol/L (22-30); Chloride 99 mmol/L (98-107); Estimated Creatinine Clearance 94 ml/min; Glucose 149 mg/dl (70-99); Potassium 4.1 mmol/L (3.5-5.1); Sodium 135 mmol/L (135-145); eGFR > 60.00
[2025-04-15 06:26] LABS: Hematocrit 22.6 % (37.0-47.0); Hemoglobin 7.7 g/dL (12.0-16.0); Mean Corp Hgb Conc. 34.1 g/dL (33.0-37.0); Mean Corpuscular Volume 84.6 fL (81.0-99.0); Nucleated Red Blood Cells % 0 %; Platelet Count 18 10^3/uL (130-400); Red Cell Dist. Width 12.5 % (11.5-14.5)
[2025-04-15 07:49] VITALS: BP 103/66
[2025-04-15] MEDS: LIDOCAINE 4% PATCH 1 PATCH TOPICAL (08:05)
[2025-04-15] MEDS: NEURONTIN 100 MG PO ×3 (08:05→20:57)
[2025-04-15] MEDS: VIBRAMYCIN 100 MG PO ×2 (08:05→20:50)
[2025-04-15] MEDS: MUCINEX 600 MG PO ×2 (08:05→20:51)
[2025-04-15] MEDS: ZOVIRAX 400 MG PO ×2 (08:05→20:50)
[2025-04-15] MEDS: PROTONIX 20 MG PO (08:05)
[2025-04-15] MEDS: LOPRESSOR 25 MG PO ×2 (08:06→20:51)
[2025-04-15] MEDS: DILAUDID 0.5 MG IV ×3 (08:10→20:57)
--- NOTE | 2025-04-15 08:46 | W.PN.ONC2 ---
Today's Communication / Plan
-
.
Impression
Impression
1.combination of cytogenetic/molecular abnormalities and biweekly transfusion requirement were felt to be most consistent with MDS rather than CCUS
transfuse HLA matched platelets <10, <20 for neutropenic fever, <50 prn bleeding - Tylenol+Benadryl+Solucortef pre-plt transfusion
tranexamic acid 1300mg PO BiD prn mucosal bleeding
Transfuse Hgb <7 or as needed for sxs anemia -Tylenol+Benadryl pre-PRBC transfusion
sxs support with antiemetics prn
on acyclovir
resume Levaquin ppx once current abx course complete
2. Hx stage IIIA metaphasic right breast cancer with squamous differentiation, ER positive -completed AC-T 04/2024, completed XRT Jun 2024
3. neutropenic fever/PNA -abx per ID, follow cultures
4. hyponatremia resolved
5. back pain - Feb 2025 L spine xray showed a mild compression fracture of the L1 vertebral body
Plan
Plan
daily CBC, neutropenic precautions, transfuse prn, abx per ID
Dr. Ackerman discussed case with Dr. Miracle Javier whom pt sees at [facility] -Plan to hold cycle 4 of Vidaza until counts begin to recover. If no recovery by Thanksgiving, then will repeat bone marrow biopsy at that time to eval for
progression.
f/u CT chest
transfuse prn
MRI L spine
Pt will continue with OP transfusion support 2-3 days/week upon discharge -labs will need to be checked at [facility] and sent to the office for review and we will arrange for transfusion prn
Subjective/Objective
Subjective
Afebrile, 3L NC -last temp 100.4F on 11 pm
using hydromorphone IV and oxycodone IR prn back pain
denies new symtpoms
Vital Signs:
Vital Signs
Temp Pulse Resp BP Pulse Ox
98.2 F 108 18 103/66 93
04/15/25 07:49 04/15/25 08:06 04/15/25 07:49 04/15/25 08:06 04/15/25 07:49
Lab Results:
Laboratory Data
WBC 0.3 10^3/uL (4.8-10.8) L* 04/15/25 05:31
Hgb 7.7 g/dL (12.0-16.0) L 04/15/25 05:31
Plt Count 18 10^3/uL (130-400) L* D 04/15/25 05:31
eGFR > 60.00 04/15/25 05:31
Physical Exam
HEENT: Moist Mucous Membranes; No Jaundice
Pulmonary: Other (unlabored)
GI: Soft
Extremities: Pulses Present; No Edema
Neuro: Non Focal
--- NOTE | 2025-04-15 09:29 | W.PN.ID1 ---
Date of Service
Date of Service: April 15, 2025
Today's Communication
CT chest.
Assessment / Plan
# Neutropenic fever
Tmax 100.4 on Sat
prolonged neutropenia
# (R) side PNA
# Recent Strep mitis/oralis bacteremia (03/17/25)
no oral pain/lesions at present
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
# Hx Stage III right breast cancer status post lumpectomy, chemo and radiation completed June 2024
- blood cx's neg to date
- Ucx neg
- urine legionella Ag, Urine Strep pneumoniae Ag: negative
- Fever trending down
- Sputum cx; unable to produce
- Repeat CXR 04/13 increase right perihilar mass-like opacity with new righ base infiltrate
- Ordered CT chest without contrast
- Workup for invasive fungal disease
- Check serum Aspergillus galactomannan assay and Fungitell
- Check procalcitonin
- Continue cefepime 2g IV q8h (d#6) and po doxycycline (d#6) for now
- Trend temps.
����������������������������������������������������������
Chief Complaint
-: Fever and Pneumonia
Subjective / Review of Systems
Feels weak. + SOB with activity. Mild cough stable.
No N/V/D. No urine symptoms.
Chronic back pain better.
Vital Signs / Physical Exam
Vital Signs
Vital Signs
Temp Pulse Resp BP Pulse Ox
98.2 F 108 18 103/66 93
04/15/25 07:49 04/15/25 08:06 04/15/25 07:49 04/15/25 08:06 04/15/25 07:49
Physical Exam
Constitutional: No Acute Distress and Comfortable
Eyes: Sclera Anicteric
Oropharyngeal: Negative Ulcers
Cardiovascular: Regular Rate and S1/S2
Pulmonary: Clear and Non Labored
Gastrointestinal: Soft, Non Tender, Non Distended and Normal Bowel Sounds
Extremities: Negative Edema
Musculoskeletal: Negative Spinal Tenderness
Neurological: AO x 3
Objective Data
Lab Data
Lab Results
04/15/25 05:31
04/15/25 05:31
Estimated Creat Clear 94 ml/min 04/15/25 05:31
Lactic Acid Cancelled 04/10/25 20:00
Total Bilirubin 1.3 mg/dl (0.2-1.3) 04/10/25 16:00
AST 19 U/L (14-36) 04/10/25 16:00
ALT 33 U/L (0-35) 04/10/25 16:00
Alkaline Phosphatase 103 U/L (38-126) 04/10/25 16:00
Most recent labs reviewed.
Micro Results:
04/10/25 17:02 Blood Culture - Preliminary
Blood/Venous No Growth in 4 days- Final report to follow
04/10/25 16:00 Blood Culture - Preliminary
Blood/Venous No Growth in 4 days- Final report to follow
04/11/25 11:37 Legionella Urinary Antigen - Final
Urine Negative for Legionella pneumophila Serogroup 1 antigen.
A negative result does not rule out the possiblity of
Legionella infection due to other serogroups or species of
Legionella. Clinical correlation is recommended.
Streptococcus pneumoniae Antigen (M - Final
Negative for Streptococcus pneumoniae antigen.
A negative result does not exclude infection with
Streptococcus pneumoniae. Clinical correlation is
recommended.
04/10/25 16:43 Urine Culture - Final
Urine NO GROWTH
04/10/25 16:00 Influenza Types A & B (MICHAEL) - Final
Nasal Swab Negative for Influenza A & B, NAAT
Negative results must be combined with clinical observations
and patient history.
Nucleic Acid Amplification test (NAAT)performed on the
[id number] platform.
Imaging:
04/13/25: CXR: There is slightly increased size of the right perihilar masslike opacity with a new right basilar infiltrate. Findings may represent worsening infection although a mass with postobstructive pneumonia is possible. Recommend continued
follow-up.
04/10/25 CXR: Short-term interval development of a 6.5 cm rounded opacity superimposed in the right hilar region. This is likely related to an infectious etiology, such as round pneumonia, though follow-up would be necessary after conservative
therapy to assess resolution. Possible trace right pleural effusion. Otherwise, no significant change in 1.5 cm right lower lobe nodule.
[2025-04-15 11:20] VITALS: BP 115/73
[2025-04-15 11:44] LABS: Procalcitonin 0.98 ng/ml (0.0-0.25)
[2025-04-15] MEDS: COMPAZINE 10 MG IV (12:48)
--- NOTE | 2025-04-15 13:26 | W.PN.HOSP.TC ---
Today's Communication/Plan
-
consult pulmonary for CT findings
follow ID recs; continue Abx
MRI spine per Oncology
Assessment / Plan
Assessment / Plan
Ms. Dariana Cho is a 64 yo woman with hx stage IIIA breast cancer s/p chemo and radiation (completed 07/07), hypoplastic MDS with transfusion requirements, recent admission 03/17-03/23/25 for neutropenic fever (found to have streptococcal
bacteremia likely 2/2 RML pneumonia/sinusitis and prescribed Augmentin on DC through 03/30/25) sent to the ER for recurrent fevers/chills.
Flu and Covid negative
CXR 04/10/25
IMPRESSION:
Short-term interval development of a 6.5 cm rounded opacity superimposed in the right hilar region. This is likely related to an infectious etiology, such as round pneumonia, though follow-up would be necessary after conservative therapy to assess
resolution. Possible trace right pleural effusion.
Otherwise, no significant change in 1.5 cm right lower lobe nodule.
CXR 04/13/25
IMPRESSION:
There is slightly increased size of the right perihilar masslike opacity with a new right basilar infiltrate. Findings may represent worsening infection although a mass with postobstructive pneumonia is possible. Recommend continued follow-up.
Small bilateral pleural effusions.
Assessment:
Neutropenic Fever
Community Acquired Pneumonia
Recent admission for Neutropenic Fever with Strep Mitis/Oralis Bacteremia
- ID following; continue Cefepime/Doxy, day 6
- fungal workup pending
- CXR 04/13: slightly increased size of the right perihilar masslike opacity with a new right basilar infiltrate
- CT chest 04/15: Masslike consolidation right lower lobe measuring up to 8.3 cm. Right middle lobe 1.5 cm nodule which is suspicious for either metastasis or primary pulmonary malignancy.
- consult pulmonary
MDS, Transfusion Dependent
Pancytopenia
- patient has hx PLT refractoriness requiring HLA matched PLT; additionally she has prior transfusion reactions and needs Tylenol + Benadryl + Solucortef pre PLT transfusions
- transfuse for PLT <10; Hg <7.
- s/p 2 unit PLT
- s/p 1 unit PRBC
- follow CBC
- Oncology consult appreciated; -appreciate Dr. Knight's note - 'Plan to hold cycle 4 of Vidaza until counts begin to recover. If no recovery by Thanksgiving, then will repeat bone marrow biopsy at that time to eval for progression.'
- continue [employer] Acyclovir for PPx
- PT ordered difficult social situation as patient lives with her elderly mother who has dementia and has no one to help support her - SNF recommended
Sinus Tachycardia
- EKG's and case reviewed briefly with Cardiology. Likely in response to anemia and underlying illness as well as pain
- new start Metoprolol 25mg PO BID - patient tolerating, can consider uptitration
chronic back pain
- no mid spine pain on exam
- continue PRN Oxycodone --> increase dose
- lidocaine patch
- Ice PRN
- continue prn Gabapentin
- MRI to be ordered by Oncology
Hx Breast CA
- completed AC-T 04/2024, completed XRT Jun 2024
DVT ppx: SCDs
Code: DNR/DNI per discussion at time of admission
Anticipated Discharge: > 48 hours
Subjective/Interval History
-
Date of Service: April 15, 2025
reports back pain
no fevers
Objective Data
-
Labs:
Laboratory Results
04/15/25
05:31
WBC 0.3 L*
Hgb 7.7 L
Hct 22.6 L
Plt Count 18 L* D
Sodium 135
Potassium 4.1
Chloride 99
Carbon Dioxide 32 H
BUN 18 H
Creatinine 0.3 L
Glucose 149 H
Calcium 8.6
Vital Signs:
Vital Signs
Temp Pulse Resp BP Pulse Ox
98.0 F 119 18 115/73 95
04/15/25 11:20 04/15/25 11:20 04/15/25 11:20 04/15/25 11:20 04/15/25 11:20
I&O
04/14/25 04/15/25 04/16/25
05:59 06:59 06:59
Intake Total 875 / 875 720 / 720
Output Total 500 / 500
Balance 875 / 875 220 / 220
Physical Exam
-
General: No Apparent Distress
HEENT: Normocephalic and Atraumatic
Respiratory: Negative Wheezes
Cardiac: Regular Rhythm and S1/S2
GI: Soft
Genito-urinary: No Costovertebral Tender
Neuro: AO x 3
Psych: Calm
Data Reviewed
-
Total Time Spent with Patient (in minutes): 41
Labs: Labs Reviewed by me
--- NOTE | 2025-04-15 13:52 | CM ---
Addendum entered by Victor Manuel Orr 04/15/25 15:15:
[employer] list explained and provided. Requested at least 4 preferences. Expressed understanding.
Original Note:
Ongoing PNA. MRI for back pain. IV/Cefepime and Solu-Medrol. Discharge POC: Therapy recommendation for SNF. Will provide [employer] list and request at least 4 preferences.
--- NOTE | 2025-04-15 15:25 | PN.CDI ---
CDI
- -
CDI:
Physician Documentation Request
Admit Date: 04/10/25 17:53
Dear Doctor Chiara,
Please review the following and provide your response in the progress notes.
Clinical Indicators:
Pt admitted with neutropenic fever/Pneumonia
Potassium levels are as below/Per MAR did get 40 meq KCl PO on 04/12/ 20 meq KCL KCL PO 04/14
Laboratory Tests
04/12/25 04/14/25
05:54 07:16
Potassium 3.3 L 3.4 L
Based on the above, could you clarify in the progress notes, the appropriate diagnosis, if significant, that supports the above abnormalities and additional evaluation, monitoring and/or treatment rendered:
Hypokalemia
Abnormal lab value
Other ( please specify)
Use of terms such as suspected, likely, concern for, or probable (associated with a specific diagnosis that is being evaluated, monitored, or treated as if it exists) are acceptable and can be coded in the inpatient setting, when documented at the
time of discharge.
Thank you,
Leslie Acuna RN
CDI Specialist
[facility]
Please use your independent medical judgment in providing your response.
[2025-04-15 15:58] VITALS: BP 121/75
[2025-04-15] MEDS: XANAX 0.25 MG PO (16:14)
--- NOTE | 2025-04-15 16:45 | CON.PUL ---
Consultation
Consultation Request
Date/Time Consultation Requested: 04/15/2025
Date/Time Consultation Performed: 04/15/2025
Requesting Provider: Dr. Guadarrama
Performing Provider: Dr. Greg Guerrero
Reason for Consultation: Pneumonia/abnormal CT chest
Medical History
-
History of Present Illness:
64-year-old woman initially admitted on 04/10/2025, has history of stage IIIa breast cancer status postchemotherapy and radiation completed in June 2024, hypoplastic MDS transfusion dependent, recently admitted 1124 for neutropenic
fever. At that time found to have streptococcal bacteremia, right middle lobe pneumonia prescribed Augmentin until 03/30/2025.
Back to the emergency room with fevers and chills.
Patient on admission felt fatigued.
Denied nausea, vomiting or swallowing dysfunction.
Due to prolonged neutropenia, ongoing intermittent fevers-worsening infiltrate CT chest was performed-showed masslike consolidation of the right lower lobe measuring 8.3 cm in diameter-small pleural effusion. Internal area of cavitation with
surrounding ground glass opacity.
-
We were consulted for evaluation.
Past Medical History
Past Medical History: Other (See assessment and plan)
Social History
Tobacco: Non-smoker
Alcohol: None
Drug: None
Personal: Single
Living: With Family
Family History
Family History: Reviewed & Not Pertinent
Allergies / Home Medications
Allergies
Allergy/AdvReac Type Severity Reaction Status Date / Time
No Known Allergies Allergy Verified 04/08/25 12:04
Home Medications
�Medication �Instructions �Recorded �Confirmed �Last Taken �Type
alprazolam 0.25 mg tablet 0.25 mg PO Q6HPRN PRN anxiety 01/24/24 04/10/25 04/10/25 History
ascorbic acid (vitamin C) 500 mg 500 mg PO DAILY Supplement 01/24/24 04/10/25 04/09/25 History
tablet (Vitamin C)
tranexamic acid 650 mg tablet 650 mg PO BID PRN bleeding 01/17/25 04/10/25 04/08/25 History
acyclovir 400 mg tablet 400 mg PO BID Infection 02/01/25 04/10/25 04/10/25 History
levofloxacin 500 mg tablet 500 mg PO HS Infection 02/01/25 04/10/25 04/09/25 History
calcium 600 mg (as 1 tab PO DAILY Supplement 03/17/25 04/10/25 04/09/25 History
carbonate)-vitamin D3 5 mcg (200
unit) tablet
cyanocobalamin (vitamin B-12) 1,000 mcg PO DAILY Supplement 03/17/25 04/10/25 04/09/25 History
1,000 mcg tablet
therapeutic multivitamin 1 tab PO DAILY Supplement 03/17/25 04/10/25 04/09/25 History
prochlorperazine maleate 10 mg 10 mg PO Q6HPRN PRN nausea #30 tabs 03/23/25 04/10/25 04/10/25 Rx
tablet (Compazine)
oxycodone 5 mg tablet 5 mg PO Q6HPRN PRN severe pains 04/02/25 04/10/25 04/10/25 History
pantoprazole 20 mg tablet,delayed 20 mg PO DAILY gerd 04/10/25 04/10/25 04/10/25 History
release
Review of Systems
-
History Source: Patient
All other systems: Negative unless noted
Vitals / Labs / Diagnostic Testing
Vital Signs
Temp Pulse Resp BP Pulse Ox
98.0 F 119 18 115/73 95
04/15/25 11:20 04/15/25 11:20 04/15/25 11:20 04/15/25 11:20 04/15/25 11:20
Lab Data
04/15/25 05:31
04/15/25 05:31
Microbiology
04/10/25 16:00 Blood/Venous Blood Culture - Final
No Growth - Final Report
04/10/25 17:02 Blood/Venous Blood Culture - Preliminary
No Growth in 4 days- Final report to follow
Diagnostic Testing:
Physical Exam
-
HEENT: Normocephalic
Cardiovascular: S1/S2
Respiratory: Non-Labored Respirations
GI: Soft and Non Distended
Neurology: Awake, AO x 3 and No Motor Deficits
Skin: Warm
General: Comfortable
Assessment
-
64-year-old woman with history of a stage IIIa breast cancer status postchemotherapy and radiation completed in June 2024, hypoplastic MDS transfusion dependent, admission in early March for pneumonia and bacteremia with Streptococcus.
Completed Augmentin 03/30/2025. Returns to the emergency room complaining of fevers and not feeling well. Started on antibiotics. Due to prolonged neutropenia and ongoing fevers, worsening right sided infiltrate CT chest performed 04/15/2025 and
showed large right perihilar/pleural-based large masslike opacity with cavitation-consulted for evaluation.
Abnormal CT chest 04/15/2025: Right sided masslike opacity about 8 cm with associated small pleural effusion and satellite pulmonary nodules. Surrounding 04/15/2025 ground glass opacities may be postobstructive.
Neutropenic fever-ongoing
Pancytopenia
Severe thrombocytopenia <20k
Conditions present prior admission:
Stage IIIa breast cancer status post chemoradiation June 2024
Hypoplastic MDS transfusion dependent
on Vidaza - follows at [facility]
Admission to [facility] 03/17/2020 25-10 05/02/2025 neutropenic fever-streptococcal bacteremia with right middle lobe pneumonia. Completed antibiotics 03/30/2025.
Chronic back pain
DNR status
Assessment and plan:
Worsening infiltrate despite antibiotic therapy.
With prolonged neutropenia-transfusion dependency due to MDS.
Microbiology evaluation so far negative.
Agree with evaluation for fungal etiology-start with noninvasive evaluation-serology. Check serum Aspergillus galactomannan assay and Fungitell
Bronchoscopic Biopsy will be of very high risk with severe thrombocytopenia.
Patient is DNR-with debilitation high risk for respiratory failure and mechanical ventilation.
If tissue biopsy required I would prefer percutaneous biopsy given pleural base abnormality.
Last resort will be bronchoscopy with transbronchial biopsies and airway inspection. Would be higher risk on this patient.
Platelet transfusion will be required if biopsy is necessary.
Will wait for serology
Will continue to follow closely
-
May consider empirically treating for Aspergillus/fungal infection.
Will defer to infectious disease
Continue antibiotics for now
Follow fever curve closely
-
Transfusion as necessary per oncology
-
Prognosis is guarded
[2025-04-15 19:20] VITALS: BP 123/68
[2025-04-15 23:00] VITALS: BP 109/69
[2025-04-16] VITALS (7 sets, daily range): BP systolic 94–118; BP diastolic 57–71
[2025-04-16] MEDS: DILAUDID 0.5 MG IV ×4 (00:37→22:37)
[2025-04-16] MEDS: MAXIPIME 2000 MG IV (02:34)
--- NOTE | 2025-04-16 02:34 | PTCARENOTE ---
Lidocaine patch removed from pt, no place in MAR to document.
[2025-04-16] MEDS: STERILE WATER FOR INJECTION 10 ML IV (02:35)
[2025-04-16] MEDS: ROXICODONE 10 MG PO ×3 (02:48→21:28)
[2025-04-16] MEDS: XANAX 0.25 MG PO (04:42)
[2025-04-16 04:59] LABS: Hematocrit 22.0 % (37.0-47.0); Hemoglobin 7.2 g/dL (12.0-16.0); Mean Corp Hgb Conc. 32.7 g/dL (33.0-37.0); Mean Corpuscular Volume 88.4 fL (81.0-99.0); Nucleated Red Blood Cells % 0 %; Platelet Count 8 10^3/uL (130-400); Red Cell Dist. Width 12.4 % (11.5-14.5)
[2025-04-16 05:57] LABS: Blood Urea Nitrogen 16 mg/dl (7-17); Calcium 8.3 mg/dl (8.4-10.2); Carbon Dioxide 29 mmol/L (22-30); Chloride 97 mmol/L (98-107); Estimated Creatinine Clearance 94 ml/min; Glucose 138 mg/dl (70-99); Potassium 3.8 mmol/L (3.5-5.1); Sodium 133 mmol/L (135-145); eGFR > 60.00
--- NOTE | 2025-04-16 08:18 | W.PN.ONC2 ---
Today's Communication / Plan
-
plan for bronch -2U platelets ordered prior to procedure
f/u MRI L spine
Impression
Impression
1.combination of cytogenetic/molecular abnormalities and biweekly transfusion requirement were felt to be most consistent with MDS rather than CCUS
transfuse HLA matched platelets <10, <20 for neutropenic fever, <50 prn bleeding - Tylenol+Benadryl+Solucortef pre-plt transfusion
tranexamic acid 1300mg PO BiD prn mucosal bleeding
Transfuse Hgb <7 or as needed for sxs anemia -Tylenol+Benadryl pre-PRBC transfusion
sxs support with antiemetics prn
on acyclovir
resume Levaquin ppx once current abx course complete
2. Hx stage IIIA metaphasic right breast cancer with squamous differentiation, ER positive -completed AC-T 04/2024, completed XRT Jun 2024
3. neutropenic fever/PNA -abx per ID, follow cultures
4. hyponatremia resolved
5. back pain - Feb 2025 L spine xray showed a mild compression fracture of the L1 vertebral body
6. abnormal CT chest -RLL mass like consolidation 8.3cm with cavitation, RML 1.56cm nodule, nodule along the pleura 2.8cm
Plan
Plan
daily CBC, neutropenic precautions, transfuse prn, abx per ID
Plan to hold cycle 4 of Vidaza until counts begin to recover. If no recovery by Thanksgiving, then will repeat bone marrow biopsy at that time to eval for progression.
f/u Aspergillus galactomannan assay and Fungitell
transfuse prn
MRI L spine
Pt will continue with OP transfusion support 2-3 days/week upon discharge -labs will need to be checked at and sent to the office for review and we will arrange for transfusion prn
pulmonary and ID following
Subjective/Objective
Subjective
afebrile, 3L NC, no hypotension
denies overt bleeding
using hydromorphone prn, Lidoderm patch, and gabapentin for persistent lumbar back pain
using alprazolam for anxiety
Vital Signs:
Vital Signs
Temp Pulse Resp BP Pulse Ox
98.2 F 120 18 111/66 93
04/16/25 03:00 04/16/25 03:00 04/16/25 03:00 04/16/25 03:00 04/16/25 03:00
Lab Results:
Laboratory Data
WBC 0.4 10^3/uL (4.8-10.8) L* 04/16/25 04:46
Hgb 7.2 g/dL (12.0-16.0) L 04/16/25 04:46
Plt Count 8 10^3/uL (130-400) L* D 04/16/25 04:46
eGFR > 60.00 04/16/25 04:46
Physical Exam
HEENT: Moist Mucous Membranes; No Jaundice
Pulmonary: Other (unlabored)
GI: Soft
Extremities: Pulses Present
Neuro: Non Focal
Orders
Orders
Orders From Last 24 Hours
04/16/25 14:06
MR Lumbar W/o & With Contrast Routine
[2025-04-16] MEDS: LIDOCAINE 4% PATCH 1 PATCH TOPICAL (08:44)
[2025-04-16] MEDS: ZOVIRAX 400 MG PO ×2 (08:47→21:22)
[2025-04-16] MEDS: PROTONIX 20 MG PO (08:47)
[2025-04-16] MEDS: LOPRESSOR 25 MG PO ×2 (08:47→21:31)
[2025-04-16] MEDS: NEURONTIN 100 MG PO ×3 (08:48→22:37)
[2025-04-16] MEDS: MUCINEX 600 MG PO ×2 (08:48→21:29)
[2025-04-16] MEDS: VIBRAMYCIN 100 MG PO (08:48)
--- NOTE | 2025-04-16 10:20 | W.PN.ID1 ---
Addendum entered and electronically signed by Peg Rubalcava MD 04/16/25 11:15:
Discussed with Dr. Guerrero. Plan for platelet transfusion then bronchoscopy, no biopsy; to sent BAL for bacterial cx, AFB cx, fungal culture, fungal PCR, and cytology.
Will hold meropenem and micafungin for now.
Original Note:
Date of Service
Date of Service: April 16, 2025
Today's Communication
Consider transfer to [place].
See below.
Assessment / Plan
# Neutropenic fever
Tmax 100.1
prolonged neutropenia
# (R) side PNA
# Recent Strep mitis/oralis bacteremia (03/17/25)
no oral pain/lesions at present
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
# Hx Stage III right breast cancer status post lumpectomy, chemo and radiation completed June 2024
# Chronic back pain
- blood cx's neg to date
- Ucx neg
- urine legionella Ag, Urine Strep pneumoniae Ag: negative
- Fever trending down
- Sputum cx; unable to produce
- Repeat CXR 04/13 increase right perihilar mass-like opacity with new righ base infiltrate
- 04/15 CT chest without contrast: 8.3 cm mass like consolidation with small internal area of cavitation. Right lung nodules which is suspicious for either metastasis or primary pulmonary malignancy.
- Procalcitonin 0.98 -> not specific test; can be false positive in setting of malignancy
- serum Aspergillus galactomannan assay and Fungitell pending
- Per Pulm, very high risk for bronchoscopy, biopsy due to extreme thrombocytopenia
- From ID standpoint, prefer diagnosis of lung mass to guide therapy.
DDx includes nocardia, fungal such as Mucorales vs aspergillus, etc. Mucorales resistant to voriconazole and echinocandins; requires IV liposomal amphotericin which is associated with potential multiple adverse reactions.
If mucor, prognosis is poor.
Also to consider breast ca metastasis.
- DC cefepime 2g IV q8h (d#7) and doxycycline(d7)
- Broaden to empiric meropenem.
- Check nasal MRSA PCR screen. If positive, add vancomycin.
- Add empiric micafungin 100mg IV q24 to cover aspergillus. Again, micafungin or voriconazole are not effective against mucorales, if source of lung lesions. BAL will be helpful.
- For MRI of lumbar today.
- Gum bleeding due to thrombocytopenia.
Ordered home tranexamic acid bid prn.
- Trend temps.
- Consider transfer to [facility] under the care of her Oncologist, Dr. Javier
����������������������������������������������������������
Chief Complaint
-: Fever and Pneumonia
Subjective / Review of Systems
c/o of gum bleeding past 2 nights. She is asking for tranexamic acid prn.
Asking about platelet transfusion.
Asking about transfer to [place].
Vital Signs / Physical Exam
Vital Signs
Vital Signs
Temp Pulse Resp BP Pulse Ox
99.5 F 122 18 115/69 93
04/16/25 07:17 04/16/25 08:47 04/16/25 07:17 04/16/25 08:47 04/16/25 07:17
Physical Exam
Constitutional: No Acute Distress
Eyes: Sclera Anicteric
Oropharyngeal: Negative Ulcers
Cardiovascular: Regular Rate and S1/S2
Pulmonary: Rales (Right base crackles) and Non Labored
Gastrointestinal: Soft, Non Tender, Non Distended and Normal Bowel Sounds
Extremities: Negative Edema
Musculoskeletal: Negative Spinal Tenderness
Neurological: AO x 3
Lines: Port (left chest wall, not accessed)
Objective Data
Lab Data
Lab Results
04/16/25 04:46
04/16/25 04:46
Estimated Creat Clear 94 ml/min 04/16/25 04:46
Lactic Acid Cancelled 04/10/25 20:00
Total Bilirubin 1.3 mg/dl (0.2-1.3) 04/10/25 16:00
AST 19 U/L (14-36) 04/10/25 16:00
ALT 33 U/L (0-35) 04/10/25 16:00
Alkaline Phosphatase 103 U/L (38-126) 04/10/25 16:00
Most recent labs reviewed.
Micro Results:
04/15/25 22:18 Nasal Screen MRSA (PCR) - Final
Nose
04/10/25 17:02 Blood Culture - Final
Blood/Venous No Growth - Final Report
04/10/25 16:00 Blood Culture - Final
Blood/Venous No Growth - Final Report
04/11/25 11:37 Legionella Urinary Antigen - Final
Urine Negative for Legionella pneumophila Serogroup 1 antigen.
A negative result does not rule out the possiblity of
Legionella infection due to other serogroups or species of
Legionella. Clinical correlation is recommended.
Streptococcus pneumoniae Antigen (M - Final
Negative for Streptococcus pneumoniae antigen.
A negative result does not exclude infection with
Streptococcus pneumoniae. Clinical correlation is
recommended.
04/10/25 16:43 Urine Culture - Final
Urine NO GROWTH
04/10/25 16:00 Influenza Types A & B (MICHAEL) - Final
Nasal Swab Negative for Influenza A & B, NAAT
Negative results must be combined with clinical observations
and patient history.
Nucleic Acid Amplification test (NAAT)performed on the
Mel[employer] platform.
Imaging:
04/15/25 CT chest wo contrast: Masslike consolidation right lower lobe measuring up to 8.3 cm in diameter as above. This shows small internal area of cavitation. Given the interval change of radiographs from 03/17/2025 2 04/13/2025, infectious
etiology is considered most likely. Evaluation is however limited at noncontrast exam and mass with postobstructive consolidation/pneumonitis is not definitively excluded. Right middle lobe 1.5 cm nodule which is suspicious for either metastasis or
primary pulmonary malignancy. Nodule along the pleura posterior inferior right hemithorax measuring up to 2.8 cm in diameter as above, suspicious for pleural metastatic lesion.
04/13/25: CXR: There is slightly increased size of the right perihilar masslike opacity with a new right basilar infiltrate. Findings may represent worsening infection although a mass with postobstructive pneumonia is possible. Recommend continued
follow-up.
04/10/25 CXR: Short-term interval development of a 6.5 cm rounded opacity superimposed in the right hilar region. This is likely related to an infectious etiology, such as round pneumonia, though follow-up would be necessary after conservative
therapy to assess resolution. Possible trace right pleural effusion. Otherwise, no significant change in 1.5 cm right lower lobe nodule.
Care Review
Plan reviewed with: Physician (Marlen Stokes, Cesar)
[2025-04-16] MEDS: XANAX 0.5 MG PO (10:57)
[2025-04-16] MEDS: STERILE WATER FOR INJECTION IV (11:18)
[2025-04-16] MEDS: MAXIPIME IV (11:18)
--- NOTE | 2025-04-16 12:30 | W.PN.HOSP.TC ---
Today's Communication/Plan
-
MRI L spine pending
Platelets per Oncology for potential bronch/BAL in 24-48 hours. Reviewed with ID/Onc/Pulm
Assessment / Plan
Assessment / Plan
Ms. Dariana Cho is a 64 yo woman with hx stage IIIA breast cancer s/p chemo and radiation (completed 07/07), hypoplastic MDS with transfusion requirements, recent admission 03/17-03/23/25 for neutropenic fever (found to have streptococcal
bacteremia likely 2/2 RML pneumonia/sinusitis and prescribed Augmentin on DC through 03/30/25) sent to the ER for recurrent fevers/chills.
Flu and Covid negative
CXR 04/10/25
IMPRESSION:
Short-term interval development of a 6.5 cm rounded opacity superimposed in the right hilar region. This is likely related to an infectious etiology, such as round pneumonia, though follow-up would be necessary after conservative therapy to assess
resolution. Possible trace right pleural effusion.
Otherwise, no significant change in 1.5 cm right lower lobe nodule.
CXR 04/13/25
IMPRESSION:
There is slightly increased size of the right perihilar masslike opacity with a new right basilar infiltrate. Findings may represent worsening infection although a mass with postobstructive pneumonia is possible. Recommend continued follow-up.
Small bilateral pleural effusions.
Assessment:
Neutropenic Fever
Community Acquired Pneumonia
Recent admission for Neutropenic Fever with Strep Mitis/Oralis Bacteremia
- ID following; s./p Cefepime/Doxy 7 days. Switched to Merrem 04/16.
- fungal workup (Aspergillus galactomannan assay and Fungitell) pending. empiric Micafungin started 04/16
- CXR 04/13: slightly increased size of the right perihilar masslike opacity with a new right basilar infiltrate
- CT chest 04/15: Masslike consolidation right lower lobe measuring up to 8.3 cm. Right middle lobe 1.5 cm nodule which is suspicious for either metastasis or primary pulmonary malignancy.
- pulmonary following; for bronch/BAL in 24-48 hours when platelets available
- also can consider transcutaneous bx with IR if tissue bx needed
MDS, Transfusion Dependent
Pancytopenia
- patient has hx PLT refractoriness requiring HLA matched PLT; additionally she has prior transfusion reactions and needs Tylenol + Benadryl + Solucortef pre PLT transfusions
- transfuse for PLT <10; Hg <7.
- s/p 2 unit PLT
- s/p 1 unit PRBC
- follow CBC
- Oncology consult appreciated; -appreciate Dr. Knight's note - 'Plan to hold cycle 4 of Vidaza until counts begin to recover. If no recovery by Thanksgiving, then will repeat bone marrow biopsy at that time to eval for progression.'
- continue [employer] Acyclovir for PPx
- PT ordered difficult social situation as patient lives with her elderly mother who has dementia and has no one to help support her - SNF recommended
Sinus Tachycardia
- EKG's and case reviewed briefly with Cardiology. Likely in response to anemia and underlying illness as well as pain
- new start Metoprolol 25mg PO BID - patient tolerating, can consider uptitration
chronic back pain
- no mid spine pain on exam
- continue PRN Oxycodone
- lidocaine patch
- Ice PRN
- continue Gabapentin
- MRI L spine pending
Hx Breast CA
- completed AC-T 04/2024, completed XRT Jun 2024
Hypokalemia
- replete prn
Gum bleeding due to thrombocytopenia
- prn TXA
DVT ppx: SCDs
Code: DNR/DNI per discussion at time of admission
Anticipated Discharge: > 48 hours
Subjective/Interval History
-
Date of Service: April 16, 2025
no significant bleeding
persistent back pains
Objective Data
-
Labs:
Laboratory Results
04/16/25
04:46
WBC 0.4 L*
Hgb 7.2 L
Hct 22.0 L
Plt Count 8 L* D
Sodium 133 L
Potassium 3.8
Chloride 97 L
Carbon Dioxide 29
BUN 16
Creatinine 0.4 L
Glucose 138 H
Calcium 8.3 L
Vital Signs:
Vital Signs
Temp Pulse Resp BP Pulse Ox
99.5 F 122 18 115/69 93
04/16/25 07:17 04/16/25 08:47 04/16/25 07:17 04/16/25 08:47 04/16/25 07:17
I&O
04/15/25 04/16/25 04/17/25
06:59 06:59 06:59
Intake Total 720 / 720 960 / 960
Output Total 500 / 500
Balance 220 / 220 960 / 960
Physical Exam
-
General: No Apparent Distress
HEENT: Normocephalic and Atraumatic
Respiratory: Negative Wheezes
Cardiac: Regular Rhythm and S1/S2
GI: Soft and Nontender
Musculoskeletal: No Edema
Neuro: AO x 3
Psych: Calm
Data Reviewed
-
Total Time Spent with Patient (in minutes): 42
Labs: Labs Reviewed by me
--- NOTE | 2025-04-16 13:42 | CM ---
S/P breast cancer. Lung mass, fungal workup, PNA, IV/Solu-Cortef. Discharge POC: Recommendation for SNF. [employer] list previously provided. Patient not ready for discharge.
--- NOTE | 2025-04-16 14:48 | W.PN.PUL3 ---
Today's Communication / Plan
-
Nothing by mouth after midnight
Bronchoscopy tomorrow at 7:30 AM
Platelet transfusion prior to the procedure
Continue antibiotics
Assessment
-
64-year-old woman with history of a stage IIIa breast cancer status postchemotherapy and radiation completed in June 2024, hypoplastic MDS transfusion dependent, admission in early March for pneumonia and bacteremia with Streptococcus.
Completed Augmentin 03/30/2025. Returns to the emergency room complaining of fevers and not feeling well. Started on antibiotics. Due to prolonged neutropenia and ongoing fevers, worsening right sided infiltrate CT chest performed 04/15/2025 and
showed large right perihilar/pleural-based large masslike opacity with cavitation-consulted for evaluation.
Abnormal CT chest 04/15/2025: Right sided masslike opacity about 8 cm with associated small pleural effusion and satellite pulmonary nodules. Surrounding 04/15/2025 ground glass opacities may be postobstructive.
Neutropenic fever-ongoing
Pancytopenia
Severe thrombocytopenia <20k
Conditions present prior admission:
Stage IIIa breast cancer status post chemoradiation June 2024
Hypoplastic MDS transfusion dependent
on Vidaza - follows at [facility]
Admission to [facility] 03/17/2020 25-10 05/02/2025 neutropenic fever-streptococcal bacteremia with right middle lobe pneumonia. Completed antibiotics 03/30/2025.
Chronic back pain
DNR status
Assessment and plan:
Worsening infiltrate despite antibiotic therapy.
With prolonged neutropenia-transfusion dependency due to MDS.
Microbiology evaluation so far negative.
Agree with evaluation for fungal etiology-start with noninvasive evaluation-serology. Check serum Aspergillus galactomannan assay and Fungitell
Bronchoscopic Biopsy will be of very high risk with severe thrombocytopenia.
Patient is DNR-with debilitation high risk for respiratory failure and mechanical ventilation.
-
I personally discussed the case with infectious disease, primary care and hematology.
We have decided to pursue bronchoscopy with TRANSBRONCHIAL biopsies to start. Patient is debilitated and very weak and unlikely to complicate any significant bleeding.
We'll perform BAL, site count, cytology, fungal culture, bacterial culture and will also send for fungal analysis-Galactomannan etc..
-
if unable to obtain diagnosis with bronchoscopic approach-then we'll pursue percutaneous approach.
-
Platelets will be transfused today and tomorrow prior procedure.
Nothing by mouth after midnight
I personally discussed above with the patient and she is agreeable to undergo procedure. She understands high risk including bleeding, anesthesia/sedation complications such as respiratory failure and hypoxemia.
-
May consider empirically treating for Aspergillus/fungal infection I think case discussed, would like to obtain further culture first.
Continue antibiotics for now
Follow fever curve closely
-
Transfusion as necessary per oncology
Case discussed in detail with Dr. Lewis 04/16/2025.
-
Prognosis is guarded
Subjective Data
-
Date of Service:
Date of Service: April 16, 2025
Chief Complaint: Pulmonary Follow Up (Neutropenic fever-pneumonia)
Subjective:
continues to feel debilitated
Intermittent coughing
Denies hemoptysis
Continues to report back pain
Review of Systems
Cardiopulmonary: Dyspnea, Dyspnea on Exertion and Cough
Objective Data
Data Reviewed
Vital Signs / I&O / Oxygen:
Vital Signs
Temp Pulse Resp BP Pulse Ox
100.4 F H 120 20 99/60 96
04/16/25 14:08 04/16/25 14:08 04/16/25 14:08 04/16/25 14:08 04/16/25 14:08
Intake and Output
04/15/25 04/16/25 04/17/25
06:59 06:59 06:59
Intake Total 720 / 720 960 / 960
Output Total 500 / 500
Balance 220 / 220 960 / 960
SaO2 96
Nasal Cannula flow liters per 2
minute
Physical Exam
General: Comfortable
HEENT: Normocephalic
Cardiovascular: S1-S2
Respiratory: Clear
GI: Soft and Non Distended
Neurology: Awake, Alert and Oriented
Skin: Warm
Labs/Micro/Reports
Lab Data
04/16/25 04:46
04/16/25 04:46
Microbiology
04/15/25 22:18 Nose Nasal Screen MRSA (PCR) - Final
04/10/25 17:02 Blood/Venous Blood Culture - Final
No Growth - Final Report
04/10/25 16:00 Blood/Venous Blood Culture - Final
No Growth - Final Report
[2025-04-16] MEDS: BENADRYL 25 MG IV (15:10)
[2025-04-16] MEDS: TYLENOL 650 MG PO (15:10)
[2025-04-16] MEDS: SOLU-CORTEF 200 MG IV (15:15)
--- NOTE | 2025-04-16 17:30 | PTCARENOTE ---
Patient transfused with 1 HLA leukoreduced platelet as ordered. Pre medicated as ordered. See MAR. Transfusion tolerated well, no s/s of distress noted. vs documented. Plan of care ongoing
[2025-04-16] MEDS: REMOVE LIDOCAINE PATCH 1 PATCH REMOVE (21:32)
[2025-04-16] MEDS: MIRALAX 17 GRAMS PO (22:36)
[2025-04-17] VITALS (10 sets, daily range): BP systolic 102–119; BP diastolic 61–78
[2025-04-17] MEDS: DILAUDID 0.5 MG IV ×3 (03:04→23:09)
[2025-04-17] MEDS: BENADRYL 25 MG IV (05:04)
[2025-04-17] MEDS: SOLU-CORTEF 200 MG IV (05:05)
[2025-04-17] MEDS: TYLENOL 650 MG PO (05:05)
--- NOTE | 2025-04-17 08:34 | W.PN.HOSP.TC ---
Today's Communication/Plan
-
bronch with BAL/ transbronchial bx with platelets given serg-op
Assessment / Plan
Assessment / Plan
Ms. Dariana Cho is a 64 yo woman with hx stage IIIA breast cancer s/p chemo and radiation (completed 07/07), hypoplastic MDS with transfusion requirements, recent admission 03/17-03/23/25 for neutropenic fever (found to have streptococcal
bacteremia likely 2/2 RML pneumonia/sinusitis and prescribed Augmentin on DC through 03/30/25) sent to the ER for recurrent fevers/chills.
Flu and Covid negative
CXR 04/10/25
IMPRESSION:
Short-term interval development of a 6.5 cm rounded opacity superimposed in the right hilar region. This is likely related to an infectious etiology, such as round pneumonia, though follow-up would be necessary after conservative therapy to assess
resolution. Possible trace right pleural effusion.
Otherwise, no significant change in 1.5 cm right lower lobe nodule.
CXR 04/13/25
IMPRESSION:
There is slightly increased size of the right perihilar masslike opacity with a new right basilar infiltrate. Findings may represent worsening infection although a mass with postobstructive pneumonia is possible. Recommend continued follow-up.
Small bilateral pleural effusions.
Assessment:
Neutropenic Fever
Community Acquired Pneumonia
Recent admission for Neutropenic Fever with Strep Mitis/Oralis Bacteremia
- ID following; s./p Cefepime/Doxy 7 days. Switched to Merrem 04/16.
- fungal workup (Aspergillus galactomannan assay and Fungitell) pending. empiric Micafungin started 04/16
- CXR 04/13: slightly increased size of the right perihilar masslike opacity with a new right basilar infiltrate
- CT chest 04/15: Masslike consolidation right lower lobe measuring up to 8.3 cm. Right middle lobe 1.5 cm nodule which is suspicious for either metastasis or primary pulmonary malignancy.
- pulmonary following; for bronch/BAL, transbronchial biopsy with platelets to be transfused serg-procedure
- also can consider transcutaneous bx with IR if tissue bx needed
MDS, Transfusion Dependent
Pancytopenia
- patient has hx PLT refractoriness requiring HLA matched PLT; additionally she has prior transfusion reactions and needs Tylenol + Benadryl + Solucortef pre PLT transfusions
- transfuse for PLT <10; Hg <7.
- s/p 5 unit PLT
- s/p 1 unit PRBC
- follow CBC
- Oncology consult appreciated; -appreciate Dr. Knight's note - 'Plan to hold cycle 4 of Vidaza until counts begin to recover. If no recovery by Thanksgiving, then will repeat bone marrow biopsy at that time to eval for progression.'
- continue [employer] Acyclovir for PPx
- PT ordered difficult social situation as patient lives with her elderly mother who has dementia and has no one to help support her - SNF recommended
Sinus Tachycardia
- EKG's and case reviewed briefly with Cardiology. Likely in response to anemia and underlying illness as well as pain
- continue newly started Metoprolol 25mg PO BID - patient tolerating, can consider uptitration
chronic back pain
- no mid spine pain on exam
- continue PRN Oxycodone
- lidocaine patch
- Ice PRN
- continue Gabapentin
- MRI L spine: acute moderate compression deformities of the L1 and L2 vertebral bodies as well as mild compression deformities of T12 and L4. There are no definite associated osseous metastasis. Multilevel degenerative changes most pronounced at
L3-L4 there is resultant mild/moderate right-sided neuroforaminal narrowing and moderate left-sided neuroforaminal narrowing.
- check vit D level
Hx Breast CA
- completed AC-T 04/2024, completed XRT Jun 2024
Hypokalemia
- replete prn
Gum bleeding due to thrombocytopenia
- prn TXA
DVT ppx: SCDs
Code: DNR/DNI per discussion at time of admission
Anticipated Discharge: > 48 hours
Subjective/Interval History
-
Date of Service: April 17, 2025
platelets transfusing
for bronch/BAL this AM
Objective Data
-
Labs:
Laboratory Results
04/17/25
06:00
WBC Pending
Hgb Pending
Hct Pending
Plt Count Pending
Sodium Pending
Potassium Pending
Chloride Pending
Carbon Dioxide Pending
BUN Pending
Creatinine Pending
Glucose Pending
Calcium Pending
Vital Signs:
Vital Signs
Temp Pulse Resp BP Pulse Ox
98.4 F 120 16 115/71 92
04/17/25 07:49 04/17/25 07:49 04/17/25 07:49 04/17/25 07:49 04/17/25 07:49
I&O
04/16/25 04/17/25 04/18/25
06:59 06:59 06:59
Intake Total 960 / 960 480 / 480
Balance 960 / 960 480 / 480
Physical Exam
-
General: No Apparent Distress
HEENT: Normocephalic and Atraumatic
Respiratory: Negative Wheezes
Cardiac: Regular Rhythm
GI: Soft
Musculoskeletal: No Edema
Neuro: AO x 3
Psych: Calm
Data Reviewed
-
Total Time Spent with Patient (in minutes): 42
Labs: Labs Reviewed by me
--- NOTE | 2025-04-17 09:19 | CM ---
s/p Bronchoscopy .
Last PT note indicated SNF.
Will need updated PT note when appropriate.
As per CM note Pac data given.
Will need auth.
PLAN Probable SNF will need auth
--- NOTE | 2025-04-17 09:26 | W.PN.PUL3 ---
Today's Communication / Plan
-
Bronchoscopy today
Continue antibiotic
N.p.o.
Platelet transfusion
High risk situation
Assessment
-
64-year-old woman with history of a stage IIIa breast cancer status postchemotherapy and radiation completed in June 2024, hypoplastic MDS transfusion dependent, admission in early March for pneumonia and bacteremia with Streptococcus.
Completed Augmentin 03/30/2025. Returns to the emergency room complaining of fevers and not feeling well. Started on antibiotics. Due to prolonged neutropenia and ongoing fevers, worsening right sided infiltrate CT chest performed 04/15/2025 and
showed large right perihilar/pleural-based large masslike opacity with cavitation-consulted for evaluation.
Abnormal CT chest 04/15/2025: Right sided masslike opacity about 8 cm with associated small pleural effusion and satellite pulmonary nodules. Surrounding 04/15/2025 ground glass opacities may be postobstructive.
Neutropenic fever-ongoing
Pancytopenia
Severe thrombocytopenia <20k
Conditions present prior admission:
Stage IIIa breast cancer status post chemoradiation June 2024
Hypoplastic MDS transfusion dependent
on Vidaza - follows at [facility]
Admission to [facility] 03/17/2020 25-10 05/02/2025 neutropenic fever-streptococcal bacteremia with right middle lobe pneumonia. Completed antibiotics 03/30/2025.
Chronic back pain
DNR status
Assessment and plan:
Worsening infiltrate despite antibiotic therapy.
With prolonged neutropenia-transfusion dependency due to MDS.
Microbiology evaluation so far negative.
Agree with evaluation for fungal etiology-start with noninvasive evaluation-serology. Check serum Aspergillus galactomannan assay and Fungitell
Bronchoscopic Biopsy will be of very high risk with severe thrombocytopenia.
Patient is DNR-with debilitation high risk for respiratory failure and mechanical ventilation.
-
Case has been discussed in detail with multiple consultants and primary team.
Patient is debilitated and very weak-increased risk of complications.
Would prefer bronchoscopy without biopsy. 04/17/2025.
We'll perform BAL, site count, cytology, fungal culture, bacterial culture and will also send for fungal analysis-Galactomannan etc..
-
if unable to obtain diagnosis with bronchoscopic approach-then we'll pursue percutaneous approach. Will continue to follow.
-
Platelets being transfused.
Nothing by mouth after midnight
Consent obtained from patient.
She states that she does not have any family members other than her mother. She makes her own decisions. Did not want me to contact any other family members at this point.
-
May consider empirically treating for Aspergillus/fungal infection-defer to infectious disease. Case discussed.
Continue antibiotics for now
Follow fever curve closely
-
Transfusion as necessary per oncology
Case discussed in detail with Dr. Lewis 04/16/2025.
-
Prognosis is guarded
Subjective Data
-
Date of Service:
Date of Service: April 17, 2025
Chief Complaint: Pulmonary Follow Up (Neutropenic fever-pneumonia)
Subjective:
Continues to feel fatigued.
Denies hemoptysis
denies shortness of breath at rest
Denies chest pain
Review of Systems
Cardiopulmonary: Dyspnea (n)
GI: Abdominal Pain (n)
Objective Data
Data Reviewed
Vital Signs / I&O / Oxygen:
Vital Signs
Temp Pulse Resp BP Pulse Ox
97.3 F 106 21 108/61 93
04/17/25 08:49 04/17/25 09:15 04/17/25 09:15 04/17/25 09:15 04/17/25 09:15
Intake and Output
04/16/25 04/17/25 04/18/25
06:59 06:59 06:59
Intake Total 960 / 960 480 / 480
Balance 960 / 960 480 / 480
SaO2 93
Nasal Cannula flow liters per 4
minute
Physical Exam
General: Comfortable
HEENT: Normocephalic
Cardiovascular: S1-S2
Respiratory: Clear
GI: Soft and Non Distended
Neurology: Awake, Alert and Oriented
Skin: Warm
Labs/Micro/Reports
Microbiology
04/15/25 22:18 Nose Nasal Screen MRSA (PCR) - Final
04/10/25 17:02 Blood/Venous Blood Culture - Final
No Growth - Final Report
04/10/25 16:00 Blood/Venous Blood Culture - Final
No Growth - Final Report
--- NOTE | 2025-04-17 09:30 | W.PN.UPDATE ---
Update Note
Progress Note Update
Bronchoscopy performed: Consent obtained from patient.
Platelets being transfused
LMA/anesthesia performed. Anesthesia team at the bedside.
Bronchoscope was introduced.
Vocal cords normal.
Trachea normal caliber-minimal petechia.
Minimal carinal bloody secretions-thin.
Bronchoscope was advanced to the right lung only. Right upper lobe open and without secretions
Thick/whitish secretion noted in the bronchus intermedius-washings sent
Superior segment of the right lower lobe noted with thick whitish secretion.
BAL attempted-patient developed significant erythema, petechia, airway swelling throughout while the procedure was being performed.
Only 50 cc were instilled, bloody return of 10 cc.
Due to evolving significant petechia, erythema and early edema we decided to abort procedure.
Samples were sent for cytology, cell count, fungal, Gram stain, AFB, galactomannan, silver stain.
Patient tolerated procedure well
Will follow
[2025-04-17] MEDS: ROXICODONE 10 MG PO ×2 (10:04→18:06)
[2025-04-17] MEDS: MUCINEX 600 MG PO ×2 (10:05→19:52)
[2025-04-17] MEDS: ZOVIRAX 400 MG PO ×2 (10:05→19:51)
[2025-04-17] MEDS: PROTONIX 20 MG PO (10:06)
[2025-04-17] MEDS: NEURONTIN 100 MG PO ×3 (10:06→21:27)
[2025-04-17] MEDS: LIDOCAINE 4% PATCH 1 PATCH TOPICAL (10:06)
[2025-04-17] MEDS: LOPRESSOR 25 MG PO ×2 (10:08→19:52)
--- NOTE | 2025-04-17 10:21 | W.PN.ONC2 ---
Today's Communication / Plan
-
S/P bronch.
MRI reviewed. No mets. Comp fxs.
Awaiting culture data from bronch.
Continuing Abx Tx
Impression
Impression
1.combination of cytogenetic/molecular abnormalities and biweekly transfusion requirement were felt to be most consistent with MDS rather than CCUS
transfuse HLA matched platelets <10, <20 for neutropenic fever, <50 prn bleeding - Tylenol+Benadryl+Solucortef pre-plt transfusion
tranexamic acid 1300mg PO BID prn mucosal bleeding
Transfuse Hgb <7 or as needed for sxs anemia -Tylenol+Benadryl pre-PRBC transfusion
sxs support with antiemetics prn
on acyclovir
resume Levaquin ppx once current abx course complete
2. Hx stage IIIA metaphasic right breast cancer with squamous differentiation, ER positive -completed AC-T 04/2024, completed XRT Jun 2024
3. neutropenic fever/PNA -abx per ID, follow cultures
4. hyponatremia resolved
5. back pain - Feb 2025 L spine xray showed a mild compression fracture of the L1 vertebral body
6. abnormal CT chest -RLL mass like consolidation 8.3cm with cavitation, RML 1.56cm nodule, nodule along the pleura 2.8cm
Plan
Plan
daily CBC, neutropenic precautions, transfuse prn, abx per ID
Plan to hold cycle 4 of Vidaza until counts begin to recover. If no recovery by Thanksgiving, then will repeat bone marrow biopsy at that time to eval for progression.
f/u Aspergillus galactomannan assay and Fungitell
transfuse prn
MRI L spine shows no mets; benign compression fxs
Pt will continue with OP transfusion support 2-3 days/week upon discharge -labs will need to be checked at [facility] and sent to the office for review and we will arrange for transfusion prn
pulmonary and ID following
Subjective/Objective
Chief Complaint
ACS Heme Onc
Subjective
S/P Bronch earlier. Some sequela of bleeding. Getting PLT during the procedure.
Vital Signs:
Vital Signs
Temp Pulse Resp BP Pulse Ox
97.5 F 111 18 112/72 95
04/17/25 09:51 04/17/25 10:08 04/17/25 09:51 04/17/25 10:08 04/17/25 09:51
Lab Results:
Laboratory Data
WBC 0.4 10^3/uL (4.8-10.8) L* 04/16/25 04:46
Hgb 7.2 g/dL (12.0-16.0) L 04/16/25 04:46
Plt Count 8 10^3/uL (130-400) L* D 04/16/25 04:46
eGFR > 60.00 04/16/25 04:46
Physical Exam
Chronically ill, NAD
HEENT: Other
Cardiology: S1 and S2
Pulmonary: Clear
[2025-04-17 10:50] LABS: Hematocrit 21.7 % (37.0-47.0); Hemoglobin 7.3 g/dL (12.0-16.0); Mean Corp Hgb Conc. 33.6 g/dL (33.0-37.0); Mean Corpuscular Volume 85.4 fL (81.0-99.0); Nucleated Red Blood Cells % 0 %; Platelet Count 117 10^3/uL (130-400); Red Cell Dist. Width 12.5 % (11.5-14.5)
[2025-04-17 12:15] LABS: Brochalveolar Lavage Character Hazy (Clear); Brochalveolar Lavage Color Colorless; Brochalveolar Lavage Volume 2 ml; Brochalveolar Lavage WBC 0 cells/ml
[2025-04-17] MEDS: MERREM 500 MG IV ×3 (12:38→23:03)
[2025-04-17] MEDS: STERILE WATER FOR INJECTION 10 ML IV ×3 (12:39→23:03)
[2025-04-17 12:49] LABS: Blood Urea Nitrogen 19 mg/dl (7-17); Calcium 8.3 mg/dl (8.4-10.2); Carbon Dioxide 32 mmol/L (22-30); Chloride 96 mmol/L (98-107); Estimated Creatinine Clearance 94 ml/min; Glucose 150 mg/dl (70-99); Potassium 3.5 mmol/L (3.5-5.1); Sodium 135 mmol/L (135-145); eGFR > 60.00
[2025-04-17] MEDS: MYCAMINE 105 MG IV (13:09)
--- NOTE | 2025-04-17 14:19 | W.PN.ID1 ---
Date of Service
Date of Service: April 17, 2025
Today's Communication
Await bronch results.
Start empiric meropenem and micafungin.
Assessment / Plan
# Neutropenic fever
Tmax 100.4
prolonged neutropenia
# PNA, RLL lung mass with cavitation, pulm nodules
# Recent Strep mitis/oralis bacteremia (03/17/25)
no oral pain/lesions at present
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
# Hx Stage III right breast cancer status post lumpectomy, chemo and radiation completed June 2024
# Chronic back pain - MRI lumbar spine acute compression fx, no osseus mets.
- blood cx's neg
- Ucx neg
- urine legionella Ag, Urine Strep pneumoniae Ag: negative
- Repeat CXR 04/13 increase right perihilar mass-like opacity with new right base infiltrate
- 04/15 CT chest without contrast: 8.3 cm mass like consolidation with small internal area of cavitation. Right lung nodules which is suspicious for either metastasis or primary pulmonary malignancy.
- Procalcitonin 0.98 -> not specific test; can be false positive in setting of malignancy
- serum Aspergillus galactomannan assay and Fungitell pending
- Appreciate Pulm. s/p bronchoscopy 04/17/25
Bronch respitatroy cx pending
Bronch fungal smear/cx's pending
Bronch AFB smear/cx pending
Bronch silver stain pending
Bronch cytology pending
- s/p cefepime 2g IV q8h (d#7) and doxycycline(d7)
- Start empiric meropenem 500mg IV q6h pending bronch cx
- Start empiric micafungin 100mg IV q24 to cover possible aspergillus pending bronch cx
- Follow temps
����������������������������������������������������������
Chief Complaint
-: Fever and Pneumonia
Subjective / Review of Systems
Bronch went fine this am. Had epistaxis afterwards.
No new complaints.
Vital Signs / Physical Exam
Vital Signs
Vital Signs
Temp Pulse Resp BP Pulse Ox
98.4 F 96 18 110/71 97
04/17/25 11:38 04/17/25 11:38 04/17/25 11:38 04/17/25 11:38 04/17/25 11:38
Physical Exam
Constitutional: No Acute Distress and Comfortable
Head: Other (No sinus tenderness.)
Eyes: No Conjunctival Hemorrhage and Sclera Anicteric
Oropharyngeal: Benign
Cardiovascular: Regular Rate and S1/S2
Pulmonary: Rales (Right base crackles)
Gastrointestinal: Soft, Non Tender, Non Distended and Normal Bowel Sounds
Genito-Urinary: Negative CVA Tenderness
Extremities: Negative Edema
Neurological: AO x 3
Lines: Port
Physical Exam:
LCW not accessed
Objective Data
Lab Data
Lab Results
04/17/25 10:31
04/17/25 10:31
Estimated Creat Clear 94 ml/min 04/17/25 10:31
Lactic Acid Cancelled 04/10/25 20:00
Total Bilirubin 1.3 mg/dl (0.2-1.3) 04/10/25 16:00
AST 19 U/L (14-36) 04/10/25 16:00
ALT 33 U/L (0-35) 04/10/25 16:00
Alkaline Phosphatase 103 U/L (38-126) 04/10/25 16:00
Most recent labs reviewed.
Micro Results:
04/17/25 09:23 Respiratory Culture - Pending
Bronch Washing Gram Stain - Preliminary
04/17/25 09:23 Respiratory Culture - Pending
Bronch Right Lower Lobe Gram Stain - Preliminary
04/17/25 09:23 Fungal Culture - Preliminary
Bronch Washing Culture in progress.
Positive cultures are reported as soon as detected.
Final report to follow in four to five weeks.
04/17/25 09:23 Fungal Culture - Preliminary
Bronch Right Lower Lobe Culture in progress.
Positive cultures are reported as soon as detected.
Final report to follow in four to five weeks.
04/17/25 09:23 Acid Fast Bacilli Smear - Pending
Bronch Washing Acid Fast Bacilli Culture - Pending
04/17/25 09:23 Acid Fast Bacilli Smear - Pending
Bronch Right Lower Lobe Acid Fast Bacilli Culture - Pending
04/15/25 22:18 Nasal Screen MRSA (PCR) - Final
Nose
04/10/25 17:02 Blood Culture - Final
Blood/Venous No Growth - Final Report
04/10/25 16:00 Blood Culture - Final
Blood/Venous No Growth - Final Report
04/11/25 11:37 Legionella Urinary Antigen - Final
Urine Negative for Legionella pneumophila Serogroup 1 antigen.
A negative result does not rule out the possiblity of
Legionella infection due to other serogroups or species of
Legionella. Clinical correlation is recommended.
Streptococcus pneumoniae Antigen (M - Final
Negative for Streptococcus pneumoniae antigen.
A negative result does not exclude infection with
Streptococcus pneumoniae. Clinical correlation is
recommended.
04/10/25 16:43 Urine Culture - Final
Urine NO GROWTH
04/10/25 16:00 Influenza Types A & B (MICHAEL) - Final
Nasal Swab Negative for Influenza A & B, NAAT
Negative results must be combined with clinical observations
and patient history.
Nucleic Acid Amplification test (NAAT)performed on the
[employer] platform.
Imaging:
04/15/25 CT chest wo contrast: Masslike consolidation right lower lobe measuring up to 8.3 cm in diameter as above. This shows small internal area of cavitation. Given the interval change of radiographs from 03/17/2025 2 04/13/2025, infectious
etiology is considered most likely. Evaluation is however limited at noncontrast exam and mass with postobstructive consolidation/pneumonitis is not definitively excluded. Right middle lobe 1.5 cm nodule which is suspicious for either metastasis or
primary pulmonary malignancy. Nodule along the pleura posterior inferior right hemithorax measuring up to 2.8 cm in diameter as above, suspicious for pleural metastatic lesion.
04/13/25: CXR: There is slightly increased size of the right perihilar masslike opacity with a new right basilar infiltrate. Findings may represent worsening infection although a mass with postobstructive pneumonia is possible. Recommend continued
follow-up.
04/10/25 CXR: Short-term interval development of a 6.5 cm rounded opacity superimposed in the right hilar region. This is likely related to an infectious etiology, such as round pneumonia, though follow-up would be necessary after conservative
therapy to assess resolution. Possible trace right pleural effusion. Otherwise, no significant change in 1.5 cm right lower lobe nodule.
Care Review
Plan reviewed with: Physician (Dr. Guerrero)
[2025-04-17] MEDS: REMOVE LIDOCAINE PATCH 1 PATCH REMOVE (21:27)
[2025-04-18] VITALS (7 sets, daily range): BP systolic 97–154; BP diastolic 54–82
[2025-04-18] MEDS: ROXICODONE 10 MG PO ×3 (02:34→17:54)
[2025-04-18] MEDS: TYLENOL 650 MG PO ×3 (03:54→19:51)
[2025-04-18] MEDS: MERREM 500 MG IV ×3 (05:40→17:11)
[2025-04-18] MEDS: STERILE WATER FOR INJECTION 10 ML IV ×3 (05:40→17:10)
[2025-04-18] MEDS: DILAUDID 0.5 MG IV ×2 (05:49→10:43)
[2025-04-18 07:41] LABS: Hematocrit 20.5 % (37.0-47.0); Hemoglobin 6.6 g/dL (12.0-16.0); Mean Corp Hgb Conc. 32.2 g/dL (33.0-37.0); Mean Corpuscular Volume 89.9 fL (81.0-99.0); Nucleated Red Blood Cells % 0 %; Red Cell Dist. Width 12.7 % (11.5-14.5)
[2025-04-18 08:12] LABS: Blood Urea Nitrogen 17 mg/dl (7-17); Calcium 8.2 mg/dl (8.4-10.2); Carbon Dioxide 36 mmol/L (22-30); Chloride 97 mmol/L (98-107); Estimated Creatinine Clearance 94 ml/min; Glucose 120 mg/dl (70-99); Potassium 3.4 mmol/L (3.5-5.1); Sodium 135 mmol/L (135-145); eGFR > 60.00
[2025-04-18 08:14] LABS: Platelet Count 45 10^3/uL (130-400)
[2025-04-18 08:16] LABS: Vitamin D, 25-OH*** 25.5 ng/mL (30-80)
[2025-04-18] MEDS: ZOVIRAX 400 MG PO ×2 (09:06→19:51)
[2025-04-18] MEDS: MUCINEX 600 MG PO ×2 (09:06→19:52)
[2025-04-18] MEDS: NEURONTIN 100 MG PO ×3 (09:06→21:08)
[2025-04-18] MEDS: LOPRESSOR 25 MG PO (09:07)
[2025-04-18] MEDS: PROTONIX 20 MG PO (09:07)
[2025-04-18] MEDS: LIDOCAINE 4% PATCH 1 PATCH TOPICAL (09:07)
[2025-04-18] MEDS: KCL 40 MEQ PO (09:09)
--- NOTE | 2025-04-18 09:39 | W.PN.ONC2 ---
Today's Communication / Plan
-
.
Impression
Impression
1.combination of cytogenetic/molecular abnormalities and biweekly transfusion requirement were felt to be most consistent with MDS rather than CCUS
transfuse HLA matched platelets <10, <20 for neutropenic fever, <50 prn bleeding - Tylenol+Benadryl+Solucortef pre-plt transfusion
tranexamic acid 1300mg PO BID prn mucosal bleeding
Transfuse Hgb <7 or as needed for sxs anemia -Tylenol+Benadryl pre-PRBC transfusion
sxs support with antiemetics prn
on acyclovir
2. Hx stage IIIA metaphasic right breast cancer with squamous differentiation, ER positive -completed AC-T 04/2024, completed XRT Jun 2024
3. neutropenic fever/PNA -abx per ID, follow cultures
4. hyponatremia resolved
5. back pain - Feb 2025 L spine xray showed a mild compression fracture of the L1 vertebral body -MRI L spine shows no mets; benign compression fxs
6. abnormal CT chest -RLL mass like consolidation 8.3cm with cavitation, RML 1.56cm nodule, nodule along the pleura 2.8cm
Plan
Plan
daily CBC, neutropenic precautions, transfuse prn,
abx and antifungal per ID
f/u broch cytology and cultures
hold Vidaza until counts begin to recover. If no recovery by Thanksgiving, then will repeat bone marrow biopsy at that time to eval for progression.
transfuse platelets <20 with NF, <50 if bleeding
transfuse Hgb <7 or as needed for sxs anemia
CMV negative products
Pt will continue with OP transfusion support 2-3 days/week upon discharge -labs will need to be checked at [facility] and sent to the office for review and we will arrange for transfusion prn
pulmonary and ID following
Subjective/Objective
Subjective
bleeding sequela from bronch 04/17 has resolved
Tmax 100.6f
4L NC
Vital Signs:
Vital Signs
Temp Pulse Resp BP Pulse Ox
99.0 F 113 17 111/64 91
04/18/25 07:09 04/18/25 09:07 04/18/25 07:09 04/18/25 09:07 04/18/25 07:09
Lab Results:
Laboratory Data
WBC 0.3 10^3/uL (4.8-10.8) L* 04/18/25 07:14
Hgb 6.6 g/dL (12.0-16.0) L* 04/18/25 07:14
Plt Count 45 10^3/uL (130-400) L D 04/18/25 07:14
eGFR > 60.00 04/18/25 07:14
Physical Exam
HEENT: Moist Mucous Membranes; No Jaundice
Pulmonary: Other (unlabored)
GI: Soft
Extremities: Pulses Present; No Edema
--- NOTE | 2025-04-18 10:13 | W.PN.PUL3 ---
Today's Communication / Plan
-
Follow-up bronchoscopy cultures
Follow-up fungal serology
Continue antifungal/antibiotics for now
Continue oxygen supplementation currently on 4 L
Assessment
-
64-year-old woman with history of a stage IIIa breast cancer status postchemotherapy and radiation completed in June 2024, hypoplastic MDS transfusion dependent, admission in early March for pneumonia and bacteremia with Streptococcus.
Completed Augmentin 03/30/2025. Returns to the emergency room complaining of fevers and not feeling well. Started on antibiotics. Due to prolonged neutropenia and ongoing fevers, worsening right sided infiltrate CT chest performed 04/15/2025 and
showed large right perihilar/pleural-based large masslike opacity with cavitation-consulted for evaluation.
Abnormal CT chest 04/15/2025: Right sided masslike opacity about 8 cm with associated small pleural effusion and satellite pulmonary nodules. Surrounding 04/15/2025 ground glass opacities may be postobstructive.
Neutropenic fever-ongoing
Pancytopenia
Severe thrombocytopenia <20k
Conditions present prior admission:
Stage IIIa breast cancer status post chemoradiation June 2024
Hypoplastic MDS transfusion dependent
on Vidaza - follows at [facility]
Admission to [facility] 03/17/2020 25-10 05/02/2025 neutropenic fever-streptococcal bacteremia with right middle lobe pneumonia. Completed antibiotics 03/30/2025.
Chronic back pain
DNR status
Assessment and plan:
Worsening infiltrate despite antibiotic therapy.
With prolonged neutropenia-transfusion dependency due to MDS.
Microbiology evaluation so far negative.
Agree with evaluation for fungal etiology-start with noninvasive evaluation-serology.
Check serum Aspergillus galactomannan assay and Fungitell-result pending
Status post bronchoscopy: BAL, washings performed.
Procedure aborted early due to significant development of erythema, petechiae and bruising in the airway during the procedure.
Sample sent: Gram stain, fungal, cell count, cytology.
Cell count noted with no white blood cells and reflection of severe neutropenia
No organisms seen on Gram stain so far
BAL galactomannan also sent.
Silver stain sent
-
If cultures negative can consider percutaneous biopsy
-
Remains pancytopenic.
Transfuse as necessary per hematology.
-
She states that she does not have any family members other than her mother. She makes her own decisions-discussed with her on 04/17/2025 prior bronchoscopy.
Did not want me to contact any other family members at this point.
-
Antibiotics per infectious disease: Micafungin/meropenem
Follow fever curve npyhybi-iyl-khnzs fever yesterday may have been postprocedure.
Continue to monitor.
-
Continue oxygen therapy currently at 4 L
Encourage incentive spirometry
Chest x-ray on as-needed basis
-
Neutropenic precaution
-
Transfusion as necessary per oncology
Case discussed in detail with Dr. Lewis 04/16/2025.
-
Prognosis is guarded
Subjective Data
-
Date of Service:
Date of Service: April 18, 2025
Chief Complaint: Pulmonary Follow Up (Neutropenic fever-pneumonia)
Subjective:
Denies hemoptysis
Denies chest pain
Continues to feel debilitated
Review of Systems
Cardiopulmonary: Dyspnea (None at rest)
Objective Data
Data Reviewed
Vital Signs / I&O / Oxygen:
Vital Signs
Temp Pulse Resp BP Pulse Ox
99.0 F 113 17 111/64 91
04/18/25 07:09 04/18/25 09:07 04/18/25 07:09 04/18/25 09:07 04/18/25 07:09
Intake and Output
04/17/25 04/18/25 04/19/25
06:59 06:59 06:59
Intake Total 480 / 480 1130 / 1130
Balance 480 / 480 1130 / 1130
SaO2 91
Nasal Cannula flow liters per 4
minute
Physical Exam
General: Comfortable
HEENT: Normocephalic
Cardiovascular: S1-S2
Respiratory: Clear
GI: Soft and Non Distended
Neurology: Awake, Alert and Oriented
Skin: Warm
Labs/Micro/Reports
Lab Data
04/18/25 07:14
04/18/25 07:14
Microbiology
04/17/25 09:23 Bronch Right Lower Lobe Respiratory Culture - Preliminary
NO GROWTH
04/17/25 09:23 Bronch Right Lower Lobe Gram Stain - Preliminary
04/17/25 09:23 Bronch Washing Respiratory Culture - Preliminary
Usual Respiratory Vilma
04/17/25 09:23 Bronch Washing Gram Stain - Preliminary
04/16/25 08:30 Nose MRSA Screen - Final
No Methicillin Resistant Staphylococcus aureus isolated.
04/17/25 09:23 Bronch Washing Fungal Culture - Preliminary
Culture in progress.
Positive cultures are reported as soon as detected.
Final report to follow in four to five weeks.
04/17/25 09:23 Bronch Right Lower Lobe Fungal Culture - Preliminary
Culture in progress.
Positive cultures are reported as soon as detected.
Final report to follow in four to five weeks.
04/15/25 22:18 Nose Nasal Screen MRSA (PCR) - Final
04/10/25 17:02 Blood/Venous Blood Culture - Final
No Growth - Final Report
04/10/25 16:00 Blood/Venous Blood Culture - Final
No Growth - Final Report
[2025-04-18] MEDS: MYCAMINE 105 MG IV (10:35)
--- NOTE | 2025-04-18 10:39 | W.PN.ID1 ---
Date of Service
Date of Service: April 18, 2025
Today's Communication
Await bronch results.
Continue empiric meropenem and micafungin.
Assessment / Plan
# Neutropenic fever
Tmax 100.6
prolonged neutropenia
# PNA, RLL lung mass with cavitation, pulm nodules
# Recent Strep mitis/oralis bacteremia (03/17/25)
no oral pain/lesions at present
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
# Hx Stage III right breast cancer status post lumpectomy, chemo and radiation completed June 2024
# Chronic back pain - MRI lumbar spine acute compression fx, no osseus mets.
- blood cx's neg
- Ucx neg
- urine legionella Ag, Urine Strep pneumoniae Ag: negative
- Repeat CXR 04/13 increase right perihilar mass-like opacity with new right base infiltrate
- 04/15 CT chest without contrast: 8.3 cm mass like consolidation with small internal area of cavitation. Right lung nodules which is suspicious for either metastasis or primary pulmonary malignancy.
- Procalcitonin 0.98 -> not specific test; can be false positive in setting of malignancy
- serum Aspergillus galactomannan assay and Fungitell pending
- Appreciate Pulm. s/p bronchoscopy 04/17/25
Bronch respiratory cx #1 NO Growth; #1 usual resp meme
Bronch fungal smear/cx's pending
Bronch Aspergillus galactommanan pending
Bronch 1,3 B-D-Glucan pending
Bronch AFB smear/cx pending
Bronch silver stain pending
Bronch cytology pending
- s/p cefepime 2g IV q8h (d#7) and doxycycline(d7)
- Continue empiric meropenem 500mg IV q6h (d2) pending bronch cx
- Continue empiric micafungin 100mg IV q24 (d2) to cover possible aspergillus pending bronch cx
- Follow temps
����������������������������������������������������������
Chief Complaint
-: Fever and Pneumonia
Subjective / Review of Systems
No new complaints.
Vital Signs / Physical Exam
Vital Signs
Vital Signs
Temp Pulse Resp BP Pulse Ox
99.0 F 113 17 111/64 91
04/18/25 07:09 04/18/25 09:07 04/18/25 07:09 04/18/25 09:07 04/18/25 07:09
Physical Exam
Constitutional: No Acute Distress and Comfortable
Eyes: No Conjunctival Hemorrhage and Sclera Anicteric
Cardiovascular: Regular Rate and S1/S2
Pulmonary: Rales (Right base crackles)
Gastrointestinal: Soft, Non Tender, Non Distended and Normal Bowel Sounds
Extremities: Negative Edema
Neurological: AO x 3
Objective Data
Lab Data
Lab Results
04/18/25 07:14
04/18/25 07:14
Estimated Creat Clear 94 ml/min 04/18/25 07:14
Lactic Acid Cancelled 04/10/25 20:00
Total Bilirubin 1.3 mg/dl (0.2-1.3) 04/10/25 16:00
AST 19 U/L (14-36) 04/10/25 16:00
ALT 33 U/L (0-35) 04/10/25 16:00
Alkaline Phosphatase 103 U/L (38-126) 04/10/25 16:00
Most recent labs reviewed.
Micro Results:
04/17/25 09:23 Respiratory Culture - Preliminary
Bronch Right Lower Lobe NO GROWTH
Gram Stain - Preliminary
04/17/25 09:23 Respiratory Culture - Preliminary
Bronch Washing Usual Respiratory Meme
Gram Stain - Preliminary
04/16/25 08:30 MRSA Screen - Final
Nose No Methicillin Resistant Staphylococcus aureus isolated.
04/17/25 09:23 Fungal Culture - Preliminary
Bronch Washing Culture in progress.
Positive cultures are reported as soon as detected.
Final report to follow in four to five weeks.
04/17/25 09:23 Fungal Culture - Preliminary
Bronch Right Lower Lobe Culture in progress.
Positive cultures are reported as soon as detected.
Final report to follow in four to five weeks.
04/17/25 09:23 Acid Fast Bacilli Smear - Pending
Bronch Washing Acid Fast Bacilli Culture - Pending
04/17/25 09:23 Acid Fast Bacilli Smear - Pending
Bronch Right Lower Lobe Acid Fast Bacilli Culture - Pending
04/15/25 22:18 Nasal Screen MRSA (PCR) - Final
Nose
04/10/25 17:02 Blood Culture - Final
Blood/Venous No Growth - Final Report
04/10/25 16:00 Blood Culture - Final
Blood/Venous No Growth - Final Report
04/11/25 11:37 Legionella Urinary Antigen - Final
Urine Negative for Legionella pneumophila Serogroup 1 antigen.
A negative result does not rule out the possiblity of
Legionella infection due to other serogroups or species of
Legionella. Clinical correlation is recommended.
Streptococcus pneumoniae Antigen (M - Final
Negative for Streptococcus pneumoniae antigen.
A negative result does not exclude infection with
Streptococcus pneumoniae. Clinical correlation is
recommended.
04/10/25 16:43 Urine Culture - Final
Urine NO GROWTH
04/10/25 16:00 Influenza Types A & B (MICHAEL) - Final
Nasal Swab Negative for Influenza A & B, NAAT
Negative results must be combined with clinical observations
and patient history.
Nucleic Acid Amplification test (NAAT)performed on the
[employer] platform.
Imaging:
04/15/25 CT chest wo contrast: Masslike consolidation right lower lobe measuring up to 8.3 cm in diameter as above. This shows small internal area of cavitation. Given the interval change of radiographs from 03/17/2025 2 04/13/2025, infectious
etiology is considered most likely. Evaluation is however limited at noncontrast exam and mass with postobstructive consolidation/pneumonitis is not definitively excluded. Right middle lobe 1.5 cm nodule which is suspicious for either metastasis or
primary pulmonary malignancy. Nodule along the pleura posterior inferior right hemithorax measuring up to 2.8 cm in diameter as above, suspicious for pleural metastatic lesion.
04/13/25: CXR: There is slightly increased size of the right perihilar masslike opacity with a new right basilar infiltrate. Findings may represent worsening infection although a mass with postobstructive pneumonia is possible. Recommend continued
follow-up.
04/10/25 CXR: Short-term interval development of a 6.5 cm rounded opacity superimposed in the right hilar region. This is likely related to an infectious etiology, such as round pneumonia, though follow-up would be necessary after conservative
therapy to assess resolution. Possible trace right pleural effusion. Otherwise, no significant change in 1.5 cm right lower lobe nodule.
[2025-04-18] MEDS: CYKLOKAPRON 1300 MG PO (10:45)
--- NOTE | 2025-04-18 11:19 | W.PN.HOSP.TC ---
Today's Communication/Plan
-
await culture/cytology results from bronch
continue Abx, anti-fungals per ID
2 units PRBC ordered
Assessment / Plan
Assessment / Plan
Ms. Dariana Cho is a 64 yo woman with hx stage IIIA breast cancer s/p chemo and radiation (completed 07/07), hypoplastic MDS with transfusion requirements, recent admission 03/17-03/23/25 for neutropenic fever (found to have streptococcal
bacteremia likely 2/2 RML pneumonia/sinusitis and prescribed Augmentin on DC through 03/30/25) sent to the ER for recurrent fevers/chills.
Flu and Covid negative
CXR 04/10/25
IMPRESSION:
Short-term interval development of a 6.5 cm rounded opacity superimposed in the right hilar region. This is likely related to an infectious etiology, such as round pneumonia, though follow-up would be necessary after conservative therapy to assess
resolution. Possible trace right pleural effusion.
Otherwise, no significant change in 1.5 cm right lower lobe nodule.
CXR 04/13/25
IMPRESSION:
There is slightly increased size of the right perihilar masslike opacity with a new right basilar infiltrate. Findings may represent worsening infection although a mass with postobstructive pneumonia is possible. Recommend continued follow-up.
Small bilateral pleural effusions.
Assessment:
Neutropenic Fever
Community Acquired Pneumonia
Recent admission for Neutropenic Fever with Strep Mitis/Oralis Bacteremia
- ID following; s/p Cefepime/Doxy 7 days. Continue Merrem day 2.
- fungal workup (Aspergillus galactomannan assay and Fungitell) pending. continue Micafungin, day 2
- CXR 04/13: slightly increased size of the right perihilar masslike opacity with a new right basilar infiltrate
- CT chest 04/15: Masslike consolidation right lower lobe measuring up to 8.3 cm. Right middle lobe 1.5 cm nodule which is suspicious for either metastasis or primary pulmonary malignancy.
- s/p Bronch with BAL on 04/17: cultures/cytology pending. Procedure aborted earlier due to airway edema/bleeding. Unable to proceed with transbronchial biopsy. May need transcutaneous bx with IR
- pulmonary following
MDS, Transfusion Dependent
Pancytopenia
- patient has hx PLT refractoriness requiring HLA matched PLT; additionally she has prior transfusion reactions and needs Tylenol + Benadryl + Solucortef pre PLT transfusions
- transfuse for PLT <10; Hg <7.
- s/p 5 unit PLT
- s/p 1 unit PRBC; Hb 6.6 likely from bleeding from bronch. addition 2 units ordered with pre-treatment today
- follow CBC
- Oncology consult appreciated; -appreciate Dr. Knight's note - 'Plan to hold cycle 4 of Vidaza until counts begin to recover. If no recovery by Thanksgiving, then will repeat bone marrow biopsy at that time to eval for progression.'
- continue [employer] Acyclovir for PPx
- PT ordered difficult social situation as patient lives with her elderly mother who has dementia and has no one to help support her - SNF recommended
Sinus Tachycardia
- EKG's and case reviewed briefly with Cardiology. Likely in response to anemia and underlying illness as well as pain
- continue newly started Metoprolol 25mg PO BID - patient tolerating, can consider uptitration
chronic back pain
- no mid spine pain on exam
- continue PRN Oxycodone, prn Morphine added
- lidocaine patch
- Ice PRN
- continue Gabapentin 100mg TID; consider titration
- MRI L spine: acute moderate compression deformities of the L1 and L2 vertebral bodies as well as mild compression deformities of T12 and L4. There are no definite associated osseous metastasis. Multilevel degenerative changes most pronounced at
L3-L4 there is resultant mild/moderate right-sided neuroforaminal narrowing and moderate left-sided neuroforaminal narrowing.
- Vit D 25.5; replacement added
Hx Breast CA
- completed AC-T 04/2024, completed XRT Jun 2024
Hypokalemia
- replete prn
Gum bleeding due to thrombocytopenia
- prn TXA
DVT ppx: SCDs
Code: DNR/DNI per discussion at time of admission
Anticipated Discharge: > 48 hours
Subjective/Interval History
-
Date of Service: April 18, 2025
s/p bronch 04/17
no hemoptysis
requesting something stronger for pain
Objective Data
-
Labs:
Laboratory Results
04/18/25
07:14
WBC 0.3 L*
Hgb 6.6 L*
Hct 20.5 L*
Plt Count 45 L D
Sodium 135
Potassium 3.4 L
Chloride 97 L
Carbon Dioxide 36 H
BUN 17
Creatinine 0.4 L
Glucose 120 H
Calcium 8.2 L
Vital Signs:
Vital Signs
Temp Pulse Resp BP Pulse Ox
99.0 F 113 17 111/64 91
04/18/25 07:09 04/18/25 09:07 04/18/25 07:09 04/18/25 09:07 04/18/25 07:09
I&O
04/17/25 04/18/25 04/19/25
06:59 06:59 06:59
Intake Total 480 / 480 1130 / 1130
Balance 480 / 480 1130 / 1130
Physical Exam
-
General: No Apparent Distress
HEENT: Normocephalic and Atraumatic
Respiratory: Decreased Breath Sounds; Negative Wheezes
Cardiac: Regular Rhythm and S1/S2
GI: Soft and Nontender
Neuro: AO x 3
Psych: Calm
Data Reviewed
-
Total Time Spent with Patient (in minutes): 45
Labs: Labs Reviewed by me
[2025-04-18] MEDS: VITAMIN D3 (cholecalciferol) 125 MCG PO (12:30)
[2025-04-18] MEDS: ROXANOL ORAL CONCENTRATE 10 MG PO (12:31)
[2025-04-18] MEDS: BENADRYL 25 MG IV ×2 (14:15→21:08)
[2025-04-18] MEDS: SOLU-CORTEF 200 MG IV ×2 (14:16→21:08)
--- NOTE | 2025-04-18 16:00 | CM ---
CM called to patient to review options for SNF referrals. Patient stated she had some ideas but was unable to locate her list and asked CM to call her back.
[2025-04-18] MEDS: MIRALAX 17 GRAMS PO (17:10)
[2025-04-18] MEDS: SOLU-CORTEF IV (19:52)
[2025-04-18] MEDS: BENADRYL IV (19:53)
[2025-04-18] MEDS: LOPRESSOR PO (19:59)
[2025-04-18] MEDS: REMOVE LIDOCAINE PATCH 1 PATCH REMOVE (21:08)
[2025-04-19] MEDS: STERILE WATER FOR INJECTION 10 ML IV ×2 (01:44→05:19)
[2025-04-19] MEDS: DILAUDID 0.5 MG IV ×5 (01:44→23:33)
[2025-04-19] MEDS: MERREM 500 MG IV ×2 (01:44→05:19)
[2025-04-19 03:29] VITALS: BP 120/81
[2025-04-19] MEDS: ROXICODONE 10 MG PO ×3 (05:19→19:15)
[2025-04-19 06:41] LABS: Hematocrit 27.6 % (37.0-47.0); Hemoglobin 9.8 g/dL (12.0-16.0); Mean Corp Hgb Conc. 35.5 g/dL (33.0-37.0); Mean Corpuscular Volume 85.2 fL (81.0-99.0); Nucleated Red Blood Cells % 0 %; Platelet Count 32 10^3/uL (130-400); Red Cell Dist. Width 12.6 % (11.5-14.5)
[2025-04-19 07:16] LABS: Blood Urea Nitrogen 20 mg/dl (7-17); Calcium 8.1 mg/dl (8.4-10.2); Carbon Dioxide 33 mmol/L (22-30); Chloride 98 mmol/L (98-107); Estimated Creatinine Clearance 94 ml/min; Glucose 153 mg/dl (70-99); Potassium 3.8 mmol/L (3.5-5.1); Sodium 136 mmol/L (135-145); eGFR > 60.00
[2025-04-19 08:00] VITALS: BP 118/69
[2025-04-19] MEDS: VITAMIN D3 (cholecalciferol) 125 MCG PO (08:30)
[2025-04-19] MEDS: MUCINEX 600 MG PO ×2 (08:30→19:11)
[2025-04-19] MEDS: PROTONIX 20 MG PO (08:30)
[2025-04-19] MEDS: ZOVIRAX 400 MG PO ×2 (08:30→19:11)
[2025-04-19] MEDS: NEURONTIN 100 MG PO ×3 (08:31→21:41)
[2025-04-19] MEDS: LIDOCAINE 4% PATCH 1 PATCH TOPICAL (08:31)
[2025-04-19] MEDS: LOPRESSOR 25 MG PO ×2 (08:31→19:12)
--- NOTE | 2025-04-19 08:36 | W.PN.ONC2 ---
Today's Communication / Plan
-
.
Impression
Impression
1.combination of cytogenetic/molecular abnormalities and biweekly transfusion requirement were felt to be most consistent with MDS rather than CCUS
transfuse HLA matched platelets <10, <20 for neutropenic fever, <50 prn bleeding - Tylenol+Benadryl+Solucortef pre-plt transfusion
tranexamic acid 1300mg PO BID prn mucosal bleeding
Transfuse Hgb <7 or as needed for sxs anemia -Tylenol+Benadryl pre-PRBC transfusion
sxs support with antiemetics prn
on acyclovir
2. Hx stage IIIA metaphasic right breast cancer with squamous differentiation, ER positive -completed AC-T 04/2024, completed XRT Jun 2024
3. neutropenic fever/PNA -abx per ID, follow cultures
4. hyponatremia resolved
5. back pain - Feb 2025 L spine xray showed a mild compression fracture of the L1 vertebral body -MRI L spine shows no mets; benign compression fxs
6. abnormal CT chest -RLL mass like consolidation 8.3cm with cavitation, RML 1.56cm nodule, nodule along the pleura 2.8cm
-bronch cytology negative for malignancy
Plan
Plan
daily CBC, neutropenic precautions, transfuse prn,
abx and antifungal per ID
f/u broch cultures
hold Vidaza until counts begin to recover. If no recovery by Thanksgiving, then will repeat bone marrow biopsy at that time to eval for progression.
transfuse platelets <20 with NF, <50 if bleeding
transfuse Hgb <7 or as needed for sxs anemia
CMV negative products
Pt will continue with OP transfusion support 2-3 days/week upon discharge -labs will need to be checked at [facility] and sent to the office for review and we will arrange for transfusion prn
pulmonary and ID following
Subjective/Objective
Subjective
afebrile since 04/18
4L NC
using Tylenol, gabapentin, hydromorphone, and lidocaine patch for back pain
Vital Signs:
Vital Signs
Temp Pulse Resp BP Pulse Ox
97.8 F 110 16 118/69 96
04/19/25 03:29 04/19/25 08:31 04/19/25 03:29 04/19/25 08:31 04/19/25 03:29
Lab Results:
Laboratory Data
WBC 0.3 10^3/uL (4.8-10.8) L* 04/19/25 06:06
Hgb 9.8 g/dL (12.0-16.0) L D 04/19/25 06:06
Plt Count 32 10^3/uL (130-400) L D 04/19/25 06:06
eGFR > 60.00 04/19/25 06:06
Physical Exam
HEENT: Moist Mucous Membranes; No Jaundice
Pulmonary: Other (unlabored)
GI: Soft
Extremities: Pulses Present; No Edema
--- NOTE | 2025-04-19 09:54 | W.PN.HOSP.TC ---
Today's Communication/Plan
-
pain regimen outlined with patient and RN
bowel regimen
Abx/anti-fungals per ID pending BAL results/cultures
Assessment / Plan
Assessment / Plan
Ms. Dariana Cho is a 64 yo woman with hx stage IIIA breast cancer s/p chemo and radiation (completed 07/07), hypoplastic MDS with transfusion requirements, recent admission 03/17-03/23/25 for neutropenic fever (found to have streptococcal
bacteremia likely 2/2 RML pneumonia/sinusitis and prescribed Augmentin on DC through 03/30/25) sent to the ER for recurrent fevers/chills.
Flu and Covid negative
CXR 04/10/25
IMPRESSION:
Short-term interval development of a 6.5 cm rounded opacity superimposed in the right hilar region. This is likely related to an infectious etiology, such as round pneumonia, though follow-up would be necessary after conservative therapy to assess
resolution. Possible trace right pleural effusion.
Otherwise, no significant change in 1.5 cm right lower lobe nodule.
CXR 04/13/25
IMPRESSION:
There is slightly increased size of the right perihilar masslike opacity with a new right basilar infiltrate. Findings may represent worsening infection although a mass with postobstructive pneumonia is possible. Recommend continued follow-up.
Small bilateral pleural effusions.
Assessment:
Neutropenic Fever
Community Acquired Pneumonia
Recent admission for Neutropenic Fever with Strep Mitis/Oralis Bacteremia
- ID following; s/p Cefepime/Doxy 7 days. Continue Merrem day 3.
- fungal workup (Aspergillus galactomannan assay and Fungitell) pending. continue Micafungin, day 3
- CXR 04/13: slightly increased size of the right perihilar masslike opacity with a new right basilar infiltrate
- CT chest 04/15: Masslike consolidation right lower lobe measuring up to 8.3 cm. Right middle lobe 1.5 cm nodule which is suspicious for either metastasis or primary pulmonary malignancy.
- s/p Bronch with BAL on 04/17: cultures/cytology pending. Procedure aborted earlier due to airway edema/bleeding. Unable to proceed with transbronchial biopsy. May need transcutaneous bx with IR
- pulmonary following
MDS, Transfusion Dependent
Pancytopenia
- patient has hx PLT refractoriness requiring HLA matched PLT; additionally she has prior transfusion reactions and needs Tylenol + Benadryl + Solucortef pre PLT transfusions
- transfuse for PLT <10; Hg <7.
- s/p 5 unit PLT
- s/p 3 unit PRBC total (including 2 units for Hb 6.6 from bleeding from bronch). Hb is 9.8 today.
- follow CBC
- Oncology consult appreciated; -appreciate Dr. Knight's note - 'After discussion with [place] Oncologist Dr. Javier, Plan to hold cycle 4 of Vidaza until counts begin to recover. If no recovery by Thanksgiving, then will repeat bone marrow biopsy at
that time to eval for progression.'
- continue [employer] Acyclovir for PPx
- PT ordered difficult social situation as patient lives with her elderly mother who has dementia and has no one to help support her - SNF recommended
Sinus Tachycardia
- EKG's and case reviewed briefly with Cardiology. Likely in response to anemia and underlying illness as well as pain
- continue newly started Metoprolol 25mg PO BID - patient tolerating, can consider uptitration
chronic back pain
- MRI L spine: acute moderate compression deformities of the L1 and L2 vertebral bodies as well as mild compression deformities of T12 and L4. There are no definite associated osseous metastasis. Multilevel degenerative changes most pronounced at
L3-L4 there is resultant mild/moderate right-sided neuroforaminal narrowing and moderate left-sided neuroforaminal narrowing.
- continue Oxycodone (moderate), Morphine (severe) and Dilaludid (intractable pain)
- concurrent bowel regimen with opiates
- continue lidocaine patch
- Ice PRN
- continue Gabapentin 100mg TID; consider titration
- Vit D 25.5; replacement added
Hx Breast CA
- completed AC-T 04/2024, completed XRT Jun 2024
Hypokalemia
- replete prn
Gum bleeding due to thrombocytopenia
- prn TXA
DVT ppx: SCDs
Code: DNR/DNI per discussion at time of admission
Anticipated Discharge: > 48 hours
Subjective/Interval History
-
Date of Service: April 19, 2025
reports pain is 8/10 but is able to sit in chair for first time in several days
no temps > 100.0 in last 24 hours
Hb 9.8
Objective Data
-
Labs:
Laboratory Results
04/19/25
06:06
WBC 0.3 L*
Hgb 9.8 L D
Hct 27.6 L
Plt Count 32 L D
Sodium 136
Potassium 3.8
Chloride 98
Carbon Dioxide 33 H
BUN 20 H
Creatinine 0.3 L
Glucose 153 H
Calcium 8.1 L
Vital Signs:
Vital Signs
Temp Pulse Resp BP Pulse Ox
98.3 F 110 18 118/69 94
04/19/25 08:00 04/19/25 08:31 04/19/25 08:00 04/19/25 08:31 04/19/25 08:00
I&O
04/18/25 04/19/25 04/20/25
06:59 06:59 06:59
Intake Total 1130 / 1130 670 / 670
Balance 1130 / 1130 670 / 670
Physical Exam
-
General: No Apparent Distress
HEENT: Normocephalic and Atraumatic
Respiratory: Negative Wheezes
Cardiac: Regular Rhythm and S1/S2
GI: Soft and Nontender
Neuro: AO x 3
Psych: Calm
Data Reviewed
-
Total Time Spent with Patient (in minutes): 42
Labs: Labs Reviewed by me
[2025-04-19] MEDS: ROXANOL ORAL CONCENTRATE 10 MG PO ×2 (10:30→23:41)
[2025-04-19] MEDS: SENOKOT 8.6 MG PO (10:30)
--- NOTE | 2025-04-19 11:24 | W.PN.PUL3 ---
Today's Communication / Plan
-
Continue current antibiotics
Monitor for fevers
Chest x-ray on Tuesday
Will see again on Tuesday
Call with questions over the weekend
Assessment
-
64-year-old woman with history of a stage IIIa breast cancer status postchemotherapy and radiation completed in June 2024, hypoplastic MDS transfusion dependent, admission in early March for pneumonia and bacteremia with Streptococcus.
Completed Augmentin 03/30/2025. Returns to the emergency room complaining of fevers and not feeling well. Started on antibiotics. Due to prolonged neutropenia and ongoing fevers, worsening right sided infiltrate CT chest performed 04/15/2025 and
showed large right perihilar/pleural-based large masslike opacity with cavitation-consulted for evaluation.
Abnormal CT chest 04/15/2025: Right sided masslike opacity about 8 cm with associated small pleural effusion and satellite pulmonary nodules. Surrounding 04/15/2025 ground glass opacities may be postobstructive.
Neutropenic fever-ongoing
Pancytopenia
Severe thrombocytopenia <20k
Conditions present prior admission:
Stage IIIa breast cancer status post chemoradiation June 2024
Hypoplastic MDS transfusion dependent
on Vidaza - follows at [facility]
Admission to [facility] 03/17/2020 25-10 05/02/2025 neutropenic fever-streptococcal bacteremia with right middle lobe pneumonia. Completed antibiotics 03/30/2025.
Chronic back pain
DNR status
Assessment and plan:
Worsening right-sided infiltrate despite antibiotic therapy.
With prolonged neutropenia-transfusion dependency due to MDS.
Microbiology evaluation so far negative.
Opportunistic infection possible including fungal/Mucor etc.
-
Check serum Aspergillus galactomannan assay and Fungitell-result pending
Status post bronchoscopy: BAL, washings performed. 04/17/[address] Guerrero
Procedure aborted early due to significant development of erythema, petechiae and bruising in the airway during the procedure.
Sample sent: Gram stain, fungal, cell count, cytology.
No organisms seen so far
No white blood cells on Gram stain seen
Cytology: Silver stain negative for fungal or pneumocystis.
Cell count noted with no white blood cells and reflection of severe neutropenia
No organisms seen on Gram stain so far
BAL galactomannan also sent.-Pending
-
If cultures negative can consider percutaneous biopsy-if clinically continues to worsen. Will be an ongoing discussion.
-
MDS:
Remains pancytopenic.
Transfuse as necessary per hematology.
? Is the patient resistant to therapy--unclear whether she is going to recover.
Neutropenic precaution
-
Back pain with compression fractures.
Continue narcotic
Watch respiratory status closely.
-
She states that she does not have any family members other than her mother. She makes her own decisions-discussed with her on 04/17/2025 prior bronchoscopy.
Did not want me to contact any other family members at this point.
-
Antibiotics per infectious disease: Micafungin/meropenem
No longer febrile-continue to monitor
White blood cell count has not recovered.
Follow fever curve [id number] fever yesterday may have been postprocedure.
Continue to monitor.
Will repeat chest x-ray on Tuesday.
-
Continue oxygen therapy currently at 4 L-this has been stable.
Encourage incentive spirometry
Chest x-ray on as-needed basis
-
Improved prognosis.
DNR
-
Dr. Guerrero updated cousin over the phone on 04/19/2025.
Will see again on Tuesday. Please call with questions over the weekend.
Subjective Data
-
Date of Service:
Date of Service: April 19, 2025
Chief Complaint: Pulmonary Follow Up (Neutropenic fever-pneumonia)
Subjective:
Continues to report back pain
No shortness of breath at rest
Patient feels debilitated
Review of Systems
General: Fever (n)
Cardiopulmonary: Dyspnea, Dyspnea on Exertion and Cough
Objective Data
Data Reviewed
Vital Signs / I&O / Oxygen:
Vital Signs
Temp Pulse Resp BP Pulse Ox
98.3 F 110 18 118/69 94
04/19/25 08:00 04/19/25 08:31 04/19/25 08:00 04/19/25 08:31 04/19/25 08:00
Intake and Output
04/18/25 04/19/25 04/20/25
06:59 06:59 06:59
Intake Total 1130 / 1130 670 / 670
Balance 1130 / 1130 670 / 670
SaO2 94
Nasal Cannula flow liters per 4
minute
Physical Exam
General: Comfortable
HEENT: Normocephalic
Cardiovascular: S1-S2
Respiratory: Clear
GI: Soft and Non Distended
Neurology: Awake, Alert and Oriented
Skin: Warm
Labs/Micro/Reports
Lab Data
04/19/25 06:06
04/19/25 06:06
Microbiology
04/17/25 09:23 Bronch Right Lower Lobe Respiratory Culture - Final
NO GROWTH
04/17/25 09:23 Bronch Right Lower Lobe Gram Stain - Final
04/17/25 09:23 Bronch Washing Respiratory Culture - Final
Usual Respiratory Vilma
04/17/25 09:23 Bronch Washing Gram Stain - Final
04/16/25 08:30 Nose MRSA Screen - Final
No Methicillin Resistant Staphylococcus aureus isolated.
04/17/25 09:23 Bronch Washing Fungal Culture - Preliminary
Culture in progress.
Positive cultures are reported as soon as detected.
Final report to follow in four to five weeks.
04/17/25 09:23 Bronch Right Lower Lobe Fungal Culture - Preliminary
Culture in progress.
Positive cultures are reported as soon as detected.
Final report to follow in four to five weeks.
04/15/25 22:18 Nose Nasal Screen MRSA (PCR) - Final
[2025-04-19] MEDS: MYCAMINE 105 MG IV (11:55)
[2025-04-19 12:20] VITALS: BP 126/82
--- NOTE | 2025-04-19 12:48 | W.PN.ID1 ---
Date of Service
Date of Service: April 19, 2025
Today's Communication
DC meropenem.
Continue micafungin.
Assessment / Plan
# Neutropenic fever
Afebrile overnight
prolonged neutropenia
# PNA, RLL lung mass with cavitation, pulm nodules
# Recent Strep mitis/oralis bacteremia (03/17/25)
no oral pain/lesions at present
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
# Hx Stage III right breast cancer status post lumpectomy, chemo and radiation completed June 2024
# Chronic back pain - MRI lumbar spine acute compression fx, no osseus mets.
- blood cx's neg
- Ucx neg
- urine legionella Ag, Urine Strep pneumoniae Ag: negative
- Repeat CXR 04/13 increase right perihilar mass-like opacity with new right base infiltrate
- 04/15 CT chest without contrast: 8.3 cm mass like consolidation with small internal area of cavitation. Right lung nodules which is suspicious for either metastasis or primary pulmonary malignancy.
- Procalcitonin 0.98 -> not specific test; can be false positive in setting of malignancy
- serum Aspergillus galactomannan assay: NEGATIVE
- serum Fungitell: POSITIVE 256
- Appreciate Pulm. s/p bronchoscopy 04/17/25
Bronch silver stain: NEGATIVE PJP
Bronch cytology: NEGATIVE malignant cells
Bronch respiratory cx #1 NO Growth; #1 usual resp meme
Bronch fungal smear/cx's pending
Bronch Aspergillus galactomannan pending
Bronch 1,3 B-D-Glucan pending
Bronch AFB smear/cx pending
- s/p cefepime 2g IV q8h (d#7) and doxycycline(d7)
- DC empiric meropenem 500mg IV q6h (d3) as bronch cx neg
- Resume prophylactic levofloxacin 500mg qhs and continue acyclovir.
- Continue empiric micafungin 100mg IV q24 (d3) to cover possible aspergillus pending bronch fungal cx
- Follow temps
����������������������������������������������������������
Chief Complaint
-: Fever and Pneumonia
Subjective / Review of Systems
Fell asleep on site monitor, now with right lower chest discomfort.
c/o constipation.
Vital Signs / Physical Exam
Vital Signs
Vital Signs
Temp Pulse Resp BP Pulse Ox
98.0 F 102 18 126/82 96
04/19/25 12:20 04/19/25 12:20 04/19/25 12:20 04/19/25 12:20 04/19/25 12:20
Physical Exam
Constitutional: No Acute Distress and Comfortable
Eyes: No Conjunctival Hemorrhage and Sclera Anicteric
Cardiovascular: Regular Rate and S1/S2
Pulmonary: Rales (Right base crackles)
Gastrointestinal: Soft, Non Tender, Non Distended and Normal Bowel Sounds
Extremities: Negative Edema
Neurological: AO x 3
Objective Data
Lab Data
Lab Results
04/19/25 06:06
04/19/25 06:06
Estimated Creat Clear 94 ml/min 04/19/25 06:06
Lactic Acid Cancelled 04/10/25 20:00
Total Bilirubin 1.3 mg/dl (0.2-1.3) 04/10/25 16:00
AST 19 U/L (14-36) 04/10/25 16:00
ALT 33 U/L (0-35) 04/10/25 16:00
Alkaline Phosphatase 103 U/L (38-126) 04/10/25 16:00
Most recent labs reviewed.
Micro Results:
04/17/25 09:23 Respiratory Culture - Final
Bronch Right Lower Lobe NO GROWTH
Gram Stain - Final
04/17/25 09:23 Respiratory Culture - Final
Bronch Washing Usual Respiratory Meme
Gram Stain - Final
04/16/25 08:30 MRSA Screen - Final
Nose No Methicillin Resistant Staphylococcus aureus isolated.
04/17/25 09:23 Fungal Culture - Preliminary
Bronch Washing Culture in progress.
Positive cultures are reported as soon as detected.
Final report to follow in four to five weeks.
04/17/25 09:23 Fungal Culture - Preliminary
Bronch Right Lower Lobe Culture in progress.
Positive cultures are reported as soon as detected.
Final report to follow in four to five weeks.
04/17/25 09:23 Acid Fast Bacilli Smear - Pending
Bronch Washing Acid Fast Bacilli Culture - Pending
04/17/25 09:23 Acid Fast Bacilli Smear - Pending
Bronch Right Lower Lobe Acid Fast Bacilli Culture - Pending
04/15/25 22:18 Nasal Screen MRSA (PCR) - Final
Nose
04/10/25 17:02 Blood Culture - Final
Blood/Venous No Growth - Final Report
04/10/25 16:00 Blood Culture - Final
Blood/Venous No Growth - Final Report
04/11/25 11:37 Legionella Urinary Antigen - Final
Urine Negative for Legionella pneumophila Serogroup 1 antigen.
A negative result does not rule out the possiblity of
Legionella infection due to other serogroups or species of
Legionella. Clinical correlation is recommended.
Streptococcus pneumoniae Antigen (M - Final
Negative for Streptococcus pneumoniae antigen.
A negative result does not exclude infection with
Streptococcus pneumoniae. Clinical correlation is
recommended.
04/10/25 16:43 Urine Culture - Final
Urine NO GROWTH
04/10/25 16:00 Influenza Types A & B (MICHAEL) - Final
Nasal Swab Negative for Influenza A & B, NAAT
Negative results must be combined with clinical observations
and patient history.
Nucleic Acid Amplification test (NAAT)performed on the
[employer] platform.
Imaging:
04/15/25 CT chest wo contrast: Masslike consolidation right lower lobe measuring up to 8.3 cm in diameter as above. This shows small internal area of cavitation. Given the interval change of radiographs from 03/17/2025 2 04/13/2025, infectious
etiology is considered most likely. Evaluation is however limited at noncontrast exam and mass with postobstructive consolidation/pneumonitis is not definitively excluded. Right middle lobe 1.5 cm nodule which is suspicious for either metastasis or
primary pulmonary malignancy. Nodule along the pleura posterior inferior right hemithorax measuring up to 2.8 cm in diameter as above, suspicious for pleural metastatic lesion.
04/13/25: CXR: There is slightly increased size of the right perihilar masslike opacity with a new right basilar infiltrate. Findings may represent worsening infection although a mass with postobstructive pneumonia is possible. Recommend continued
follow-up.
04/10/25 CXR: Short-term interval development of a 6.5 cm rounded opacity superimposed in the right hilar region. This is likely related to an infectious etiology, such as round pneumonia, though follow-up would be necessary after conservative
therapy to assess resolution. Possible trace right pleural effusion. Otherwise, no significant change in 1.5 cm right lower lobe nodule.
Care Review
Plan reviewed with: Physician (Drs. Kingsley Guadarrama and Cesar)
[2025-04-19] MEDS: STERILE WATER FOR INJECTION IV (13:07)
[2025-04-19] MEDS: MERREM IV (13:07)
[2025-04-19 16:03] VITALS: BP 140/85
--- NOTE | 2025-04-19 16:52 | CM ---
Patient referrals sent to [facility], leila Rain. [facility] declined patient, Neftali ramirez reviewing and Abdi brown Liaison indicated intrest but documented that they would follow with patient, no bed as of now.
CM will continue to follow for discharge planning needs.
Plan; SNF; pending medical treatment plan
[2025-04-19] MEDS: MIRALAX 17 GRAMS PO (18:28)
[2025-04-19] MEDS: SENOKOT 17.2 MG PO (19:11)
[2025-04-19 19:17] VITALS: BP 119/77
[2025-04-19] MEDS: REMOVE LIDOCAINE PATCH 1 PATCH REMOVE (20:09)
[2025-04-19] MEDS: LEVAQUIN 500 MG PO (21:41)
[2025-04-19 23:12] VITALS: BP 116/77
[2025-04-20] MEDS: DILAUDID 1 MG IV (00:24)
[2025-04-20] MEDS: ROXICODONE 10 MG PO (01:55)
[2025-04-20] MEDS: XANAX 0.25 MG PO (01:56)
[2025-04-20 03:10] VITALS: BP 107/62
[2025-04-20 07:53] VITALS: BP 113/67
[2025-04-20 08:18] LABS: Hematocrit 25.2 % (37.0-47.0); Hemoglobin 8.5 g/dL (12.0-16.0); Mean Corp Hgb Conc. 33.7 g/dL (33.0-37.0); Mean Corpuscular Volume 85.7 fL (81.0-99.0); Nucleated Red Blood Cells % 0 %; Red Cell Dist. Width 12.9 % (11.5-14.5)
[2025-04-20] MEDS: ZOVIRAX 400 MG PO ×2 (08:46→21:00)
[2025-04-20] MEDS: SENOKOT 17.2 MG PO ×2 (08:46→21:00)
[2025-04-20] MEDS: NEURONTIN 100 MG PO ×3 (08:46→21:05)
[2025-04-20] MEDS: MUCINEX 600 MG PO ×2 (08:46→21:00)
[2025-04-20] MEDS: PROTONIX PO ×2 (08:46→08:49)
[2025-04-20] MEDS: VITAMIN D3 (cholecalciferol) 125 MCG PO (08:46)
[2025-04-20] MEDS: LIDOCAINE 4% PATCH 1 PATCH TOPICAL (08:47)
[2025-04-20] MEDS: LOPRESSOR 25 MG PO ×2 (08:48→21:05)
[2025-04-20] MEDS: DILAUDID 0.5 MG IV ×3 (08:51→21:51)
[2025-04-20 08:56] LABS: Platelet Count 14 10^3/uL (130-400)
[2025-04-20 10:04] LABS: Blood Urea Nitrogen 16 mg/dl (7-17); Calcium 8.1 mg/dl (8.4-10.2); Carbon Dioxide 29 mmol/L (22-30); Chloride 97 mmol/L (98-107); Estimated Creatinine Clearance 94 ml/min; Glucose 122 mg/dl (70-99); Potassium 3.5 mmol/L (3.5-5.1); Sodium 130 mmol/L (135-145); eGFR > 60.00
[2025-04-20] MEDS: ROXANOL ORAL CONCENTRATE 10 MG PO (10:32)
[2025-04-20] MEDS: MYCAMINE 105 MG IV (10:33)
--- NOTE | 2025-04-20 11:34 | W.PN.ONC2 ---
Today's Communication / Plan
-
- remains afebrile x 48 hours.
- continue current anti-microbials per ID recs.
- no need for tranfusions today. CBC daily.
- ongoing pain management.
Impression
Impression
1.combination of cytogenetic/molecular abnormalities and biweekly transfusion requirement were felt to be most consistent with MDS rather than CCUS
transfuse HLA matched platelets <10, <20 for neutropenic fever, <50 prn bleeding - Tylenol+Benadryl+Solucortef pre-plt transfusion
tranexamic acid 1300mg PO BID prn mucosal bleeding
Transfuse Hgb <7 or as needed for sxs anemia -Tylenol+Benadryl pre-PRBC transfusion
sxs support with antiemetics prn
on acyclovir
2. Hx stage IIIA metaphasic right breast cancer with squamous differentiation, ER positive -completed AC-T 04/2024, completed XRT Jun 2024
3. neutropenic fever/PNA -abx per ID, follow cultures
4. hyponatremia resolved
5. back pain - Feb 2025 L spine xray showed a mild compression fracture of the L1 vertebral body -MRI L spine shows no mets; benign compression fxs
6. abnormal CT chest -RLL mass like consolidation 8.3cm with cavitation, RML 1.56cm nodule, nodule along the pleura 2.8cm
-bronch cytology negative for malignancy
Plan
Plan
daily CBC, neutropenic precautions, transfuse prn.
abx and antifungal per ID. bronch cultures NTD, fungal still pending.
hold Vidaza until counts begin to recover. If no recovery by Thanksgiving, then will repeat bone marrow biopsy at that time to eval for progression.
pt now afebrile x 48 hours. transfuse for plts < 10K, <50K if bleeding
transfuse Hgb <7 or as needed for sxs anemia
CMV negative products
Pt will continue with OP transfusion support 2-3 days/week upon discharge -labs will need to be checked at [facility] and sent to the office for review and we will arrange for transfusion prn
back pain due to non-pathologic compression fracture. ordered for PO morphine, oxycodone and IV dilaudid prn.
pulmonary and ID following
Subjective/Objective
Chief Complaint
PNA, MDS with pancytopenia
Subjective
pt continues on 4L NC. She remains afebrile x 48 hours. her biggest complaint this am is ongoing low back pain and now costal pain on right after sleeping on tele box.
Vital Signs:
Vital Signs
Temp Pulse Resp BP Pulse Ox
97.9 F 117 16 113/67 97
04/20/25 07:53 04/20/25 08:48 04/20/25 07:53 04/20/25 08:48 04/20/25 07:53
Lab Results:
Laboratory Data
WBC 0.3 10^3/uL (4.8-10.8) L* 04/20/25 07:38
Hgb 8.5 g/dL (12.0-16.0) L 04/20/25 07:38
Plt Count 14 10^3/uL (130-400) L* D 04/20/25 07:38
eGFR > 60.00 04/20/25 07:38
Physical Exam
HEENT: Moist Mucous Membranes; No Jaundice
Cardiology: Normal Sinus Rhythm
Pulmonary: Clear
Extremities: No Edema
Neuro: Non Focal
Review of Systems
Review of Systems
Constitutional: Reports Fatigue; Denies Fever
Respiratory: Reports Dyspnea
Cardiovascular: Reports Chest Pain
--- NOTE | 2025-04-20 11:35 | W.PN.HOSP.TC ---
Today's Communication/Plan
-
continue micafungin pending results; follow ID recs
Ensure
suppository; if no progress 04/20; then enema on 04/21
Assessment / Plan
Assessment / Plan
Ms. Dariana Cho is a 64 yo woman with hx stage IIIA breast cancer s/p chemo and radiation (completed 07/07), hypoplastic MDS with transfusion requirements, recent admission 03/17-03/23/25 for neutropenic fever (found to have streptococcal
bacteremia likely 2/2 RML pneumonia/sinusitis and prescribed Augmentin on DC through 03/30/25) sent to the ER for recurrent fevers/chills.
Flu and Covid negative
CXR 04/10/25
IMPRESSION:
Short-term interval development of a 6.5 cm rounded opacity superimposed in the right hilar region. This is likely related to an infectious etiology, such as round pneumonia, though follow-up would be necessary after conservative therapy to assess
resolution. Possible trace right pleural effusion.
Otherwise, no significant change in 1.5 cm right lower lobe nodule.
CXR 04/13/25
IMPRESSION:
There is slightly increased size of the right perihilar masslike opacity with a new right basilar infiltrate. Findings may represent worsening infection although a mass with postobstructive pneumonia is possible. Recommend continued follow-up.
Small bilateral pleural effusions.
Assessment:
Neutropenic Fever
Community Acquired Pneumonia
Recent admission for Neutropenic Fever with Strep Mitis/Oralis Bacteremia
- ID following; s/p Cefepime/Doxy 7 days. s/p 3 days Meropenem. Now back on prophylactic Levaquin.
- fungal workup (Aspergillus galactomannan assay and Fungitell) pending. continue Micafungin, day 4
- CXR 04/13: slightly increased size of the right perihilar masslike opacity with a new right basilar infiltrate
- CT chest 04/15: Masslike consolidation right lower lobe measuring up to 8.3 cm. Right middle lobe 1.5 cm nodule which is suspicious for either metastasis or primary pulmonary malignancy.
- s/p Bronch with BAL on 04/17: cultures/cytology pending. Procedure aborted earlier due to airway edema/bleeding. Unable to proceed with transbronchial biopsy. May need transcutaneous bx with IR
- pulmonary following
MDS, Transfusion Dependent
Pancytopenia
- patient has hx PLT refractoriness requiring HLA matched PLT; additionally she has prior transfusion reactions and needs Tylenol + Benadryl + Solucortef pre PLT transfusions
- transfuse for PLT <10; Hg <7.
- s/p 5 unit PLT; current count is 14
- s/p 3 unit PRBC total (including 2 units for Hb 6.6 from bleeding from bronch). Hb is 8.5 today.
- follow CBC
- Oncology consult appreciated; -appreciate Dr. Knight's note - 'After discussion with [place] [facility]ologist Dr. Javier, Plan to hold cycle 4 of Vidaza until counts begin to recover. If no recovery by Thanksgiving, then will repeat bone marrow biopsy at
that time to eval for progression.'
- continue [employer] Acyclovir for PPx
- PT ordered difficult social situation as patient lives with her elderly mother who has dementia and has no one to help support her - SNF recommended
Sinus Tachycardia
- EKG's and case reviewed briefly with Cardiology. Likely in response to anemia and underlying illness as well as pain
- continue newly started Metoprolol 25mg PO BID - patient tolerating, can consider uptitration
chronic back pain
- MRI L spine: acute moderate compression deformities of the L1 and L2 vertebral bodies as well as mild compression deformities of T12 and L4. There are no definite associated osseous metastasis. Multilevel degenerative changes most pronounced at
L3-L4 there is resultant mild/moderate right-sided neuroforaminal narrowing and moderate left-sided neuroforaminal narrowing.
- institute MS contin + prn Morphine
- concurrent bowel regimen with opiates
- continue lidocaine patch
- Ice PRN
- continue Gabapentin 100mg TID; consider titration
- Vit D 25.5; replacement added
Hx Breast CA
- completed AC-T 04/2024, completed XRT Jun 2024
Hypokalemia
- replete prn
Gum bleeding due to thrombocytopenia
- prn TXA
DVT ppx: SCDs
Code: DNR/DNI per discussion at time of admission
Anticipated Discharge: > 48 hours
Subjective/Interval History
-
Date of Service: April 20, 2025
no BM yet
reports 8/10 pain at times
no bleeding clinically
Hb 8.5
plts 14
Objective Data
-
Labs:
Laboratory Results
04/20/25
07:38
WBC 0.3 L*
Hgb 8.5 L
Hct 25.2 L
Plt Count 14 L* D
Sodium 130 L
Potassium 3.5
Chloride 97 L
Carbon Dioxide 29
BUN 16
Creatinine 0.3 L
Glucose 122 H
Calcium 8.1 L
Vital Signs:
Vital Signs
Temp Pulse Resp BP Pulse Ox
97.9 F 117 16 113/67 97
04/20/25 07:53 04/20/25 08:48 04/20/25 07:53 04/20/25 08:48 04/20/25 07:53
I&O
04/19/25 04/20/25 04/21/25
06:59 06:59 06:59
Intake Total 670 / 670 120 / 120
Balance 670 / 670 120 / 120
Physical Exam
-
General: No Apparent Distress
HEENT: Normocephalic and Atraumatic
Respiratory: Negative Wheezes
Cardiac: Regular Rhythm and S1/S2
GI: Soft and Nontender
Neuro: AO x 3
Psych: Calm
Data Reviewed
-
Total Time Spent with Patient (in minutes): 42
Labs: Labs Reviewed by me
--- NOTE | 2025-04-20 11:45 | W.PN.ID1 ---
Date of Service
Date of Service: April 20, 2025
Today's Communication
CXR
Continue micafungin.
Assessment / Plan
# Neutropenic fever
Afebrile
prolonged neutropenia
# PNA, RLL lung mass with cavitation, pulm nodules
# Recent Strep mitis/oralis bacteremia (03/17/25)
no oral pain/lesions at present
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
# Hx Stage III right breast cancer status post lumpectomy, chemo and radiation completed June 2024
# Chronic back pain - MRI lumbar spine acute compression fx, no osseus mets.
- blood cx's neg
- Ucx neg
- urine legionella Ag, Urine Strep pneumoniae Ag: negative
- Repeat CXR 04/13 increase right perihilar mass-like opacity with new right base infiltrate
- 04/15 CT chest without contrast: 8.3 cm mass like consolidation with small internal area of cavitation. Right lung nodules which is suspicious for either metastasis or primary pulmonary malignancy.
- Procalcitonin 0.98 -> not specific test; can be false positive in setting of malignancy
- serum Aspergillus galactomannan assay: NEGATIVE
- serum Fungitell: POSITIVE 256
- Appreciate Pulm. s/p bronchoscopy 04/17/25
Bronch silver stain: NEGATIVE PJP
Bronch cytology: NEGATIVE malignant cells
Bronch respiratory cx #1 NO Growth; #1 usual resp meme
Bronch fungal smear/cx's pending
Bronch Aspergillus galactomannan pending
Bronch 1,3 B-D-Glucan pending
Bronch AFB smear/cx pending
- New right lower chest wall pain
CXR 2V to assess progression of R lung mass
- s/p cefepime 2g IV q8h (d#7) and doxycycline(d7)
- s/p empiric meropenem 500mg IV q6h (3d)
- Continue empiric micafungin 100mg IV q24 (d4) to cover possible aspergillus pending bronch fungal cx. If mucor, change to liposomal ampho B.
- Follow temps
- Continue prophylactic levofloxacin 500mg qhs and po acyclovir.
����������������������������������������������������������
Chief Complaint
-: Pneumonia
Subjective / Review of Systems
Still with significant right lower chest pain after sleeping on equipment monitor phototypesetting 2 nights ago.
Vital Signs / Physical Exam
Vital Signs
Vital Signs
Temp Pulse Resp BP Pulse Ox
97.9 F 117 16 113/67 97
04/20/25 07:53 04/20/25 08:48 04/20/25 07:53 04/20/25 08:48 04/20/25 07:53
Physical Exam
Constitutional: No Acute Distress and Comfortable
Eyes: No Conjunctival Hemorrhage and Sclera Anicteric
Cardiovascular: Regular Rate and S1/S2
Pulmonary: Rales (Right base crackles) and Other (Right chest wall no erythema/ecchymosis)
Gastrointestinal: Soft, Non Tender, Non Distended and Normal Bowel Sounds
Extremities: Negative Edema
Neurological: AO x 3
Objective Data
Lab Data
Lab Results
04/20/25 07:38
04/20/25 07:38
Estimated Creat Clear 94 ml/min 04/20/25 07:38
Lactic Acid Cancelled 04/10/25 20:00
Total Bilirubin 1.3 mg/dl (0.2-1.3) 04/10/25 16:00
AST 19 U/L (14-36) 04/10/25 16:00
ALT 33 U/L (0-35) 04/10/25 16:00
Alkaline Phosphatase 103 U/L (38-126) 04/10/25 16:00
Most recent labs reviewed.
Micro Results:
04/17/25 09:23 Acid Fast Bacilli Smear - Preliminary
Bronch Washing Acid Fast Bacilli Culture - Preliminary
04/17/25 09:23 Acid Fast Bacilli Smear - Preliminary
Bronch Right Lower Lobe Acid Fast Bacilli Culture - Preliminary
04/17/25 09:23 Respiratory Culture - Final
Bronch Right Lower Lobe NO GROWTH
Gram Stain - Final
04/17/25 09:23 Respiratory Culture - Final
Bronch Washing Usual Respiratory Meme
Gram Stain - Final
04/16/25 08:30 MRSA Screen - Final
Nose No Methicillin Resistant Staphylococcus aureus isolated.
04/17/25 09:23 Fungal Culture - Preliminary
Bronch Washing Culture in progress.
Positive cultures are reported as soon as detected.
Final report to follow in four to five weeks.
04/17/25 09:23 Fungal Culture - Preliminary
Bronch Right Lower Lobe Culture in progress.
Positive cultures are reported as soon as detected.
Final report to follow in four to five weeks.
04/15/25 22:18 Nasal Screen MRSA (PCR) - Final
Nose
04/10/25 17:02 Blood Culture - Final
Blood/Venous No Growth - Final Report
04/10/25 16:00 Blood Culture - Final
Blood/Venous No Growth - Final Report
04/11/25 11:37 Legionella Urinary Antigen - Final
Urine Negative for Legionella pneumophila Serogroup 1 antigen.
A negative result does not rule out the possiblity of
Legionella infection due to other serogroups or species of
Legionella. Clinical correlation is recommended.
Streptococcus pneumoniae Antigen (M - Final
Negative for Streptococcus pneumoniae antigen.
A negative result does not exclude infection with
Streptococcus pneumoniae. Clinical correlation is
recommended.
04/10/25 16:43 Urine Culture - Final
Urine NO GROWTH
04/10/25 16:00 Influenza Types A & B (MICHAEL) - Final
Nasal Swab Negative for Influenza A & B, NAAT
Negative results must be combined with clinical observations
and patient history.
Nucleic Acid Amplification test (NAAT)performed on the
[employer] platform.
Imaging:
04/15/25 CT chest wo contrast: Masslike consolidation right lower lobe measuring up to 8.3 cm in diameter as above. This shows small internal area of cavitation. Given the interval change of radiographs from 03/17/2025 2 04/13/2025, infectious
etiology is considered most likely. Evaluation is however limited at noncontrast exam and mass with postobstructive consolidation/pneumonitis is not definitively excluded. Right middle lobe 1.5 cm nodule which is suspicious for either metastasis or
primary pulmonary malignancy. Nodule along the pleura posterior inferior right hemithorax measuring up to 2.8 cm in diameter as above, suspicious for pleural metastatic lesion.
04/13/25: CXR: There is slightly increased size of the right perihilar masslike opacity with a new right basilar infiltrate. Findings may represent worsening infection although a mass with postobstructive pneumonia is possible. Recommend continued
follow-up.
04/10/25 CXR: Short-term interval development of a 6.5 cm rounded opacity superimposed in the right hilar region. This is likely related to an infectious etiology, such as round pneumonia, though follow-up would be necessary after conservative
therapy to assess resolution. Possible trace right pleural effusion. Otherwise, no significant change in 1.5 cm right lower lobe nodule.
Care Review
Plan reviewed with: Physician (Dr. Kingsley Guadarrama)
[2025-04-20 11:53] VITALS: BP 136/88
[2025-04-20] MEDS: DULCOLAX 10 MG RECTAL (12:34)
[2025-04-20] MEDS: MS CONTIN (EXTENDED RELEASE) 15 MG PO ×2 (12:34→21:00)
[2025-04-20 15:11] VITALS: BP 118/69
[2025-04-20 19:16] VITALS: BP 125/77
[2025-04-20] MEDS: REMOVE LIDOCAINE PATCH 1 PATCH REMOVE (21:00)
[2025-04-20] MEDS: LEVAQUIN 500 MG PO (21:09)
[2025-04-20 23:24] VITALS: BP 103/54
[2025-04-21] MEDS: ROXANOL ORAL CONCENTRATE 10 MG PO ×3 (00:44→16:47)
[2025-04-21 03:43] VITALS: BP 112/65
[2025-04-21] MEDS: DILAUDID 0.5 MG IV ×2 (03:53→09:21)
[2025-04-21 05:35] LABS: Blood Urea Nitrogen 11 mg/dl (7-17); Calcium 7.8 mg/dl (8.4-10.2); Carbon Dioxide 32 mmol/L (22-30); Chloride 97 mmol/L (98-107); Estimated Creatinine Clearance 94 ml/min; Glucose 119 mg/dl (70-99); Hematocrit 24.1 % (37.0-47.0); Hemoglobin 8.2 g/dL (12.0-16.0); Mean Corp Hgb Conc. 34.0 g/dL (33.0-37.0); Mean Corpuscular Volume 85.8 fL (81.0-99.0); Nucleated Red Blood Cells % 0 %; Platelet Count 6 10^3/uL (130-400); Potassium 3.2 mmol/L (3.5-5.1); Red Cell Dist. Width 12.5 % (11.5-14.5); Sodium 129 mmol/L (135-145); eGFR > 60.00
[2025-04-21 08:30] VITALS: BP 113/68
[2025-04-21] MEDS: ZOVIRAX 400 MG PO ×2 (09:20→20:54)
[2025-04-21] MEDS: PROTONIX 20 MG PO (09:20)
[2025-04-21] MEDS: SENOKOT 17.2 MG PO ×2 (09:20→20:54)
[2025-04-21] MEDS: MS CONTIN (EXTENDED RELEASE) 15 MG PO ×2 (09:20→20:59)
[2025-04-21] MEDS: MUCINEX 600 MG PO ×2 (09:20→20:54)
[2025-04-21] MEDS: KCL 40 MEQ PO (09:21)
[2025-04-21] MEDS: LIDOCAINE 4% PATCH 1 PATCH TOPICAL (09:21)
[2025-04-21] MEDS: VITAMIN D3 (cholecalciferol) 125 MCG PO (09:21)
[2025-04-21] MEDS: NEURONTIN 100 MG PO ×3 (09:21→22:20)
[2025-04-21] MEDS: LOPRESSOR 25 MG PO ×2 (09:22→20:59)
--- NOTE | 2025-04-21 09:29 | W.PN.ID1 ---
Date of Service
Date of Service: April 21, 2025
Today's Communication
Start empiric liposomal ampho B.
Poor prognosis.
Assessment / Plan
# Neutropenic fever
fever
prolonged neutropenia
# PNA, RLL lung mass with cavitation, pulm nodules - rapidly progressing
# Recent Strep mitis/oralis bacteremia (03/17/25)
no oral pain/lesions at present
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
# Hx Stage III right breast cancer status post lumpectomy, chemo and radiation completed June 2024
# Chronic back pain - MRI lumbar spine acute compression fx, no osseus mets.
- blood cx's neg
- Ucx neg
- urine legionella Ag, Urine Strep pneumoniae Ag: negative
- Procalcitonin 0.98 -> not specific test; can be false positive in setting of malignancy
- Repeat CXR 04/13 increase right perihilar mass-like opacity with new right base infiltrate
- 04/15 CT chest without contrast: 8.3 cm mass like consolidation with small internal area of cavitation. Right lung nodules which is suspicious for either metastasis or primary pulmonary malignancy.
- serum Aspergillus galactomannan assay: NEGATIVE
- serum Fungitell: POSITIVE 256
- Appreciate Pulm. s/p bronchoscopy 04/17/25
Bronch silver stain: NEGATIVE PJP
Bronch cytology: NEGATIVE malignant cells
Bronch respiratory cx #1 NO Growth; #1 usual resp meme
Bronch fungal smear/cx's pending
Bronch Aspergillus galactomannan pending
Bronch 1,3 B-D-Glucan pending
Bronch AFB smear/cx pending
- New right lower chest wall pain
04/20 CXR: Progressed findings suggesting severe mid and lower right lung pneumonia.
Spoke to micro, fungal cx neg to date.
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
DC micafungin (4d)
Start empiric liposomal amphotericin B 5mg/kg IV q24.
Monitor closely for toxicities - rigors, electrolyte abnormalities, nephrotoxicities.
- s/p cefepime 2g IV q8h (d#7) and doxycycline(d7)
- s/p empiric meropenem 500mg IV q6h (3d)
- Continue prophylactic levofloxacin 500mg qhs and po acyclovir.
- Overall poor prognosis.
Patient is leaning towards hospice. She will also discuss with Hem/Onc
At this time, she wishes for pain control.
����������������������������������������������������������
Chief Complaint
-: Pneumonia
Subjective / Review of Systems
C/o severe right chest wall pain.
She 'just wants to be comfortable' right now.
She is considering hospice if no improvement and/or dx of lung mass.
Vital Signs / Physical Exam
Vital Signs
Vital Signs
Temp Pulse Resp BP Pulse Ox
97.3 F 114 16 113/68 93
04/21/25 08:30 04/21/25 09:22 04/21/25 08:30 04/21/25 09:22 04/21/25 08:30
Physical Exam
Constitutional: Chronically Ill; Negative Comfortable
Eyes: No Conjunctival Hemorrhage and Sclera Anicteric
Cardiovascular: S1/S2 (Tachycardic)
Pulmonary: Rales (right lung crackles)
Gastrointestinal: Soft, Non Tender, Non Distended and Normal Bowel Sounds
Genito-Urinary: Negative CVA Tenderness
Neurological: AO x 3
Lines: Port (left chest wall - no accessed)
Objective Data
Lab Data
Lab Results
04/21/25 04:26
04/21/25 04:26
Estimated Creat Clear 94 ml/min 04/21/25 04:26
Lactic Acid Cancelled 04/10/25 20:00
Total Bilirubin 1.3 mg/dl (0.2-1.3) 04/10/25 16:00
AST 19 U/L (14-36) 04/10/25 16:00
ALT 33 U/L (0-35) 04/10/25 16:00
Alkaline Phosphatase 103 U/L (38-126) 04/10/25 16:00
Most recent labs reviewed.
Micro Results:
04/21/25 06:48 Respiratory Culture - Final
Sputum Gram Stain - Final
04/17/25 09:23 Acid Fast Bacilli Smear - Preliminary
Bronch Washing Acid Fast Bacilli Culture - Preliminary
04/17/25 09:23 Acid Fast Bacilli Smear - Preliminary
Bronch Right Lower Lobe Acid Fast Bacilli Culture - Preliminary
04/17/25 09:23 Respiratory Culture - Final
Bronch Right Lower Lobe NO GROWTH
Gram Stain - Final
04/17/25 09:23 Respiratory Culture - Final
Bronch Washing Usual Respiratory Meme
Gram Stain - Final
04/16/25 08:30 MRSA Screen - Final
Nose No Methicillin Resistant Staphylococcus aureus isolated.
04/17/25 09:23 Fungal Culture - Preliminary
Bronch Washing Culture in progress.
Positive cultures are reported as soon as detected.
Final report to follow in four to five weeks.
04/17/25 09:23 Fungal Culture - Preliminary
Bronch Right Lower Lobe Culture in progress.
Positive cultures are reported as soon as detected.
Final report to follow in four to five weeks.
04/15/25 22:18 Nasal Screen MRSA (PCR) - Final
Nose
04/10/25 17:02 Blood Culture - Final
Blood/Venous No Growth - Final Report
04/10/25 16:00 Blood Culture - Final
Blood/Venous No Growth - Final Report
04/11/25 11:37 Legionella Urinary Antigen - Final
Urine Negative for Legionella pneumophila Serogroup 1 antigen.
A negative result does not rule out the possiblity of
Legionella infection due to other serogroups or species of
Legionella. Clinical correlation is recommended.
Streptococcus pneumoniae Antigen (M - Final
Negative for Streptococcus pneumoniae antigen.
A negative result does not exclude infection with
Streptococcus pneumoniae. Clinical correlation is
recommended.
04/10/25 16:43 Urine Culture - Final
Urine NO GROWTH
04/10/25 16:00 Influenza Types A & B (MICHAEL) - Final
Nasal Swab Negative for Influenza A & B, NAAT
Negative results must be combined with clinical observations
and patient history.
Nucleic Acid Amplification test (NAAT)performed on the
[employer] platform.
Imaging:
04/15/25 CT chest wo contrast: Masslike consolidation right lower lobe measuring up to 8.3 cm in diameter as above. This shows small internal area of cavitation. Given the interval change of radiographs from 03/17/2025 2 04/13/2025, infectious
etiology is considered most likely. Evaluation is however limited at noncontrast exam and mass with postobstructive consolidation/pneumonitis is not definitively excluded. Right middle lobe 1.5 cm nodule which is suspicious for either metastasis or
primary pulmonary malignancy. Nodule along the pleura posterior inferior right hemithorax measuring up to 2.8 cm in diameter as above, suspicious for pleural metastatic lesion.
04/13/25: CXR: There is slightly increased size of the right perihilar masslike opacity with a new right basilar infiltrate. Findings may represent worsening infection although a mass with postobstructive pneumonia is possible. Recommend continued
follow-up.
04/10/25 CXR: Short-term interval development of a 6.5 cm rounded opacity superimposed in the right hilar region. This is likely related to an infectious etiology, such as round pneumonia, though follow-up would be necessary after conservative
therapy to assess resolution. Possible trace right pleural effusion. Otherwise, no significant change in 1.5 cm right lower lobe nodule.
Care Review
Plan reviewed with: Physician (Dr. Kingsley Ahmed) and Other (Pharmacist Simon Real)
--- NOTE | 2025-04-21 09:55 | W.PN.HOSP.TC ---
Today's Communication/Plan
-
amphotericin; f/u ID recs
monitor pain control, make PRN available more frequently
hospice evaluation
Assessment / Plan
Assessment / Plan
Ms. Dariana Cho is a 64 yo woman with hx stage IIIA breast cancer s/p chemo and radiation (completed 07/07), hypoplastic MDS with transfusion requirements, recent admission 03/17-03/23/25 for neutropenic fever (found to have streptococcal
bacteremia likely 2/2 RML pneumonia/sinusitis and prescribed Augmentin on DC through 03/30/25) sent to the ER for recurrent fevers/chills.
Flu and Covid negative
CXR 04/10/25
IMPRESSION:
Short-term interval development of a 6.5 cm rounded opacity superimposed in the right hilar region. This is likely related to an infectious etiology, such as round pneumonia, though follow-up would be necessary after conservative therapy to assess
resolution. Possible trace right pleural effusion.
Otherwise, no significant change in 1.5 cm right lower lobe nodule.
CXR 04/13/25
IMPRESSION:
There is slightly increased size of the right perihilar masslike opacity with a new right basilar infiltrate. Findings may represent worsening infection although a mass with postobstructive pneumonia is possible. Recommend continued follow-up.
Small bilateral pleural effusions.
CT chest 04/15: Masslike consolidation right lower lobe measuring up to 8.3 cm. Right middle lobe 1.5 cm nodule which is suspicious for either metastasis or primary pulmonary malignancy.
CXR 04/20
Impression: Progressed findings suggesting severe mid and lower right lung pneumonia. Repeat examination 2 weeks after treatment is recommended to confirm improvement or resolution and exclude underlying mass. Repeat CT examination will not
determine if this is a mass.
Assessment:
Neutropenic Fever
Community Acquired Pneumonia
Recent admission for Neutropenic Fever with Strep Mitis/Oralis Bacteremia
- ID following; s/p Cefepime/Doxy 7 days. s/p 3 days Meropenem. Now back on prophylactic Levaquin.
- fungal workup (Aspergillus galactomannan assay and Fungitell) pending. 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
- s/p Bronch with BAL on 04/17: cultures/cytology pending. Procedure aborted earlier due to airway edema/bleeding. Unable to proceed with transbronchial biopsy. May need transcutaneous bx with IR
- pulmonary following
- prognosis seems poor; patient considering hospice; will consult for evaluation.
MDS, Transfusion Dependent
Pancytopenia
- patient has hx PLT refractoriness requiring HLA matched PLT; additionally she has prior transfusion reactions and needs Tylenol + Benadryl + Solucortef pre PLT transfusions
- transfuse for PLT <10; Hg <7.
- s/p 5 unit PLT; current count is 6; additional PLT ordered today
- s/p 3 unit PRBC total (including 2 units for Hb 6.6 from bleeding from bronch). Hb is 8.2 today.
- follow CBC
- Oncology consult appreciated; -appreciate Dr. Knight's note - 'After discussion with [facility]cologist Dr. Javier, Plan to hold cycle 4 of Vidaza until counts begin to recover. If no recovery by Thanksgiving, then will repeat bone marrow biopsy at
that time to eval for progression.'
- continue [employer] Acyclovir for PPx
- PT ordered difficult social situation as patient lives with her elderly mother who has dementia and has no one to help support her
Sinus Tachycardia
- EKG's and case reviewed briefly with Cardiology. Likely in response to anemia and underlying illness as well as pain
- continue newly started Metoprolol 25mg PO BID - patient tolerating, can consider uptitration
chronic back pain
- MRI L spine: acute moderate compression deformities of the L1 and L2 vertebral bodies as well as mild compression deformities of T12 and L4. There are no definite associated osseous metastasis. Multilevel degenerative changes most pronounced at
L3-L4 there is resultant mild/moderate right-sided neuroforaminal narrowing and moderate left-sided neuroforaminal narrowing.
- continue MS contin (started 04/20) + prn Morphine, breakthrough dilaudid
- concurrent bowel regimen with opiates (last BM per nursing staff 04/20)
- continue lidocaine patch
- Ice PRN
- continue Gabapentin 100mg TID
- Vit D 25.5; replacement added
Hx Breast CA
- completed AC-T 04/2024, completed XRT Jun 2024
Hypokalemia
- replete prn
Gum bleeding due to thrombocytopenia
- prn TXA
DVT ppx: SCDs
Code: DNR/DNI per discussion at time of admission
Anticipated Discharge: > 48 hours
Subjective/Interval History
-
Date of Service: April 21, 2025
reports chest pain; finding no relief despite Dilaudid, morphine, MS contin just started 04/20
CXR with worsening progressive pneumonia
Objective Data
-
Labs:
Laboratory Results
04/21/25
04:26
WBC 0.3 L*
Hgb 8.2 L
Hct 24.1 L
Plt Count 6 L* D
Sodium 129 L
Potassium 3.2 L
Chloride 97 L
Carbon Dioxide 32 H
BUN 11
Creatinine 0.3 L
Glucose 119 H
Calcium 7.8 L
Vital Signs:
Vital Signs
Temp Pulse Resp BP Pulse Ox
97.3 F 114 16 113/68 93
04/21/25 08:30 04/21/25 09:22 04/21/25 08:30 04/21/25 09:22 04/21/25 08:30
I&O
04/20/25 04/21/25 04/22/25
06:59 06:59 06:59
Intake Total 120 / 120 1300 / 1300
Output Total 1850 / 1850
Balance 120 / 120 -550 / -550
Physical Exam
-
General: Appears in Distress and Pain
HEENT: Normocephalic and Atraumatic
Respiratory: Decreased Breath Sounds; Negative Wheezes
Cardiac: Regular Rhythm and S1/S2
GI: Soft
Neuro: AO x 3
Psych: Anxious
Data Reviewed
-
Total Time Spent with Patient (in minutes): 42
Labs: Labs Reviewed by me
--- NOTE | 2025-04-21 10:33 | HOSPNOTE ---
Addendum entered by Marie Katz RN 04/21/25 22:18:
Hospice met with patient and family. Patient and family were considering placement and then to consider hospice. Attending and Primary RN concerned for pain management outside of hospital setting. Plan is to continue with treatment today and allow
patient and family to digest hospice information. Plan is to assess for inpatient eligibility Tuesday morning. Will also need to check insurance coverage as well. CM, Primary RN, and Attending all in agreement with this plan.
Original Note:
Hospice referral received. We will make a visit to speak to patient regarding hospice services today. More information to follow. Attending and CM updated.
--- NOTE | 2025-04-21 10:47 | W.PN.ONC2 ---
Today's Communication / Plan
-
- 1 unit platelets today.
- ongoing tx of PNA per ID and primary team.
- pain management per primary team for compression fracture.
Impression
Impression
1.combination of cytogenetic/molecular abnormalities and biweekly transfusion requirement were felt to be most consistent with MDS rather than CCUS
transfuse HLA matched platelets <10, <20 for neutropenic fever, <50 prn bleeding - Tylenol+Benadryl+Solucortef pre-plt transfusion
tranexamic acid 1300mg PO BID prn mucosal bleeding
Transfuse Hgb <7 or as needed for sxs anemia -Tylenol+Benadryl pre-PRBC transfusion
sxs support with antiemetics prn
on acyclovir
2. Hx stage IIIA metaphasic right breast cancer with squamous differentiation, ER positive -completed AC-T 04/2024, completed XRT Jun 2024
3. neutropenic fever/PNA -abx per ID, follow cultures
4. hyponatremia resolved
5. back pain - Feb 2025 L spine xray showed a mild compression fracture of the L1 vertebral body -MRI L spine shows no mets; benign compression fxs
6. abnormal CT chest -RLL mass like consolidation 8.3cm with cavitation, RML 1.56cm nodule, nodule along the pleura 2.8cm
-bronch cytology negative for malignancy
Plan
Plan
daily CBC, neutropenic precautions, transfuse prn. agree with 1 unit plts today for drop in count to 6K.
abx and antifungal per ID. bronch cultures NTD, fungal still pending.
holding Vidaza until counts begin to recover. If no recovery by Thanksgiving, then will repeat bone marrow biopsy at that time to eval for progression.
pt now afebrile > 48 hours. transfuse for plts < 10K, <50K if bleeding
transfuse Hgb <7 or as needed for sxs anemia
CMV negative products
Pt will continue with OP transfusion support 2-3 days/week upon discharge -labs will need to be checked at [facility] and sent to the office for review and we will arrange for transfusion prn
back pain due to non-pathologic compression fracture. ordered for PO morphine, oxycodone and IV dilaudid prn. Morphine ER 15 mg BID added 04/20.
pulmonary and ID following
Subjective/Objective
Chief Complaint
Mds with pancytopenia, PNA
Subjective
Dariana continues to have pain at site of compression fracture. MS contin 15 mg added this am. She continues on 4L NC, SOB stable. Denies fevers, chills. CBC wtih drop in plts to 6K today, 1 unit ordered. WBc and hgb similar to prior
Vital Signs:
Vital Signs
Temp Pulse Resp BP Pulse Ox
97.3 F 114 16 113/68 93
04/21/25 08:30 04/21/25 09:22 04/21/25 08:30 04/21/25 09:22 04/21/25 08:30
Lab Results:
Laboratory Data
WBC 0.3 10^3/uL (4.8-10.8) L* 04/21/25 04:26
Hgb 8.2 g/dL (12.0-16.0) L 04/21/25 04:26
Plt Count 6 10^3/uL (130-400) L* D 04/21/25 04:26
eGFR > 60.00 04/21/25 04:26
Physical Exam
HEENT: Moist Mucous Membranes; No Jaundice
Cardiology: Normal Sinus Rhythm
Pulmonary: Clear
Extremities: No Edema
Neuro: Non Focal
Review of Systems
Review of Systems
Constitutional: Denies Fever
Respiratory: Reports Dyspnea and Cough
Cardiovascular: Denies Chest Pain
Gastrointestinal: Denies Nausea/Vomiting
Neurological: Reports Other (back pain)
[2025-04-21 11:20] VITALS: BP 106/65
[2025-04-21] MEDS: NSS 1000 IV (11:41)
[2025-04-21] MEDS: DILAUDID 1 MG IV ×3 (12:46→22:24)
[2025-04-21] MEDS: BENADRYL 50 MG IV (12:46)
[2025-04-21] MEDS: TYLENOL 1000 MG PO (12:47)
[2025-04-21] MEDS: D5W 50 IV ×2 (14:17→16:39)
[2025-04-21 15:54] VITALS: BP 103/65
[2025-04-21] MEDS: SOLU-CORTEF 200 MG IV (17:10)
[2025-04-21] MEDS: BENADRYL 25 MG IV (17:11)
[2025-04-21] MEDS: TYLENOL 650 MG PO (17:11)
[2025-04-21 19:00] VITALS: BP 125/80
[2025-04-21] MEDS: REMOVE LIDOCAINE PATCH 1 PATCH REMOVE (20:59)
[2025-04-21] MEDS: LEVAQUIN 500 MG PO (22:19)
[2025-04-21 23:00] VITALS: BP 108/68
[2025-04-22] MEDS: DILAUDID 1 MG IV ×3 (03:03→12:38)
[2025-04-22 03:18] VITALS: BP 97/60
[2025-04-22] MEDS: ROXANOL ORAL CONCENTRATE 10 MG PO (04:50)
[2025-04-22 05:46] LABS: Hematocrit 28.1 % (37.0-47.0); Hemoglobin 9.4 g/dL (12.0-16.0); Mean Corp Hgb Conc. 33.5 g/dL (33.0-37.0); Mean Corpuscular Volume 86.5 fL (81.0-99.0); Nucleated Red Blood Cells % 0 %; Platelet Count 22 10^3/uL (130-400); Red Cell Dist. Width 12.1 % (11.5-14.5)
[2025-04-22 05:59] LABS: Blood Urea Nitrogen 15 mg/dl (7-17); Calcium 8.5 mg/dl (8.4-10.2); Carbon Dioxide 32 mmol/L (22-30); Chloride 98 mmol/L (98-107); Estimated Creatinine Clearance 94 ml/min; Glucose 171 mg/dl (70-99); Magnesium 2.4 mg/dl (1.6-2.3); Potassium 3.4 mmol/L (3.5-5.1); Sodium 134 mmol/L (135-145); eGFR > 60.00
[2025-04-22 08:00] VITALS: BP 128/76
[2025-04-22] MEDS: ZOVIRAX 400 MG PO (08:16)
[2025-04-22] MEDS: VITAMIN D3 (cholecalciferol) 125 MCG PO (08:16)
[2025-04-22] MEDS: PROTONIX 20 MG PO (08:16)
[2025-04-22] MEDS: NEURONTIN 100 MG PO (08:16)
[2025-04-22] MEDS: MS CONTIN (EXTENDED RELEASE) 15 MG PO (08:16)
[2025-04-22] MEDS: MUCINEX 600 MG PO (08:16)
[2025-04-22] MEDS: LIDOCAINE 4% PATCH 1 PATCH TOPICAL (08:17)
[2025-04-22] MEDS: LOPRESSOR 25 MG PO (08:17)
[2025-04-22] MEDS: SENOKOT PO (08:22)
--- NOTE | 2025-04-22 08:24 | W.PN.ONC2 ---
Today's Communication / Plan
-
comfort focused care
Impression
Impression
1.combination of cytogenetic/molecular abnormalities and biweekly transfusion requirement were felt to be most consistent with MDS rather than CCUS
transfuse HLA matched platelets <10, <20 for neutropenic fever, <50 prn bleeding - Tylenol+Benadryl+Solucortef pre-plt transfusion
tranexamic acid 1300mg PO BID prn mucosal bleeding
Transfuse Hgb <7 or as needed for sxs anemia -Tylenol+Benadryl pre-PRBC transfusion
sxs support with antiemetics prn
on acyclovir
2. Hx stage IIIA metaphasic right breast cancer with squamous differentiation, ER positive -completed AC-T 04/2024, completed XRT Jun 2024
3. neutropenic fever/PNA -abx per ID, follow cultures
4. hyponatremia resolved
5. back pain - Feb 2025 L spine xray showed a mild compression fracture of the L1 vertebral body -MRI L spine shows no mets; benign compression fxs
6. abnormal CT chest -RLL mass like consolidation 8.3cm with cavitation, RML 1.56cm nodule, nodule along the pleura 2.8cm
-bronch cytology negative for malignancy
Plan
Plan
Pt is planning to pursue comfort focused care with hospice
Subjective/Objective
Subjective
afebrile since 04/18
4L NC
denies bleeding
using tylenol, gabapentin, Lidoderm patch, morphine sulfate ER BID, morphine sulfate PO IR prn, and hydromorphone IV prn back pain
using bowel regimen prn constipation
Vital Signs:
Vital Signs
Temp Pulse Resp BP Pulse Ox
97.5 F 103 16 128/76 95
04/22/25 03:18 04/22/25 08:17 04/22/25 03:18 04/22/25 08:17 04/22/25 04:46
Lab Results:
Laboratory Data
WBC 0.3 10^3/uL (4.8-10.8) L* 04/22/25 05:27
Hgb 9.4 g/dL (12.0-16.0) L 04/22/25 05:27
Plt Count 22 10^3/uL (130-400) L* D 04/22/25 05:27
eGFR > 60.00 04/22/25 05:27
Physical Exam
HEENT: Moist Mucous Membranes; No Jaundice
Pulmonary: Other (unlabored)
GI: Soft
Extremities: Pulses Present
Neuro: Non Focal
--- NOTE | 2025-04-22 09:15 | W.PN.HOSP.TC ---
Today's Communication/Plan
-
see plan
GOC discussions and hospice discussions on-going. Patient clear she wants hospice today.
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
Assessment / Plan
Assessment / Plan
Ms. Dariana Cho is a 64 yo woman with hx stage IIIA breast cancer s/p chemo and radiation (completed 07/07), hypoplastic MDS with transfusion requirements, recent admission 03/17-03/23/25 for neutropenic fever (found to have streptococcal
bacteremia likely 2/2 RML pneumonia/sinusitis and prescribed Augmentin on DC through 03/30/25) sent to the ER for recurrent fevers/chills.
Flu and Covid negative
CXR 04/10/25
IMPRESSION:
Short-term interval development of a 6.5 cm rounded opacity superimposed in the right hilar region. This is likely related to an infectious etiology, such as round pneumonia, though follow-up would be necessary after conservative therapy to assess
resolution. Possible trace right pleural effusion.
Otherwise, no significant change in 1.5 cm right lower lobe nodule.
CXR 04/13/25
IMPRESSION:
There is slightly increased size of the right perihilar masslike opacity with a new right basilar infiltrate. Findings may represent worsening infection although a mass with postobstructive pneumonia is possible. Recommend continued follow-up.
Small bilateral pleural effusions.
CT chest 04/15: Masslike consolidation right lower lobe measuring up to 8.3 cm. Right middle lobe 1.5 cm nodule which is suspicious for either metastasis or primary pulmonary malignancy.
CXR 04/20
Impression: Progressed findings suggesting severe mid and lower right lung pneumonia. Repeat examination 2 weeks after treatment is recommended to confirm improvement or resolution and exclude underlying mass. Repeat CT examination will not
determine if this is a mass.
Assessment:
Neutropenic Fever
Community Acquired Pneumonia
Recent admission for Neutropenic Fever with Strep Mitis/Oralis Bacteremia
- ID following; s/p Cefepime/Doxy 7 days. s/p 3 days Meropenem. Now back on prophylactic Levaquin.
- fungal workup (Aspergillus galactomannan assay and Fungitell) pending. 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
- s/p Bronch with BAL on 04/17: cultures/cytology pending. Procedure aborted earlier due to airway edema/bleeding. Unable to proceed with transbronchial biopsy. May need transcutaneous bx with IR
- pulmonary following
- prognosis seems poor; patient considering hospice; follow up further hospice discussions today.
MDS, Transfusion Dependent
Pancytopenia
- patient has hx PLT refractoriness requiring HLA matched PLT; additionally she has prior transfusion reactions and needs Tylenol + Benadryl + Solucortef pre PLT transfusions
- transfuse for PLT <10; Hg <7.
- s/p 6 unit PLT;
- s/p 3 unit PRBC total (including 2 units for Hb 6.6 from bleeding from bronch). Hb is 8.2 today.
- follow CBC
- Oncology consult appreciated; -appreciate Dr. Knight's note - 'After discussion with [facility] Oncologist Dr. Javier, Plan to hold cycle 4 of Vidaza until counts begin to recover. If no recovery by Thanksgiving, then will repeat bone marrow biopsy at
that time to eval for progression.'
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
- PT ordered difficult social situation as patient lives with her elderly mother who has dementia and has no one to help support her
Sinus Tachycardia
- EKG's and case reviewed briefly with Cardiology. Likely in response to anemia and underlying illness as well as pain
- continue newly started Metoprolol 25mg PO BID - patient tolerating, can consider uptitration
chronic back pain
- MRI L spine: acute moderate compression deformities of the L1 and L2 vertebral bodies as well as mild compression deformities of T12 and L4. There are no definite associated osseous metastasis. Multilevel degenerative changes most pronounced at
L3-L4 there is resultant mild/moderate right-sided neuroforaminal narrowing and moderate left-sided neuroforaminal narrowing.
- continue MS contin (started 04/20) + prn Morphine, breakthrough dilaudid * working with pharmacy, may need dose adjustment. Change MS Contin to 6AM and 6PM (so that patient can have pain medication prior to change of shift in AM).
- concurrent bowel regimen with opiates (last BM per nursing staff 04/20)
- continue lidocaine patch
- Ice PRN
- continue Gabapentin 100mg TID
- Vit D 25.5; replacement added
Hx Breast CA
- completed AC-T 04/2024, completed XRT Jun 2024
Hypokalemia
- replete prn
Gum bleeding due to thrombocytopenia
- prn TXA
DVT ppx: SCDs
Code: DNR/DNI per discussion at time of admission
Anticipated Discharge: > 48 hours
Subjective/Interval History
-
Date of Service: April 22, 2025
she has some lower back pain; able to maneuver in bed. states Dilaudid given a little while ago starting to work
pain is lower down than prior
Objective Data
-
Labs:
Laboratory Results
04/22/25
05:27
WBC 0.3 L*
Hgb 9.4 L
Hct 28.1 L
Plt Count 22 L* D
Sodium 134 L
Potassium 3.4 L
Chloride 98
Carbon Dioxide 32 H
BUN 15
Creatinine 0.3 L
Glucose 171 H
Calcium 8.5
Vital Signs:
Vital Signs
Temp Pulse Resp BP Pulse Ox
97.6 F 103 18 128/76 97
04/22/25 08:00 04/22/25 08:17 04/22/25 08:00 04/22/25 08:17 04/22/25 08:00
I&O
04/21/25 04/22/25 04/23/25
06:59 06:59 06:59
Intake Total 1300 / 1300 480 / 480
Output Total 1849 / 1849
Balance -550 / -550 480 / 480
Review of Systems
-
History Source: Patient
All other systems: Reviewed and negative
Physical Exam
-
General: Appears in Distress and Pain
HEENT: Normocephalic and Atraumatic
Respiratory: Decreased Breath Sounds; Negative Wheezes
Cardiac: Regular Rhythm and S1/S2
GI: Soft
Neuro: AO x 3
Psych: Anxious
Data Reviewed
-
Diagnostic Radiology: Report Reviewed by me
Labs: Labs Reviewed by me
[2025-04-22] MEDS: DILAUDID 0.25 MG IV (10:38)
[2025-04-22] MEDS: XANAX 0.25 MG PO (10:46)
[2025-04-22 11:02] VITALS: BP 112/70
--- NOTE | 2025-04-22 11:28 | W.PN.ID1 ---
Date of Service
Date of Service: April 22, 2025
Today's Communication
Continue L-ampho B.
Assessment / Plan
# Neutropenic fever
fever
prolonged neutropenia
# PNA, RLL lung mass with cavitation, pulm nodules - rapidly progressing
# Recent Strep mitis/oralis bacteremia (03/17/25)
no oral pain/lesions at present
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
# Hx Stage III right breast cancer status post lumpectomy, chemo and radiation completed June 2024
# Chronic back pain - MRI lumbar spine acute compression fx, no osseus mets.
- blood cx's neg
- Ucx neg
- urine legionella Ag, Urine Strep pneumoniae Ag: negative
- Procalcitonin 0.98 -> not specific test; can be false positive in setting of malignancy
- Repeat CXR 04/13 increase right perihilar mass-like opacity with new right base infiltrate
- 04/15 CT chest without contrast: 8.3 cm mass like consolidation with small internal area of cavitation. Right lung nodules which is suspicious for either metastasis or primary pulmonary malignancy.
- serum Aspergillus galactomannan assay: NEGATIVE
- serum Fungitell: POSITIVE 256
- Appreciate Pulm. s/p bronchoscopy 04/17/25
Bronch silver stain: NEGATIVE PJP
Bronch cytology: NEGATIVE malignant cells
Bronch respiratory cx #1 NO GROWTH; #2 usual resp meme
Bronch fungal smear/cx's pending
Bronch Aspergillus galactomannan: POSITIVE
Bronch AFB smear/cx pending
- New right lower chest wall pain
04/20 CXR: Progressed findings suggesting severe mid and lower right lung pneumonia.
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
DC'd micafungin (4d)
Continue empiric liposomal amphotericin B 5mg/kg IV q24 (d2)
Monitor closely for toxicities - rigors, electrolyte abnormalities, nephrotoxicities.
- s/p cefepime 2g IV q8h (d#7) and doxycycline(d7)
- s/p empiric meropenem 500mg IV q6h (3d)
- Continue prophylactic levofloxacin 500mg qhs and po acyclovir.
- Overall poor prognosis.
����������������������������������������������������������
Chief Complaint
-: Pneumonia
Subjective / Review of Systems
c/o right low back pain and right lower chest wall pain.
Asking for pain meds to be comfortable.
Vital Signs / Physical Exam
Vital Signs
Vital Signs
Temp Pulse Resp BP Pulse Ox
97.7 F 108 16 112/70 90
04/22/25 11:02 04/22/25 11:02 04/22/25 11:02 04/22/25 11:02 04/22/25 11:02
Physical Exam
Constitutional: Chronically Ill
Eyes: No Conjunctival Hemorrhage and Sclera Anicteric
Cardiovascular: S1/S2 (tachycardic)
Pulmonary: Rales (Right base dense crackles)
Gastrointestinal: Soft, Non Tender and Non Distended
Neurological: AO x 3
Lines: Port (LCW no erythema)
Objective Data
Lab Data
Lab Results
04/22/25 05:27
04/22/25 05:27
Estimated Creat Clear 94 ml/min 04/22/25 05:27
Lactic Acid Cancelled 04/10/25 20:00
Total Bilirubin 1.3 mg/dl (0.2-1.3) 04/10/25 16:00
AST 19 U/L (14-36) 04/10/25 16:00
ALT 33 U/L (0-35) 04/10/25 16:00
Alkaline Phosphatase 103 U/L (38-126) 04/10/25 16:00
Most recent labs reviewed.
Micro Results:
04/21/25 06:48 Respiratory Culture - Final
Sputum Gram Stain - Final
04/17/25 09:23 Acid Fast Bacilli Smear - Preliminary
Bronch Washing Acid Fast Bacilli Culture - Preliminary
04/17/25 09:23 Acid Fast Bacilli Smear - Preliminary
Bronch Right Lower Lobe Acid Fast Bacilli Culture - Preliminary
04/17/25 09:23 Respiratory Culture - Final
Bronch Right Lower Lobe NO GROWTH
Gram Stain - Final
04/17/25 09:23 Respiratory Culture - Final
Bronch Washing Usual Respiratory Meme
Gram Stain - Final
04/16/25 08:30 MRSA Screen - Final
Nose No Methicillin Resistant Staphylococcus aureus isolated.
04/17/25 09:23 Fungal Culture - Preliminary
Bronch Washing Culture in progress.
Positive cultures are reported as soon as detected.
Final report to follow in four to five weeks.
04/17/25 09:23 Fungal Culture - Preliminary
Bronch Right Lower Lobe Culture in progress.
Positive cultures are reported as soon as detected.
Final report to follow in four to five weeks.
04/15/25 22:18 Nasal Screen MRSA (PCR) - Final
Nose
04/10/25 17:02 Blood Culture - Final
Blood/Venous No Growth - Final Report
04/10/25 16:00 Blood Culture - Final
Blood/Venous No Growth - Final Report
04/11/25 11:37 Legionella Urinary Antigen - Final
Urine Negative for Legionella pneumophila Serogroup 1 antigen.
A negative result does not rule out the possiblity of
Legionella infection due to other serogroups or species of
Legionella. Clinical correlation is recommended.
Streptococcus pneumoniae Antigen (M - Final
Negative for Streptococcus pneumoniae antigen.
A negative result does not exclude infection with
Streptococcus pneumoniae. Clinical correlation is
recommended.
04/10/25 16:43 Urine Culture - Final
Urine NO GROWTH
04/10/25 16:00 Influenza Types A & B (MICHAEL) - Final
Nasal Swab Negative for Influenza A & B, NAAT
Negative results must be combined with clinical observations
and patient history.
Nucleic Acid Amplification test (NAAT)performed on the
[employer] platform.
Imaging:
04/15/25 CT chest wo contrast: Masslike consolidation right lower lobe measuring up to 8.3 cm in diameter as above. This shows small internal area of cavitation. Given the interval change of radiographs from 03/17/2025 2 04/13/2025, infectious
etiology is considered most likely. Evaluation is however limited at noncontrast exam and mass with postobstructive consolidation/pneumonitis is not definitively excluded. Right middle lobe 1.5 cm nodule which is suspicious for either metastasis or
primary pulmonary malignancy. Nodule along the pleura posterior inferior right hemithorax measuring up to 2.8 cm in diameter as above, suspicious for pleural metastatic lesion.
04/13/25: CXR: There is slightly increased size of the right perihilar masslike opacity with a new right basilar infiltrate. Findings may represent worsening infection although a mass with postobstructive pneumonia is possible. Recommend continued
follow-up.
04/10/25 CXR: Short-term interval development of a 6.5 cm rounded opacity superimposed in the right hilar region. This is likely related to an infectious etiology, such as round pneumonia, though follow-up would be necessary after conservative
therapy to assess resolution. Possible trace right pleural effusion. Otherwise, no significant change in 1.5 cm right lower lobe nodule.
Care Review
Plan reviewed with: Physician (Dr. Amanda)
--- NOTE | 2025-04-22 11:32 | HOSPNOTE ---
Patient is in agreement with hospice and the philosophy. Patient is requiring IV medications for pain and will need to remain inpatient hospice. Admissions called and hospice chart will be available. Attending aware of plan. Will update CM.
--- NOTE | 2025-04-22 12:11 | W.DS.TRANS ---
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
-
Discharge Instructions:
Discharge Diagnosis/Procedures myelodysplastic syndrome, neutropenic fever
Diet Regular
Activity As tolerated
Driving Restrictions No driving
Bathing Restrictions None
Other Services Hospice
Instructions:
Stand-Alone Forms:
Changes to Home Medications: Yes
Discharge Medications:
DC Medications w/original date entered in [employer]
alprazolam 0.25 mg tablet 0.25 mg PO Q6HPRN PRN anxiety 01/24/24
pantoprazole 20 mg tablet,delayed release 20 mg PO DAILY gerd 04/10/25
acetaminophen 325 mg tablet 650 mg (2 x 325 mg) PO Q4HPRN PRN mild pain/HOPKINS/temp> 100.4F #0 tabs 04/22/25
gabapentin 100 mg capsule 100 mg PO TID #0 caps 04/22/25
hydromorphone 0.5 mg/0.5 mL injection syringe 1 mg IV Q3HPRN PRN breakthrough pain #0 mL 04/22/25
lidocaine 4 % topical patch 1 patch topical DAILY #0 ea 04/22/25
morphine 30 mg tablet,extended release 30 mg PO Q12H #0 tabs 04/22/25
morphine concentrate 10 mg/0.5 mL oral syringe (FOR ORAL USE ONLY) 10 mg (0.5 mL) PO Q6HPRN PRN moderate to severe pain #0 ea 04/22/25
Home Medication Changes
comfort care meds added
Pending Results: Yes
Additional Pending Results:
Bronch fungal smear/cx's pending
Bronch Aspergillus galactomannan pending
Bronch 1,3 B-D-Glucan pending
Bronch AFB smear/cx pending
--- NOTE | 2025-04-22 12:16 | W.DCSUMMARY ---
Discharge Summary
Discharge Data
Date of Admission: 04/10/25
Date of Discharge: 04/22/25
-
Pending Results: No
Hospital Course
Discharging Physician : Dr. Lita Amanda
Disposition : inpatient hospice
Principal Discharge diagnosis : Myelodysplastic Syndrome, Neutropenic Fever
Hospital Course :
Ms. Dariana Cho is a 64 yo woman with hx stage IIIA breast cancer s/p chemo and radiation (completed 07/07), hypoplastic MDS with transfusion requirements, recent admission 03/17-03/23/25 for neutropenic fever (found to have streptococcal
bacteremia likely 2/2 RML pneumonia/sinusitis and prescribed Augmentin on DC through 03/30/25) sent to the ER for recurrent fevers/chills. CXR with finding of pneumonia. She was started on Cefepime/Doxycycline. ID and Oncology were consulted.
Hospital course complicated by recurrent low grade fever up to 100.4 Repeat CXR with increased opacity. This was followed by a CT Chest which showed a 8.3cm mass like consolidation with small internal area of cavitation. Right lung nodules
suspicious for metastasis or primary pulmonary malignancy. Patient's antibiotics were broadened and she was started on antifungal treatment. She underwent bronchoscopy on 04/17. At this point serum Fungitell test returned positive. Bronch fungal
smear, Aspergillus galactomannan, 1,3 B-D-Glucan and AFB smear pending.
During hospitalization patient has required multiple transfusions for low PLT and low Hg, including after an episode of bleeding post bronch.
She has significant lower back pain. MRI lumbar spine with acute moderate compression deformities. No definite associated osseous metastasis. She has required increasing doses of opiates to control pain.
Given transfusion dependent MDS, recurrent hospitalizations for neutropenic fever and difficulty in pain control, decision made to transition to inpatient hospice.
Time spent on discharge was 35 minutes.
Important imaging findings :
CT Chest
IMPRESSION:
1. Masslike consolidation right lower lobe measuring up to 8.3 cm in diameter as above. This shows small internal area of cavitation. Given the interval change of radiographs from 03/17/2025 2 04/13/2025, infectious etiology is considered most
likely. Evaluation is however limited at noncontrast exam and mass with postobstructive consolidation/pneumonitis is not definitively excluded.
2. Right middle lobe 1.5 cm nodule which is suspicious for either metastasis or primary pulmonary malignancy.
3. Nodule along the pleura posterior inferior right hemithorax measuring up to 2.8 cm in diameter as above, suspicious for pleural metastatic lesion.
Lumbar Spine MRI
IMPRESSION:
There are acute moderate compression deformities of the L1 and L2 vertebral bodies as well as mild compression deformities of T12 and L4. There are no definite associated osseous metastasis.
Multilevel degenerative changes most pronounced at L3-L4 there is resultant mild/moderate right-sided neuroforaminal narrowing and moderate left-sided neuroforaminal narrowing.
Procedure findings :
Discharge Plan
-
Patient Disposition: Hospice - Inpatient
Discharge Diagnosis/Procedures: myelodysplastic syndrome, neutropenic fever
Diet: Regular
Activity: As tolerated
Driving Restrictions: No driving
Bathing Restrictions: None
Other Services: Hospice
Referrals:
Binu Ivey DO [Family Provider, Family Practice]
Prescriptions:
New
acetaminophen 325 mg Tablet
650 mg PO Q4HPRN PRN (Reason: mild pain/HOPKINS/temp> 100.4F) Qty: 0 0RF
lidocaine 4 % Adhesive Patch,Medicated
1 patch topical DAILY Qty: 0 0RF
morphine 30 mg Tablet Extended Release
30 mg PO Q12H Qty: 0 0RF
gabapentin 100 mg Capsule
100 mg PO TID Qty: 0 0RF
hydromorphone 0.5 mg/0.5 mL Syringe
1 mg IV Q3HPRN PRN (Reason: breakthrough pain) Qty: 0 0RF
morphine concentrate 10 mg/0.5 mL Syringe
10 mg PO Q6HPRN PRN (Reason: moderate to severe pain) Qty: 0 0RF
Continued
alprazolam 0.25 mg Tablet
0.25 mg PO Q6HPRN PRN (Reason: anxiety)
pantoprazole 20 mg tablet,delayed release (DR/EC)
20 mg PO DAILY
Discontinued
ascorbic acid (vitamin C) [Vitamin C] 500 mg Tablet
500 mg PO DAILY
tranexamic acid 650 mg Tablet
650 mg PO BID PRN (Reason: bleeding)
acyclovir 400 mg Tablet
400 mg PO BID
levofloxacin 500 mg Tablet
500 mg PO HS
oxycodone 5 mg Tablet
5 mg PO Q6HPRN PRN (Reason: severe pains)
cyanocobalamin (vitamin B-12) 1,000 mcg Tablet
1,000 mcg PO DAILY
therapeutic multivitamin Tablet
1 tab PO DAILY
calcium carbonate-vitamin D3 600 mg-5 mcg (200 unit) Tablet
1 tab PO DAILY
prochlorperazine maleate [Compazine] 10 mg Tablet
10 mg PO Q6HPRN PRN (Reason: nausea) Qty: 30 0RF
Discharge Orders:
Discharge Patient (As Directed); Ordered 04/22/25
Ordered By: Lita Amanda
Discharge Date and Time
Print Language: BURMESE
--- NOTE | 2025-04-22 12:21 | CM ---
Patient being admitted to Inpatient Hospice today.
CM will monitor and support as needed
[2025-04-22] MEDS: VALIUM INJECTION 2 MG IV (12:34)
--- NOTE | 2025-04-22 13:25 | PTCARENOTE ---
Pt being admitted to inpatient hospice. See flipped chart for documentation.
== END 2025-04-22 13:23 | disposition hospice, inpatient (51) | DRG 808 ==
LOC: 2 NORTH 17:53
PROVIDERS: Internal Medicine; ADMITTING PHYSICIAN Student in an Organized Health Care Education/Training Program; CONSULT PHYSICIAN Internal Medicine Hematology & Oncology; CONSULT PHYSICIAN Internal Medicine Infectious Disease; EMERGENCY PHYSICIAN Emergency Medicine; FAMILY PHYSICIAN Family Medicine; OTHER PHYSICIAN Internal Medicine Critical Care Medicine
PROC: 30233R1 Transfusion of Nonautologous Platelets into Peripheral Vein, Percutaneous Approach (ICD-10-PCS; 2025-04-11)
PROC: 30233N1 Transfusion of Nonautologous Red Blood Cells into Peripheral Vein, Percutaneous Approach (ICD-10-PCS; 2025-04-13)
PROC: 0B968ZX Drainage of Right Lower Lobe Bronchus, Via Natural or Artificial Opening Endoscopic, Diagnostic (ICD-10-PCS; 2025-04-17)
PROC: 0B9F8ZX Drainage of Right Lower Lung Lobe, Via Natural or Artificial Opening Endoscopic, Diagnostic (ICD-10-PCS; 2025-04-17)
DX: D70.9 Neutropenia, unspecified (principal); J18.9 Pneumonia, unspecified organism; R78.81 Bacteremia; M48.54XA Collapsed vertebra, not elsewhere classified, thoracic region, initial encounter for fracture; D84.9 Immunodeficiency, unspecified; E22.2 Syndrome of inappropriate secretion of antidiuretic hormone; D46.9 Myelodysplastic syndrome, unspecified; D61.810 Antineoplastic chemotherapy induced pancytopenia; R50.81 Fever presenting with conditions classified elsewhere; Z92.3 Personal history of irradiation; Z85.3 Personal history of malignant neoplasm of breast; B95.5 Unspecified streptococcus as the cause of diseases classified elsewhere; T45.1X5A Adverse effect of antineoplastic and immunosuppressive drugs, initial encounter; R23.3 Spontaneous ecchymoses; Z79.899 Other long term (current) drug therapy; Z79.891 Long term (current) use of opiate analgesic; G89.29 Other chronic pain; Z66 Do not resuscitate; E87.6 Hypokalemia; E78.5 Hyperlipidemia, unspecified; F41.9 Anxiety disorder, unspecified; I10 Essential (primary) hypertension; J45.909 Unspecified asthma, uncomplicated; J98.4 Other disorders of lung; Z11.52 Encounter for screening for COVID-19
CPT/HCPCS: 71045; 71046; 71250; 72158; 80048; 80053; 81003; 81015; 82306; 83605; 83735; 83935; 84145; 84300; 85018; 85025; 86850; 86900; 86901; 86920; 87040; 87070; 87086; 87102; 87116; 87205; 87449; 87502; 87641; 87811; 87899; 88112; 88305; 88312; 89051; 93005; 96361; 96374; 96375; 97110; 97116; 97163; 99285; A9575; J0289; P9051; P9052; P9058

== ENCOUNTER 2025-04-22 13:25 | Inpatient (IN) | payer OTHER, SELFPAY ==
[2025-04-22 11:10] VITALS: BP 112/70
--- NOTE | 2025-04-22 13:38 | HPS.HSE ---
Family Physician
-
Family Physician: NO INTERVIEW UNKNOWN
Chief Complaint
-
admit to inpatient hospice
History of Present Illness
Ms. Dariana Cho is a 64 yo woman with hx stage IIIA breast cancer s/p chemo and radiation (completed 07/07), hypoplastic MDS with transfusion requirements, recent admission 03/17-03/23/25 for neutropenic fever (found to have streptococcal
bacteremia likely 2/2 RML pneumonia/sinusitis and prescribed Augmentin on DC through 03/30/25) sent to the ER for recurrent fevers/chills. CXR with finding of pneumonia. She was started on Cefepime/Doxycycline. ID and Oncology were consulted.
Hospital course complicated by recurrent low grade fever up to 100.4 Repeat CXR with increased opacity. This was followed by a CT Chest which showed a 8.3cm mass like consolidation with small internal area of cavitation. Right lung nodules
suspicious for metastasis or primary pulmonary malignancy. Patient's antibiotics were broadened and she was started on antifungal treatment. She underwent bronchoscopy on 04/17. At this point serum Fungitell test returned positive. Bronch fungal
smear, Aspergillus galactomannan, 1,3 B-D-Glucan and AFB smear pending.
During hospitalization patient has required multiple transfusions for low PLT and low Hg, including after an episode of bleeding post bronch.
She has significant lower back pain. MRI lumbar spine with acute moderate compression deformities. No definite associated osseous metastasis. She has required increasing doses of opiates to control pain.
Given transfusion dependent MDS, recurrent hospitalizations for neutropenic fever and difficulty in pain control, decision made to transition to inpatient hospice.
Medical History
Past Medical History
Past Medical History: Reports Arrhythmia, Cancer (Breast cancer currently pancytopenia), HTN and Other (stage IIIA breast cancer s/p chemo and radiation (completed 07/07), hypoplastic MDS with transfusion requirements, neutropenic fever admission
04/06)
Past Surgical History: Reports None
Social History
Tobacco: Non-smoker
Alcohol: None
Drug: None
Personal: Single
Living: With Family
Family History
Family History: Not pertinent
Allergies / Home Medications
Allergies reflects when Allergies were last updated in [employer].
Home Medications with original date entered in [employer]
Allergy/Medication List:
Allergies
Allergy/AdvReac Type Severity Reaction Status Date / Time
No Known Allergies Allergy Verified 04/08/25 12:04
Home Medications
alprazolam 0.25 mg tablet 0.25 mg PO Q6HPRN PRN anxiety 01/24/24
pantoprazole 20 mg tablet,delayed release 20 mg PO DAILY gerd 04/10/25
acetaminophen 325 mg tablet 650 mg (2 x 325 mg) PO Q4HPRN PRN mild pain/HOPKINS/temp> 100.4F #0 tabs 04/22/25
gabapentin 100 mg capsule 100 mg PO TID #0 caps 04/22/25
hydromorphone 0.5 mg/0.5 mL injection syringe 1 mg IV Q3HPRN PRN breakthrough pain #0 mL 04/22/25
lidocaine 4 % topical patch 1 patch topical DAILY #0 ea 04/22/25
morphine 30 mg tablet,extended release 30 mg PO Q12H #0 tabs 04/22/25
morphine concentrate 10 mg/0.5 mL oral syringe (FOR ORAL USE ONLY) 10 mg (0.5 mL) PO Q6HPRN PRN moderate to severe pain #0 ea 04/22/25
Review of Systems
-
History Source: Patient
A 12 point ROS was completed and negative except as noted: Yes
Physical Exam
Vital Signs
Vital Signs
Temp Pulse Resp BP Pulse Ox
101.3 F H 125 16 124/74 95
04/10/25 15:53 04/10/25 16:24 04/10/25 16:28 04/10/25 16:23 04/10/25 16:24
Physical Exam
General: No Apparent Distress
HEENT: PERRLA
Respiratory: Clear; No Wheezes
Cardiac: S1/S2 and Regular Rhythm
GI: Soft and Non Tender
Musculoskeletal: No Edema
Skin: Warm and Dry; No Rash
Neuro: AO x 3
Psych: Calm
Data Reviewed
-
Diagnostic Radiology: Report Reviewed by me
Lab Data: Labs Reviewed by me
Impression/Plan
-
Myelodysplastic Syndrome, Transfusion Dependent
Pancytopenia
History of Breast Cancer
Neutropenic Fever
Severe Mid and Lower right lung pneumonia
Concern for invasive fungal infection
Lumbar Spine compression fractures and acute on chronic back pain
-decision made to transition to inpatient hospice this morning
-stop amphotericin
-continue MS Contin
-IV dilaudid PRN
-IV Valium PRN
-appreciate consultants, appreciate hospice team
[2025-04-22] MEDS: DILAUDID 1 MG IV ×5 (13:53→21:36)
--- NOTE | 2025-04-22 14:52 | HOSPNOTE ---
Admitted patient GIP for the management of pain that can not be managed in an outpatient environment. Hospice will visit daily. Discharged planning to commence when symptoms have been managed.
[2025-04-22] MEDS: VALIUM INJECTION 2 MG IV (16:45)
[2025-04-22] MEDS: NEURONTIN 100 MG PO ×2 (16:46→21:36)
[2025-04-22] MEDS: MS CONTIN (EXTENDED RELEASE) 30 MG PO (18:48)
[2025-04-22 19:45] VITALS: BP 114/56
[2025-04-23] MEDS: DILAUDID 1 MG IV ×5 (02:05→09:35)
[2025-04-23] MEDS: VALIUM INJECTION 2 MG IV (03:17)
[2025-04-23] MEDS: MS CONTIN (EXTENDED RELEASE) 30 MG PO (06:20)
[2025-04-23 07:40] VITALS: BP 94/54
[2025-04-23] MEDS: NEURONTIN 100 MG PO ×3 (07:52→20:25)
--- NOTE | 2025-04-23 09:04 | W.PN.HOSP.TC ---
Today's Communication/Plan
-
comfort care
Assessment / Plan
Assessment / Plan
Myelodysplastic Syndrome, Transfusion Dependent
Pancytopenia
History of Breast Cancer
Neutropenic Fever
Severe Mid and Lower right lung pneumonia
Concern for invasive fungal infection
Lumbar Spine compression fractures and acute on chronic back pain
-decision made to transition to inpatient hospice on 04/22/25
-stop amphotericin
-given frequent administration of IV Dilaudid, will start IV morphine gtt. Patient is in agreement with this plan. I have updated her brother as well.
-IV Valium PRN
-appreciate consultants, appreciate hospice team
Anticipated Discharge: 24 - 48 hours
Subjective/Interval History
-
Date of Service: April 23, 2025
she is having significant lower back pain and requiring frequent dilaudid dosing
Objective Data
-
Vital Signs:
Vital Signs
Temp Pulse Resp BP Pulse Ox
98.0 F 130 16 94/54 89
04/23/25 07:40 04/23/25 07:40 04/23/25 07:40 04/23/25 07:40 04/23/25 07:40
I&O
04/22/25 04/23/25 04/24/25
06:59 06:59 06:59
Intake Total 120 / 120
Balance 120 / 120
Review of Systems
-
History Source: Patient
All other systems: Reviewed and negative
Physical Exam
-
General: Appears in Distress and Pain
HEENT: Normocephalic and Atraumatic
Respiratory: Decreased Breath Sounds; Negative Wheezes
Cardiac: Regular Rhythm and S1/S2
GI: Soft
Neuro: AO x 3
Psych: Calm
Data Reviewed
-
Diagnostic Radiology: Report Reviewed by me
Labs: Labs Reviewed by me
[2025-04-23] MEDS: MORPHINE 100 IV (10:11)
--- NOTE | 2025-04-23 10:24 | HOSPNOTE ---
Patient will be started on a morphine drip for pain management. Patient has received several doses and now will be started on a drip per protocol. Patient continues to be inpatient appropriate for management of pain and anxiety. Patient will be seen
daily.
--- NOTE | 2025-04-23 10:30 | PTCARENOTE ---
Patient AAOX3 but forgetful and drowsy, ringing appropriately and frequently c/o lower back pain requiring PRN medication. MD aware, morphine gtt ordered per MD, initiated at step 1 per order, infusing at 1mg/hr through L subq port.
--- NOTE | 2025-04-23 11:24 | HOSPNOTE ---
Consulting Software Engineer visited 64 year old patient to conduct Initial SHIRRING MACHINE OPERATOR Assessment. Patient recently admitted onto Hospice Services and [facility] Level of Care with the Primary Diagnosis of MDS. Nurse reported patient medicated recently due to increase
pain and is resting. SHIRRING MACHINE OPERATOR greeted patient upon entering her room. Patient lying in bed watching TV. Patient reported she's okay, was in a lot of pain, but Nurse recently administered pain medications and helped with pain, appetite not very good as
she doesn't feel like eating, and eats sporadically and no signs of distress observed. Patient reported she prefers to have the same Nurse because she likes consistency and doesn't like repeating herself. Patient's mother Adrianna and PAMELA Dariana entered
patient's room and greeted SHIRRING MACHINE OPERATOR and informed SHIRRING MACHINE OPERATOR that she's to patient's brother Leonardo. SHIRRING MACHINE OPERATOR spoke with Dariana briefly. Dariana informed SHIRRING MACHINE OPERATOR that patient is private and doesn't like to share personal information as they spoke with Shreya
yesterday and apologized for ending the visit. SHIRRING MACHINE OPERATOR informed patient and Dariana no apologies were needed. Family appeared to be coping appropriately. Patient alert, pleasant, and engaging. Emotional Support Provided
Patient meets [facility] criteria for SN assessments and management of pain that could not be managed at home and/or in an Outpatient setting. Discharge planning continues.
SHIRRING MACHINE OPERATOR will provide supportive services once a week while on [facility] Level of Care.
[2025-04-23] MEDS: MORPHINE SULFATE 2 MG IV ×4 (11:48→16:03)
--- NOTE | 2025-04-23 16:25 | CM ---
CM reviewed chart, patient admitted under [facility] level of care.
CM will continue to follow/ offer support to patient/family.
Plan; GIP
[2025-04-23] MEDS: MORPHINE SULFATE 4 MG IV ×2 (17:40→20:23)
[2025-04-23] MEDS: CYKLOKAPRON 650 MG PO (20:25)
[2025-04-23 23:30] VITALS: BP 102/64
--- NOTE | 2025-04-24 06:08 | W.PN.HOSP.TC ---
Today's Communication/Plan
-
cont comfort measures
Assessment / Plan
Assessment / Plan
Limited Physical Exam Comfort care
General: no acute distress, appears comfortable at this time
HEENT: Normocephalic and Atraumatic
Respiratory: Clear to auscultation b/l
Cardiac: Tachycardia S1/S2
GI: Soft
Neuro: Lethargic but arousable, conversant
Psych: Calm
64F hx Breast Ca MDS transfusion dependent, invasive lung fungal infection pneumonia, lumbar compression fractures, neutropenic fever, on [facility] hospice for pain control.
Myelodysplastic Syndrome, Transfusion Dependent
Pancytopenia
History of Breast Cancer
Neutropenic Fever
Severe Mid and Lower right lung pneumonia
Concern for invasive fungal infection
Lumbar Spine compression fractures and acute on chronic back pain
-transitioned to inpatient hospice on 04/22/25
-given frequent administration of IV Dilaudid, started on morphine gtt 04/23/25
-IV Valium PRN
-appreciate consultants, appreciate hospice team
-Ren placed for end of life care 04/24/25
I spent a total of 37 minutes with the patient or on the floor. More than 50% of this time involved counseling and coordination of care.
Anticipated Discharge: 24 - 48 hours
Subjective/Interval History
-
Date of Service: April 24, 2025
no acute distress, appears comfortable, resting in bed. Lethargic but arousable, conversant. on morphine gtt
Objective Data
-
Vital Signs:
Vital Signs
Temp Pulse Resp BP Pulse Ox
98.5 F 124 18 102/64 89
04/23/25 23:30 04/23/25 23:30 04/23/25 23:30 04/23/25 23:30 04/23/25 20:30
I&O
11/10/25 11/11/25 11/12/25
06:59 06:59 06:59
Intake Total 120 / 120 360 / 360
Balance 120 / 120 360 / 360
[2025-04-24] MEDS: MORPHINE SULFATE 4 MG IV ×3 (07:40→15:16)
[2025-04-24] MEDS: ROBINUL 0.2 MG IV ×2 (07:41→20:18)
[2025-04-24] MEDS: NEURONTIN PO ×4 (07:42→20:17)
[2025-04-24 07:53] VITALS: BP 90/65
[2025-04-24] MEDS: MORPHINE 100 IV (12:32)
--- NOTE | 2025-04-24 12:54 | HOSPNOTE ---
Patient is actively dying, family at bedside emotional support provided. Patient is on step 3 morphine drip and appears very comfortable. The nurse continues medicating prior to any care or repositioning. The patient continues to be inpatient
hospice for management of pain. Patient will be seen daily.
[2025-04-24] MEDS: VALIUM INJECTION 2 MG IV (15:36)
[2025-04-24] MEDS: FLUSH (NSS) 3 FLUSH IV (20:19)
[2025-04-24 23:20] VITALS: BP 77/54
[2025-04-25] MEDS: ROBINUL 0.2 MG IV (01:04)
[2025-04-25] MEDS: MORPHINE SULFATE 4 MG IV ×2 (02:39→03:37)
[2025-04-25] MEDS: VALIUM INJECTION 2 MG IV (02:42)
--- NOTE | 2025-04-25 05:30 | W.PN.DEATH ---
Pronouncement of
-
Called to see patient to pronounce.
No spontaneous heart tones or respirations noted.
Patient not responsive to verbal stimuli.
Patient is pronounced .
Time of : 05:13
Date of : 04/25/25
Cause of : streptococcal bacteremia RML PNA, Neutropenic Fever
Family Notified: No (Messages left on both contact numbers. )
--- NOTE | 2025-04-25 06:21 | PTCARENOTE ---
pt peacefully. all source collection manager tito- kev renee deaccessed. gift of life notified. will not use organs. family is on the way in to say their goodbyes and take belongings. post mortem process explained to family over the phone. body is
ready to take to the morgue when family leaves
[2025-04-25] MEDS: NEURONTIN PO (07:51)
--- NOTE | 2025-04-25 08:05 | W.DCSUMMARY ---
Discharge Summary
Discharge Data
Date of Admission: 04/22/25
Date of Discharge: 04/25/25
-
Pending Results: No
Hospital Course
64F with hx stage IIIA breast cancer s/p chemo and radiation (completed 07/07), hypoplastic MDS with transfusion requirements, recent admission 03/17-03/23/25 for neutropenic fever (found to have streptococcal bacteremia likely 2/2 RML
pneumonia/sinusitis and prescribed Augmentin on DC through 03/30/25) sent to the ER for recurrent fevers/chills. CXR with finding of pneumonia. She was started on Cefepime/Doxycycline. ID and Oncology were consulted. Hospital course complicated
by recurrent low grade fever up to 100.4 Repeat CXR with increased opacity. This was followed by a CT Chest which showed a 8.3cm mass like consolidation with small internal area of cavitation. Right lung nodules suspicious for metastasis or
primary pulmonary malignancy. Patient's antibiotics were broadened and she was started on antifungal treatment. She underwent bronchoscopy on 04/17. At this point serum Fungitell test returned positive. Bronch fungal smear, Aspergillus
galactomannan, 1,3 B-D-Glucan and AFB smear pending. During hospitalization patient has required multiple transfusions for low PLT and low Hg, including after an episode of bleeding post bronch. She had significant lower back pain. MRI lumbar
spine with acute moderate compression deformities. No definite associated osseous metastasis. She had required increasing doses of opiates to control pain. Given transfusion dependent MDS, recurrent hospitalizations for neutropenic fever and
difficulty in pain control, patient was appropriate candidate for [facility] hospice. Following goals of care discussion, with patient's consent, she was transitioned to hospice comfort care. Patient soon passed on [facility] hospice comfort measures.
Condolences extended to family.
Discharge Plan
-
Patient Disposition:
Date/Time
Date/Time: 04/25/25 05:13
Discharge Date and Time
Discharge Date/Time: 04/25/25 05:13
Print Language: SINHALA
--- NOTE | 2025-04-25 08:58 | PTCARENOTE ---
Patient received from Night RN. Patient was pronounced this am, awaiting family to arrive to make final decisions for patient. Cancer Body donation vs cremation. Family POA has decided to cremate the body so that the ashes can be buried
with the patients dog ashes.
== END 2025-04-25 05:13 | disposition expired | DRG 951 ==
LOC: 2 NORTH 13:25
PROVIDERS: ADMITTING PHYSICIAN Student in an Organized Health Care Education/Training Program; ATTENDING PHYSICIAN Internal Medicine
DX: Z51.5 Encounter for palliative care (principal); J18.9 Pneumonia, unspecified organism; R78.81 Bacteremia; D61.818 Other pancytopenia; B95.5 Unspecified streptococcus as the cause of diseases classified elsewhere; Z92.21 Personal history of antineoplastic chemotherapy; Z92.3 Personal history of irradiation; Z85.3 Personal history of malignant neoplasm of breast; D46.9 Myelodysplastic syndrome, unspecified; D70.9 Neutropenia, unspecified; R50.81 Fever presenting with conditions classified elsewhere; G89.29 Other chronic pain; I10 Essential (primary) hypertension